=== PATIENT | male | born 1970 | race African-American/Black ===

== ENCOUNTER 2018-07-14 13:36 | Inpatient (IN) | payer MEDICAID ==
[~2018-07-14] VITALS: Ht 172.7 cm; Wt 63.0 kg
--- NOTE | 2018-07-14 20:20 | NUR ---
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 122/73,84,16,98.4, O2SAT 98%, RESPIRATORY THERAPIST CAME AND SET UP VENTILATOR, MADE PT COMFORTABLE AND REPOSITIONED.
--- NOTE | 2018-07-14 20:20 | NUR ---
PT PLACED ON HT-50 VENT WITH VENT SETTINGS OF A/C 16, VT 550, PEEP +5, FIOW 30%. ALARMS ADJUSTED ACCORDINGLY; ALARMS ARE ON AND FUNCTIONING PROPERLY. PT IS TRACHED WITH A SH. 8 DFEN TRACH. BACK UP TRACH AT AMBU BAG ARE AT BEDSIDE. NEW [place] AND HME SET UP. SUCTION SET UP. SUCTIONED MODERATE AMOUNT OF THICK, YELLOWISH SECRETIONS. NO S/S OF RESPIRATORY DISTRESS NOTED AT THIS TIME. WILL CONTINUE TO MONITOR.
[2018-07-14 22:00] VITALS: BP 122/73
[2018-07-14] MEDS: OSMOLITE 1.2 CAL 1,000 ML LIQUID GT PRN (23:00)
[2018-07-15] VITALS: BP 103/38
[2018-07-15 04:56] VITALS: BP 113/66
--- NOTE | 2018-07-15 05:00 | NUR ---
99.8,97,18,99%,113/66,suctioned moderate amount of pale yellow secretion, no respiratory distress noted,slept on and off,tylenol given for facial grimacing, repositioned and made comfortable.
[2018-07-15] MEDS: ACETAMINOPHEN 325 MG TABLET-SA PATIENTS-PAIN ONLY GT PRN ×2 (05:02→08:02)
--- NOTE | 2018-07-15 07:30 | NUR ---
PT RECEIVED IN BED AFEBRILE, NOT RESPONSIVE TO VERBAL STIMULI, ON VENT @ FIO2 30% , NO RESPIRATORY DISTRESS NOTED TRACH SHILEY 6 CUFFED SECURED/PATENT, GT SITE CLEAN/DRY/NO REDNESS/NO LEAK NOTED. COMA STATUS POST LEFT ANTERIOR CEREBRAL ARTERY INFARCT WITH MIDLINE SHEFT, S/P CRANIETOMY 2104. WILL CONTINUE TO MONITOR.
[2018-07-15 07:38] LABS: *BILIRUBIN,URIN NEGATIVE (NEGATIVE); *BLOOD, URINE 3+ (NEGATIVE); *CLARITY,URINE SLIGHTLY CLOUDY (CLEAR); *COLOR,URINE YELLOW (YELLOW); *KETONES,URINE NEGATIVE (NEGATIVE); LEUKOCYTE ESTERASE ,URINE TRACE (NEGATIVE); NITRITE, URINE NEGATIVE (NEGATIVE); PH,URINE 6.5 (5.0-8.0); UGLUCOSE NEGATIVE (NEGATIVE)
[2018-07-15] MEDS: METOCLOPRAMIDE HCL 5 MG TABLET GT SCH ×2 (07:56→11:47)
[2018-07-15 08:00] VITALS: BP 107/61
[2018-07-15] MEDS: COD LIVER OIL/ZINC OXIDE OINT 113 GM TUBE TOP SCH ×2 (08:01→20:47)
[2018-07-15] MEDS: VITAMINS A AND D OINT TP SCH ×4 (08:01→20:47)
--- NOTE | 2018-07-15 08:05 | NUR ---
TYLENOL 650MG/GT GIVEN D/T TEMP 102.7, COOLING MEASURES ALSO APPLIED, WILL CONT. TO MONITOR, CN AWARE.
[2018-07-15 08:09] LABS: BACTERIA,URINE FEW /HPF (NONE SEEN); RBC,URINE 20-50 /HPF (0-3); SQUAMOUS EPITHELIAL CELL,UR FEW /HPF (NONE SEEN)
--- NOTE | 2018-07-15 08:30 | NUR ---
SEEN AND EXAMINED BY DR LIU AWARE OF PT CONDITION WITH NO NEW ORDERS NOTED.
[2018-07-15] MEDS ORDERED: LISINOPRIL 20 MG TABLET GT SCH (09:00)
[2018-07-15] MEDS ORDERED: LEVETIRACETAM 500 MG/5 ML LIQUID UDC GT SCH (09:00)
[2018-07-15] MEDS ORDERED: ENOXAPARIN SODIUM 40 MG/0.4 ML DISP.SYRIN SQ SCH (09:00)
--- NOTE | 2018-07-15 09:25 | NUR ---
TEMP. 98.7, TYLENOL EFFECTIVE
[2018-07-15 12:30] VITALS: BP 98/59
[2018-07-15] MEDS ORDERED: ACETAMINOPHEN 650 MG/20 ML UDC- SA PATIENTS-PAIN ONLY GT PRN (12:45)
[2018-07-15] MEDS ORDERED: TUBERCULIN,PURIF.PROT.DERIV. 5 TU/0.1 ML TEST ID ONE (12:45)
[2018-07-15] MEDS: CARVEDILOL 6.25 MG TABLET GT SCH ×2 (13:00→17:22)
[2018-07-15] MEDS ORDERED: BISACODYL 10 MG SUPP.RECT RC PRN (13:00)
[2018-07-15] MEDS: METOCLOPRAMIDE HCL 10 MG/10 ML UDC GT SCH ×2 (13:19→17:22)
[2018-07-15] MEDS ORDERED: LORAZEPAM 0.5 MG TABLET PO PRN ×2 (13:30→15:30)
[2018-07-15] MEDS ORDERED: ONDANSETRON HCL 4 MG/5 ML UDC ORAL SOL GT PRN (13:30)
[2018-07-15] MEDS ORDERED: ONDANSETRON HCL 4 MG TABLET GT PRN (13:45)
--- NOTE | 2018-07-15 16:41 | NUR ---
SW tried calling patient's Lisa [phone] but there was no answer. Voicemail box was full, and SW was unable to leave a message. SW tried calling patient's daughter Eduin [phone] but there was no answer. SW left her a voicemail message asking her or patient's to call this SW back in order to schedule a time to meet to complete SW intake assessment and review/obtain signatures for admission paperwork.
--- NOTE | 2018-07-15 16:48 | NUR ---
LESIA received a call back from patient's daughter Eduin [phone] about 5 minutes after this SW left her a voicemail message (see previous SS note). LESIA explained to her that LESIA was trying to get a hold of the patient's Lisa in order to schedule a time to meet to complete the SW intake assessment and review the admission paperwork. Eduin stated that she would let Lisa know to call LESIA back as soon as possible. LESIA thanked Eduin for her assistance.
--- NOTE | 2018-07-15 17:03 | NUR ---
SW received a call back from patient's Lisa. SW explained the reason for her call and asked to schedule a time to meet with the patient's to complete the SW intake assessment and review the admission paperwork. Lisa stated that she does not drive and needs to see when her daughter can bring her to the hospital. Lisa stated that she would coordinate with her daughter and call this SW back. LESIA agreed and stated that this is time-sensitive and if she could come in either tomorrow or the next day, that it would be ideal. Lisa expressed understanding. LESIA thanked Lisa for her time. LESIA will follow up with Lisa if she does not hear back from her.
--- NOTE | 2018-07-15 17:05 | NUR ---
RECEIVED ON CURRENT VENTILATOR SETTINGS OF AC 16, VT 550, FIO2 30% AND PEEP 5. PT IS AWAKE, STABLE AND RESPONSIVE WITH SATURATION OF 98%. SUCTIONED FOR LARGE AMOUNT OF THICK WHITISH SECRETION. TRACH SHILEY NO. [address] AND SECURE WITH BALLOON INFLATED TO MINIMAL LEAK TECHNIQUE. VENT IS WORKING WELL WITH ALL ALARMS ACTIVE.
[2018-07-15 18:08] VITALS: BP 103/64
--- NOTE | 2018-07-15 18:48 | NUR ---
PT WITH NO RESPIRATORY DISTRESS NOTED,HAS TRACH IN PLACE AND PATENCY,VENTILATOR PRESCRIBED SETTING,SUCTIONED NEEDED,ENTERAL FEEDING TOLERATED WELL,NO NAUSEA OR VOMITING NOTED,HOB ELEVATED,TEMP RECHECK 98,NO DISTRESS NOTED.
--- NOTE | 2018-07-15 19:41 | NUR ---
Dr. Alvarez called and ordered CBC, CXR, sputum c&s , blood cultures X 2 15 minutes apart for elevated temperature, noted and carried out.
--- NOTE | 2018-07-15 20:10 | NUR ---
Pt received on HT-50 ventilator with the following settings of AC 16, VT 550, Peep +5, FiO2 30%, no changes to vent settings made at this time. Pt is trached with Shiley 8, trach is secured and is patent. Pt tolerating vent settings well, no signs and symptoms of respiratory distress noted. Suctioned pt with moderate amount of thick pale-yellowish secretions. Vent alarms functioning and audible. Ambu-bag and back-up trach at bedside. Vent plugged in red outlet. Will continue to monitor pt throughout shift.
[2018-07-15] MEDS: LEVETIRACETAM 500 MG/5 ML LIQUID UDC GT SCH (20:45)
[2018-07-15 20:49] VITALS: BP 92/48
[2018-07-15 21:41] LABS: BASOPHILS % (AUTO) 0.6 % (0.0-2.0); EOSINOPHILS # (AUTO) 0.1 K/uL (0.0-0.7); EOSINOPHILS % (AUTO) 2.7 % (0.0-7.0); HEMATOCRIT 28.7 % (36.7-47.1); HEMOGLOBIN 9.4 g/dL (12.5-16.3); LYMPHOCYTES # (AUTO) 2.1 K/uL (20.0-40.0); LYMPHOCYTES % (AUTO) 38.6 % (20.5-51.5); MEAN CORPUSCULAR HEMOGLOBIN 25.9 uug (23.8-33.4); MEAN CORPUSCULAR HGB CONC 33 g/dL (32.5-36.3); MEAN CORPUSCULAR VOLUME 79.2 fL (73.0-96.2); MONOCYTES # (AUTO) 0.4 K/uL (2.0-10.0); MONOCYTES % (AUTO) 7.9 % (0.0-11.0); NEUTROPHILS # (AUTO) 2.7 K/uL (1.8-8.9); NEUTROPHILS % (AUTO) 50.2 % (38.5-71.5); PLATELET COUNT (AUTO) 219 K/uL (152-348); RED BLOOD CELL COUNT(AUTO) 3.62 MIL/uL (4.06-5.63); WHITE BLOOD COUNT (AUTO) 5.3 K/uL (3.6-10.2)
--- NOTE | 2018-07-15 22:03 | NUR ---
Seen H& P notes from Dr. Peterson , no orders noted.
[2018-07-16] VITALS: BP 92/51
--- NOTE | 2018-07-16 03:30 | NUR ---
Treatment done to left side of head surgical incision and Left side of abdomen dry surgical incision.
[2018-07-16 04:00] VITALS: BP 108/78
--- NOTE | 2018-07-16 04:12 | NUR ---
Afebrile, no respiratory distress noted, left side of head surgical incision scab looks dry and left side of abdomen incision looks dry, steri-strips intact and no drainage from site noted, on seizure precaution, kept clean and comfortable.
[2018-07-16] MEDS: LANSOPRAZOLE 30 MG TAB.RAP.DR GT SCH (05:53)
--- NOTE | 2018-07-16 07:41 | NUR ---
PT RECEIVED ON CMV WITH TRACH PROPERLY SECURED AND INTACT. AIRWAY PATENT. PT TOLERATING CURRENT VENT SETTINGS FINE WITH NO EVIDENCE OF RESPIRATORY DISTRESS. BREATH SOUNDS RHONCHI. PRN SUCTIONING PERFORMED. PT HAD MODERATE AMOUNT OF OFF WHITE YELLOWISH SECRETIONS. HEAD OF THE BED ELEVATED. VENT ALARMS SET AND AUDIBLE. VENT PLUGGED IN RED OUTLET. PT COMFORTABLE.
[2018-07-16 08:00] VITALS: BP 100/53
[2018-07-16] MEDS: ENOXAPARIN SODIUM 40 MG/0.4 ML DISP.SYRIN SQ SCH (09:00)
[2018-07-16] MEDS: VITAMINS A AND D OINT TP SCH ×4 (09:00→20:19)
[2018-07-16] MEDS: LISINOPRIL 20 MG TABLET GT SCH (09:00)
[2018-07-16] MEDS: METOCLOPRAMIDE HCL 10 MG/10 ML UDC GT SCH ×3 (09:00→17:08)
[2018-07-16] MEDS: COD LIVER OIL/ZINC OXIDE OINT 113 GM TUBE TOP SCH ×2 (09:00→20:19)
[2018-07-16] MEDS: LEVETIRACETAM 500 MG/5 ML LIQUID UDC GT SCH ×2 (09:00→20:19)
[2018-07-16] MEDS: CARVEDILOL 6.25 MG TABLET GT SCH ×3 (09:00→17:08)
[2018-07-16 13:00] VITALS: BP 102/63
--- NOTE | 2018-07-16 15:15 | NUR ---
SW called patient's Lisa [phone] to follow-up on yesterday's phone conversation (see yesterday's SS note) and see if Lisa was able to coordinate a day/time with her daughter to come to the hospital to meet with this SW in order to review/sign the admission paperwork and complete the psychosocial assessment. Lisa stated that she and her daughter were planning on coming in tomorrow, Tuesday 07/17, but she was unsure of what time. LESIA asked Lisa if she could find out an approximate time of when she will be coming in, because of SW's work hours. SW stated to Lisa that if she and her daughter were planning on coming in the evening, that SW could complete the assessment over the phone with her and then coordinate another time to review the paperwork and obtain her signatures. Lisa stated that she would find out from her daughter and call this SW back. SW agreed.
--- NOTE | 2018-07-16 16:23 | NUR ---
LESIA received a call from a girl named Marci [phone] who identified herself as patient's daughter. Marci wanted to speak with this SW regarding her ability to get medical information about her father when she came to visit him, because she has an estranged relationship with the patient's Lisa and therefore would not be getting updates from her regarding the patient. LESIA explained to Marci that patient's Lisa is the primary contact at this time, and that LESIA has not yet met with her to discuss the family dynamics and any possible restrictions or preferences for who can or cannot obtain information on the patient. At this time, LESIA maintained confidentiality and explained to Marci that LESIA would need to speak with Lisa to discuss guidelines for disclosing information. LESIA also reminded Marci that medical information is not disclosed via telephone to unidentified individuals, regardless of what the caller states may be their relationship to the patient. Marci expressed understanding all that was stated by this LESIA, and thanked LESIA for her time.
[2018-07-16 17:00] VITALS: BP 115/60
--- NOTE | 2018-07-16 19:50 | NUR ---
Pt receive in semi fried position, on continuous mechanical ventilation via trach, and with limited response to verbal stimuli. Pt is of [place] HT-50 vent with ordered settings of A/C-16, VT-550, PEEP+5, FIO2-30%. Tolerating vent settings well. SpO2-99%. Shiley 8 DCT trach is patent and secure. Minimal leak technique used to assess cuff inflation. Sxn'd & lavaged as needed. Sxn'd small amts of white/yellow secretions. HME changed. No respiratory distress noted. Ventilator alarm parameters checked, on and audible. Head of bed elevated. Bag/valve/mask and back up trach at bedside. Vent plugged into red emergency outlet. PPE used. Will continue to monitor.
[2018-07-16 20:00] VITALS: BP 96/43
--- NOTE | 2018-07-16 22:33 | NUR ---
Afebrile, trach intact and patent, connected to vent, no respiratory distress noted, 02 sat @ 98%. gt feeding tolerating well, no residuals noted, treatment done to left side of head incision scab, handled very gently, area is dry. also, Left side of abdomen surgical incision is dry, steri-strips intact and no discharges or drainage noted, Kept clean and comfortable.
[2018-07-17] VITALS: BP 92/49
[2018-07-17] MEDS: OSMOLITE 1.2 CAL 1,000 ML LIQUID GT PRN ×2 (02:08→19:00)
[2018-07-17 04:00] VITALS: BP 117/49
[2018-07-17] MEDS: LANSOPRAZOLE 30 MG TAB.RAP.DR GT SCH (06:14)
--- NOTE | 2018-07-17 07:52 | NUR ---
Pt receive in semi fried position, unable to communicate, responds to physical stimuli.. Continuous mechanical ventilation with vent: HT-50 settings: A/C 16, Vt 550, PEEP +5, FIO2 30%, tolerating settings well, no changes made to settings at this time.. Pt trach: Khushboo 8 DCT, in place and secure with tie.. No respiratory distress noted at this time, will continue to monitor.. Vent alarms functioning normally at this time / on / audible.. BVM / back up trach at bedside, vent plugged in to red emergency outlet..
[2018-07-17 08:54] VITALS: BP 103/56
[2018-07-17] MEDS: CARVEDILOL 6.25 MG TABLET GT SCH ×3 (08:56→16:51)
[2018-07-17] MEDS: LEVETIRACETAM 500 MG/5 ML LIQUID UDC GT SCH ×2 (08:56→21:19)
[2018-07-17] MEDS: METOCLOPRAMIDE HCL 10 MG/10 ML UDC GT SCH ×3 (08:56→16:51)
[2018-07-17] MEDS: LISINOPRIL 20 MG TABLET GT SCH (08:57)
[2018-07-17] MEDS: COD LIVER OIL/ZINC OXIDE OINT 113 GM TUBE TOP SCH ×2 (08:57→21:19)
[2018-07-17] MEDS: VITAMINS A AND D OINT TP SCH ×4 (08:58→21:19)
[2018-07-17] MEDS: ENOXAPARIN SODIUM 40 MG/0.4 ML DISP.SYRIN SQ SCH (08:58)
--- NOTE | 2018-07-17 11:59 | NUR ---
10:30am: LESIA called patient's Lisa [phone] in response to the voicemail message that Lisa had left for this SW yesterday evening. Lisa stated that her daughter was not going to be able to bring Lisa in today to visit patient and meet with LESIA. LESIA then completed the psychosocial assessment with Lisa via telephone. LESIA reminded Lisa that the admission paperwork (Conditions of Admission, [facility] contract, Patient's Rights Acknowledgement, Preferred Intensity of Care, and the Voluntary Prior Express Consent Form) was still outstanding and needed to be signed by her. Lisa stated that she will try and see when the earliest was that she could come to the hospital and let SW know. At this time, Lisa stated that patient's healthcare wishes are to be a Full Code. Lisa stated that she and patient have 3 children together, but that patient also has 5 other children; Lisa expressed not having any visitation restrictions, but stated that she would prefer it if information on the details of the patient's medical condition were only discussed with her. LESIA expressed understanding and stated that as the , she would be the primary contact for the hospital. LESIA stated that she would let the nursing staff know of her request. LESIA informed Lisa about the dental, optometry, and podiatry services available to the subacute patients, and Lisa was in agreement for patient to have these services. LESIA scheduled patient's initial dental appointment/exam for Friday07/20/18 and informed Lisa of the date. LESIA also informed Lisa about the monthly IDT meetings, inviting her to the next IDT meeting [facility] is scheduled for 07/28/18. Lisa stated she will let LESIA know if she would be able to attend. No psychosocial problems identified at this time. However Lisa did become tearful over patient's condition during the phone interview. LESIA provided supportive counseling over the phone and informed Lisa that counseling services and monthly family support group is available for subacute families. Lisa expressed understanding and thanked LESIA for her time.
[2018-07-17 12:37] VITALS: BP 111/57
[2018-07-17 16:00] VITALS: BP 112/53
--- NOTE | 2018-07-17 20:28 | NUR ---
Received pt on HT-50 ventilator with the following settings of AC-16, Vt-550, PEEP+5, FIO2-30%, trached with Shiley#8 DFEN trach, which is in the place and secure properly. No s/s of respiratory distress noted. Airway care done, pt responded to physical stimuli. Resus. bag and back up trach at bedside. Vent and alarms checked and reset.
[2018-07-17 21:00] VITALS: BP 99/50
--- NOTE | 2018-07-18 02:25 | NUR ---
Afebrile, connected to vent , no respiratory distress noted. on seizure precaution, no seizure noted. kept clean and comfortable.
[2018-07-18] MEDS: LANSOPRAZOLE 30 MG TAB.RAP.DR GT SCH (06:04)
--- NOTE | 2018-07-18 07:10 | NUR ---
Trached patient endorsed on HT-50 ventilator with ordered settings of AC 16, VT 550, Peep +5, FiO2 30%. No signs or symptoms of respiratory distress noted at this time. He is trached with Shiley 8 DCT; trach is secured and is patent. Suctioned small to moderate amounts of thick pale-yellowish secretions. Vent circuit and HME changed without complications. Vent alarms functioning and audible. Ambu-bag and back-up trach at bedside. Will continue to monitor throughout shift.
[2018-07-18 08:09] VITALS: BP 93/47
[2018-07-18] MEDS: LISINOPRIL 20 MG TABLET GT SCH (09:00)
[2018-07-18] MEDS: CARVEDILOL 6.25 MG TABLET GT SCH ×2 (09:00→21:29)
[2018-07-18] MEDS: METOCLOPRAMIDE HCL 10 MG/10 ML UDC GT SCH ×3 (09:21→21:34)
[2018-07-18] MEDS: COD LIVER OIL/ZINC OXIDE OINT 113 GM TUBE TOP SCH ×2 (09:23→21:33)
[2018-07-18] MEDS: ENOXAPARIN SODIUM 40 MG/0.4 ML DISP.SYRIN SQ SCH (09:23)
[2018-07-18] MEDS: VITAMINS A AND D OINT TP SCH ×4 (09:23→21:34)
[2018-07-18] MEDS: LEVETIRACETAM 500 MG/5 ML LIQUID UDC GT SCH ×2 (09:24→21:33)
--- NOTE | 2018-07-18 11:44 | NUR ---
Seen and examined by Dr Martinez,aware pt has episodes of low hr and hypotension with new orders noted.
[2018-07-18] MEDS: OSMOLITE 1.2 CAL 1,000 ML LIQUID GT PRN (14:36)
[2018-07-18] MEDS ORDERED: LORAZEPAM 0.5 MG TABLET PO PRN ×2 (16:58→17:00)
[2018-07-18] MEDS ORDERED: CARVEDILOL 6.25 MG TABLET GT SCH (17:00)
[2018-07-18 22:07] VITALS: BP 111/42
[2018-07-19] MEDS: OSMOLITE 1.2 CAL 1,000 ML LIQUID GT PRN ×2 (03:00→18:26)
--- NOTE | 2018-07-19 03:27 | NUR ---
RECEIVED PT ON A MECHANICAL VENTILATOR WITH THE FOLLOWING SETTINGS THAT ARE CHARTED ON THE MECHANICAL VENT NOTES. SUCTIONED SMALL AMOUNTS OF THIN WHITE AND YELLOW SECRETIONS. TRACH IS PATENT AND PROPERLY SECURED WITH TRACH TIES. HME CHANGED. INLINE CATHETER CHANGED. NO COMPLICATIONS. BACK UP TRACH AND AMBU BAG IS BY BEDSIDE. VENTILATOR ALARMS ARE ON AND AUDIBLE. VENTILATOR IS PLUGGED IN THE RED OUTLET. PT IS TOLERATING CURRENT VENTILATOR SETTINGS WELL AT THIS TIME. NO SOB NOTED.
[2018-07-19] MEDS: METOCLOPRAMIDE HCL 10 MG/10 ML UDC GT SCH ×3 (05:02→22:53)
[2018-07-19] MEDS: LANSOPRAZOLE 30 MG TAB.RAP.DR GT SCH (05:02)
[2018-07-19 07:16] LABS: BASOPHILS % (AUTO) 0.3 % (0.0-2.0); EOSINOPHILS # (AUTO) 0.1 K/uL (0.0-0.7); EOSINOPHILS % (AUTO) 1.6 % (0.0-7.0); HEMOGLOBIN 8.7 g/dL (12.5-16.3); LYMPHOCYTES # (AUTO) 1.9 K/uL (20.0-40.0); LYMPHOCYTES % (AUTO) 28.7 % (20.5-51.5); MEAN CORPUSCULAR HEMOGLOBIN 25.5 uug (23.8-33.4); MEAN CORPUSCULAR HGB CONC 32 g/dL (32.5-36.3); MEAN CORPUSCULAR VOLUME 78.8 fL (73.0-96.2); MONOCYTES # (AUTO) 0.6 K/uL (2.0-10.0); MONOCYTES % (AUTO) 8.2 % (0.0-11.0); NEUTROPHILS # (AUTO) 4.1 K/uL (1.8-8.9); NEUTROPHILS % (AUTO) 61.2 % (38.5-71.5); PLATELET COUNT (AUTO) 239 K/uL (152-348); RED BLOOD CELL COUNT(AUTO) 3.43 MIL/uL (4.06-5.63); WHITE BLOOD COUNT (AUTO) 6.8 K/uL (3.6-10.2)
[2018-07-19 07:24] LABS: MAGNESIUM 2.2 mg/dL (1.8-2.4); PHOSPHOROUS 4.1 mg/dL (2.5-4.9)
[2018-07-19 08:07] VITALS: BP 126/61
[2018-07-19] MEDS: LEVETIRACETAM 500 MG/5 ML LIQUID UDC GT SCH ×2 (09:22→21:40)
[2018-07-19] MEDS: CARVEDILOL 6.25 MG TABLET GT SCH ×2 (09:22→21:00)
[2018-07-19] MEDS: VITAMINS A AND D OINT TP SCH ×4 (09:23→21:38)
[2018-07-19] MEDS: COD LIVER OIL/ZINC OXIDE OINT 113 GM TUBE TOP SCH ×2 (09:23→21:38)
[2018-07-19] MEDS: LISINOPRIL 20 MG TABLET GT SCH (09:23)
[2018-07-19] MEDS: ENOXAPARIN SODIUM 40 MG/0.4 ML DISP.SYRIN SQ SCH (09:23)
[2018-07-19 13:34] LABS: BILIRUBIN,TOTAL 0.3 mg/dL (0.2-1.0); POTASSIUM 4.9 mmol/L (3.5-5.1); TOTAL PROTEIN, SERUM 7.1 g/dL (6.4-8.2)
--- NOTE | 2018-07-19 18:05 | NUR ---
RECEIVED ON CURRENT VENTILATOR SETTINGS OF AC 16, VT 550, FIO2 30% AND PEEP 5. PT IS AWAKE, STABLE AND RESPONSIVE ALTHOUGH ASLEEP MOST OF THE DAY TODAY. SUCTIONED FOR MODERATE AMOUNT OF THICK WHITISH SECRETION. TRACH SHILEY NO. [address] AND SECURE. VENT IS WORKING WELL WITH ALL ALARMS ACTIVE.
--- NOTE | 2018-07-19 20:08 | NUR ---
Received pt on HT-50 ventilator with the following settings of AC-16, Vt-550, PEEP+5, FIO2-30%, trached with Shiley#8 DFEN trach, which is in the place and secure properly. No s/s of respiratory distress noted. Airway care done, pt responded to physical stimuli. HME changed. Resus. bag and back up trach at bedside. Vent and alarms checked and reset.
[2018-07-19 22:42] VITALS: BP 89/47
[2018-07-20] MEDS: METOCLOPRAMIDE HCL 10 MG/10 ML UDC GT SCH ×3 (06:23→22:02)
[2018-07-20] MEDS: LANSOPRAZOLE 30 MG TAB.RAP.DR GT SCH (06:30)
[2018-07-20 08:00] VITALS: BP 132/53
--- NOTE | 2018-07-20 08:05 | NUR ---
Pt receive in semi fried position, on continuous mechanical ventilation via trach, and with limited response to verbal stimuli. Pt is of [place] HT-50 vent with ordered settings of A/C-16, VT-550, PEEP+5, FIO2-30%. Tolerating vent settings well. SpO2-98%. C[place] 8 DFEN trach is patent and secure. Minimal leak technique used to assess cuff inflation. Sxn'd & lavaged as needed. Sxn'd small amts of white/yellow secretions. HME changed. No respiratory distress noted. Ventilator alarm parameters checked, on and audible. Head of bed elevated. Bag/valve/mask and back up trach at bedside. Vent plugged into red emergency outlet. PPE used. Will continue to monitor.
[2018-07-20] MEDS: CARVEDILOL 6.25 MG TABLET GT SCH ×2 (09:00→21:30)
[2018-07-20] MEDS: LISINOPRIL 20 MG TABLET GT SCH (09:00)
[2018-07-20] MEDS: LEVETIRACETAM 500 MG/5 ML LIQUID UDC GT SCH ×2 (09:55→21:30)
[2018-07-20] MEDS: VITAMINS A AND D OINT TP SCH ×4 (09:55→21:30)
[2018-07-20] MEDS: COD LIVER OIL/ZINC OXIDE OINT 113 GM TUBE TOP SCH ×2 (09:55→21:30)
[2018-07-20] MEDS: ENOXAPARIN SODIUM 40 MG/0.4 ML DISP.SYRIN SQ SCH (09:56)
--- NOTE | 2018-07-20 11:05 | NUR ---
Seen by Rosalina FIGUEROA with no new order.
--- NOTE | 2018-07-20 12:33 | NUR ---
Dr. Peterson with no new order.
[2018-07-20] MEDS: OSMOLITE 1.2 CAL 1,000 ML LIQUID GT PRN (15:30)
--- NOTE | 2018-07-20 16:57 | NUR ---
Patient seen by dentist Dr. Ybarra today. See Dental Notes for details.
[2018-07-20] MEDS: ACETAMINOPHEN 325 MG TABLET-SA PATIENTS-PAIN ONLY GT PRN (17:33)
--- NOTE | 2018-07-20 19:55 | NUR ---
Received pt on HT-50 vent with current settings of AC 16, VT 550, Peep +5, FiO2 30%, no changes to vent settings made at this time. Pt is trached with Khushboo 8 DFEN trach, which is secured and patent. Pt tolerating vent settings well, no signs and symptoms of respiratory distress noted. Suctioned pt with moderate amount of thick pale-yellowish secretions. Changed HME. Vent alarms functioning and audible. Ambu-bag and back-up trach at bedside. Vent plugged in red outlet. Will continue to monitor pt throughout shift.
[2018-07-20 20:39] VITALS: BP 99/42
[2018-07-21] MEDS: OSMOLITE 1.2 CAL 1,000 ML LIQUID GT PRN ×2 (03:42→20:53)
[2018-07-21] MEDS: METOCLOPRAMIDE HCL 10 MG/10 ML UDC GT SCH ×3 (05:50→21:02)
[2018-07-21] MEDS: LANSOPRAZOLE 30 MG TAB.RAP.DR GT SCH (05:50)
--- NOTE | 2018-07-21 08:41 | NUR ---
Seen by neurologist Dr Suero,no new orders noted.
[2018-07-21] MEDS: COD LIVER OIL/ZINC OXIDE OINT 113 GM TUBE TOP SCH ×2 (09:00→20:55)
[2018-07-21] MEDS: CARVEDILOL 6.25 MG TABLET GT SCH ×2 (09:00→20:55)
[2018-07-21] MEDS: VITAMINS A AND D OINT TP SCH ×4 (09:00→20:55)
[2018-07-21] MEDS: LISINOPRIL 20 MG TABLET GT SCH (09:00)
[2018-07-21] MEDS: ENOXAPARIN SODIUM 40 MG/0.4 ML DISP.SYRIN SQ SCH (09:00)
[2018-07-21] MEDS: LEVETIRACETAM 500 MG/5 ML LIQUID UDC GT SCH ×2 (09:00→20:55)
--- NOTE | 2018-07-21 10:30 | NUR ---
Seen and examined by Rosalina Prieto ,no new orders noted.
--- NOTE | 2018-07-21 14:05 | NUR ---
Pharmacy Review for Upcoming 07/28/18 IDT Meeting Patient admitted 07/14/18 from [place]. 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 Pt was found to be positive on urine tox for methamphetamines Temp 98.9 BP 117/58 HR 92 LABS: (from 07/19/18) Wbc 6.8H/H 8.7/27Plt 239 Na 137K 4.9Cl 104CO2 24BUN/Scr 18/1.0 BS 86Ca 8.6Phos 4.1Mg 2.2 MEDICATION USE REVIEWED: > Pt is not on any anti-psych medications > Pt is on Keppra 500mg q 12hr since admit 07/14/18, no seizures reported; CrCl 82.5 ml/min, dose appropriate per renal fxn > Pt on lovenox 40mg daily for DVT prophylaxis, no signs of bleeding, last plt 239 > Pt on coreg 6.25mg q12hr, lisinopril 20mg daily, hydralazine PRN SBP >160. Last BP 117/58 > Admitted on reglan 5mg q8hr for GI motility/gastroparesis PRN MED USAGE: (since admit 07/14) Tylenol for pain/temp used x 3 (pain) Bisacodyl supp used x0 Miralax PRN used x 0 Hydralazine PRN used x 0 Ativan PRN anxiety/agitation used x 0 NEW ORDERS NOTED: > Initial Rx review, please see above Rx reviewed current medication regimen, will recommend for d/c of reglan if gastroparesis has subsided. Pt now has PEG, tolerating tube feeds per RN. Recommended duration for gastroparesis generally up to 12 wks unless benefit outweigh risks, to ask MD. RNs have also reported pt may have had diarrhea which has now subsided. if were to continue, will rec d/c of laxatives. Noted MD mention of elevated LFTs, possible contributing meds could be reglan, prevacid, coreg, lisinopril which all may potentially elevate LFTs - all are renally and hepatically appropriately dosed at this time. Pt also noted to have possible drug abuse per urine tox screen, may also have been contributing factor. Will follow and recommend adjustments as needed.
--- NOTE | 2018-07-21 14:16 | NUR ---
RECEIVED ON CURRENT VENTILATOR SETTINGS OF AC 16, VT 550, FIO2 30% AND PEEP 5. PT IS AWAKE WITH NO DISTRESS, ALTHOUGH NOTED WITH CONGESTION. SUCTIONED FOR COPIOUS AMOUNT OF THICK PALE YELLOW SECRETION. ALSO DRAINED TUBING FOR EXCESS MUCOUS. TRACH SHILEY NO. [address] AND SECURE. VENT IS WORKING WELL WITH ALL ALARMS ACTIVE.
[2018-07-21 20:22] VITALS: BP 127/60
[2018-07-22] MEDS: METOCLOPRAMIDE HCL 10 MG/10 ML UDC GT SCH ×3 (05:51→22:25)
[2018-07-22] MEDS: LANSOPRAZOLE 30 MG TAB.RAP.DR GT SCH (05:51)
[2018-07-22 08:00] VITALS: BP 129/51
[2018-07-22] MEDS: LEVETIRACETAM 500 MG/5 ML LIQUID UDC GT SCH ×2 (09:10→20:51)
[2018-07-22] MEDS: LISINOPRIL 20 MG TABLET GT SCH (09:10)
[2018-07-22] MEDS: ENOXAPARIN SODIUM 40 MG/0.4 ML DISP.SYRIN SQ SCH (09:10)
[2018-07-22] MEDS: COD LIVER OIL/ZINC OXIDE OINT 113 GM TUBE TOP SCH ×2 (09:10→20:51)
[2018-07-22] MEDS: VITAMINS A AND D OINT TP SCH ×4 (09:10→20:51)
[2018-07-22] MEDS: CARVEDILOL 6.25 MG TABLET GT SCH ×2 (09:10→20:51)
--- NOTE | 2018-07-22 19:55 | NUR ---
PT RECEIVED ON CONTINUOUS VENT AC 16 VT 550 PEEP 5 FIO2 30%. SHILEY 8 TRACH IN PLACED AND SECURED WITH TRACH TIE. BACK UP TRACH AND AMBU BAG AT BEDSIDE. VENT CHECKED AND WORKING WELL. ALARMS WORKING WELL AND CONNECTED TO CALL LIGHT. SUCTION SMALL AMOUNT THICK PALE YELLOW SECRETIONS. NO DISTRESS NOTED AT THIS TIME. WILL CONTINUE TO MONITOR.
[2018-07-22 20:00] VITALS: BP 117/71
[2018-07-23] MEDS: OSMOLITE 1.2 CAL 1,000 ML LIQUID GT PRN ×2 (02:39→22:26)
[2018-07-23] MEDS: LANSOPRAZOLE 30 MG TAB.RAP.DR GT SCH (05:17)
[2018-07-23] MEDS: METOCLOPRAMIDE HCL 10 MG/10 ML UDC GT SCH ×3 (05:17→22:04)
--- NOTE | 2018-07-23 07:12 | NUR ---
PT RECEIVED TRACH TO VENT ON CMV, ON HT-50 VENT ON CURRENT ORDERED SETTINGS, AC 16, VT 550, PEEP +5 AND 30% FIO2. EITAN #8 TRACH IS PATENT AND SECURE. VENT PARAMETERS AND ALARMS CHECKED, ALARMS ARE AUDIBLE. PT IS TOLERATING VENT SETTINGS WELL, NO RESP. DISTRESS NOTED AT THIS TIME. HME CHANGED. AMBU-BAG AND BACK-UP TRACH AT BEDSIDE. VENT PLUGGED INTO RED OUTLET. SUCTION PRN. WILL CONTINUE TO MONITOR.
[2018-07-23 08:00] VITALS: BP 121/54
[2018-07-23] MEDS: CARVEDILOL 6.25 MG TABLET GT SCH ×2 (09:43→20:23)
[2018-07-23] MEDS: VITAMINS A AND D OINT TP SCH ×4 (09:43→20:23)
[2018-07-23] MEDS: LISINOPRIL 20 MG TABLET GT SCH (09:43)
[2018-07-23] MEDS: LEVETIRACETAM 500 MG/5 ML LIQUID UDC GT SCH ×2 (09:43→20:23)
[2018-07-23] MEDS: COD LIVER OIL/ZINC OXIDE OINT 113 GM TUBE TOP SCH ×2 (09:43→20:23)
[2018-07-23] MEDS: ENOXAPARIN SODIUM 40 MG/0.4 ML DISP.SYRIN SQ SCH (09:45)
--- NOTE | 2018-07-23 16:11 | NUR ---
4:05pm: LESIA called patient's Lisa [phone] to follow-up with her regarding the scheduling of a date/time when she would be coming into the hospital to meet with SW in order to review and sign the admission paperwork. LESIA had discussed the need for this on previous telephone conversations with Lisa (see SS notes dated 07/15, 07/16, 07/17). LESIA was unable to reach Lisa and therefore left her a voicemail message asking her to call this SW back in order to schedule a time to meet, and reminded her in the voicemail message that reviewing and signing the admission paperwork was important and time-sensitive. At this time, the admission paperwork, which includes the Conditions of Admission, the [facility] Agreement, the Patient's Rights Acknowledgment, the Voluntary Prior Express Consent form, and the Preferred Intensity of Care, remain unsigned by patient/patient's claims service representative.
--- NOTE | 2018-07-23 19:55 | NUR ---
PT RECEIVED ON CONTINUOUS VENT AC 16 VT 550 PEEP 5 FIO2 30%. TRACH IN PLACED AND SECURED WITH TRACH TIE. BACK UP TRACH AND AMBU BAG AT BEDSIDE. VENT CHECKED AND WORKING WELL. ALARMS WORKING WELL AND CONNECTED TO CALL LIGHT. SUCTION SMALL AMOUNT THICK PALE YELLOW SECRETIONS. NO DISTRESS NOTED AT THIS TIME. WILL CONTINUE TO MONITOR.
[2018-07-23 20:00] VITALS: BP 113/64
[2018-07-24] MEDS: METOCLOPRAMIDE HCL 10 MG/10 ML UDC GT SCH ×3 (05:32→22:02)
[2018-07-24] MEDS: LANSOPRAZOLE 30 MG TAB.RAP.DR GT SCH (05:32)
[2018-07-24 08:00] VITALS: BP 112/58
[2018-07-24] MEDS: CARVEDILOL 6.25 MG TABLET GT SCH ×2 (08:26→21:00)
[2018-07-24] MEDS: LEVETIRACETAM 500 MG/5 ML LIQUID UDC GT SCH ×2 (08:26→21:00)
[2018-07-24] MEDS: LISINOPRIL 20 MG TABLET GT SCH (08:26)
[2018-07-24] MEDS: ENOXAPARIN SODIUM 40 MG/0.4 ML DISP.SYRIN SQ SCH (08:27)
[2018-07-24] MEDS: COD LIVER OIL/ZINC OXIDE OINT 113 GM TUBE TOP SCH ×2 (08:27→21:00)
[2018-07-24] MEDS: VITAMINS A AND D OINT TP SCH ×4 (08:27→21:00)
--- NOTE | 2018-07-24 15:25 | NUR ---
MESSAGE LEFT TO PT'S RE:FLU VACCINE CONSENT.
--- NOTE | 2018-07-24 16:30 | NUR ---
3:35pm: SW has not received a call back from patient's since the message SW left her yesterday regarding the admission paperwork that still needs to be reviewed/signed. SW called patient's daughter Eduin [phone] and was able to speak with her. SW explained to the daughter that patient's admission paperwork still needs to be signed, which are expected to be signed within 48 hours of admission, and asked for her help with coordinating a day/time when she can bring patient's down to the hospital to meet with SW (patient's does not drive and lives in [place]). Patient's daughter expressed understanding and stated that her sister Alexander (patient's other daughter) is more available to assist with bringing patient's to the hospital, and stated that she would talk to her about coordinating a day/time and let SW know. LESIA thanked Hipolito for her time and cooperation. SW to follow-up with the family if SW does not hear back from them. Subacute Director Norman Aguila aware of above.
--- NOTE | 2018-07-24 16:34 | NUR ---
Patient's sister Michelle Alberto had left this SW a voicemail message yesterday wanting to know about patient's medical condition because patient's does not communicate with her, or other family members. This SW and Subacute Director Norman Aguila called Michelle back today at around 3:45pm at [phone] but were unable to connect with her. SW left Michelle a voicemail message asking her to call this SW and Subacute Director back at her earliest convenience.
--- NOTE | 2018-07-24 16:37 | NUR ---
4:10pm: SW and Subacute Director Norman Aguila called patient's daughter Marci back [phone] in response to a voicemail message that she had left this SW. Marci wanted to inquire about patient's medical condition and expressed not being able to obtain much information from the nurses. Both this SW and Subacute Director Norman explained to Marci that after speaking with the patient's , who is the primary contact and apparel trimmings sales representative for the patient, the expressed that it was her wish to limit the disclosure of detailed information about patient's medical condition to just herself. SW also explained that patient's stated that it was fine with her to let family members know such things as "patient is fine" or "there are no changes in patient's condition", however details should only be discussed with her. Marci expressed some frustration with LESIA's response. SW acknowledged and validated Marci's frustrations, however explained to her that at this time the primary contact center analyst was the patient's and that these were the instructions that the hospital staff were following. LESIA and Subacute Director then suggested that LESIA could talk to patient's about coordinating a family conference with the doctor, but that the patient's would need to agree and be present in order for the other family members to also participate. Marci expressed understanding and agreement. LESIA will follow-up with patient's Lisa to discuss the option of a family conference and will then follow-up with Marci with the outcome of this discussion.
--- NOTE | 2018-07-24 18:00 | NUR ---
PT'S CALLED BACK AND CONSENTED FLU VACCINE ADMINISTRATION.
--- NOTE | 2018-07-24 18:41 | NUR ---
PT. SEEN BY DR. LEVY AND WITH NEW ORDERS CARRIED OUT .LEFT SCALP SX SUTURES WERE REMOVED,PROCEDURE WELL TOLERATED. PICTURE WAS TAKEN.PT. NOTED WITH DANDRUFF PATCHES.
--- NOTE | 2018-07-24 19:50 | NUR ---
PT RECEIVED ON CONTINUOUS VENT AC 16 VT 550 PEEP 5 FIO2 30%. TRACH IN PLACED AND SECURED WITH TRACH TIE. BACK UP TRACH AND AMBU BAG AT BEDSIDE. TOLERATING CURRENT VENT SETTINGS AT THIS TIME. VENT CHECKED AND WORKING WELL. ALARMS WORKING WELL AND CONNECTED TO CALL LIGHT. SUCTION SMALL AMOUNT THICK PALE YELLOW SECRETIONS. NO DISTRESS NOTED AT THIS TIME. WILL CONTINUE TO MONITOR.
[2018-07-24 20:00] VITALS: BP 97/58
[2018-07-25] MEDS: LANSOPRAZOLE 30 MG TAB.RAP.DR GT SCH (06:07)
[2018-07-25] MEDS: METOCLOPRAMIDE HCL 10 MG/10 ML UDC GT SCH ×3 (06:07→21:31)
[2018-07-25 06:40] LABS: BASOPHILS % (AUTO) 0.3 % (0.0-2.0); EOSINOPHILS # (AUTO) 0.2 K/uL (0.0-0.7); EOSINOPHILS % (AUTO) 3.5 % (0.0-7.0); HEMATOCRIT 28.6 % (36.7-47.1); HEMOGLOBIN 9.4 g/dL (12.5-16.3); LYMPHOCYTES % (AUTO) 47.8 % (20.5-51.5); MEAN CORPUSCULAR HEMOGLOBIN 26.4 uug (23.8-33.4); MEAN CORPUSCULAR HGB CONC 33 g/dL (32.5-36.3); MONOCYTES # (AUTO) 0.7 K/uL (2.0-10.0); MONOCYTES % (AUTO) 11.5 % (0.0-11.0); NEUTROPHILS # (AUTO) 2.3 K/uL (1.8-8.9); NEUTROPHILS % (AUTO) 36.9 % (38.5-71.5); PLATELET COUNT (AUTO) 316 K/uL (152-348); RED BLOOD CELL COUNT(AUTO) 3.57 MIL/uL (4.06-5.63); WHITE BLOOD COUNT (AUTO) 6.3 K/uL (3.6-10.2)
[2018-07-25 06:55] LABS: BILIRUBIN,TOTAL 0.2 mg/dL (0.2-1.0); CREATININE 1.1 mg/dL (0.6-1.3); MAGNESIUM 2.1 mg/dL (1.8-2.4); PHOSPHOROUS 4.3 mg/dL (2.5-4.9); POTASSIUM 4.6 mmol/L (3.5-5.1); TOTAL PROTEIN, SERUM 7.5 g/dL (6.4-8.2)
--- NOTE | 2018-07-25 07:50 | NUR ---
PT REC'D ON HT-50 VENT, SETTINGS AC16 550VT 30%FIO2 PEEP+5. PT VENT'D VIA TRACHEOSTOMY TUBE, EITAN 8DCT, TRACH CUFF INFLATED, NO LEAK PRESENT, MINIMAL OCCLUDING VOLUME TECH USED, TRACH IS IN PLACE, PATENT AND SECURED WITH TRACH TIES. NO S/S OF SOB/DISTRESS NOTED AT THIS TIME. SXN'D SM/MOD THICK YELLOWISH SECRETIONS. BVM AND BACK UP TRACH AT BEDSIDE. ALARMS AUDIBLE, CHECKED AND RESET. PPE USED. WILL CONTINUE TO MONITOR AND REPORT ANY CHANGES.
[2018-07-25 08:23] VITALS: BP 134/60
[2018-07-25] MEDS: COD LIVER OIL/ZINC OXIDE OINT 113 GM TUBE TOP SCH ×2 (09:00→21:31)
[2018-07-25] MEDS: VITAMINS A AND D OINT TP SCH ×4 (09:00→21:31)
[2018-07-25] MEDS: LISINOPRIL 20 MG TABLET GT SCH (09:00)
[2018-07-25] MEDS: ENOXAPARIN SODIUM 40 MG/0.4 ML DISP.SYRIN SQ SCH (09:00)
[2018-07-25] MEDS: LEVETIRACETAM 500 MG/5 ML LIQUID UDC GT SCH ×2 (09:00→21:31)
[2018-07-25] MEDS: CARVEDILOL 6.25 MG TABLET GT SCH ×2 (09:00→21:31)
--- NOTE | 2018-07-25 18:36 | NUR ---
New orders from Dr. Alvarez were carried out,d/t lovenox not covered by insurance and was d/c and now on heparin 5000 units q 12 hrs for dvt prophylaxis and local tx started for redness on both groins(related to moisture and friction )pt tens to keep both legs very closed.Picture taken.
[2018-07-25 20:00] VITALS: BP 132/68
--- NOTE | 2018-07-25 20:00 | NUR ---
Pt received on HT-50 ventilator with the following settings of AC 16, VT 550, Peep +5, FiO2 30%, no changes to vent settings made at this time. Pt is trached with Shiley 8, trach is secured and is patent. Pt tolerating vent settings well, no signs and symptoms of respiratory distress noted. Suctioned pt with moderate amount of thick pale-yellowish secretions. Vent alarms functioning and audible. Changed HME and suction travis. Ambu-bag and back-up trach at bedside. Vent plugged in red outlet. Will continue to monitor pt throughout shift.
[2018-07-26] MEDS: COD LIVER OIL/ZINC OXIDE OINT 113 GM TUBE TOP SCH ×5 (03:30→21:25)
[2018-07-26] MEDS: METOCLOPRAMIDE HCL 10 MG/10 ML UDC GT SCH ×3 (06:02→21:25)
[2018-07-26] MEDS: LANSOPRAZOLE 30 MG TAB.RAP.DR GT SCH (06:02)
[2018-07-26] MEDS: OSMOLITE 1.2 CAL 1,000 ML LIQUID GT PRN ×2 (06:52→09:14)
[2018-07-26 08:00] VITALS: BP 155/81
[2018-07-26] MEDS ORDERED: HEPARIN SODIUM,PORCINE 5,000 UNITS/ML VIAL SQ SCH (09:00)
[2018-07-26] MEDS: VITAMINS A AND D OINT TP SCH ×4 (09:02→21:25)
[2018-07-26] MEDS: LEVETIRACETAM 500 MG/5 ML LIQUID UDC GT SCH ×2 (09:05→21:25)
[2018-07-26] MEDS: LISINOPRIL 20 MG TABLET GT SCH (09:07)
[2018-07-26] MEDS: CARVEDILOL 6.25 MG TABLET GT SCH ×2 (09:08→21:00)
--- NOTE | 2018-07-26 12:30 | NUR ---
NEW ORDER WAS CARRIED OUT TO PLACE CONDOM CATHETER ON PT. TO MANAGE MOISTURE THAT IS COMPROMISING GROINS SKIN,ALSO NEW ORDER WAS CARRIED OUT FOR NYSTATIN FOR BOTH GROINS REDNESS.
--- NOTE | 2018-07-26 12:30 | NUR ---
HEPARIN IS NOT COVERED AT ALL BY INSURANCE AND [facility] WILL KEEP PROVIDING IT.
--- NOTE | 2018-07-26 12:30 | NUR ---
NEW ORDER CARRIED OUT FROM DR. REED TO CONT.HEPARIN AND START LOVENOX WHEN PRIOR AUTHORIZATION IS AVAILABLE (SEE ORDER) AND INSURANCE COVERS IT.IM MAIN TIME [facility] WILL PROVIDE HEPARIN SUKHDEEP PHARMACIST ALLOWED IT ,[employer] ALSO AWARE AND O.K WITH IT.
[2018-07-26 20:38] VITALS: BP 98/44
[2018-07-26] MEDS: HEPARIN SODIUM,PORCINE 5,000 UNITS/ML VIAL SQ SCH (21:00)
[2018-07-26] MEDS: NYSTATIN CREAM 30 GM TUBE TP SCH (21:25)
[2018-07-27] MEDS: LANSOPRAZOLE 30 MG TAB.RAP.DR GT SCH (06:09)
[2018-07-27] MEDS: METOCLOPRAMIDE HCL 10 MG/10 ML UDC GT SCH ×3 (06:09→22:39)
[2018-07-27 07:35] LABS: BASOPHILS # (AUTO) 0.1 K/uL (0.0-8.0); EOSINOPHILS # (AUTO) 0.1 K/uL (0.0-0.7); NEUTROPHILS # (AUTO) 3.6 K/uL (1.8-8.9); RED BLOOD CELL COUNT(AUTO) 4.02 MIL/uL (4.06-5.63)
[2018-07-27 07:56] LABS: BASOPHILS % (AUTO) 1.2 % (0.0-2.0); EOSINOPHILS % (AUTO) 1.4 % (0.0-7.0); HEMOGLOBIN 10.6 g/dL (12.5-16.3); LYMPHOCYTES # (AUTO) 4.3 K/uL (20.0-40.0); LYMPHOCYTES % (AUTO) 48.6 % (20.5-51.5); MEAN CORPUSCULAR HEMOGLOBIN 26.3 uug (23.8-33.4); MEAN CORPUSCULAR HGB CONC 33 g/dL (32.5-36.3); MEAN CORPUSCULAR VOLUME 79.4 fL (73.0-96.2); MONOCYTES # (AUTO) 0.7 K/uL (2.0-10.0); MONOCYTES % (AUTO) 8.2 % (0.0-11.0); NEUTROPHILS % (AUTO) 40.6 % (38.5-71.5); WHITE BLOOD COUNT (AUTO) 8.9 K/uL (3.6-10.2)
[2018-07-27 07:57] LABS: HEMATOCRIT 31.9 % (36.7-47.1); PLATELET COUNT (AUTO) 407 K/uL (152-348)
[2018-07-27 08:00] VITALS: BP 133/93
[2018-07-27] MEDS: CARVEDILOL 6.25 MG TABLET GT SCH ×2 (08:51→21:20)
[2018-07-27] MEDS: LEVETIRACETAM 500 MG/5 ML LIQUID UDC GT SCH ×2 (08:52→21:20)
[2018-07-27] MEDS: LISINOPRIL 20 MG TABLET GT SCH (08:53)
[2018-07-27 08:55] LABS: CREATININE 1.2 mg/dL (0.6-1.3); POTASSIUM 4.6 mmol/L (3.5-5.1)
[2018-07-27] MEDS: COD LIVER OIL/ZINC OXIDE OINT 113 GM TUBE TOP SCH ×4 (08:56→21:20)
[2018-07-27] MEDS: VITAMINS A AND D OINT TP SCH ×4 (08:58→21:20)
[2018-07-27] MEDS: NYSTATIN CREAM 30 GM TUBE TP SCH ×2 (08:58→21:20)
[2018-07-27] MEDS: HEPARIN SODIUM,PORCINE 5,000 UNITS/ML VIAL SQ SCH ×2 (08:59→21:20)
--- NOTE | 2018-07-27 09:18 | NUR ---
RECEIVED STABLE ON CURRENT VENTILATOR SETTINGS OF AC 16, VT 550, FIO2 30% AND PEEP 5. STABLE WITH NO DISTRESS [id number]% THIS MORNING. SUCTIONED FOR MODERATE AMOUNT OF THICK WHITISH SECRETION. TRACH SHILEY NO. [address] AND SECURE. VENT IS WORKING WELL WITH ALL ALARMS ACTIVE. CHANGED HUMIDIFIER FILTER.
--- NOTE | 2018-07-27 14:00 | NUR ---
SEEN BY DR REED AND NEW ORDER CARRIED OUT.
--- NOTE | 2018-07-27 17:40 | NUR ---
SEEN BY DR. ACOSTA (NEUROLOGIST) AND WITH NNO.
[2018-07-27] MEDS: OSMOLITE 1.2 CAL 1,000 ML LIQUID GT PRN (18:53)
[2018-07-27 20:03] VITALS: BP 124/68
--- NOTE | 2018-07-27 20:48 | NUR ---
Received pt on HT-50 ventilator with the following settings of AC-16, Vt-550, PEEP+5, FIO2-30%, trached with Shiley#8 DFEN trach, which is in the place and secure properly. No respiratory distress noted. Airway care done, pt responded to physical stimuli. HME changed. Resus. bag and back up trach at bedside. Vent and alarms checked and reset.
[2018-07-28] MEDS: METOCLOPRAMIDE HCL 10 MG/10 ML UDC GT SCH ×3 (06:00→22:55)
[2018-07-28] MEDS: LANSOPRAZOLE 30 MG TAB.RAP.DR GT SCH (06:00)
[2018-07-28 08:00] VITALS: BP 104/61
[2018-07-28] MEDS: CARVEDILOL 6.25 MG TABLET GT SCH ×2 (09:25→20:29)
[2018-07-28] MEDS: LEVETIRACETAM 500 MG/5 ML LIQUID UDC GT SCH ×2 (09:25→20:29)
[2018-07-28] MEDS: BACLOFEN 10 MG TABLET PO SCH ×3 (09:26→17:24)
[2018-07-28] MEDS: LISINOPRIL 20 MG TABLET GT SCH (09:26)
[2018-07-28] MEDS: COD LIVER OIL/ZINC OXIDE OINT 113 GM TUBE TOP SCH ×4 (09:27→20:32)
[2018-07-28] MEDS: NYSTATIN CREAM 30 GM TUBE TP SCH ×2 (09:29→20:32)
[2018-07-28] MEDS: VITAMINS A AND D OINT TP SCH ×4 (09:29→20:32)
[2018-07-28] MEDS: HEPARIN SODIUM,PORCINE 5,000 UNITS/ML VIAL SQ SCH ×2 (09:58→20:31)
[2018-07-28] MEDS: OSMOLITE 1.2 CAL 1,000 ML LIQUID GT PRN (13:00)
--- NOTE | 2018-07-28 15:16 | NUR ---
INTERDISCIPLINARY PLAN OF CARE CONFERENCE was held today. Patient's family was invited to the meeting, but they were unable to attend. Dr. Muro and the Interdisciplinary Team reviewed the current plan of care in detail. RN reported on patient's current medical condition and medications. No major changes were reported since admission on 07/14/18. See RN IDT conference notes. SW reported on family dynamics, which SW will continue to monitor and provide interventions as needed. See also all other disciplines IDT notes and physician's progress notes for additional details.
--- NOTE | 2018-07-28 15:29 | NUR ---
Pharmacy Update from today's 07/28/18 IDT Meeting Patient admitted 07/14/18 from [place]. 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 Pt was found to be positive on urine tox for methamphetamines Temp 97.8 BP 104/61 HR 75 LABS: (from 07/27/18) Wbc 8.9H/H 10.6Plt 407 Na 133K 4.6Cl 99CO2 26BUN/Scr 23/1.2 BS 105Ca 9.7 MEDICATION USE REVIEWED: > Pt is not on any anti-psych medications > Pt is on Keppra 500mg q 12hr since admit 07/14/18, no seizures reported; CrCl 68 ml/min, dose appropriate per renal fxn > Pt was on lovenox 40mg daily, changed to heparin 5000units q12h per insurance. Last plt 407 > Pt on coreg 6.25mg q12hr, lisinopril 20mg daily, hydralazine PRN SBP >160. Last BP 104/61 > Admitted on reglan 5mg q8hr for GI motility/gastroparesis. Rx rec for d/c if resolved, however primary MD (JANY) refused, stating pt is to continue d/t continued need. MD aware of pt's LFTs as well, may ask for GI consult if does not resolve PRN MED USAGE: (since admit 07/14) Tylenol for pain/temp used x 3 (pain) Bisacodyl supp used x0 Miralax PRN used x 0 Hydralazine PRN used x 0 Ativan PRN anxiety/agitation used x 0 NEW ORDERS NOTED: > Rx rec for d/c of reglan scheduled for gastroparesis if pt was clinically ok per MD. MD (JANY) refused, stating pt continues to need it, and is aware of LFTs. May consider GI consult if does not resolve > Lovenox changed to heparin per insurance, pending PA for lovenox. Patient reviewed and discussed in detail at IDT, Rx reported rec for d/c of reglan and update from primary at this time not to d/c. Rx mentioned pt does have increase in SCr, LFTs, plt as well now, recommended that if it were not to resolve, that lansoprazole could be potential medication to hold. Others may include coreg or lisinopril, however primary MD has mentioned possibility for GI eval for this issue. Will continue to follow labs and pt condition at this time.
[2018-07-28 20:09] VITALS: BP 131/51
[2018-07-29] MEDS: OSMOLITE 1.2 CAL 1,000 ML LIQUID GT PRN ×2 (02:53→22:40)
--- NOTE | 2018-07-29 04:47 | NUR ---
patient received on a ht-50 ventilator with the following settings that are charted on the mechanical ventilator notes. hme changed. suctioned a small amount of thick yellow secretions. trach is patent and secured with trach ties. ventilator is plugged in the red emergency outlet. vent alarms checked and they are on and audible. back up trach and ambu bag is by bedside. patient is tolerating current ventilator setting well with no sob noted at this time.
[2018-07-29] MEDS: LANSOPRAZOLE 30 MG TAB.RAP.DR GT SCH (06:13)
[2018-07-29] MEDS: METOCLOPRAMIDE HCL 10 MG/10 ML UDC GT SCH ×3 (06:13→22:24)
[2018-07-29 08:00] VITALS: BP 120/54
[2018-07-29] MEDS: CARVEDILOL 6.25 MG TABLET GT SCH ×2 (08:34→21:00)
[2018-07-29] MEDS: LISINOPRIL 20 MG TABLET GT SCH (08:34)
[2018-07-29] MEDS: LEVETIRACETAM 500 MG/5 ML LIQUID UDC GT SCH ×2 (08:34→21:00)
[2018-07-29] MEDS: BACLOFEN 10 MG TABLET PO SCH ×3 (08:35→16:55)
[2018-07-29] MEDS: COD LIVER OIL/ZINC OXIDE OINT 113 GM TUBE TOP SCH ×2 (08:35→21:00)
[2018-07-29] MEDS: HEPARIN SODIUM,PORCINE 5,000 UNITS/ML VIAL SQ SCH ×2 (08:36→21:00)
[2018-07-29] MEDS: NYSTATIN CREAM 30 GM TUBE TP SCH ×2 (08:36→21:00)
--- NOTE | 2018-07-29 14:06 | NUR ---
2:05pm: LESIA tried calling patient's Lisa to follow-up on the voicemail message that SW had left her last week. LESIA called [phone], but was unable to connect with Lisa. Unable to leave message as voicemail box was full.
--- NOTE | 2018-07-29 14:15 | NUR ---
2:15pm: LESIA called patient's Lisa's alternate phone number [phone] and was also unable to connect with her. LESIA left Lisa a voicemail message (last message left last 07/23, with no call back from Lisa). LESIA stated in the voicemail that LESIA was following up with Lisa regarding scheduling a day/time to meet in order for Lisa to review and sign the admission paperwork. LESIA reminded Lisa in the voicemail message, as LESIA had done previously, that the admission paperwork needs to be signed within 48 hours of admission, and that it has still not been signed. At this time, the following forms for the patient remain unsigned: Conditions of Admission, CDPH Agreement, Patient's Rights Acknowledgement, Preferred Intensity of Care, and the Voluntary Prior Express Consent Form. LESIA also included in the voicemail the need to talk to Lisa about scheduling a family conference with the doctor. LESIA asked Lisa via voicemail message to call this SW back in order to schedule a day/time to meet for the paperwork and to discuss the possible scheduling of a family conference.
--- NOTE | 2018-07-29 18:30 | NUR ---
Seen and examined by Dr Muro,no new orders.
[2018-07-29 20:00] VITALS: BP 105/63
--- NOTE | 2018-07-29 20:05 | NUR ---
PT RECEIVED ON CONTINUOUS VENT AC 16 VT 550 PEEP 5 FIO2 30%. TRACH IN PLACED AND SECURED WITH TRACH TIE. BACK UP TRACH AND AMBU BAG AT BEDSIDE. SUCTION SMALL AMOUNT THICK PALE YELLOW SECRETIONS. VENT CHECKED, ALARMS WORKING WELL AND AUDIBLE. NO DISTRESS NOTED AT THIS TIME. WILL CONTINUE TO MONITOR.
[2018-07-30] MEDS: LANSOPRAZOLE 30 MG TAB.RAP.DR GT SCH (06:24)
[2018-07-30] MEDS: METOCLOPRAMIDE HCL 10 MG/10 ML UDC GT SCH ×3 (06:24→22:11)
[2018-07-30 08:00] VITALS: BP 127/63
[2018-07-30] MEDS: LEVETIRACETAM 500 MG/5 ML LIQUID UDC GT SCH ×2 (09:46→21:00)
[2018-07-30] MEDS: CARVEDILOL 6.25 MG TABLET GT SCH ×2 (09:46→21:00)
[2018-07-30] MEDS: LISINOPRIL 20 MG TABLET GT SCH (09:47)
[2018-07-30] MEDS: BACLOFEN 10 MG TABLET PO SCH ×3 (09:47→17:40)
[2018-07-30] MEDS: HEPARIN SODIUM,PORCINE 5,000 UNITS/ML VIAL SQ SCH ×2 (09:55→21:00)
[2018-07-30] MEDS: NYSTATIN CREAM 30 GM TUBE TP SCH ×2 (09:56→21:00)
[2018-07-30] MEDS: COD LIVER OIL/ZINC OXIDE OINT 113 GM TUBE TOP SCH ×2 (09:56→21:00)
[2018-07-30] MEDS: OSMOLITE 1.2 CAL 1,000 ML LIQUID GT PRN (14:43)
[2018-07-30] MEDS ORDERED: ACETAMINOPHEN 650 MG/20 ML UDC- SA PATIENTS-PAIN ONLY GT PRN (16:00)
[2018-07-30 18:23] VITALS: BP 115/74
--- NOTE | 2018-07-30 20:05 | NUR ---
Pt rec'd on HT-50 on settings of AC 16, VT 550, PEEP+5 and FIO2-30%. No resp. distress noted. Shiley 8 DCT is patent and secure; B/U Shiley 8 and BVM are at bedside. No resp. distress noted at this time. Pt to be monitored throughout the shift and PRN SX. HT-50 alarm parameters have been checked and remain audible.
[2018-07-30 20:29] VITALS: BP 131/65
[2018-07-31 04:16] VITALS: BP 106/64
[2018-07-31] MEDS: ACETAMINOPHEN 325 MG TABLET-SA PATIENTS-PAIN ONLY GT PRN (04:23)
[2018-07-31] MEDS: OSMOLITE 1.2 CAL 1,000 ML LIQUID GT PRN (06:00)
[2018-07-31] MEDS: METOCLOPRAMIDE HCL 10 MG/10 ML UDC GT SCH ×3 (06:11→22:17)
[2018-07-31] MEDS: LANSOPRAZOLE 30 MG TAB.RAP.DR GT SCH (06:11)
[2018-07-31 08:04] VITALS: BP 141/79
[2018-07-31] MEDS: LEVETIRACETAM 500 MG/5 ML LIQUID UDC GT SCH ×2 (08:34→20:43)
[2018-07-31] MEDS: CARVEDILOL 6.25 MG TABLET GT SCH ×2 (08:34→20:43)
[2018-07-31] MEDS: LISINOPRIL 20 MG TABLET GT SCH (08:34)
[2018-07-31] MEDS: BACLOFEN 10 MG TABLET PO SCH ×3 (08:34→17:27)
[2018-07-31] MEDS: NYSTATIN CREAM 30 GM TUBE TP SCH ×2 (08:35→20:43)
[2018-07-31] MEDS: HEPARIN SODIUM,PORCINE 5,000 UNITS/ML VIAL SQ SCH ×2 (08:35→21:00)
[2018-07-31] MEDS: COD LIVER OIL/ZINC OXIDE OINT 113 GM TUBE TOP SCH ×2 (08:35→20:43)
--- NOTE | 2018-07-31 09:08 | NUR ---
148/71 Addendum: 07/31/18 at 0908 by ROJELIO MCGEE LVN Amended: Links added.
[2018-07-31 13:00] VITALS: BP 138/68
[2018-07-31 17:26] VITALS: BP 127/62
[2018-07-31 20:11] VITALS: BP 124/67
--- NOTE | 2018-07-31 21:30 | NUR ---
RECEIVED PT ON CURRENT VENT SETTING. ALARM ON AND WORKING. BACK UP TRACH AND AMBU BAG AT PT BEDSIDE. HME CHANGED PRN AND TX NOT INDICATED AT THIS TIME. NO SOB NOTED. SX PRN. WILL CONT TO MONITOR.
[2018-08-01] MEDS: OSMOLITE 1.2 CAL 1,000 ML LIQUID GT PRN ×2 (00:47→14:15)
[2018-08-01] MEDS: METOCLOPRAMIDE HCL 10 MG/10 ML UDC GT SCH ×3 (06:23→21:41)
[2018-08-01] MEDS: LANSOPRAZOLE 30 MG TAB.RAP.DR GT SCH (06:23)
[2018-08-01 06:59] VITALS: BP 120/64
[2018-08-01 08:05] VITALS: BP 140/85
[2018-08-01] MEDS: LEVETIRACETAM 500 MG/5 ML LIQUID UDC GT SCH ×2 (08:33→21:41)
[2018-08-01] MEDS: CARVEDILOL 6.25 MG TABLET GT SCH ×2 (08:33→21:40)
[2018-08-01] MEDS: LISINOPRIL 20 MG TABLET GT SCH (08:34)
[2018-08-01] MEDS: BACLOFEN 10 MG TABLET PO SCH ×3 (08:34→17:27)
[2018-08-01] MEDS: NYSTATIN CREAM 30 GM TUBE TP SCH ×2 (08:35→21:41)
[2018-08-01] MEDS: COD LIVER OIL/ZINC OXIDE OINT 113 GM TUBE TOP SCH ×2 (08:35→21:41)
[2018-08-01] MEDS: HEPARIN SODIUM,PORCINE 5,000 UNITS/ML VIAL SQ SCH ×2 (08:38→21:00)
[2018-08-01 13:00] VITALS: BP 122/66
[2018-08-01 17:00] VITALS: BP 98/61
[2018-08-01 21:07] VITALS: BP 119/65
[2018-08-02 01:07] VITALS: BP 120/69
[2018-08-02 05:00] VITALS: BP 117/87
[2018-08-02] MEDS: OSMOLITE 1.2 CAL 1,000 ML LIQUID GT PRN ×3 (05:44→21:03)
[2018-08-02] MEDS: METOCLOPRAMIDE HCL 10 MG/10 ML UDC GT SCH ×3 (05:44→21:04)
[2018-08-02] MEDS: LANSOPRAZOLE 30 MG TAB.RAP.DR GT SCH (06:00)
--- NOTE | 2018-08-02 06:35 | NUR ---
PREVACID 30MG TABLET NOT AVAILABLE
[2018-08-02 08:05] VITALS: BP 115/54
[2018-08-02] MEDS: CARVEDILOL 6.25 MG TABLET GT SCH ×2 (08:34→21:00)
[2018-08-02] MEDS: LEVETIRACETAM 500 MG/5 ML LIQUID UDC GT SCH ×2 (08:34→21:03)
[2018-08-02] MEDS: LISINOPRIL 20 MG TABLET GT SCH (08:35)
[2018-08-02] MEDS: NYSTATIN CREAM 30 GM TUBE TP SCH ×2 (08:37→21:04)
[2018-08-02] MEDS: HEPARIN SODIUM,PORCINE 5,000 UNITS/ML VIAL SQ SCH ×2 (08:37→21:06)
[2018-08-02] MEDS: COD LIVER OIL/ZINC OXIDE OINT 113 GM TUBE TOP SCH ×2 (08:37→21:03)
[2018-08-02 13:00] VITALS: BP 131/72
[2018-08-02 17:00] VITALS: BP 127/74
[2018-08-02 23:00] VITALS: BP 102/61
[2018-08-03] MEDS: LANSOPRAZOLE 30 MG TAB.RAP.DR GT SCH ×2 (06:00→06:01)
[2018-08-03] MEDS: METOCLOPRAMIDE HCL 10 MG/10 ML UDC GT SCH ×3 (06:01→22:09)
[2018-08-03 08:00] VITALS: BP 122/73
[2018-08-03] MEDS: LISINOPRIL 20 MG TABLET GT SCH (09:11)
[2018-08-03] MEDS: LEVETIRACETAM 500 MG/5 ML LIQUID UDC GT SCH ×2 (09:11→20:35)
[2018-08-03] MEDS: CARVEDILOL 6.25 MG TABLET GT SCH ×2 (09:11→20:35)
[2018-08-03] MEDS: HEPARIN SODIUM,PORCINE 5,000 UNITS/ML VIAL SQ SCH ×2 (09:12→20:38)
[2018-08-03] MEDS: NYSTATIN CREAM 30 GM TUBE TP SCH ×2 (09:12→20:37)
[2018-08-03] MEDS: COD LIVER OIL/ZINC OXIDE OINT 113 GM TUBE TOP SCH ×2 (09:12→20:37)
--- NOTE | 2018-08-03 17:38 | NUR ---
CHANGED VENTILATOR CIRCUIT TODAY.REMAIN STABLE ON CURRENT VENTILATOR SETTINGS OF AC 16, VT 550, FIO2 30% AND PEEP 5. SUCTIONED FOR MODERATE AMOUNT OF THICK WHITISH SECRETION. TRACH SHILEY NO. [address] AND SECURE. VENT IS WORKING WELL WITH ALL ALARMS ACTIVE. CHANGED HUMIDIFIER FILTER.
--- NOTE | 2018-08-03 20:00 | NUR ---
Received pt on HT-50 vent with current settings of AC 16, VT 550, Peep +5, FiO2 30%, no changes to vent settings made at this time. Pt is trached with [place]ushboo 8 trach, which is secured and patent. Pt tolerating vent settings well, no signs and symptoms of respiratory distress noted. Suctioned pt with moderate amount of thick pale-yellowish secretions. Changed HME. Vent alarms functioning and audible. Ambu-bag and back-up trach at bedside. Vent plugged in red outlet. Will continue to monitor pt throughout shift.
[2018-08-03 20:16] VITALS: BP 126/76
--- NOTE | 2018-08-04 04:00 | NUR ---
Noted with dry scaly skin in between thighs. No redness noted or discomfort( not incontinence related). Treatment initiated with: cleanse with NS, pat to dry and applied A&D ointment in between thighs Q shift x 7days. Will monitor progress.
[2018-08-04] MEDS: METOCLOPRAMIDE HCL 10 MG/10 ML UDC GT SCH ×3 (05:19→21:44)
[2018-08-04] MEDS: LANSOPRAZOLE 30 MG TAB.RAP.DR GT SCH (05:19)
[2018-08-04 08:00] VITALS: BP 124/69
[2018-08-04] MEDS: LISINOPRIL 20 MG TABLET GT SCH (09:08)
[2018-08-04] MEDS: CARVEDILOL 6.25 MG TABLET GT SCH ×2 (09:08→21:00)
[2018-08-04] MEDS: LEVETIRACETAM 500 MG/5 ML LIQUID UDC GT SCH ×2 (09:08→21:43)
[2018-08-04] MEDS: HEPARIN SODIUM,PORCINE 5,000 UNITS/ML VIAL SQ SCH ×2 (09:09→21:49)
[2018-08-04] MEDS: NYSTATIN CREAM 30 GM TUBE TP SCH ×2 (09:09→21:44)
[2018-08-04] MEDS: VITAMINS A AND D OINT TP SCH ×2 (09:09→21:44)
[2018-08-04] MEDS: COD LIVER OIL/ZINC OXIDE OINT 113 GM TUBE TOP SCH ×2 (09:09→21:44)
--- NOTE | 2018-08-04 13:32 | NUR ---
LESIA received a voicemail message from patient's daughter Marci. LESIA called Marci back [phone]. Marci wanted to follow up with LESIA regarding the possibility of a family conference that was discussed previously with Marci when this SW and Subacute Director Norman Aguila had spoken with her. LESIA had explained during the previous conversation that SW would have to discuss the option of a family conference with the patient's , and then schedule it accordingly. LESIA informed Marci that SW has not received calls back from patient's after several attempts of trying to contact her, and voicemail messages that LESIA had left. Marci expressed understanding, and stated that she too hasn't been able to reach patient's . LESIA stated that she will reach out to the other family members once contact has been established with patient's . Marci expressed agreement and thanked LESIA for her time.
--- NOTE | 2018-08-04 17:14 | NUR ---
5:10pm: LESIA called patient's Lisa [phone] in response to a voicemail message that Lisa had left this SW earlier today. Lisa stated that she will be coming in tomorrow afternoon to visit the patient and meet with this SW in order to review/sign the admission paperwork. LESIA agreed with Lisa.
--- NOTE | 2018-08-04 17:41 | NUR ---
RECEIVED STABLE ON CURRENT VENTILATOR SETTINGS OF AC 16, VT 550, FIO2 30% AND PEEP 5. STABLE WITH NO DISTRESS SATURATING 98%. SUCTIONED FOR MODERATE AMOUNT OF THICK WHITISH SECRETION. TRACH SHILEY NO. [address] AND SECURE. VENT IS WORKING WELL WITH ALL ALARMS ACTIVE. CHANGED HUMIDIFIER FILTER.
--- NOTE | 2018-08-04 19:17 | NUR ---
Seen by Dr Estrada ,neurologist,with new orders noted,consent obtained from Lisa blue's .
[2018-08-04 20:00] VITALS: BP 99/62
--- NOTE | 2018-08-04 20:05 | NUR ---
Pt received on HT-50 ventilator with the following settings of AC 16, VT 550, Peep +5, FiO2 30%, no changes to vent settings made at this time. Pt is trached with Shiley 8, trach is secured and is patent. Pt tolerating vent settings well, no signs and symptoms of respiratory distress noted. Suctioned pt with moderate amount of thick pale-yellowish secretions. Vent alarms functioning and audible. Changed HME. Ambu-bag and back-up trach at bedside. Vent plugged in red outlet. Will continue to monitor pt throughout shift.
[2018-08-04] MEDS ORDERED: INFLUENZA VACCINE 2018-2019 0.5 ML DISP.SYRIN IM ONE (21:00)
--- NOTE | 2018-08-04 22:00 | NUR ---
Flu vaccine was given tonight, afebrile, no adverse reactions noted, will continue monitor.
[2018-08-05] MEDS: METOCLOPRAMIDE HCL 10 MG/10 ML UDC GT SCH ×3 (05:30→21:13)
[2018-08-05] MEDS: OMEPRAZOLE 20 MG CAPSULE.DR GT SCH (05:30)
[2018-08-05] MEDS: OSMOLITE 1.2 CAL 1,000 ML LIQUID GT PRN ×2 (06:46→21:13)
[2018-08-05 08:00] VITALS: BP 124/55
--- NOTE | 2018-08-05 09:00 | NUR ---
Seen and examined by Dr Peterson ,no new orders noted.
[2018-08-05] MEDS: HEPARIN SODIUM,PORCINE 5,000 UNITS/ML VIAL SQ SCH ×2 (09:05→20:43)
[2018-08-05] MEDS: CARVEDILOL 6.25 MG TABLET GT SCH ×2 (09:05→20:42)
[2018-08-05] MEDS: LEVETIRACETAM 500 MG/5 ML LIQUID UDC GT SCH ×2 (09:05→20:43)
[2018-08-05] MEDS: LISINOPRIL 20 MG TABLET GT SCH (09:05)
[2018-08-05] MEDS: COD LIVER OIL/ZINC OXIDE OINT 113 GM TUBE TOP SCH ×2 (09:05→20:43)
[2018-08-05] MEDS: VITAMINS A AND D OINT TP SCH ×2 (09:06→20:43)
[2018-08-05] MEDS: NYSTATIN CREAM 30 GM TUBE TP SCH (09:06)
--- NOTE | 2018-08-05 14:07 | NUR ---
1:30pm: LESIA met with patient's Lisa and daughter Alexander. The following paperwork were reviewed and signed by patient's : Conditions of Admission, Patient's Rights Acknowledgement, Documentation of Preferred Intensity of Care, CDPH Agreement, and Voluntary Prior Express Consent Form. LESIA provided Lisa with a copy of the patient's Bill of Rights. SW also provided Lisa with a copy of all the above mentioned forms. LESIA informed patient's and daughter that patient is scheduled for IDT meetings on 08/18 at 11am and 08/25 at 11am. Daughter stated that she would attend, and patient's requested to be on speaker phone. The option of having a family conference with the doctor where patient's and all family members, including patient's siblings and other children, can attend or be on speaker phone to hear about patient's condition/prognosis was discussed. Patient's stated that she would not like to have this meeting at this time because "there are too many opinions right now and I cannot hear all that". LESIA acknowledged patient's 's response. Patient's stated that she prefers for details of patient's condition updates to continue to be discussed only with her, and her 2 children Alexander and Eduin. SW acknowledged her wishes and stated that she would remind the nurses of her wishes.
--- NOTE | 2018-08-05 18:15 | NUR ---
pt is afebrile,no adverse reaction noted from flu vaccine,on close observation.
[2018-08-05 20:00] VITALS: BP 112/58
--- NOTE | 2018-08-05 23:57 | NUR ---
S/p Flu vaccine administration, afebrile, no adverse reactions noted, no signs of any distress.
--- NOTE | 2018-08-06 01:17 | NUR ---
Received 5 tablets RITALIN 5 mg from [facility], will start medication in am, added monitoring for adverse side effects and monitring for effectiveness of RITALIN.
[2018-08-06] MEDS: OMEPRAZOLE 20 MG CAPSULE.DR GT SCH (05:21)
[2018-08-06] MEDS: METOCLOPRAMIDE HCL 10 MG/10 ML UDC GT SCH ×3 (05:21→21:59)
[2018-08-06] MEDS: CARVEDILOL 6.25 MG TABLET GT SCH ×2 (08:14→20:26)
[2018-08-06] MEDS: LEVETIRACETAM 500 MG/5 ML LIQUID UDC GT SCH ×2 (08:14→20:27)
[2018-08-06] MEDS: LISINOPRIL 20 MG TABLET GT SCH (08:15)
[2018-08-06] MEDS: METHYLPHENIDATE HCL 5 MG TABLET GT SCH (08:15)
[2018-08-06] MEDS: HEPARIN SODIUM,PORCINE 5,000 UNITS/ML VIAL SQ SCH ×2 (08:18→21:09)
[2018-08-06] MEDS: COD LIVER OIL/ZINC OXIDE OINT 113 GM TUBE TOP SCH ×2 (08:18→20:29)
[2018-08-06] MEDS: VITAMINS A AND D OINT TP SCH ×2 (08:19→20:29)
[2018-08-06] MEDS ORDERED: LORAZEPAM 0.5 MG TABLET PO PRN (11:15)
[2018-08-06 11:52] VITALS: BP 124/62
[2018-08-06] MEDS: OSMOLITE 1.2 CAL 1,000 ML LIQUID GT PRN (12:43)
[2018-08-06 13:53] VITALS: BP 107/48
--- NOTE | 2018-08-06 16:54 | NUR ---
4:50pm: LESIA called patient's daughter Marci [phone] as a follow-up to a previous conversation LESIA and Subacute Director Norman Aguila had had with her regarding the possibility of scheduling a family conference with the doctor, if patient's Lisa was in agreement. LESIA informed Marci that after speaking with Lisa yesterday, Lisa had expressed not wanting to have a family conference at this time. Marci expressed understanding and thanked LESIA for time.
--- NOTE | 2018-08-06 17:34 | NUR ---
STATUS POST FLU VACCINATION, PATIENT IS AFEBRILE WITH NO ACUTE DISTRESS NOTED. WILL CONTINUE TO MONITOR.
[2018-08-06 17:43] VITALS: BP 104/51
[2018-08-06 20:00] VITALS: BP 117/62
--- NOTE | 2018-08-06 22:51 | NUR ---
S/p Flu vaccine administration, afebrile, no adverse reactions noted, no redness or swelling on injection site, no signs of any distress noted, will continue monitor.
[2018-08-07 01:42] VITALS: BP 118/60
[2018-08-07] MEDS: OSMOLITE 1.2 CAL 1,000 ML LIQUID GT PRN ×2 (02:31→20:40)
[2018-08-07] MEDS: OMEPRAZOLE 20 MG CAPSULE.DR GT SCH (05:23)
[2018-08-07] MEDS: METOCLOPRAMIDE HCL 10 MG/10 ML UDC GT SCH ×3 (05:23→21:16)
[2018-08-07] MEDS: CARVEDILOL 6.25 MG TABLET GT SCH ×2 (09:27→20:36)
[2018-08-07] MEDS: METHYLPHENIDATE HCL 5 MG TABLET GT SCH (09:27)
[2018-08-07] MEDS: LISINOPRIL 20 MG TABLET GT SCH (09:27)
[2018-08-07] MEDS: LEVETIRACETAM 500 MG/5 ML LIQUID UDC GT SCH ×2 (09:27→20:36)
[2018-08-07] MEDS: COD LIVER OIL/ZINC OXIDE OINT 113 GM TUBE TOP SCH ×2 (09:28→20:40)
[2018-08-07] MEDS: VITAMINS A AND D OINT TP SCH ×2 (09:28→20:40)
[2018-08-07] MEDS: HEPARIN SODIUM,PORCINE 5,000 UNITS/ML VIAL SQ SCH ×2 (09:28→21:16)
[2018-08-07 09:32] VITALS: BP 139/78
--- NOTE | 2018-08-07 11:39 | NUR ---
PT RECEIVED TRACH TO VENT ON CMV, ON HT-50 VENT ON CURRENT ORDERED SETTINGS, AC 16, VT 550, PEEP +5 AND 30% FIO2. EITAN #8 TRACH IS PATENT AND SECURE. VENT PARAMETERS AND ALARMS CHECKED, ALARMS ARE AUDIBLE. PT IS TOLERATING VENT SETTINGS WELL, NO RESP. DISTRESS NOTED AT THIS TIME. AMBU-BAG AND BACK-UP TRACH AT BEDSIDE. VENT PLUGGED INTO RED OUTLET. SUCTION PRN. WILL CONTINUE TO MONITOR.
--- NOTE | 2018-08-07 12:26 | NUR ---
Patient seen by Dr. Moran today for his initial eye exam. See optometry notes for details.
[2018-08-07 12:31] VITALS: BP 135/61
[2018-08-07 17:04] VITALS: BP 114/55
--- NOTE | 2018-08-07 19:06 | NUR ---
Received new order from Dr. Moran for Tobradox x 14 days for dx: blepharitis/conjunctivitis. Orders noted and carried out.
--- NOTE | 2018-08-07 19:35 | NUR ---
PT REMAIN ON CONTINUOUS VENT AC 16 VT 550 PEEP 5 FIO2 30%. TOLERATING CURRENT VENT SETTINGS AT THIS TIME. TRACH IN PLACED AND SECURED WITH TRACH TIE. BACK UP TRACH AND AMBU BAG AT BEDSIDE. SUCTION SMALL AMOUNT THICK PALE YELLOW SECRETIONS. VENT CHECKED, ALARMS WORKING WELL AND AUDIBLE. NO DISTRESS NOTED AT THIS TIME. WILL CONTINUE TO MONITOR.
[2018-08-07] MEDS ORDERED: TOBRAMYCIN/DEXAMETH OPHT OINT 3.5 GM TUBE OP SCH (21:00)
[2018-08-07 22:28] VITALS: BP 123/46
[2018-08-08] MEDS: METOCLOPRAMIDE HCL 10 MG/10 ML UDC GT SCH ×3 (05:15→21:31)
[2018-08-08] MEDS: OMEPRAZOLE 20 MG CAPSULE.DR GT SCH (05:15)
--- NOTE | 2018-08-08 07:40 | NUR ---
Pt receive in semi fried position, on continuous mechanical ventilation via trach, and with limited response to verbal stimuli. Pt is of [place] HT-50 vent with ordered settings of A/C-16, VT-550, PEEP+5, FIO2-30%. Tolerating vent settings well. SpO2-99%. Shiley 8 DFEN trach is patent and secure. Minimal leak technique used to assess cuff inflation. Sxn'd & lavaged as needed. Sxn'd small amts of white/yellow secretions. HME changed. No respiratory distress noted. Ventilator alarm parameters checked, on and audible. Bag/valve/mask and back up trach at bedside. Vent plugged into red emergency outlet. PPE used. Will continue to monitor.
[2018-08-08 08:00] VITALS: BP 121/65
[2018-08-08] MEDS: CARVEDILOL 6.25 MG TABLET GT SCH ×2 (09:41→20:33)
[2018-08-08] MEDS: LEVETIRACETAM 500 MG/5 ML LIQUID UDC GT SCH ×2 (09:41→20:33)
[2018-08-08] MEDS: LISINOPRIL 20 MG TABLET GT SCH (09:42)
[2018-08-08] MEDS: METHYLPHENIDATE HCL 5 MG TABLET GT SCH (09:42)
[2018-08-08] MEDS: HEPARIN SODIUM,PORCINE 5,000 UNITS/ML VIAL SQ SCH ×2 (09:43→21:31)
[2018-08-08] MEDS: COD LIVER OIL/ZINC OXIDE OINT 113 GM TUBE TOP SCH ×2 (09:43→20:33)
[2018-08-08] MEDS: VITAMINS A AND D OINT TP SCH ×2 (09:43→20:33)
[2018-08-08 13:00] VITALS: BP 107/53
[2018-08-08] MEDS: OSMOLITE 1.2 CAL 1,000 ML LIQUID GT PRN (13:36)
--- NOTE | 2018-08-08 16:25 | NUR ---
PER [facility], TOBRADEX OPHTHALMIC OINTMENT IS NOT COVERED BY PATIENTS INSURANCE. OUR PHARMACY COULD NOT PROVIDE. PAGED DR. RAMIREZ REGARDING THE SITUATION WITH NEW ORDERS NOTED AND CARRIED OUT.
[2018-08-08 17:06] VITALS: BP 104/52
--- NOTE | 2018-08-08 22:00 | NUR ---
Afebrile, on maxitrol eye ointment for both eyes conjunctivitis/ Blepharitis, no adverse reactions noted, eyes noted with redness,no discharges noted at this time, good eye care done, kept clean and comfortable.
[2018-08-08 23:09] VITALS: BP 118/50
[2018-08-09] MEDS: OSMOLITE 1.2 CAL 1,000 ML LIQUID GT PRN (05:33)
[2018-08-09] MEDS: OMEPRAZOLE 20 MG CAPSULE.DR GT SCH (05:33)
[2018-08-09] MEDS: METOCLOPRAMIDE HCL 10 MG/10 ML UDC GT SCH ×3 (05:33→21:54)
[2018-08-09 08:00] VITALS: BP 147/88
--- NOTE | 2018-08-09 08:00 | NUR ---
PT RECEIVED ON CONTINUOUS VENT AC 16 VT 550 PEEP 5 FIO2 30%. TRACH IN PLACED AND SECURED WITH TRACH TIE. BACK UP TRACH AND AMBU BAG AT BEDSIDE. PT TOLERATING CURRENT VENT SETTINGS AT THIS TIME. SUCTION PRN. VENT CHECK, ALARMS WORKING WELL AND AUDIBLE. NO DISTRESS NOTED AT THIS TIME. WILL CONTINUE TO MONITOR.
[2018-08-09 09:00] VITALS: BP 128/75
[2018-08-09] MEDS: NEO/POLYMYX B/DEXAME OPHT OINT 3.5 GM TUBE EACHEYE SCH ×2 (09:00→21:53)
[2018-08-09] MEDS: METHYLPHENIDATE HCL 5 MG TABLET GT SCH (09:14)
[2018-08-09] MEDS: LEVETIRACETAM 500 MG/5 ML LIQUID UDC GT SCH ×2 (09:14→21:54)
[2018-08-09] MEDS: LISINOPRIL 20 MG TABLET GT SCH (09:14)
[2018-08-09] MEDS: CARVEDILOL 6.25 MG TABLET GT SCH ×2 (09:14→21:53)
[2018-08-09] MEDS: HEPARIN SODIUM,PORCINE 5,000 UNITS/ML VIAL SQ SCH ×2 (09:16→21:00)
[2018-08-09] MEDS: COD LIVER OIL/ZINC OXIDE OINT 113 GM TUBE TOP SCH ×2 (09:19→21:54)
[2018-08-09] MEDS: VITAMINS A AND D OINT TP SCH ×2 (09:19→21:54)
[2018-08-09 13:07] VITALS: BP 129/80
[2018-08-09 17:56] VITALS: BP 130/71
[2018-08-09 20:49] VITALS: BP 104/60
--- NOTE | 2018-08-09 22:00 | NUR ---
Afebrile, remains on maxitrol eye ointment to both eyes for conjunctivitis/ blepharitis, no adverse reactions noted, eyes are red, good eye care done, kept clean and comfortable.
[2018-08-09 22:46] VITALS: BP 131/61
[2018-08-10] MEDS: OSMOLITE 1.2 CAL 1,000 ML LIQUID GT PRN ×2 (00:45→16:50)
[2018-08-10] MEDS: OMEPRAZOLE 20 MG CAPSULE.DR GT SCH (06:17)
[2018-08-10] MEDS: METOCLOPRAMIDE HCL 10 MG/10 ML UDC GT SCH ×3 (06:17→22:16)
--- NOTE | 2018-08-10 07:25 | NUR ---
Resident endorsed on HT-50 vent with settings of AC 16, VT 550, Peep +5, FiO2 30%. No S/S of respiratory distress noted at this time. He is trached with Shiley 8 DCT; trach is secured and is patent. Suctioned small to moderate amounts of thick pale-yellowish secretions.HME changed without complications. Vent alarms checked: on/audible. Ambu-bag and back-up trach at bedside. Will continue to monitor throughout shift.
[2018-08-10 07:34] LABS: BASOPHILS # (AUTO) 0.1 K/uL (0.0-8.0); BASOPHILS % (AUTO) 1.1 % (0.0-2.0); EOSINOPHILS # (AUTO) 0.2 K/uL (0.0-0.7); HEMATOCRIT 30.9 % (36.7-47.1); HEMOGLOBIN 10.2 g/dL (12.5-16.3); LYMPHOCYTES # (AUTO) 2.7 K/uL (20.0-40.0); LYMPHOCYTES % (AUTO) 42.2 % (20.5-51.5); MEAN CORPUSCULAR HEMOGLOBIN 26.9 uug (23.8-33.4); MEAN CORPUSCULAR HGB CONC 33 g/dL (32.5-36.3); MEAN CORPUSCULAR VOLUME 81.6 fL (73.0-96.2); MONOCYTES # (AUTO) 0.7 K/uL (2.0-10.0); MONOCYTES % (AUTO) 10.5 % (0.0-11.0); NEUTROPHILS # (AUTO) 2.8 K/uL (1.8-8.9); NEUTROPHILS % (AUTO) 43.2 % (38.5-71.5); PLATELET COUNT (AUTO) 265 K/uL (152-348); RED BLOOD CELL COUNT(AUTO) 3.79 MIL/uL (4.06-5.63); WHITE BLOOD COUNT (AUTO) 6.4 K/uL (3.6-10.2)
[2018-08-10 07:43] LABS: POTASSIUM 4.3 mmol/L (3.5-5.1)
[2018-08-10 07:44] LABS: CREATININE 0.9 mg/dL (0.6-1.3)
[2018-08-10 08:00] VITALS: BP 147/96
[2018-08-10] MEDS: COD LIVER OIL/ZINC OXIDE OINT 113 GM TUBE TOP SCH ×2 (08:07→21:00)
[2018-08-10] MEDS: HEPARIN SODIUM,PORCINE 5,000 UNITS/ML VIAL SQ SCH ×2 (08:07→21:00)
[2018-08-10] MEDS: METHYLPHENIDATE HCL 5 MG TABLET GT SCH (08:07)
[2018-08-10] MEDS: LISINOPRIL 20 MG TABLET GT SCH (08:07)
[2018-08-10] MEDS: CARVEDILOL 6.25 MG TABLET GT SCH ×2 (08:07→21:00)
[2018-08-10] MEDS: NEO/POLYMYX B/DEXAME OPHT OINT 3.5 GM TUBE EACHEYE SCH ×2 (08:07→21:00)
[2018-08-10] MEDS: LEVETIRACETAM 500 MG/5 ML LIQUID UDC GT SCH ×2 (08:07→21:00)
[2018-08-10] MEDS: VITAMINS A AND D OINT TP SCH ×2 (08:08→21:00)
[2018-08-10 09:00] VITALS: BP 142/88
[2018-08-10 13:00] VITALS: BP 138/78
--- NOTE | 2018-08-10 13:47 | NUR ---
Patient scheduled for his teeth cleaning appointment on 10/05/[address] Ybarra ([phone]).
[2018-08-10 17:17] VITALS: BP 142/71
[2018-08-10 22:00] VITALS: BP 129/63
[2018-08-11] MEDS: OMEPRAZOLE 20 MG CAPSULE.DR GT SCH (06:10)
[2018-08-11] MEDS: METOCLOPRAMIDE HCL 10 MG/10 ML UDC GT SCH ×3 (06:10→21:38)
[2018-08-11 08:00] VITALS: BP 147/96
[2018-08-11] MEDS: NEO/POLYMYX B/DEXAME OPHT OINT 3.5 GM TUBE EACHEYE SCH ×2 (08:57→20:11)
[2018-08-11] MEDS: LEVETIRACETAM 500 MG/5 ML LIQUID UDC GT SCH ×2 (08:58→20:12)
[2018-08-11] MEDS: CARVEDILOL 6.25 MG TABLET GT SCH ×2 (08:58→21:38)
[2018-08-11] MEDS: LISINOPRIL 20 MG TABLET GT SCH (08:58)
[2018-08-11] MEDS: COD LIVER OIL/ZINC OXIDE OINT 113 GM TUBE TOP SCH ×2 (08:59→20:12)
[2018-08-11] MEDS: HEPARIN SODIUM,PORCINE 5,000 UNITS/ML VIAL SQ SCH ×2 (09:00→21:00)
[2018-08-11] MEDS: OSMOLITE 1.2 CAL 1,000 ML LIQUID GT PRN (12:37)
[2018-08-11 13:00] VITALS: BP 121/63
[2018-08-11 17:00] VITALS: BP 115/49
[2018-08-11 22:47] VITALS: BP 109/59
[2018-08-12] MEDS: OSMOLITE 1.2 CAL 1,000 ML LIQUID GT PRN ×2 (05:19→17:20)
[2018-08-12] MEDS: METOCLOPRAMIDE HCL 10 MG/10 ML UDC GT SCH ×3 (05:19→21:31)
[2018-08-12] MEDS: OMEPRAZOLE 20 MG CAPSULE.DR GT SCH (05:19)
--- NOTE | 2018-08-12 07:38 | NUR ---
PT RECEIVED IN BED AFEBRILE, ON VENT @ FIO2 30% , NO RESPIRATORY DISTRESS NOTED TRACH SHILEY 6 CUFFED SECURED/PATENT, GT SITE CLEAN/DRY/NO REDNESS/NO LEAK NOTED. CALL LIGHT WITH IN REACH AT ALL TIMES, SR UP X4, WILL CONTINUE TO MONITOR.
[2018-08-12 08:00] VITALS: BP 119/70
[2018-08-12] MEDS: LISINOPRIL 20 MG TABLET GT SCH (09:00)
[2018-08-12] MEDS: NEO/POLYMYX B/DEXAME OPHT OINT 3.5 GM TUBE EACHEYE SCH ×2 (09:00→20:39)
[2018-08-12] MEDS: COD LIVER OIL/ZINC OXIDE OINT 113 GM TUBE TOP SCH ×2 (09:00→20:46)
[2018-08-12] MEDS: HEPARIN SODIUM,PORCINE 5,000 UNITS/ML VIAL SQ SCH ×2 (09:00→20:46)
[2018-08-12] MEDS: LEVETIRACETAM 500 MG/5 ML LIQUID UDC GT SCH ×2 (09:00→20:46)
[2018-08-12] MEDS: CARVEDILOL 6.25 MG TABLET GT SCH ×2 (09:00→20:45)
--- NOTE | 2018-08-12 09:30 | NUR ---
Seen and examined by Dr Muro,no new orders.
[2018-08-12 14:15] VITALS: BP 126/78
[2018-08-12 17:11] VITALS: BP 121/61
[2018-08-12 20:15] VITALS: BP_SYST 121; BP_SYST 89; BP_DIAS 49; BP_DIAS 67
--- NOTE | 2018-08-12 22:15 | NUR ---
Seen notes from Dr. Peterson with no new orders.
--- NOTE | 2018-08-12 23:30 | NUR ---
On maxitrol to both eyes for blepharitis/ conjunctivitis, no adverse reactions noted, good eye care done, eyes still red, no discharged / drainage noted. afebrile, no signs of any distress, connected to vent, no signs of any distress noted, kept clean and dry.
[2018-08-13] VITALS (7 sets, daily range): BP systolic 76–139; BP diastolic 73–96
[2018-08-13] MEDS: METOCLOPRAMIDE HCL 10 MG/10 ML UDC GT SCH ×3 (05:11→22:08)
[2018-08-13] MEDS: OMEPRAZOLE 20 MG CAPSULE.DR GT SCH (05:11)
[2018-08-13] MEDS: NEO/POLYMYX B/DEXAME OPHT OINT 3.5 GM TUBE EACHEYE SCH ×2 (08:50→20:40)
[2018-08-13] MEDS: CARVEDILOL 6.25 MG TABLET GT SCH ×2 (08:51→20:41)
[2018-08-13] MEDS: LEVETIRACETAM 500 MG/5 ML LIQUID UDC GT SCH ×2 (08:51→20:42)
[2018-08-13] MEDS: LISINOPRIL 20 MG TABLET GT SCH (08:51)
[2018-08-13] MEDS: COD LIVER OIL/ZINC OXIDE OINT 113 GM TUBE TOP SCH ×2 (08:52→20:42)
[2018-08-13] MEDS: HEPARIN SODIUM,PORCINE 5,000 UNITS/ML VIAL SQ SCH ×2 (08:53→21:39)
[2018-08-13] MEDS: OSMOLITE 1.2 CAL 1,000 ML LIQUID GT PRN (08:54)
--- NOTE | 2018-08-13 19:57 | NUR ---
Pt rec'd on HT-50 on settings of AC 16, VT 550, PEEP +5 and FIO2-30%. No resp. distress noted. Shiley 8 DCT is patent and secure; B/U Shiley 8 and BVM are at bedside. No resp. distress noted at this time. Pt to be monitored throughout the shift and PRN SX. HT-50 alarm parameters have been checked and remain audible.
--- NOTE | 2018-08-13 22:49 | NUR ---
Afebrile, on maxitrol eye ointment for both eye blepharitis/ conjunctivitis, no adverse reactions noted, good eye care done, no signs of pain or discomfort, kept clean and comfortable.
[2018-08-14] VITALS (7 sets, daily range): BP systolic 104–139; BP diastolic 58–77
[2018-08-14] MEDS: OSMOLITE 1.2 CAL 1,000 ML LIQUID GT PRN (02:00)
[2018-08-14] MEDS: OMEPRAZOLE 20 MG CAPSULE.DR GT SCH (05:04)
[2018-08-14] MEDS: METOCLOPRAMIDE HCL 10 MG/10 ML UDC GT SCH ×3 (05:04→22:55)
[2018-08-14] MEDS: LEVETIRACETAM 500 MG/5 ML LIQUID UDC GT SCH ×2 (09:01→20:42)
[2018-08-14] MEDS: NEO/POLYMYX B/DEXAME OPHT OINT 3.5 GM TUBE EACHEYE SCH ×2 (09:01→20:41)
[2018-08-14] MEDS: COD LIVER OIL/ZINC OXIDE OINT 113 GM TUBE TOP SCH ×2 (09:03→20:44)
[2018-08-14] MEDS: CARVEDILOL 6.25 MG TABLET GT SCH ×2 (09:03→21:00)
[2018-08-14] MEDS: LISINOPRIL 20 MG TABLET GT SCH (09:03)
[2018-08-14] MEDS: HEPARIN SODIUM,PORCINE 5,000 UNITS/ML VIAL SQ SCH ×2 (09:04→21:48)
--- NOTE | 2018-08-14 09:06 | NUR ---
RECEIVED ON CURRENT VENTILATOR SETTINGS OF AC 16, VT 550, FIO2 30% AND PEEP 5. STABLE WITH NO DISTRESS. SUCTIONED FOR MODERATE AMOUNT OF THICK WHITISH SECRETION. TRACH SHILEY NO. [address] AND SECURE. VENT IS WORKING WELL WITH ALL ALARMS ACTIVE. CHANGED HUMIDIFIER FILTER.
--- NOTE | 2018-08-14 15:57 | NUR ---
LESIA received a phone call from patient's Lisa, who wanted to let SW know that her phone numbers had changed. Lisa stated that the numbers she can be reached at are: [phone] or [phone]. LESIA updated patient's records.
--- NOTE | 2018-08-14 20:00 | NUR ---
Pt receive in semi fried position, on continuous mechanical ventilation via trach, and with limited response to verbal stimuli. Pt is of [place] HT-50 vent with ordered settings of A/C-16, VT-550, PEEP+5, FIO2-30%. Tolerating vent settings well. SpO2-99%. [place] 8 DFEN trach is patent and secure. Minimal occluding volume technique used to assess cuff inflation. Sxn'd & lavaged as needed. Sxn'd small amts of white/yellow secretions. HME changed. No respiratory distress noted. Ventilator alarm parameters checked, on and audible. Bag/valve/mask and back up trach at bedside. Vent plugged into red emergency outlet. PPE used. Will continue to monitor.
--- NOTE | 2018-08-14 22:00 | NUR ---
found larissa at activity room with blanket on shoulder and watching t.v., told the nurse, nurse said we need to tell her, she can't stay overnight, went to room 424, introduce myself and told her our visiting hours is till 9:00pm and you can stay over little bit but not overnight, it's hospital policy, larissa stated, i talked 2 staff about staying overnight and they said okay, one of them is social services aide, 2214- notified hand silvering supervisor about want to stay overnight, 2219-called north, unit reactor operator, explained situation, north stated, zeke and i told her, no. larissa called her daughter and left unit @11;00pm.
[2018-08-15] VITALS: BP 110/62
[2018-08-15] MEDS: OSMOLITE 1.2 CAL 1,000 ML LIQUID GT PRN (01:24)
[2018-08-15 05:13] VITALS: BP 125/68
[2018-08-15] MEDS: METOCLOPRAMIDE HCL 10 MG/10 ML UDC GT SCH ×3 (05:46→22:11)
[2018-08-15] MEDS: OMEPRAZOLE 20 MG CAPSULE.DR GT SCH (05:46)
[2018-08-15 08:30] VITALS: BP 108/58
[2018-08-15] MEDS: LEVETIRACETAM 500 MG/5 ML LIQUID UDC GT SCH ×2 (09:46→20:36)
[2018-08-15] MEDS: LISINOPRIL 20 MG TABLET GT SCH (09:46)
[2018-08-15] MEDS: CARVEDILOL 6.25 MG TABLET GT SCH ×2 (09:46→20:34)
[2018-08-15] MEDS: COD LIVER OIL/ZINC OXIDE OINT 113 GM TUBE TOP SCH (09:47)
[2018-08-15] MEDS: HEPARIN SODIUM,PORCINE 5,000 UNITS/ML VIAL SQ SCH ×2 (09:50→21:00)
[2018-08-15] MEDS: NEO/POLYMYX B/DEXAME OPHT OINT 3.5 GM TUBE EACHEYE SCH ×2 (09:51→20:33)
--- NOTE | 2018-08-15 12:30 | NUR ---
Seen and examined by Dr Suero no new orders.
[2018-08-15 15:40] VITALS: BP 118/73
[2018-08-15 17:26] VITALS: BP 100/49
--- NOTE | 2018-08-15 19:09 | NUR ---
Handoff to night nurse, Lani Son RN
--- NOTE | 2018-08-15 19:52 | NUR ---
Received pt on HT-50 ventilator with the following settings of AC-16, Vt-550, PEEP+5, FIO2-30%, trached with Shiley#8 DFEN trach, which is in the place and secure properly. No s/s of respiratory distress noted. Airway care done, pt responded to physical stimuli. HME and Sx Jimenez changed. Resus. bag and back up trach at bedside. Vent and alarms checked and reset.
[2018-08-15 22:25] VITALS: BP 124/74
[2018-08-16 01:35] VITALS: BP 112/69
[2018-08-16] MEDS: METOCLOPRAMIDE HCL 10 MG/10 ML UDC GT SCH ×3 (05:07→21:26)
[2018-08-16] MEDS: OMEPRAZOLE 20 MG CAPSULE.DR GT SCH (05:07)
[2018-08-16 05:11] VITALS: BP 134/73
[2018-08-16] MEDS: NEO/POLYMYX B/DEXAME OPHT OINT 3.5 GM TUBE EACHEYE SCH ×2 (08:23→21:25)
[2018-08-16] MEDS: CARVEDILOL 6.25 MG TABLET GT SCH ×2 (08:23→21:26)
[2018-08-16] MEDS: LISINOPRIL 20 MG TABLET GT SCH (08:24)
[2018-08-16] MEDS: HEPARIN SODIUM,PORCINE 5,000 UNITS/ML VIAL SQ SCH ×2 (08:24→21:00)
[2018-08-16] MEDS: LEVETIRACETAM 500 MG/5 ML LIQUID UDC GT SCH ×2 (08:24→21:26)
--- NOTE | 2018-08-16 17:22 | NUR ---
PT ON HT-5O VENT, SETTINGS ARE AC 16, Vt 550, +5, 30% FIO2. TOLERATING VENT SETTINGS FAIRLY WELL. NO SOB NOTED. SHILEY 8 TRACH IS PATENT AND SECURED WITH TIES. SUCTIONED MODERATE AMOUNTS OF YELLOW THICK SECRETIONS. HME CHANGED. ALARMS ARE ON AND AUDIBLE, BVM AND BACK UP TRACH AT BEDSIDE. WILL CONITUE TO MONITOR.
--- NOTE | 2018-08-16 23:01 | NUR ---
Still on maxitrol to both eyes for blepharitis/conjunctivitis, no adverse reactions noted, good eye care done , no discharges noted from eyes, kept clean and comfortable.
[2018-08-16 23:33] VITALS: BP 114/54
[2018-08-17] MEDS: OSMOLITE 1.2 CAL 1,000 ML LIQUID GT PRN ×2 (04:35→23:18)
[2018-08-17] MEDS: OMEPRAZOLE 20 MG CAPSULE.DR GT SCH (05:34)
[2018-08-17] MEDS: METOCLOPRAMIDE HCL 10 MG/10 ML UDC GT SCH ×3 (05:34→21:41)
[2018-08-17 06:00] VITALS: BP 128/60
--- NOTE | 2018-08-17 07:55 | NUR ---
Pt receive in semi fried position, on continuous mechanical ventilation via trach, and with limited response to verbal stimuli. Pt is of [place] HT-50 vent with ordered settings of A/C-16, VT-550, PEEP+5, FIO2-30%. Tolerating vent settings well. SpO2-100%. Carlyley 8 DFEN trach is patent and secure. Minimal occluding volume technique used to assess cuff inflation. Sxn'd & lavaged as needed. Sxn'd small amts of white/yellow secretions. HME changed. No respiratory distress noted. Ventilator alarm parameters checked, on and audible. Bag/valve/mask and back up trach at bedside. Vent plugged into red emergency outlet. PPE used. Will continue to monitor.
[2018-08-17 08:00] VITALS: BP 161/92
[2018-08-17] MEDS: CARVEDILOL 6.25 MG TABLET GT SCH ×2 (08:26→21:41)
[2018-08-17] MEDS: LISINOPRIL 20 MG TABLET GT SCH (08:26)
[2018-08-17] MEDS: LEVETIRACETAM 500 MG/5 ML LIQUID UDC GT SCH ×2 (08:26→21:41)
[2018-08-17] MEDS: NEO/POLYMYX B/DEXAME OPHT OINT 3.5 GM TUBE EACHEYE SCH ×2 (08:26→21:41)
[2018-08-17] MEDS: HEPARIN SODIUM,PORCINE 5,000 UNITS/ML VIAL SQ SCH ×2 (08:27→21:45)
--- NOTE | 2018-08-17 12:32 | NUR ---
Prior authorization form signed by Dr. Johnston, faxed to [facility], [facility] ([facility]) notified. Seen by Rosalina FIGUEROA with no new order.
[2018-08-17 22:00] VITALS: BP 116/73
[2018-08-18 02:29] VITALS: BP 136/70
[2018-08-18] MEDS: METOCLOPRAMIDE HCL 10 MG/10 ML UDC GT SCH ×3 (05:49→21:34)
[2018-08-18] MEDS: OMEPRAZOLE 20 MG CAPSULE.DR GT SCH (05:49)
[2018-08-18 07:05] VITALS: BP 126/65
[2018-08-18 08:00] VITALS: BP 152/85
[2018-08-18] MEDS: NEO/POLYMYX B/DEXAME OPHT OINT 3.5 GM TUBE EACHEYE SCH ×2 (08:50→21:28)
[2018-08-18] MEDS: LEVETIRACETAM 500 MG/5 ML LIQUID UDC GT SCH ×2 (08:50→21:30)
[2018-08-18] MEDS: CARVEDILOL 6.25 MG TABLET GT SCH ×2 (08:50→21:30)
[2018-08-18] MEDS: LISINOPRIL 20 MG TABLET GT SCH (08:50)
[2018-08-18] MEDS: HEPARIN SODIUM,PORCINE 5,000 UNITS/ML VIAL SQ SCH ×2 (08:51→21:34)
--- NOTE | 2018-08-18 15:25 | NUR ---
INTERDISCIPLINARY PLAN OF CARE CONFERENCE was held today. Patient's family was in attendance: Lisa was on speaker phone, daughter Eduin was on speaker phone, daughter Alexander was present, sister Michelle was present. Dr. Muro and the Interdisciplinary Team reviewed the current plan of care in detail. RN reported on patient's medical condition. See RN IDT conference notes. No major changes in condition were reported. Updates/changes in medications were discussed by the pharmacist. PT discussed plan of care for splints. See all other disciplines IDT notes and physician's progress notes for additional details. The family's questions were addressed by Dr. Muro and the IDT team, and the family expressed being content with the current plan of care.
--- NOTE | 2018-08-18 15:28 | NUR ---
Pharmacy Update from today's 08/18/18 IDT Meeting Patient admitted 07/14/18 from [place]. 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 Pt was found to be positive on urine tox for methamphetamines Temp 97.4 BP 116/73 HR 101 LABS: (from 08/10/18) Wbc 6.4H/H 10.2Plt 265 Na 133K 4.3Cl 98CO2 20BUN/Scr 22/0.9 BS 108Ca 9.6 MEDICATION USE REVIEWED: > Pt is not on any anti-psych medications > Pt is on Keppra 500mg q 12hr since admit 07/14/18, no seizures reported; CrCl 90.3 ml/min, dose appropriate per renal fxn > Pt was on lovenox 40mg daily, changed to heparin 5000units q12h per insurance. Last plt 265 > Pt on coreg 6.25mg q12hr, lisinopril 20mg daily, hydralazine PRN SBP >160. Last BP 116/73 > Admitted on reglan 5mg q8hr for GI motility/gastroparesis. Rx rec for d/c if resolved, however primary MD (JANY) refused, stating pt is to continue d/t continued need. MD aware of pt's LFTs as well, may ask for GI consult if does not resolve PRN MED USAGE: (Sept) Tylenol for pain/temp used x 4 (pain) Bisacodyl supp used x0 Miralax PRN used x 0 Hydralazine PRN used x 0 Ativan PRN anxiety/agitation used x 0 NEW ORDERS NOTED: > Flu shot received 08/04 > Lansoprazole changed to omeprazole per pt insurance > Baclofen 10mg TID d/c 08/02 > Trial of methylphenidate per neuro 08/06-08/10. No significant changes noted per monitoring, remained about baseline of 0-2 wake hours in day, not responsive to verbal cues or commands. Neurologist f/u with family > Lorazepam PRN anxiety d/c'd per RX rec d/t lack of indication, possible crossover from transfer Patient reviewed and discussed in detail at IDT, with family in attendance, medications reported with no concerns at [facility] time and updates per rx rec noted. No issues noted per family at this time regarding medications. Questioned prognosis and responsiveness of patient, discussed with MD and IDT staff. Will continue to follow
--- NOTE | 2018-08-18 19:55 | NUR ---
Pt receive in semi fried position, on continuous mechanical ventilation via trach, and with limited response to verbal stimuli. Pt is on [place] HT-50 vent with ordered settings of A/C-16, VT-550, PEEP+5, FIO2-30%. Tolerating vent settings well. SpO2-99%. Shiley 8 DFEN trach is patent and secure. Minimal occluding volume technique used to assess cuff inflation. Sxn'd & lavaged as needed. Sxn'd small amts of white/yellow secretions. HME changed. No signs or symptoms of respiratory distress noted. Ventilator alarm parameters checked, on and audible. Bag/valve/mask and back up trach at bedside. Vent plugged into red emergency outlet. PPE used. Will continue to monitor.
[2018-08-18 20:36] VITALS: BP 102/80
[2018-08-19] VITALS: BP 100/62
[2018-08-19] MEDS: METOCLOPRAMIDE HCL 10 MG/10 ML UDC GT SCH ×3 (05:12→22:33)
[2018-08-19] MEDS: OMEPRAZOLE 20 MG CAPSULE.DR GT SCH (05:12)
[2018-08-19 05:13] VITALS: BP 90/56
[2018-08-19 08:00] VITALS: BP 121/76
[2018-08-19] MEDS: HEPARIN SODIUM,PORCINE 5,000 UNITS/ML VIAL SQ SCH ×2 (08:48→20:36)
[2018-08-19] MEDS: NEO/POLYMYX B/DEXAME OPHT OINT 3.5 GM TUBE EACHEYE SCH ×2 (08:48→20:32)
[2018-08-19] MEDS: LEVETIRACETAM 500 MG/5 ML LIQUID UDC GT SCH ×2 (08:48→20:35)
[2018-08-19] MEDS: LISINOPRIL 20 MG TABLET GT SCH (08:48)
[2018-08-19] MEDS: CARVEDILOL 6.25 MG TABLET GT SCH ×2 (08:48→20:34)
--- NOTE | 2018-08-19 09:00 | NUR ---
Seen and examined by Dr Muro,no new orders.
--- NOTE | 2018-08-19 15:01 | NUR ---
evaluated by OT for splint management with new orders noted.
[2018-08-19 20:06] VITALS: BP 120/47
[2018-08-20] VITALS: BP 109/58
[2018-08-20] MEDS: MIRALAX 17 GM POWD.PACK GT PRN
--- NOTE | 2018-08-20 03:22 | NUR ---
RECEIVED PT ON A MECHANICAL VENTILATOR WITH THE FOLLOWING SETTINGS THAT ARE CHARTED ON THE MECHANICAL VENT NOTES. SUCTIONED A MODERATE AMOUNT OF THICK WHITE AND YELLOW SECRETIONS. TRACH IS PATENT AND PROPERLY SECURED WITH TRACH TIES. HME CHANGED. BACK UP TRACH AND AMBU BAG IS BY BEDSIDE. VENTILATOR ALARMS ARE ON AND AUDIBLE. VENTILATOR IS PLUGGED IN THE RED OUTLET. PT IS TOLERATING CURRENT VENTILATOR SETTINGS WELL AT THIS TIME. NO SOB NOTED.
[2018-08-20 04:10] VITALS: BP 121/70
[2018-08-20] MEDS: METOCLOPRAMIDE HCL 10 MG/10 ML UDC GT SCH ×3 (06:13→22:00)
[2018-08-20] MEDS: OMEPRAZOLE 20 MG CAPSULE.DR GT SCH (06:13)
[2018-08-20] MEDS: OSMOLITE 1.2 CAL 1,000 ML LIQUID GT PRN ×2 (06:13→22:00)
[2018-08-20 07:30] VITALS: BP 153/80
[2018-08-20] MEDS: NEO/POLYMYX B/DEXAME OPHT OINT 3.5 GM TUBE EACHEYE SCH ×2 (08:11→20:35)
[2018-08-20] MEDS: LEVETIRACETAM 500 MG/5 ML LIQUID UDC GT SCH ×2 (08:11→20:35)
[2018-08-20] MEDS: CARVEDILOL 6.25 MG TABLET GT SCH ×2 (08:11→20:35)
[2018-08-20] MEDS: LISINOPRIL 20 MG TABLET GT SCH (08:12)
[2018-08-20] MEDS: HEPARIN SODIUM,PORCINE 5,000 UNITS/ML VIAL SQ SCH ×2 (08:13→20:37)
--- NOTE | 2018-08-20 09:40 | NUR ---
NEW ORDER WAS CARRIED OUT FROM DR. GRULLON . FOR RNA ORDERS.
[2018-08-20 19:56] VITALS: BP 117/52
[2018-08-21] VITALS: BP 115/56
[2018-08-21 04:59] VITALS: BP 111/57
[2018-08-21] MEDS: METOCLOPRAMIDE HCL 10 MG/10 ML UDC GT SCH ×3 (06:15→21:13)
[2018-08-21] MEDS: OMEPRAZOLE 20 MG CAPSULE.DR GT SCH (06:15)
[2018-08-21 08:00] VITALS: BP 103/58
[2018-08-21] MEDS: CARVEDILOL 6.25 MG TABLET GT SCH ×2 (09:00→20:54)
[2018-08-21] MEDS: LISINOPRIL 20 MG TABLET GT SCH (09:00)
[2018-08-21] MEDS: NEO/POLYMYX B/DEXAME OPHT OINT 3.5 GM TUBE EACHEYE SCH ×2 (09:56→20:54)
[2018-08-21] MEDS: LEVETIRACETAM 500 MG/5 ML LIQUID UDC GT SCH ×2 (09:57→20:54)
[2018-08-21] MEDS: HEPARIN SODIUM,PORCINE 5,000 UNITS/ML VIAL SQ SCH ×2 (09:58→20:54)
--- NOTE | 2018-08-21 16:55 | NUR ---
NEW ORDER WAS CARRIED OUT FROM DR. GRULLON FOR RNA RECOMMENDED BY O.T.
[2018-08-21 20:04] VITALS: BP 139/78
--- NOTE | 2018-08-21 23:00 | NUR ---
S/p maxitrol eye ointment for both eye conjunctivitis/ Blepharitis, no adverse reactions noted, no eye redness noted, good eye care done, kept clean and comfortable.
[2018-08-22 03:26] VITALS: BP 129/82
[2018-08-22] MEDS: OMEPRAZOLE 20 MG CAPSULE.DR GT SCH (05:08)
[2018-08-22] MEDS: OSMOLITE 1.2 CAL 1,000 ML LIQUID GT PRN (05:08)
[2018-08-22] MEDS: METOCLOPRAMIDE HCL 10 MG/10 ML UDC GT SCH ×3 (05:08→22:02)
[2018-08-22 05:14] VITALS: BP 132/86
[2018-08-22] MEDS: CARVEDILOL 6.25 MG TABLET GT SCH ×2 (09:19→21:00)
[2018-08-22] MEDS: LEVETIRACETAM 500 MG/5 ML LIQUID UDC GT SCH ×2 (09:19→21:00)
[2018-08-22] MEDS: LISINOPRIL 20 MG TABLET GT SCH (09:20)
[2018-08-22] MEDS: HEPARIN SODIUM,PORCINE 5,000 UNITS/ML VIAL SQ SCH ×2 (09:21→21:00)
[2018-08-22] MEDS: NEO/POLYMYX B/DEXAME OPHT OINT 3.5 GM TUBE EACHEYE SCH ×2 (09:23→21:00)
[2018-08-22 12:18] VITALS: BP 118/76
--- NOTE | 2018-08-22 20:10 | NUR ---
Received pt on HT-50 vent with current settings of AC 16, VT 550, Peep +5, FiO2 30%, no changes to vent settings made at this time. Pt is trached with Carlyley 8 trach, which is secured and patent. Pt tolerating vent settings well, no signs and symptoms of respiratory distress noted. Suctioned pt with moderate amount of thick pale-yellowish secretions. Changed HME and suction travis. Vent alarms functioning and audible. Ambu-bag and back-up trach at bedside. Vent plugged in red outlet. Will continue to monitor pt throughout shift.
[2018-08-22 20:54] VITALS: BP 113/56
[2018-08-23] MEDS: METOCLOPRAMIDE HCL 10 MG/10 ML UDC GT SCH ×3 (05:28→22:13)
[2018-08-23] MEDS: OMEPRAZOLE 20 MG CAPSULE.DR GT SCH (05:28)
[2018-08-23] MEDS: OSMOLITE 1.2 CAL 1,000 ML LIQUID GT PRN ×2 (05:29→17:13)
[2018-08-23 08:00] VITALS: BP 169/92
[2018-08-23] MEDS: CARVEDILOL 6.25 MG TABLET GT SCH ×2 (09:04→20:44)
[2018-08-23] MEDS: LEVETIRACETAM 500 MG/5 ML LIQUID UDC GT SCH ×2 (09:05→20:44)
[2018-08-23] MEDS: LISINOPRIL 20 MG TABLET GT SCH (09:05)
[2018-08-23] MEDS: HEPARIN SODIUM,PORCINE 5,000 UNITS/ML VIAL SQ SCH ×2 (09:06→21:00)
[2018-08-23 09:14] VITALS: BP 158/72
[2018-08-23 13:00] VITALS: BP 128/61
[2018-08-23 17:17] VITALS: BP 142/61
[2018-08-23 20:00] VITALS: BP 110/50
[2018-08-24] MEDS: OMEPRAZOLE 20 MG CAPSULE.DR GT SCH (05:51)
[2018-08-24] MEDS: METOCLOPRAMIDE HCL 10 MG/10 ML UDC GT SCH ×3 (05:51→22:02)
[2018-08-24 07:02] VITALS: BP 134/69
[2018-08-24 08:00] VITALS: BP 105/69
[2018-08-24] MEDS: CARVEDILOL 6.25 MG TABLET GT SCH ×2 (09:24→20:56)
[2018-08-24] MEDS: LEVETIRACETAM 500 MG/5 ML LIQUID UDC GT SCH ×2 (09:24→20:56)
[2018-08-24] MEDS: LISINOPRIL 20 MG TABLET GT SCH (09:25)
[2018-08-24] MEDS: HEPARIN SODIUM,PORCINE 5,000 UNITS/ML VIAL SQ SCH ×2 (09:27→21:00)
[2018-08-24 09:29] VITALS: BP 105/67
[2018-08-24 13:00] VITALS: BP 125/70
--- NOTE | 2018-08-24 15:14 | NUR ---
SEEN BY ELÍAS Ivan AND DR. DEREK PITTMAN.
[2018-08-24] MEDS: OSMOLITE 1.2 CAL 1,000 ML LIQUID GT PRN (16:41)
[2018-08-24 20:12] VITALS: BP 120/71
[2018-08-25] MEDS: OMEPRAZOLE 20 MG CAPSULE.DR GT SCH (05:45)
[2018-08-25] MEDS: METOCLOPRAMIDE HCL 10 MG/10 ML UDC GT SCH ×3 (05:45→21:00)
[2018-08-25 07:07] VITALS: BP 104/51
[2018-08-25] MEDS: OSMOLITE 1.2 CAL 1,000 ML LIQUID GT PRN ×2 (07:12→20:00)
[2018-08-25 08:00] VITALS: BP 133/81
[2018-08-25] MEDS: LEVETIRACETAM 500 MG/5 ML LIQUID UDC GT SCH ×2 (09:00→20:50)
[2018-08-25] MEDS: LISINOPRIL 20 MG TABLET GT SCH (09:00)
[2018-08-25] MEDS: HEPARIN SODIUM,PORCINE 5,000 UNITS/ML VIAL SQ SCH ×2 (09:00→20:54)
[2018-08-25] MEDS: CARVEDILOL 6.25 MG TABLET GT SCH ×2 (09:00→20:50)
--- NOTE | 2018-08-25 15:08 | NUR ---
Pharmacy Update from today's 08/25/18 IDT Meeting Patient admitted 07/14/18 from [place]. 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 Pt was found to be positive on urine tox for methamphetamines Temp 98.5 BP 133/81 HR 88 LABS: (from 08/10/18) Wbc 6.4H/H 10.2Plt 265 Na 133K 4.3Cl 98CO2 20BUN/Scr 22/0.9 BS 108Ca 9.6 MEDICATION USE REVIEWED: > Pt is not on any anti-psych medications > Pt is on Keppra 500mg q 12hr since admit 07/14/18, no seizures reported; CrCl 90.3 ml/min, dose appropriate per renal fxn > Pt was on lovenox 40mg daily, changed to heparin 5000units q12h per insurance. Last plt 265 > Pt on coreg 6.25mg q12hr, lisinopril 20mg daily, hydralazine PRN SBP >160. Last BP 133/81 > Admitted on reglan 5mg q8hr for GI motility/gastroparesis. Per MD (DF), not to d/c as for gastroparesis/was required before transfer. PRN MED USAGE: (Sept) Tylenol for pain/temp used x 4 (pain) Bisacodyl supp used x0 Miralax PRN used x 0 Hydralazine PRN used x 0 Ativan PRN anxiety/agitation used x 0 NEW ORDERS NOTED: > NA Patient reviewed and discussed in detail at IDT, no medication changes, issues, or concerns noted per team at this time. Will continue monitoring
--- NOTE | 2018-08-25 15:43 | NUR ---
INTERDISCIPLINARY PLAN OF CARE CONFERENCE was held today. Patient's family was invited to the meeting, but they were unable to attend. Dr. Muro and the Interdisciplinary Team reviewed the current plan of care in detail. RN reported on patient's medical condition. See RN IDT conference notes. No major changes in condition were reported. See also all other disciplines IDT notes and physician's progress notes for additional details.
[2018-08-25 20:17] VITALS: BP 105/54
[2018-08-26] VITALS: BP 120/58
[2018-08-26] MEDS: OMEPRAZOLE 20 MG CAPSULE.DR GT SCH (05:46)
[2018-08-26] MEDS: METOCLOPRAMIDE HCL 10 MG/10 ML UDC GT SCH ×3 (05:46→21:47)
[2018-08-26 08:00] VITALS: BP 150/86
[2018-08-26] MEDS: LISINOPRIL 20 MG TABLET GT SCH (09:29)
[2018-08-26] MEDS: LEVETIRACETAM 500 MG/5 ML LIQUID UDC GT SCH ×2 (09:29→20:15)
[2018-08-26] MEDS: CARVEDILOL 6.25 MG TABLET GT SCH ×2 (09:29→20:15)
[2018-08-26] MEDS: ENOXAPARIN SODIUM 40 MG/0.4 ML DISP.SYRIN SQ SCH (09:31)
[2018-08-26] MEDS ORDERED: ACETAMINOPHEN 650 MG/20 ML UDC- SA PATIENTS-FEVER ONLY GT PRN (14:30)
--- NOTE | 2018-08-26 15:42 | NUR ---
PT RECEIVED ON VENT WITH TRACH PROPERLY SECURED AND INTACT. AIRWAY PATENT. PT TOLERATING CURRENT VENT SETTINGS FINE WITH NO EVIDENCE OF RESPIRATORY DISTRESS. BREATH SOUNDS RHONCHI. PRN SUCTIONING PERFORMED. PT HAD MODERATE AMOUNT OF OFF WHITE YELLOWISH SECRETIONS. HEAD OF THE BED ELEVATED. VENT ALARMS SET AND AUDIBLE. VENT PLUGGED IN RED OUTLET. PT COMFORTABLE.
--- NOTE | 2018-08-26 19:03 | NUR ---
SEEN BY DR. MILDRED PITTMAN.
[2018-08-26 20:00] VITALS: BP 92/51
[2018-08-27] VITALS: BP 110/57
[2018-08-27] MEDS: OSMOLITE 1.2 CAL 1,000 ML LIQUID GT PRN ×2 (03:04→22:18)
[2018-08-27 04:00] VITALS: BP 119/55
[2018-08-27] MEDS: OMEPRAZOLE 20 MG CAPSULE.DR GT SCH (05:48)
[2018-08-27] MEDS: METOCLOPRAMIDE HCL 10 MG/10 ML UDC GT SCH ×3 (05:48→21:58)
[2018-08-27 08:06] VITALS: BP 126/59
[2018-08-27] MEDS: LEVETIRACETAM 500 MG/5 ML LIQUID UDC GT SCH ×2 (08:18→21:58)
[2018-08-27] MEDS: CARVEDILOL 6.25 MG TABLET GT SCH ×2 (08:18→21:58)
[2018-08-27] MEDS: LISINOPRIL 20 MG TABLET GT SCH (08:19)
[2018-08-27] MEDS: ENOXAPARIN SODIUM 40 MG/0.4 ML DISP.SYRIN SQ SCH (08:21)
[2018-08-27 12:34] VITALS: BP 139/71
[2018-08-27 17:00] VITALS: BP 116/58
[2018-08-27 20:24] VITALS: BP 148/85
[2018-08-28] VITALS: BP 135/69
[2018-08-28] MEDS: OMEPRAZOLE 20 MG CAPSULE.DR GT SCH (05:59)
[2018-08-28] MEDS: METOCLOPRAMIDE HCL 10 MG/10 ML UDC GT SCH ×3 (05:59→21:32)
[2018-08-28 06:12] VITALS: BP 144/78
--- NOTE | 2018-08-28 08:00 | NUR ---
PT REC'D ON HT-50 VENT, SETTINGS AC16 550VT 30%FIO2 PEEP+5. PT VENT'D VIA TRACHEOSTOMY TUBE, SHILEY 8, TRACH CUFF INFLATED, NO LEAK PRESENT, MINIMAL OCCLUDING VOLUME TECH USED, TRACH IS IN PLACE, PATENT AND SECURED WITH TRACH TIES. NO S/S OF SOB/DISTRESS NOTED AT THIS TIME. SXN'D SM/MOD THICK YELLOWISH SECRETIONS. BVM AND BACK UP TRACH AT BEDSIDE. ALARMS AUDIBLE, CHECKED AND RESET. PPE USED. WILL CONTINUE TO MONITOR AND REPORT ANY CHANGES.
[2018-08-28] MEDS: ENOXAPARIN SODIUM 40 MG/0.4 ML DISP.SYRIN SQ SCH (08:08)
[2018-08-28] MEDS: LEVETIRACETAM 500 MG/5 ML LIQUID UDC GT SCH ×2 (08:08→21:31)
[2018-08-28] MEDS: CARVEDILOL 6.25 MG TABLET GT SCH ×2 (08:08→21:31)
[2018-08-28] MEDS: LISINOPRIL 20 MG TABLET GT SCH (08:08)
--- NOTE | 2018-08-28 14:00 | NUR ---
DR LEVY MADE AWARE RE MAINTENANCE ORDER FOR Z GUARD FOR PT BUTTOCKS, SACRAL, PERINEAL AREA. WITH NEW ORDER NOTED AND CARRIED OUT.
[2018-08-28] MEDS ORDERED: Z GUARD REMEDY PASTE 57 GM TUBE TOP PRN (17:15)
[2018-08-28] MEDS: Z GUARD REMEDY PASTE 57 GM TUBE TOP SCH ×2 (17:46→21:31)
--- NOTE | 2018-08-28 20:05 | NUR ---
PT RECEIVED ON CONTINUOUS VENT AC 16 VT 550 PEEP 5 FIO2 30%. TOLERATING CURRENT VENT SETTINGS AT THIS TIME. TRACH IN PLACED AND SECURED WITH TRACH TIE. BACK UP TRACH AND AMBU BAG AT BEDSIDE. SUCTION PRN. VENT CHECK, ALARMS WORKING WELL AND AUDIBLE. NO DISTRESS NOTED AT THIS TIME. WILL CONTINUE TO MONITOR.
[2018-08-28 20:51] VITALS: BP 125/64
[2018-08-29 01:00] VITALS: BP 143/77
[2018-08-29] MEDS: METOCLOPRAMIDE HCL 10 MG/10 ML UDC GT SCH ×3 (05:38→21:48)
[2018-08-29] MEDS: OMEPRAZOLE 20 MG CAPSULE.DR GT SCH (05:38)
[2018-08-29] MEDS: hydrALAZINE HCL 10 MG TABLET GT PRN (05:39)
[2018-08-29 05:58] VITALS: BP 177/105
--- NOTE | 2018-08-29 08:10 | NUR ---
Pt receive in semi fried position, on continuous mechanical ventilation via trach, and with limited response to verbal stimuli. Pt is on [place] HT-50 vent with ordered settings of A/C-16, VT-550, PEEP+5, FIO2-30%. Tolerating vent settings well. SpO2-99%. Shiley 8 DFEN trach is patent and secure. Minimal occluding volume technique used to assess cuff inflation. Sxn'd & lavaged as needed. Sxn'd small amts of yellow secretions. HME changed. No signs or symptoms of respiratory distress noted. Ventilator alarm parameters checked, on and audible. Bag/valve/mask and back up trach at bedside. Vent plugged into red emergency outlet. PPE used. Will continue to monitor.
[2018-08-29] MEDS: ENOXAPARIN SODIUM 40 MG/0.4 ML DISP.SYRIN SQ SCH (08:32)
[2018-08-29] MEDS: LISINOPRIL 20 MG TABLET GT SCH (08:35)
[2018-08-29] MEDS: Z GUARD REMEDY PASTE 57 GM TUBE TOP SCH ×2 (08:35→21:48)
[2018-08-29] MEDS: LEVETIRACETAM 500 MG/5 ML LIQUID UDC GT SCH ×2 (08:35→21:48)
[2018-08-29] MEDS: CARVEDILOL 6.25 MG TABLET GT SCH ×2 (08:36→21:00)
[2018-08-29 11:17] VITALS: BP 136/79
[2018-08-29 20:40] VITALS: BP 94/59
[2018-08-30] MEDS: METOCLOPRAMIDE HCL 10 MG/10 ML UDC GT SCH ×3 (06:02→22:00)
[2018-08-30] MEDS: OMEPRAZOLE 20 MG CAPSULE.DR GT SCH (06:02)
[2018-08-30 08:05] VITALS: BP 127/85
[2018-08-30] MEDS: LEVETIRACETAM 500 MG/5 ML LIQUID UDC GT SCH ×2 (09:01→21:00)
[2018-08-30] MEDS: CARVEDILOL 6.25 MG TABLET GT SCH ×2 (09:01→21:00)
[2018-08-30] MEDS: LISINOPRIL 20 MG TABLET GT SCH (09:05)
[2018-08-30] MEDS: Z GUARD REMEDY PASTE 57 GM TUBE TOP SCH ×2 (09:06→21:00)
[2018-08-30] MEDS: ENOXAPARIN SODIUM 40 MG/0.4 ML DISP.SYRIN SQ SCH (09:06)
[2018-08-30 13:38] VITALS: BP 125/70
[2018-08-30 20:12] VITALS: BP 99/54
[2018-08-31] MEDS: METOCLOPRAMIDE HCL 10 MG/10 ML UDC GT SCH ×3 (05:55→21:54)
[2018-08-31] MEDS: OMEPRAZOLE 20 MG CAPSULE.DR GT SCH (05:55)
[2018-08-31 08:00] VITALS: BP 121/82
[2018-08-31] MEDS: LEVETIRACETAM 500 MG/5 ML LIQUID UDC GT SCH ×2 (09:52→21:54)
[2018-08-31] MEDS: CARVEDILOL 6.25 MG TABLET GT SCH ×2 (09:52→21:54)
[2018-08-31] MEDS: LISINOPRIL 20 MG TABLET GT SCH (09:53)
[2018-08-31] MEDS: ENOXAPARIN SODIUM 40 MG/0.4 ML DISP.SYRIN SQ SCH (09:54)
[2018-08-31] MEDS: Z GUARD REMEDY PASTE 57 GM TUBE TOP SCH ×2 (09:54→21:54)
[2018-08-31] MEDS: OSMOLITE 1.2 CAL 1,000 ML LIQUID GT PRN (14:14)
[2018-08-31 20:36] VITALS: BP 111/75
--- NOTE | 2018-08-31 23:27 | NUR ---
PATIENT RECEIVED ON A HT-50 VENTILATOR WITH THE FOLLOWING SETTINGS THAT ARE CHARTED ON THE MECHANICAL VENTILATOR NOTES. HME CHANGED. SUCTIONED A SMALL AMOUNT OF THICK YELLOW SECRETIONS. TRACH IS PATENT AND SECURED WITH TRACH TIES. VENTILATOR IS PLUGGED IN THE RED EMERGENCY OUTLET. VENTILATOR ALARMS CHECKED AND THEY ARE ON AND AUDIBLE. BACK UP TRACH AND AMBU BAG IS BY BEDSIDE. PATIENT IS TOLERATING CURRENT VENTILATOR SETTINGS WELL WITH NO SOB NOTED AT THIS TIME. WILL CONTINUE TO MONITOR PATIENT.
[2018-09-01] MEDS: METOCLOPRAMIDE HCL 10 MG/10 ML UDC GT SCH ×3 (06:42→21:42)
[2018-09-01] MEDS: OMEPRAZOLE 20 MG CAPSULE.DR GT SCH (06:42)
[2018-09-01 07:15] LABS: BASOPHILS # (AUTO) 0.1 K/uL (0.0-8.0); BASOPHILS % (AUTO) 1.2 % (0.0-2.0); EOSINOPHILS # (AUTO) 0.1 K/uL (0.0-0.7); EOSINOPHILS % (AUTO) 1.3 % (0.0-7.0); HEMATOCRIT 29.9 % (36.7-47.1); HEMOGLOBIN 10.1 g/dL (12.5-16.3); LYMPHOCYTES # (AUTO) 2.6 K/uL (20.0-40.0); LYMPHOCYTES % (AUTO) 40.6 % (20.5-51.5); MEAN CORPUSCULAR HEMOGLOBIN 27.8 uug (23.8-33.4); MEAN CORPUSCULAR HGB CONC 34 g/dL (32.5-36.3); MEAN CORPUSCULAR VOLUME 82.5 fL (73.0-96.2); MONOCYTES # (AUTO) 0.6 K/uL (2.0-10.0); NEUTROPHILS # (AUTO) 3.1 K/uL (1.8-8.9); NEUTROPHILS % (AUTO) 47.9 % (38.5-71.5); PLATELET COUNT (AUTO) 232 K/uL (152-348); RED BLOOD CELL COUNT(AUTO) 3.62 MIL/uL (4.06-5.63); WHITE BLOOD COUNT (AUTO) 6.4 K/uL (3.6-10.2)
[2018-09-01 07:38] LABS: BILIRUBIN,TOTAL 0.3 mg/dL (0.2-1.0); CREATININE 0.9 mg/dL (0.6-1.3); PHOSPHOROUS 4.2 mg/dL (2.5-4.9); POTASSIUM 4.6 mmol/L (3.5-5.1); TOTAL PROTEIN, SERUM 7.4 g/dL (6.4-8.2)
[2018-09-01 08:00] VITALS: BP 101/52
[2018-09-01] MEDS: CARVEDILOL 6.25 MG TABLET GT SCH ×2 (09:26→21:41)
[2018-09-01] MEDS: LISINOPRIL 20 MG TABLET GT SCH (09:27)
[2018-09-01] MEDS: Z GUARD REMEDY PASTE 57 GM TUBE TOP SCH ×2 (09:28→21:42)
[2018-09-01] MEDS: ENOXAPARIN SODIUM 40 MG/0.4 ML DISP.SYRIN SQ SCH (09:28)
[2018-09-01] MEDS: LEVETIRACETAM 500 MG/5 ML LIQUID UDC GT SCH ×2 (09:29→21:42)
[2018-09-01] MEDS: OSMOLITE 1.2 CAL 1,000 ML LIQUID GT PRN (13:48)
[2018-09-01 20:05] VITALS: BP 138/64
[2018-09-02] VITALS: BP 126/62
[2018-09-02 04:00] VITALS: BP 144/67
[2018-09-02] MEDS: OMEPRAZOLE 20 MG CAPSULE.DR GT SCH (05:02)
[2018-09-02] MEDS: METOCLOPRAMIDE HCL 10 MG/10 ML UDC GT SCH ×3 (05:02→22:27)
[2018-09-02] MEDS: OSMOLITE 1.2 CAL 1,000 ML LIQUID GT PRN ×2 (05:28→20:46)
[2018-09-02] MEDS: LEVETIRACETAM 500 MG/5 ML LIQUID UDC GT SCH ×2 (08:29→20:50)
[2018-09-02] MEDS: CARVEDILOL 6.25 MG TABLET GT SCH ×2 (08:29→20:50)
[2018-09-02] MEDS: LISINOPRIL 20 MG TABLET GT SCH (08:30)
[2018-09-02] MEDS: Z GUARD REMEDY PASTE 57 GM TUBE TOP SCH ×2 (08:31→20:51)
[2018-09-02] MEDS: ENOXAPARIN SODIUM 40 MG/0.4 ML DISP.SYRIN SQ SCH (08:32)
--- NOTE | 2018-09-02 10:54 | NUR ---
LESIA called patient's Lisa [phone] but was unable to connect with her. LESIA left Lisa a voicemail message informing her that the next IDT meeting for the patient is scheduled for Friday09/08/18 at 11am, and asking her to call this LESIA back to let her know if she or her daughter (s) would be able to attend the meeting.
[2018-09-02 11:03] VITALS: BP 134/62
--- NOTE | 2018-09-02 11:13 | NUR ---
LESIA met with patient's daughter Alexander, and informed her that the next IDT meeting for the patient will be on Friday09/08/18 at 11am. Alexander stated that she will be attending the meeting.
--- NOTE | 2018-09-02 19:40 | NUR ---
PT RECEIVED ON CONTINUOUS VENT AC 16 VT 550 PEEP 5 FIO2 30%. TOLERATING CURRENT VENT SETTINGS AT THIS TIME. TRACH IN PLACED AND SECURED WITH TRACH TIE. BACK UP TRACH AND AMBU BAG AT BEDSIDE. SUCTION PRN. VENT CHECKED, ALARMS WORKING WELL AND AUDIBLE. NO DISTRESS NOTED AT THIS TIME. WILL CONTINUE TO MONITOR.
[2018-09-02 20:22] VITALS: BP 94/48
[2018-09-03] VITALS: BP 110/62
[2018-09-03 04:58] VITALS: BP 118/63
[2018-09-03] MEDS: OMEPRAZOLE 20 MG CAPSULE.DR GT SCH (06:11)
[2018-09-03] MEDS: METOCLOPRAMIDE HCL 10 MG/10 ML UDC GT SCH ×3 (06:11→22:33)
[2018-09-03] MEDS: LISINOPRIL 20 MG TABLET GT SCH (09:16)
[2018-09-03] MEDS: CARVEDILOL 6.25 MG TABLET GT SCH ×2 (09:16→20:47)
[2018-09-03] MEDS: LEVETIRACETAM 500 MG/5 ML LIQUID UDC GT SCH ×2 (09:16→20:48)
[2018-09-03] MEDS: Z GUARD REMEDY PASTE 57 GM TUBE TOP SCH ×2 (09:17→20:48)
[2018-09-03] MEDS: ENOXAPARIN SODIUM 40 MG/0.4 ML DISP.SYRIN SQ SCH (09:21)
[2018-09-03 12:05] VITALS: BP 161/84
--- NOTE | 2018-09-03 13:49 | NUR ---
SEEN BY ELÍAS PITTMAN.
--- NOTE | 2018-09-03 19:50 | NUR ---
PT RECEIVED ON CONTINUOUS VENT AC 16 VT 550 PEEP 5 FIO2 30%. TRACH IN PLACED AND SECURED WITH TRACH TIE. BACK UP TRACH AND AMBU BAG AT BEDSIDE. SUCTION SMALL AMOUNT THICK WHITE YELLOW SECRETIONS WITH TRACE AMOUNT OF BLOOD TINGED. VENT CHECK, ALARMS WORKING WELL AND AUDIBLE. NO DISTRESS NOTED AT THIS TIME. WILL CONTINUE TO MONITOR.
[2018-09-03 20:57] VITALS: BP 106/67
[2018-09-04] VITALS: BP 128/65
[2018-09-04 04:15] VITALS: BP 136/67
[2018-09-04] MEDS: OSMOLITE 1.2 CAL 1,000 ML LIQUID GT PRN ×2 (06:00→23:22)
[2018-09-04] MEDS: METOCLOPRAMIDE HCL 10 MG/10 ML UDC GT SCH ×3 (06:22→22:30)
[2018-09-04] MEDS: OMEPRAZOLE 20 MG CAPSULE.DR GT SCH (06:22)
--- NOTE | 2018-09-04 08:05 | NUR ---
Pt receive in semi fried position, on continuous mechanical ventilation via trach, and with limited response to verbal stimuli. Pt is on [place] HT-50 vent with ordered settings of A/C-16, VT-550, PEEP+5, FIO2-30%. Tolerating vent settings well. SpO2-100%. Carlyley 8 DFEN trach is patent and secure. Minimal occluding volume technique used to assess cuff inflation. Sxn'd & lavaged as needed. Sxn'd small amts of yellow secretions. HME changed. No signs or symptoms of respiratory distress noted. Ventilator alarm parameters checked, on and audible. Bag/valve/mask and back up trach at bedside. Vent plugged into red emergency outlet. PPE used. Will continue to monitor.
--- NOTE | 2018-09-04 08:20 | NUR ---
SEEN BY EÍLAS PITTMAN.
[2018-09-04] MEDS: LEVETIRACETAM 500 MG/5 ML LIQUID UDC GT SCH ×2 (08:29→20:34)
[2018-09-04] MEDS: CARVEDILOL 6.25 MG TABLET GT SCH ×2 (08:29→20:33)
[2018-09-04] MEDS: Z GUARD REMEDY PASTE 57 GM TUBE TOP SCH ×2 (08:30→20:34)
[2018-09-04] MEDS: LISINOPRIL 20 MG TABLET GT SCH (08:30)
[2018-09-04] MEDS: ENOXAPARIN SODIUM 40 MG/0.4 ML DISP.SYRIN SQ SCH (08:31)
[2018-09-04 11:12] VITALS: BP 147/79
[2018-09-04 12:57] VITALS: BP 134/64
[2018-09-04 16:52] VITALS: BP 122/62
[2018-09-04 22:00] VITALS: BP 116/45
[2018-09-05] VITALS (7 sets, daily range): BP systolic 112–151; BP diastolic 53–96
[2018-09-05] MEDS: OMEPRAZOLE 20 MG CAPSULE.DR GT SCH (05:06)
[2018-09-05] MEDS: METOCLOPRAMIDE HCL 10 MG/10 ML UDC GT SCH ×3 (05:06→21:39)
--- NOTE | 2018-09-05 07:35 | NUR ---
PT RECEIVED IN BED AFEBRILE, ON VENT @ FIO2 30% , NO RESPIRATORY DISTRESS NOTED TRACH SHILEY 6 CUFFED SECURED/PATENT @ MIDLINE, GT SITE CLEAN/DRY/NO REDNESS/NO LEAK NOTED. CALL LIGHT WITH IN REACH AT ALL TIMES, SR UP X4, WILL CONTINUE TO MONITOR.
--- NOTE | 2018-09-05 08:00 | NUR ---
Pt receive in semi fried position, on continuous mechanical ventilation via trach, and with limited response to verbal stimuli. Pt is on [place] HT-50 vent with ordered settings of A/C-16, VT-550, PEEP+5, FIO2-30%. Tolerating vent settings well.. Shiley 8 DFEN trach is patent and secure. Minimal occluding volume technique used to assess cuff inflation. Sxn'd & lavaged as needed. Sxn'd small amts of yellow secretions. HME changed. No signs or symptoms of respiratory distress noted. Ventilator alarm parameters checked, on and audible. Bag/valve/mask and back up trach at bedside. Vent plugged into red emergency outlet. PPE used. Will continue to monitor.
[2018-09-05] MEDS: LEVETIRACETAM 500 MG/5 ML LIQUID UDC GT SCH ×2 (09:04→21:39)
[2018-09-05] MEDS: ENOXAPARIN SODIUM 40 MG/0.4 ML DISP.SYRIN SQ SCH (09:05)
[2018-09-05] MEDS: LISINOPRIL 20 MG TABLET GT SCH (09:05)
[2018-09-05] MEDS: CARVEDILOL 6.25 MG TABLET GT SCH ×2 (09:05→21:39)
[2018-09-05] MEDS: Z GUARD REMEDY PASTE 57 GM TUBE TOP SCH ×2 (09:05→21:39)
[2018-09-06] MEDS: OMEPRAZOLE 20 MG CAPSULE.DR GT SCH (05:39)
[2018-09-06] MEDS: METOCLOPRAMIDE HCL 10 MG/10 ML UDC GT SCH ×3 (05:39→21:06)
[2018-09-06 08:00] VITALS: BP 113/57
[2018-09-06] MEDS: LISINOPRIL 20 MG TABLET GT SCH (08:56)
[2018-09-06] MEDS: LEVETIRACETAM 500 MG/5 ML LIQUID UDC GT SCH ×2 (08:56→20:51)
[2018-09-06] MEDS: CARVEDILOL 6.25 MG TABLET GT SCH ×2 (08:56→20:51)
[2018-09-06] MEDS: ENOXAPARIN SODIUM 40 MG/0.4 ML DISP.SYRIN SQ SCH (08:57)
[2018-09-06] MEDS: Z GUARD REMEDY PASTE 57 GM TUBE TOP SCH ×2 (08:57→20:51)
[2018-09-06 22:00] VITALS: BP 105/50
[2018-09-07] MEDS: OSMOLITE 1.2 CAL 1,000 ML LIQUID GT PRN ×2 (00:32→16:54)
[2018-09-07] MEDS: METOCLOPRAMIDE HCL 10 MG/10 ML UDC GT SCH ×3 (05:12→21:18)
[2018-09-07] MEDS: OMEPRAZOLE 20 MG CAPSULE.DR GT SCH (05:12)
[2018-09-07] MEDS: CARVEDILOL 6.25 MG TABLET GT SCH ×2 (09:47→21:18)
[2018-09-07] MEDS: LISINOPRIL 20 MG TABLET GT SCH (09:47)
[2018-09-07] MEDS: LEVETIRACETAM 500 MG/5 ML LIQUID UDC GT SCH ×2 (09:48→21:18)
[2018-09-07] MEDS: Z GUARD REMEDY PASTE 57 GM TUBE TOP SCH ×2 (09:48→21:18)
[2018-09-07] MEDS: ENOXAPARIN SODIUM 40 MG/0.4 ML DISP.SYRIN SQ SCH (10:00)
--- NOTE | 2018-09-07 11:20 | NUR ---
SEEN BY DR. REED [facility].
[2018-09-07 11:39] VITALS: BP 120/55
[2018-09-07 13:00] VITALS: BP 132/59
--- NOTE | 2018-09-07 13:37 | NUR ---
REMAIN STABLE ON CURRENT VENTILATOR SETTINGS OF AC 16, VT 550, FIO2 30% AND PEEP 5. SUCTIONED FOR MODERATE AMOUNT OF THICK WHITISH SECRETION. TRACH SHILEY NO. [address] AND SECURE. VENT IS WORKING WELL WITH ALL ALARMS ACTIVE. CHANGED HUMIDIFIER FILTER.
--- NOTE | 2018-09-07 15:28 | NUR ---
JUSTIN BY ELÍAS PITTMAN.
[2018-09-07 17:14] VITALS: BP 119/65
[2018-09-07 20:34] VITALS: BP 109/58
[2018-09-08] MEDS: METOCLOPRAMIDE HCL 10 MG/10 ML UDC GT SCH ×3 (06:25→21:07)
[2018-09-08] MEDS: OMEPRAZOLE 20 MG CAPSULE.DR GT SCH (06:25)
[2018-09-08 07:52] LABS: BASOPHILS % (AUTO) 0.7 % (0.0-2.0); EOSINOPHILS # (AUTO) 0.1 K/uL (0.0-0.7); EOSINOPHILS % (AUTO) 2.2 % (0.0-7.0); HEMATOCRIT 31.1 % (36.7-47.1); HEMOGLOBIN 10.3 g/dL (12.5-16.3); LYMPHOCYTES # (AUTO) 2.6 K/uL (20.0-40.0); MEAN CORPUSCULAR HEMOGLOBIN 27.7 uug (23.8-33.4); MEAN CORPUSCULAR HGB CONC 33 g/dL (32.5-36.3); MEAN CORPUSCULAR VOLUME 83.6 fL (73.0-96.2); MONOCYTES # (AUTO) 0.6 K/uL (2.0-10.0); MONOCYTES % (AUTO) 9.6 % (0.0-11.0); NEUTROPHILS # (AUTO) 2.7 K/uL (1.8-8.9); NEUTROPHILS % (AUTO) 44.5 % (38.5-71.5); PLATELET COUNT (AUTO) 253 K/uL (152-348); RED BLOOD CELL COUNT(AUTO) 3.73 MIL/uL (4.06-5.63)
[2018-09-08 07:59] LABS: BILIRUBIN,TOTAL 0.3 mg/dL (0.2-1.0); CREATININE 0.9 mg/dL (0.6-1.3); PHOSPHOROUS 4.6 mg/dL (2.5-4.9); POTASSIUM 4.7 mmol/L (3.5-5.1); TOTAL PROTEIN, SERUM 7.5 g/dL (6.4-8.2)
[2018-09-08 08:00] VITALS: BP 102/33
[2018-09-08 09:00] VITALS: BP 127/43
[2018-09-08] MEDS: CARVEDILOL 6.25 MG TABLET GT SCH ×2 (09:28→21:07)
[2018-09-08] MEDS: LISINOPRIL 20 MG TABLET GT SCH (09:29)
[2018-09-08] MEDS: LEVETIRACETAM 500 MG/5 ML LIQUID UDC GT SCH ×2 (09:29→21:07)
[2018-09-08] MEDS: ENOXAPARIN SODIUM 40 MG/0.4 ML DISP.SYRIN SQ SCH (09:30)
[2018-09-08] MEDS: Z GUARD REMEDY PASTE 57 GM TUBE TOP SCH ×2 (09:34→21:07)
[2018-09-08 13:00] VITALS: BP 120/52
--- NOTE | 2018-09-08 15:16 | NUR ---
Pharmacy Update from today's 09/07/18 IDT Meeting Patient admitted 07/14/18 from [facility]. 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 Pt was found to be positive on urine tox for methamphetamines Temp 97.3 BP 109/58 HR 93 LABS: (from 09/08/18) Wbc 6.0H/H 10.3/31.1Plt 253 Na 136K 4.7Cl 101CO2 26BUN/Scr 20/0.9 BS 85Ca 9.7 MEDICATION USE REVIEWED: > Pt is not on any anti-psych medications > Pt is on Keppra 500mg q 12hr since admit 07/14/18, no seizures reported; CrCl 90.3 ml/min, dose appropriate per renal fxn > Pt is on lovenox 40mg daily as of 08/26/18. Last plt 253 > Pt on coreg 6.25mg q12hr, lisinopril 20mg daily, hydralazine PRN SBP >160. Last BP 109/58 > Admitted on reglan 5mg q8hr for GI motility/gastroparesis. Per MD (DF), not to d/c as for gastroparesis maintenance treatment PRN MED USAGE: (Oct) Tylenol for pain/temp used x 0 (pain) Bisacodyl supp used x0 Miralax PRN used x 1 Hydralazine PRN used x 1 Ativan PRN anxiety/agitation used x 0 NEW ORDERS NOTED: > Heparin changed to lovenox 40mg daily 08/26/18 per insurance Patient reviewed and discussed in detail at IDT, no medication changes, issues, or concerns noted per team at this time. Family in attendance, had questioned another trial of stimulants. Pt had been on week of methylphenidate with no significant change however family now states pt is more responsive. Informed family for consult with neurologist for appropriateness at this time to encourage less sedation. Staff and family in agreement. No other concerns at this time, will follow
--- NOTE | 2018-09-08 15:18 | NUR ---
INTERDISCIPLINARY PLAN OF CARE CONFERENCE was held today. Patient's Lisa and daughter Randall were on speaker phone, while patient's other daughter Alexander was present at the meeting. Dr. Muro and the Interdisciplinary Team reviewed the current plan of care in detail. RN provided updates on patient's medical condition. See RN IDT conference notes. No major changes in condition were reported. See also all other disciplines IDT notes and physician's progress notes for additional details. Family's questions were addressed by Dr. Muro and the IDT team; family is requesting to speak with neurologists and nursing to coordinate contact.
[2018-09-08] MEDS: OSMOLITE 1.2 CAL 1,000 ML LIQUID GT PRN (15:47)
[2018-09-08 18:14] VITALS: BP 118/50
[2018-09-08 20:03] VITALS: BP 118/65
[2018-09-09 01:00] VITALS: BP 115/58
[2018-09-09 05:04] VITALS: BP 141/81
[2018-09-09] MEDS: OMEPRAZOLE 20 MG CAPSULE.DR GT SCH (06:01)
[2018-09-09] MEDS: METOCLOPRAMIDE HCL 10 MG/10 ML UDC GT SCH ×3 (06:01→22:09)
[2018-09-09] MEDS: LISINOPRIL 20 MG TABLET GT SCH (10:10)
[2018-09-09] MEDS: CARVEDILOL 6.25 MG TABLET GT SCH ×2 (10:10→20:45)
[2018-09-09] MEDS: Z GUARD REMEDY PASTE 57 GM TUBE TOP SCH ×2 (10:11→20:45)
[2018-09-09] MEDS: LEVETIRACETAM 500 MG/5 ML LIQUID UDC GT SCH ×2 (10:11→20:45)
[2018-09-09] MEDS: ENOXAPARIN SODIUM 40 MG/0.4 ML DISP.SYRIN SQ SCH (10:12)
[2018-09-09] MEDS: OSMOLITE 1.2 CAL 1,000 ML LIQUID GT PRN (10:13)
[2018-09-09 12:13] VITALS: BP 130/48
--- NOTE | 2018-09-09 15:35 | NUR ---
PT. SEEN BY JULEE COX (Katty)AND WITH NNO(AWARE OF RESULTS OF ABD. ULTRASOUND AND WITH NEW ORDERS FOR LABS TODAY ,LAB AWARE TO F/U.
[2018-09-09 16:16] LABS: IRON, SERUM 53 ug/dL (50-175)
[2018-09-09 16:59] LABS: AMYLASE 59 U/L (25-115); BILIRUBIN,DIRECT < 0.1 mg/dL (0.0-0.2); BILIRUBIN,TOTAL 0.2 mg/dL (0.2-1.0); FERRITIN 219 ng/mL (26-388)
[2018-09-09 17:01] LABS: LIPASE 60 U/L (73-393)
--- NOTE | 2018-09-09 18:00 | NUR ---
PT. WAS SEEN BY DR. REED AND DR. LEVY BANNER.
[2018-09-09 20:26] VITALS: BP 137/68
[2018-09-10] MEDS: OSMOLITE 1.2 CAL 1,000 ML LIQUID GT PRN (00:41)
[2018-09-10 01:00] VITALS: BP 132/66
[2018-09-10 05:12] VITALS: BP 128/62
[2018-09-10] MEDS: METOCLOPRAMIDE HCL 10 MG/10 ML UDC GT SCH ×3 (05:42→21:52)
[2018-09-10] MEDS: OMEPRAZOLE 20 MG CAPSULE.DR GT SCH (05:42)
[2018-09-10 08:00] VITALS: BP 122/54
--- NOTE | 2018-09-10 08:12 | NUR ---
PT ON HT-5O VENT, SETTINGS ARE AC 16, Vt 550, +5, 30% FIO2. TOLERATING VENT SETTINGS WELL. NO SOB NOTED. SHILEY 8 TRACH IS PATENT AND SECURED WITH TIES. SUCTIONED MODERATE AMOUNTS OF YELLOW THICK SECRETIONS. HME CHANGED. ALARMS ARE ON AND AUDIBLE, BVM AND BACK UP TRACH AT BEDSIDE. WILL CONITUE TO MONITOR.
[2018-09-10] MEDS: CARVEDILOL 6.25 MG TABLET GT SCH ×2 (08:57→20:28)
[2018-09-10] MEDS: LEVETIRACETAM 500 MG/5 ML LIQUID UDC GT SCH ×2 (08:58→20:28)
[2018-09-10] MEDS: LISINOPRIL 20 MG TABLET GT SCH (08:59)
[2018-09-10] MEDS: ENOXAPARIN SODIUM 40 MG/0.4 ML DISP.SYRIN SQ SCH (09:00)
[2018-09-10] MEDS: Z GUARD REMEDY PASTE 57 GM TUBE TOP SCH ×2 (09:03→20:28)
[2018-09-10 13:43] VITALS: BP 118/60
[2018-09-10 17:13] VITALS: BP 127/70
--- NOTE | 2018-09-10 19:41 | NUR ---
Patient received on HT-50 on settings of A/C 16, VT 550, PEEP +5 and FIO2-30%. No resp. distress noted. Shiley 8 DCT is patent and secure; Backup Shiley 8 and BVM are at bedside. No resp. distress noted at this time. Pt to be monitored throughout the shift and PRN SX. HT-50 alarm parameters have been checked and remain audible.
[2018-09-10 20:00] VITALS: BP 135/54
[2018-09-11] VITALS: BP 96/44
[2018-09-11 04:40] VITALS: BP 137/74
[2018-09-11] MEDS: METOCLOPRAMIDE HCL 10 MG/10 ML UDC GT SCH ×3 (05:44→22:13)
[2018-09-11] MEDS: OMEPRAZOLE 20 MG CAPSULE.DR GT SCH (05:44)
[2018-09-11 08:00] VITALS: BP 122/74
--- NOTE | 2018-09-11 08:05 | NUR ---
PT RECEIVED ON CONTINUOUS VENT AC 16 VT 550 PEEP 5 FIO2 30%. TRACH IN PLACED AND SECURED WITH TRACH TIE. BACK UP TRACH AND AMBU BAG AT BEDSIDE. SUCTION SMALL AMOUNT THICK WHITE YELLOW SECRETIONS. VENT CHECK, ALARMS WORKING WELL AND AUDIBLE. NO DISTRESS NOTED AT THIS TIME. WILL CONTINUE TO MONITOR.
[2018-09-11] MEDS: CARVEDILOL 6.25 MG TABLET GT SCH ×2 (08:35→20:43)
[2018-09-11] MEDS: LEVETIRACETAM 500 MG/5 ML LIQUID UDC GT SCH ×2 (08:36→20:43)
[2018-09-11] MEDS: LISINOPRIL 20 MG TABLET GT SCH (08:37)
[2018-09-11] MEDS: Z GUARD REMEDY PASTE 57 GM TUBE TOP SCH ×2 (08:38→20:44)
[2018-09-11] MEDS: ENOXAPARIN SODIUM 40 MG/0.4 ML DISP.SYRIN SQ SCH (08:39)
[2018-09-11] MEDS: OSMOLITE 1.2 CAL 1,000 ML LIQUID GT PRN (10:36)
[2018-09-11 13:29] VITALS: BP 134/59
[2018-09-11 19:54] VITALS: BP 112/59
--- NOTE | 2018-09-12 01:34 | NUR ---
Pt received on HT-50 vent with settings of AC 16, VT 550, Peep +5, FiO2 30%. No S/S of respiratory distress noted at this time. He is trached with Shiley 8 DCT; trach is secured/patent. Suctioned small to moderate amounts of thick pale-yellowish secretions. HME changed without complications. Vent alarms checked: on/audible. Ambu-bag and back-up trach at bedside. Will continue to monitor throughout shift.
[2018-09-12] MEDS: OSMOLITE 1.2 CAL 1,000 ML LIQUID GT PRN (03:27)
[2018-09-12] MEDS: METOCLOPRAMIDE HCL 10 MG/10 ML UDC GT SCH ×3 (06:22→22:21)
[2018-09-12] MEDS: OMEPRAZOLE 20 MG CAPSULE.DR GT SCH (06:22)
[2018-09-12 07:11] VITALS: BP 121/61
[2018-09-12] MEDS: CARVEDILOL 6.25 MG TABLET GT SCH ×2 (08:07→21:00)
[2018-09-12] MEDS: LEVETIRACETAM 500 MG/5 ML LIQUID UDC GT SCH ×2 (08:08→21:00)
[2018-09-12] MEDS: LISINOPRIL 20 MG TABLET GT SCH (08:09)
[2018-09-12] MEDS: ENOXAPARIN SODIUM 40 MG/0.4 ML DISP.SYRIN SQ SCH (08:09)
[2018-09-12] MEDS: Z GUARD REMEDY PASTE 57 GM TUBE TOP SCH ×2 (08:10→21:00)
[2018-09-12 12:01] VITALS: BP 129/65
[2018-09-12 13:48] VITALS: BP 102/50
[2018-09-12 17:09] VITALS: BP 128/53
[2018-09-12 20:00] VITALS: BP 120/56
--- NOTE | 2018-09-12 20:05 | NUR ---
Pt receive in semi fried position, on continuous mechanical ventilation via trach, and with limited response to verbal stimuli. Pt is on [place] HT-50 vent with ordered settings of A/C-16, VT-550, PEEP+5, FIO2-30%. Tolerating vent settings well. SpO2-98%. Shiley 8 DFEN trach is patent and secure. Minimal occluding volume technique used to assess cuff inflation. Sxn'd & lavaged as needed. Sxn'd small amts of yellow secretions. HME changed. No signs or symptoms of respiratory distress noted. Ventilator alarm parameters checked, on and audible. Bag/valve/mask and back up trach at bedside. Vent plugged into red emergency outlet. PPE used. Will continue to monitor.
[2018-09-13 01:05] VITALS: BP 118/67
[2018-09-13] MEDS: OMEPRAZOLE 20 MG CAPSULE.DR GT SCH (05:27)
[2018-09-13] MEDS: METOCLOPRAMIDE HCL 10 MG/10 ML UDC GT SCH ×3 (05:28→22:54)
[2018-09-13] MEDS: LEVETIRACETAM 500 MG/5 ML LIQUID UDC GT SCH ×2 (08:25→20:20)
[2018-09-13] MEDS: CARVEDILOL 6.25 MG TABLET GT SCH ×2 (08:25→20:20)
[2018-09-13] MEDS: LISINOPRIL 20 MG TABLET GT SCH (08:25)
[2018-09-13] MEDS: ENOXAPARIN SODIUM 40 MG/0.4 ML DISP.SYRIN SQ SCH (08:27)
[2018-09-13] MEDS: Z GUARD REMEDY PASTE 57 GM TUBE TOP SCH ×2 (08:27→20:20)
[2018-09-13 09:16] VITALS: BP 131/64
--- NOTE | 2018-09-13 11:56 | NUR ---
Seen and examined by Rosalina FIGUEROA with new orders noted.
[2018-09-13 14:57] VITALS: BP 115/82
[2018-09-13 18:18] VITALS: BP 132/85
--- NOTE | 2018-09-13 20:08 | NUR ---
RECEIVED PATIENT ON A MECHANICAL VENT. PATIENT IS ON THE FOLLOWING SETTINGS THAT ARE CHARTED ON THE MECHANICAL VENT NOTES. SPARE TRACH AND BMV IS BY BEDSIDE. VENT ALARMS ARE ON AND LOUD. VENT IS PLUGGED IN THE RED OUTLET. SUCTIONED SMALL AMOUNTS OF THICK YELLOW SECRETIONS. HME CHANGED. AIR WAY IS PATENT AND TRACH IS SECURED WITH TRACH TIES. PATIENT IS TOLERATING CURRENT VENT SETTINGS WELL AT THIS TIME. NO SIGNS OR SYMPTOMS OF RESPIRATORY DISTRESS NOTED. WILL CONTINUE TO MONITOR PATIENT.
[2018-09-13 20:26] VITALS: BP 127/83
[2018-09-14 01:00] VITALS: BP 101/55
[2018-09-14] MEDS: METOCLOPRAMIDE HCL 10 MG/10 ML UDC GT SCH ×3 (05:57→21:11)
[2018-09-14] MEDS: OMEPRAZOLE 20 MG CAPSULE.DR GT SCH (05:57)
[2018-09-14 06:48] LABS: BASOPHILS % (AUTO) 0.4 % (0.0-2.0); EOSINOPHILS # (AUTO) 0.1 K/uL (0.0-0.7); EOSINOPHILS % (AUTO) 2.2 % (0.0-7.0); HEMOGLOBIN 9.9 g/dL (12.5-16.3); LYMPHOCYTES # (AUTO) 2.5 K/uL (20.0-40.0); LYMPHOCYTES % (AUTO) 50.3 % (20.5-51.5); MEAN CORPUSCULAR HEMOGLOBIN 27.9 uug (23.8-33.4); MEAN CORPUSCULAR HGB CONC 33 g/dL (32.5-36.3); MEAN CORPUSCULAR VOLUME 84.6 fL (73.0-96.2); MONOCYTES # (AUTO) 0.5 K/uL (2.0-10.0); MONOCYTES % (AUTO) 10.8 % (0.0-11.0); NEUTROPHILS # (AUTO) 1.8 K/uL (1.8-8.9); NEUTROPHILS % (AUTO) 36.3 % (38.5-71.5); PLATELET COUNT (AUTO) 250 K/uL (152-348); RED BLOOD CELL COUNT(AUTO) 3.55 MIL/uL (4.06-5.63); WHITE BLOOD COUNT (AUTO) 4.9 K/uL (3.6-10.2)
[2018-09-14 06:50] LABS: CREATININE 0.8 mg/dL (0.6-1.3); POTASSIUM 4.2 mmol/L (3.5-5.1)
[2018-09-14 06:59] VITALS: BP 110/75
--- NOTE | 2018-09-14 07:45 | NUR ---
Pt endorsed on HT-50 vent with settings of AC 16, VT 550, Peep +5, FiO2 30%. No respiratory distress noted at this time. He is trached with Shiley 8 DCT; trach is secured/patent. Suctioned small to moderate amounts of thick pale-yellowish secretions. HME changed without complications. Vent alarms checked and are on/audible. Ambu-bag and back-up trach at bedside. Will continue to monitor.
[2018-09-14 08:00] VITALS: BP 103/65
[2018-09-14] MEDS: CARVEDILOL 6.25 MG TABLET GT SCH ×2 (09:00→21:11)
[2018-09-14] MEDS: LEVETIRACETAM 500 MG/5 ML LIQUID UDC GT SCH ×2 (09:00→21:11)
[2018-09-14] MEDS: ENOXAPARIN SODIUM 40 MG/0.4 ML DISP.SYRIN SQ SCH (09:00)
[2018-09-14] MEDS: Z GUARD REMEDY PASTE 57 GM TUBE TOP SCH ×2 (09:00→21:11)
[2018-09-14] MEDS: LISINOPRIL 20 MG TABLET GT SCH (09:00)
[2018-09-14] MEDS: OSMOLITE 1.2 CAL 1,000 ML LIQUID GT PRN (12:15)
[2018-09-14 13:06] LABS: HEPATITIS A AB, IgM Negative (Negative); HEPATITIS A AB, TOTAL Negative (Negative); HEPATITIS B SURFACE AB Non Reactive (.); HEPATITIS B SURFACE AG Negative (Negative)
[2018-09-14 15:07] VITALS: BP 105/83
[2018-09-14 15:57] LABS: BILIRUBIN,DIRECT 0.1 mg/dL (0.0-0.2); BILIRUBIN,TOTAL 0.2 mg/dL (0.2-1.0); TOTAL PROTEIN, SERUM 7.2 g/dL (6.4-8.2)
[2018-09-14 20:35] VITALS: BP 125/58
[2018-09-15 04:10] LABS: AFP, TUMOR MARKER 2.4 ng/mL (0.0-8.3)
[2018-09-15] MEDS: OMEPRAZOLE 20 MG CAPSULE.DR GT SCH (05:19)
[2018-09-15] MEDS: METOCLOPRAMIDE HCL 10 MG/10 ML UDC GT SCH ×3 (05:19→21:01)
[2018-09-15] MEDS: OSMOLITE 1.2 CAL 1,000 ML LIQUID GT PRN ×2 (06:26→21:01)
[2018-09-15 06:27] VITALS: BP 122/60
[2018-09-15 06:53] VITALS: BP 100/52
[2018-09-15 08:00] VITALS: BP 125/63
--- NOTE | 2018-09-15 09:28 | NUR ---
VENT DEPENDENT RESIDENT WHO REMAIN ON CURRENT VENTILATOR SETTINGS OF AC 16, VT 550, FIO2 30% AND PEEP 5. STABLE WITH NO DISTRESS. SUCTIONED FOR MODERATE AMOUNT OF THICK WHITISH SECRETION. VENT IS WORKING WELL WITH ALL ALARMS ACTIVE. CHANGED HUMIDIFIER FILTER.
[2018-09-15] MEDS: LISINOPRIL 20 MG TABLET GT SCH (09:33)
[2018-09-15] MEDS: LEVETIRACETAM 500 MG/5 ML LIQUID UDC GT SCH ×2 (09:34→20:56)
[2018-09-15] MEDS: CARVEDILOL 6.25 MG TABLET GT SCH ×2 (09:34→20:55)
[2018-09-15] MEDS: Z GUARD REMEDY PASTE 57 GM TUBE TOP SCH ×2 (09:35→20:56)
[2018-09-15] MEDS: ENOXAPARIN SODIUM 40 MG/0.4 ML DISP.SYRIN SQ SCH (09:38)
[2018-09-15 13:00] VITALS: BP 117/87
[2018-09-15 17:15] VITALS: BP 110/59
[2018-09-15 19:56] VITALS: BP 125/65
[2018-09-16 00:42] VITALS: BP 106/62
[2018-09-16 04:00] VITALS: BP 92/54
[2018-09-16 05:06] LABS: HEPATITIS Be ANTIGEN Negative (Negative)
[2018-09-16] MEDS: METOCLOPRAMIDE HCL 10 MG/10 ML UDC GT SCH ×3 (06:17→22:30)
[2018-09-16] MEDS: OMEPRAZOLE 20 MG CAPSULE.DR GT SCH (06:17)
[2018-09-16 09:00] VITALS: BP 114/79
[2018-09-16] MEDS: ENOXAPARIN SODIUM 40 MG/0.4 ML DISP.SYRIN SQ SCH (09:00)
[2018-09-16] MEDS: LEVETIRACETAM 500 MG/5 ML LIQUID UDC GT SCH ×2 (09:00→20:37)
[2018-09-16] MEDS: LISINOPRIL 20 MG TABLET GT SCH (09:00)
[2018-09-16] MEDS: CARVEDILOL 6.25 MG TABLET GT SCH ×2 (09:00→20:37)
[2018-09-16] MEDS: Z GUARD REMEDY PASTE 57 GM TUBE TOP SCH ×2 (09:00→20:37)
[2018-09-16 20:00] VITALS: BP 121/51
[2018-09-17] VITALS (8 sets, daily range): BP systolic 105–145; BP diastolic 46–67
[2018-09-17] MEDS: METOCLOPRAMIDE HCL 10 MG/10 ML UDC GT SCH ×3 (05:35→22:25)
[2018-09-17] MEDS: OMEPRAZOLE 20 MG CAPSULE.DR GT SCH (05:35)
[2018-09-17] MEDS: LEVETIRACETAM 500 MG/5 ML LIQUID UDC GT SCH ×2 (08:09→20:35)
[2018-09-17] MEDS: CARVEDILOL 6.25 MG TABLET GT SCH ×2 (08:09→20:35)
[2018-09-17] MEDS: LISINOPRIL 20 MG TABLET GT SCH (08:10)
[2018-09-17] MEDS: Z GUARD REMEDY PASTE 57 GM TUBE TOP SCH ×2 (08:11→20:36)
[2018-09-17] MEDS: ENOXAPARIN SODIUM 40 MG/0.4 ML DISP.SYRIN SQ SCH (08:12)
[2018-09-17] MEDS: OSMOLITE 1.2 CAL 1,000 ML LIQUID GT PRN (08:23)
--- NOTE | 2018-09-17 09:58 | NUR ---
SEEN BY DR. MARCELINO PITTMAN.
[2018-09-18] VITALS: BP 119/60
[2018-09-18] MEDS: OSMOLITE 1.2 CAL 1,000 ML LIQUID GT PRN (00:45)
[2018-09-18 04:59] VITALS: BP 125/56
[2018-09-18] MEDS: OMEPRAZOLE 20 MG CAPSULE.DR GT SCH (05:18)
[2018-09-18] MEDS: METOCLOPRAMIDE HCL 10 MG/10 ML UDC GT SCH ×3 (05:18→22:22)
--- NOTE | 2018-09-18 08:00 | NUR ---
Pt received on continuous mechanical ventilation via trach, and with limited response to verbal stimuli. Pt is on [place] HT-50 vent with ordered settings of A/C-16, VT-550, PEEP+5, FIO2-30%. Tolerating vent settings well. SpO2-97%. Shiley 8 DFEN trach is patent and secure. Minimal occluding volume technique used to assess cuff inflation. Sxn'd & lavaged as needed. Sxn'd small amts of yellow/white secretions. HME changed. No signs or symptoms of respiratory distress noted. Ventilator alarm parameters checked, on and audible. Bag/valve/mask and back up trach at bedside. Vent plugged into red emergency outlet. PPE used. Will continue to monitor.
[2018-09-18] MEDS: CARVEDILOL 6.25 MG TABLET GT SCH ×2 (08:45→20:41)
[2018-09-18] MEDS: Z GUARD REMEDY PASTE 57 GM TUBE TOP SCH ×2 (08:45→20:41)
[2018-09-18] MEDS: LISINOPRIL 20 MG TABLET GT SCH (08:45)
[2018-09-18] MEDS: LEVETIRACETAM 500 MG/5 ML LIQUID UDC GT SCH ×2 (08:45→20:41)
[2018-09-18] MEDS: ENOXAPARIN SODIUM 40 MG/0.4 ML DISP.SYRIN SQ SCH (08:47)
[2018-09-18 11:52] VITALS: BP 142/81
--- NOTE | 2018-09-18 19:57 | NUR ---
Patient received on HT-50 on settings of AC 16, VT 550, PEEP +5 and FIO2-30%. No resp. distress noted. Shiley 8 DCT is patent and secure; Backup Shiley 8 and BVM are at bedside. No resp. distress noted at this time. Pt to be monitored throughout the shift and PRN SX. HT-50 alarm parameters have been checked and remain audible.
[2018-09-18 20:21] VITALS: BP 126/60
[2018-09-19] MEDS: OMEPRAZOLE 20 MG CAPSULE.DR GT SCH (05:32)
[2018-09-19] MEDS: METOCLOPRAMIDE HCL 10 MG/10 ML UDC GT SCH ×3 (05:32→21:03)
[2018-09-19 06:47] VITALS: BP 112/62
[2018-09-19 06:48] VITALS: BP 107/49
[2018-09-19] MEDS: ENOXAPARIN SODIUM 40 MG/0.4 ML DISP.SYRIN SQ SCH (09:32)
[2018-09-19] MEDS: LEVETIRACETAM 500 MG/5 ML LIQUID UDC GT SCH ×2 (09:32→20:55)
[2018-09-19] MEDS: LISINOPRIL 20 MG TABLET GT SCH (09:32)
[2018-09-19] MEDS: Z GUARD REMEDY PASTE 57 GM TUBE TOP SCH ×2 (09:32→20:55)
[2018-09-19] MEDS: CARVEDILOL 6.25 MG TABLET GT SCH ×2 (09:32→20:54)
[2018-09-19 11:55] VITALS: BP 135/69
--- NOTE | 2018-09-19 14:22 | NUR ---
PT. NOTED WITH A SACRAL DIMPLE SURROUNDING SKIN EXCORIATION AND LOCAL TX STARTED,PICTURE WAS TAKEN.SACRAL DIMPLE DEPTH IS 0.3CM AND CLEANSED GENTLY WITH A Q TIP.
[2018-09-19] MEDS: COD LIVER OIL/ZINC OXIDE OINT 113 GM TUBE TP SCH ×2 (16:48→20:55)
[2018-09-19 20:10] VITALS: BP 120/63
[2018-09-20 05:00] VITALS: BP 122/59
[2018-09-20] MEDS: OMEPRAZOLE 20 MG CAPSULE.DR GT SCH (05:45)
[2018-09-20] MEDS: METOCLOPRAMIDE HCL 10 MG/10 ML UDC GT SCH ×3 (05:45→21:48)
[2018-09-20] MEDS: LEVETIRACETAM 500 MG/5 ML LIQUID UDC GT SCH ×2 (09:16→21:48)
[2018-09-20] MEDS: CARVEDILOL 6.25 MG TABLET GT SCH ×2 (09:16→21:48)
[2018-09-20] MEDS: LISINOPRIL 20 MG TABLET GT SCH (09:17)
[2018-09-20] MEDS: COD LIVER OIL/ZINC OXIDE OINT 113 GM TUBE TP SCH ×2 (09:18→21:48)
[2018-09-20] MEDS: ENOXAPARIN SODIUM 40 MG/0.4 ML DISP.SYRIN SQ SCH (09:18)
[2018-09-20] MEDS: Z GUARD REMEDY PASTE 57 GM TUBE TOP SCH ×2 (09:18→21:48)
[2018-09-20 09:21] VITALS: BP 145/85
[2018-09-20 11:47] VITALS: BP 145/85
--- NOTE | 2018-09-20 11:49 | NUR ---
SEEN BY ELÍAS Ivan AND WITH NEW ORDERS CARRIED OUT.
[2018-09-20 13:11] VITALS: BP 135/64
[2018-09-20] MEDS: OSMOLITE 1.2 CAL 1,000 ML LIQUID GT PRN (17:16)
[2018-09-20 20:19] VITALS: BP 108/68
[2018-09-21] VITALS (7 sets, daily range): BP systolic 106–136; BP diastolic 58–72
[2018-09-21] MEDS: OMEPRAZOLE 20 MG CAPSULE.DR GT SCH (05:59)
[2018-09-21] MEDS: METOCLOPRAMIDE HCL 10 MG/10 ML UDC GT SCH ×3 (05:59→22:47)
[2018-09-21] MEDS: NYSTATIN POWDER 15 GM BOTTLE TP SCH ×2 (09:00→21:00)
[2018-09-21] MEDS: CARVEDILOL 6.25 MG TABLET GT SCH ×2 (09:11→21:00)
[2018-09-21] MEDS: Z GUARD REMEDY PASTE 57 GM TUBE TOP SCH ×2 (09:12→21:00)
[2018-09-21] MEDS: LISINOPRIL 20 MG TABLET GT SCH (09:12)
[2018-09-21] MEDS: ENOXAPARIN SODIUM 40 MG/0.4 ML DISP.SYRIN SQ SCH (09:12)
[2018-09-21] MEDS: LEVETIRACETAM 500 MG/5 ML LIQUID UDC GT SCH ×2 (09:13→21:00)
[2018-09-21] MEDS: COD LIVER OIL/ZINC OXIDE OINT 113 GM TUBE TP SCH ×2 (09:13→21:00)
--- NOTE | 2018-09-21 11:27 | NUR ---
SEEN BY ELÍAS PITTMAN.
[2018-09-22 01:00] VITALS: BP 105/59
[2018-09-22 05:00] VITALS: BP 110/58
[2018-09-22] MEDS: METOCLOPRAMIDE HCL 10 MG/10 ML UDC GT SCH ×3 (06:34→21:36)
[2018-09-22] MEDS: OMEPRAZOLE 20 MG CAPSULE.DR GT SCH (06:34)
[2018-09-22] MEDS: CARVEDILOL 6.25 MG TABLET GT SCH ×2 (08:45→21:34)
[2018-09-22] MEDS: LISINOPRIL 20 MG TABLET GT SCH (08:45)
[2018-09-22] MEDS: NYSTATIN POWDER 15 GM BOTTLE TP SCH ×2 (08:46→21:35)
[2018-09-22] MEDS: Z GUARD REMEDY PASTE 57 GM TUBE TOP SCH ×3 (08:46→21:35)
[2018-09-22] MEDS: COD LIVER OIL/ZINC OXIDE OINT 113 GM TUBE TP SCH ×2 (08:46→21:35)
[2018-09-22] MEDS: LEVETIRACETAM 500 MG/5 ML LIQUID UDC GT SCH ×2 (08:47→21:33)
[2018-09-22] MEDS: ENOXAPARIN SODIUM 40 MG/0.4 ML DISP.SYRIN SQ SCH (08:49)
[2018-09-22 10:49] VITALS: BP 130/43
--- NOTE | 2018-09-22 13:05 | NUR ---
WOUND CARE CONSULT: PT PRESENTS WITH SACRAL DIMPLE AND SURROUNDING INCONTINENCE ASSOCIATED SKIN DAMAGE. RECOMMENDATIONS MADE FOR SKIN PROTECTION AND CARE WHICH INCLUDE Z GUARD AND COVER WITH MEPILEX. RECOMMEND LOW AIRLOSS MATTRESS. DISCUSSED WITH NURSING STAFF. WILL SEE PRN. KAUR IN AGREEMENT WITH PLAN OF CARE.
[2018-09-22 14:00] VITALS: BP 125/53
--- NOTE | 2018-09-22 14:19 | NUR ---
INTERDISCIPLINARY PLAN OF CARE CONFERENCE was held this morning. Patient's family was unable to attend the meeting. Dr. Muro and the Interdisciplinary Team reviewed the current plan of care in detail. RN provided updates on patient's medical condition and skin treatment, and reported that wound care consultation is still pending. See RN IDT conference notes. No major changes were reported. See also all other disciplines IDT notes and physician's progress notes for additional details.
[2018-09-22 17:08] VITALS: BP 131/52
--- NOTE | 2018-09-22 17:24 | NUR ---
Pharmacy Update from today's 09/22/18 IDT Meeting Patient admitted 07/14/18 from [facility]. 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 Pt was found to be positive on urine tox for methamphetamines Temp 98.6 BP 112/60 HR 85 LABS: (from 09/14/18) Wbc 4.9H/H 9.9/30Plt 250 Na 138K 4.2Cl 102CO2 29BUN/Scr 23/0.8 BS 83Ca 9.3 MEDICATION USE REVIEWED: > Pt is not on any anti-psych medications > Pt is on Keppra 500mg q 12hr since admit 07/14/18, no seizures reported; CrCl 100 ml/min, dose appropriate per renal fxn > Pt is on lovenox 40mg daily as of 08/26/18. Last plt 250 > Pt on coreg 6.25mg q12hr, lisinopril 20mg daily, hydralazine PRN SBP >160. Last BP 112/60 > Admitted on reglan 5mg q8hr for GI motility/gastroparesis. Per MD (DF), not to d/c as for gastroparesis maintenance treatment PRN MED USAGE: (Oct) Tylenol for pain/temp used x 0 (pain) Bisacodyl supp used x0 Miralax PRN used x 1 Hydralazine PRN used x 1 Ativan PRN anxiety/agitation used x 0 NEW ORDERS NOTED: > Nystatin for rash in armpits x 14days 09/21 Patient reviewed and discussed in detail at IDT, no medication changes, issues, or concerns noted per team at this time. No further recs at this time per pharmacy, remains stable on current medications. Will follow
--- NOTE | 2018-09-22 18:26 | NUR ---
RECEIVED ON CURRENT VENTILATOR SETTINGS OF AC 16, VT 550, FIO2 30% AND PEEP 5. PT IS AWAKE WITH NO DISTRESS. SUCTIONED FOR MODERATE AMOUNT OF THICK PALE YELLOW SECRETION. TRACH SHILEY NO. [address] AND SECURE. VENT IS WORKING WELL WITH ALL ALARMS ACTIVE. CHANGED HME FILTER.
--- NOTE | 2018-09-22 19:45 | NUR ---
PT RECEIVED ON CONTINUOUS VENT AC 16 VT 550 PEEP 5 FIO2 30%. TRACH IN PLACED AND SECURED WITH TRACH TIE. BACK UP TRACH AND AMBU BAG AT BEDSIDE. SUCTION SMALL AMOUNT THICK YELLOW SECRETIONS. VENT CHECKED, ALARMS WORKING WELL AND AUDIBLE. NO DISTRESS NOTED AT THIS TIME. WILL CONTINUE TO MONITOR.
[2018-09-22 21:18] VITALS: BP 130/75
[2018-09-23 05:00] VITALS: BP 113/58
[2018-09-23] MEDS: METOCLOPRAMIDE HCL 10 MG/10 ML UDC GT SCH ×3 (06:56→22:04)
[2018-09-23] MEDS: OMEPRAZOLE 20 MG CAPSULE.DR GT SCH (06:56)
[2018-09-23 08:00] VITALS: BP 134/86
--- NOTE | 2018-09-23 08:00 | NUR ---
PT RECEIVED IN BED AFEBRILE, ON HT50 @ FIO2 30% , NO RESPIRATORY DISTRESS NOTED TRACH SHILEY 6 CUFFED SECURED/PATENT @ MIDLINE, GT SITE CLEAN/DRY/NO REDNESS/NO LEAK NOTED. CALL LIGHT WITH IN REACH AT ALL TIMES, SR UP X4 ORDERED, WILL CONTINUE TO MONITOR.
[2018-09-23] MEDS: CARVEDILOL 6.25 MG TABLET GT SCH ×2 (09:04→20:32)
[2018-09-23] MEDS: LEVETIRACETAM 500 MG/5 ML LIQUID UDC GT SCH ×2 (09:04→20:29)
[2018-09-23] MEDS: LISINOPRIL 20 MG TABLET GT SCH (09:04)
[2018-09-23] MEDS: Z GUARD REMEDY PASTE 57 GM TUBE TOP SCH ×4 (09:05→20:29)
[2018-09-23] MEDS: COD LIVER OIL/ZINC OXIDE OINT 113 GM TUBE TP SCH ×2 (09:05→20:29)
[2018-09-23] MEDS: NYSTATIN POWDER 15 GM BOTTLE TP SCH ×2 (09:06→20:29)
[2018-09-23] MEDS: ENOXAPARIN SODIUM 40 MG/0.4 ML DISP.SYRIN SQ SCH (09:09)
[2018-09-23 13:00] VITALS: BP 129/81
[2018-09-23 17:29] VITALS: BP 133/78
[2018-09-23 20:20] VITALS: BP 157/80
[2018-09-24 01:00] VITALS: BP 113/54
[2018-09-24 05:00] VITALS: BP 140/71
[2018-09-24] MEDS: METOCLOPRAMIDE HCL 10 MG/10 ML UDC GT SCH ×3 (05:41→22:26)
[2018-09-24] MEDS: OMEPRAZOLE 20 MG CAPSULE.DR GT SCH (05:41)
[2018-09-24 09:12] VITALS: BP 124/78
[2018-09-24] MEDS: CARVEDILOL 6.25 MG TABLET GT SCH ×2 (09:15→20:16)
[2018-09-24] MEDS: Z GUARD REMEDY PASTE 57 GM TUBE TOP SCH ×4 (09:17→20:18)
[2018-09-24] MEDS: LEVETIRACETAM 500 MG/5 ML LIQUID UDC GT SCH ×2 (09:17→20:17)
[2018-09-24] MEDS: LISINOPRIL 20 MG TABLET GT SCH (09:17)
[2018-09-24] MEDS: ENOXAPARIN SODIUM 40 MG/0.4 ML DISP.SYRIN SQ SCH (09:18)
[2018-09-24] MEDS: NYSTATIN POWDER 15 GM BOTTLE TP SCH ×2 (09:18→20:19)
[2018-09-24] MEDS: COD LIVER OIL/ZINC OXIDE OINT 113 GM TUBE TP SCH ×2 (09:18→20:18)
--- NOTE | 2018-09-24 10:50 | NUR ---
PT. WAS SEEN NAD EXAMINED BY DR. LEVY AND NNO.
[2018-09-24 13:00] VITALS: BP 133/82
[2018-09-24 16:56] VITALS: BP 122/79
[2018-09-24 20:31] VITALS: BP 108/60
[2018-09-25] MEDS: OSMOLITE 1.2 CAL 1,000 ML LIQUID GT PRN (00:05)
[2018-09-25] MEDS: METOCLOPRAMIDE HCL 10 MG/10 ML UDC GT SCH ×3 (05:11→22:00)
[2018-09-25] MEDS: OMEPRAZOLE 20 MG CAPSULE.DR GT SCH (05:11)
[2018-09-25] MEDS: LEVETIRACETAM 500 MG/5 ML LIQUID UDC GT SCH ×2 (08:38→21:00)
[2018-09-25] MEDS: LISINOPRIL 20 MG TABLET GT SCH (08:39)
[2018-09-25] MEDS: ENOXAPARIN SODIUM 40 MG/0.4 ML DISP.SYRIN SQ SCH (08:39)
[2018-09-25] MEDS: CARVEDILOL 6.25 MG TABLET GT SCH ×2 (08:39→21:00)
[2018-09-25] MEDS: COD LIVER OIL/ZINC OXIDE OINT 113 GM TUBE TP SCH ×2 (08:40→21:00)
[2018-09-25] MEDS: NYSTATIN POWDER 15 GM BOTTLE TP SCH ×2 (08:40→21:00)
[2018-09-25] MEDS: Z GUARD REMEDY PASTE 57 GM TUBE TOP SCH ×4 (08:40→21:00)
[2018-09-25 09:00] VITALS: BP 124/71
[2018-09-25 13:00] VITALS: BP 119/81
[2018-09-25 17:13] VITALS: BP 126/76
--- NOTE | 2018-09-25 19:20 | NUR ---
Hand-off report received via bedside rounds from off-going RN. Pt awake in bed. HT50 @ FI02 30%. No resp. distress noted. Shiley patent and secure @ midline. Peg tube patent without leaks and infusing Osmolyte via pump. Skin warm and dry. HOB up 30 degrees. Does not appear in discomfort. Continue to monitor and assist as needed.
[2018-09-25 20:38] VITALS: BP 142/86
[2018-09-26 01:00] VITALS: BP 104/56
[2018-09-26] MEDS: OMEPRAZOLE 20 MG CAPSULE.DR GT SCH (06:00)
[2018-09-26] MEDS: METOCLOPRAMIDE HCL 10 MG/10 ML UDC GT SCH ×3 (06:00→22:47)
--- NOTE | 2018-09-26 06:00 | NUR ---
VS this shift: 1999 97.7-89-16-142/86-100% 0000 98.0-96-16-104/56-96% 0 0500 98.2-88-16-114/62-98%
--- NOTE | 2018-09-26 07:27 | NUR ---
Hand-off report given to on-coming nurse via bedside rounds. Pt status remains unchanged. Slept well thru night. Relinquishing care of pt at this time.
--- NOTE | 2018-09-26 08:05 | NUR ---
Pt received on continuous mechanical ventilation via trach, and with limited response to verbal stimuli. Pt is on [place] HT-50 vent with ordered settings of A/C-16, VT-550, PEEP+5, FIO2-30%. Tolerating vent settings well. SpO2-98%. Shiley 8 DFEN trach is patent and secure. Minimal occluding volume technique used to assess cuff inflation. Sxn'd & lavaged as needed. Sxn'd small amts of yellow secretions. HME changed. No signs or symptoms of respiratory distress noted. Ventilator alarm parameters checked, on and audible. Bag/valve/mask and back up trach at bedside. Vent plugged into red emergency outlet. PPE used. Will continue to monitor.
[2018-09-26] MEDS: CARVEDILOL 6.25 MG TABLET GT SCH ×2 (08:55→21:00)
[2018-09-26] MEDS: LEVETIRACETAM 500 MG/5 ML LIQUID UDC GT SCH ×2 (08:55→21:00)
[2018-09-26] MEDS: LISINOPRIL 20 MG TABLET GT SCH (08:56)
[2018-09-26] MEDS: ENOXAPARIN SODIUM 40 MG/0.4 ML DISP.SYRIN SQ SCH (08:57)
[2018-09-26] MEDS: Z GUARD REMEDY PASTE 57 GM TUBE TOP SCH ×4 (08:58→21:00)
[2018-09-26] MEDS: COD LIVER OIL/ZINC OXIDE OINT 113 GM TUBE TP SCH ×2 (08:58→21:00)
[2018-09-26] MEDS: NYSTATIN POWDER 15 GM BOTTLE TP SCH ×2 (08:58→21:00)
[2018-09-26 09:22] VITALS: BP 147/65
[2018-09-26] MEDS: OSMOLITE 1.2 CAL 1,000 ML LIQUID GT PRN (12:49)
[2018-09-26 13:00] VITALS: BP 133/68
[2018-09-26 18:02] VITALS: BP 147/65
[2018-09-26 18:41] VITALS: BP 121/59
--- NOTE | 2018-09-26 19:20 | NUR ---
Hand-off report received from off-going RN. Pt received awake, tracking purposeful. Continuous Mechanical vent, with Shiley 8 secured at midline and patent. Osmolyte infusing via pump thru G tube @ 70 ml per hr. Pt jose. well. No s/s of resp distress. Skin color appropriate for race, warm and dry. Continue to monitor and assist as needed. Call light w/in reach.
--- NOTE | 2018-09-26 20:04 | NUR ---
Pt received on HT-50 ventilator with the following settings of AC-16, Vt-550, PEEP+5, FIO2-30%, trached with Shiley#8 DFEN trach, which is in the place and secure properly. No respiratory distress noted. Airway care done, pt responded to physical stimuli. HME and Sx Jimenez changed. Resus. bag and back up trach at bedside. Vent and alarms checked and reset.
[2018-09-26 20:37] VITALS: BP 131/83
--- NOTE | 2018-09-27 06:00 | NUR ---
B/P 131/83 HR 90 and 145/85 HR 103. No prn hydralazine given per protocols ordered for this shift.
[2018-09-27] MEDS: METOCLOPRAMIDE HCL 10 MG/10 ML UDC GT SCH ×3 (06:34→22:00)
[2018-09-27] MEDS: OMEPRAZOLE 20 MG CAPSULE.DR GT SCH (06:34)
--- NOTE | 2018-09-27 07:30 | NUR ---
Verbal report given to Palmira RN at bedside. No change in pt status. Pt awake in bed. Appears in no distress. Reliquished care of pt at this time.
[2018-09-27] MEDS: LEVETIRACETAM 500 MG/5 ML LIQUID UDC GT SCH ×2 (09:05→21:00)
[2018-09-27] MEDS: CARVEDILOL 6.25 MG TABLET GT SCH ×2 (09:05→21:00)
[2018-09-27] MEDS: Z GUARD REMEDY PASTE 57 GM TUBE TOP SCH ×4 (09:05→21:00)
[2018-09-27] MEDS: LISINOPRIL 20 MG TABLET GT SCH (09:05)
[2018-09-27] MEDS: NYSTATIN POWDER 15 GM BOTTLE TP SCH ×2 (09:06→21:00)
[2018-09-27] MEDS: COD LIVER OIL/ZINC OXIDE OINT 113 GM TUBE TP SCH ×2 (09:06→21:00)
[2018-09-27] MEDS: ENOXAPARIN SODIUM 40 MG/0.4 ML DISP.SYRIN SQ SCH (09:42)
[2018-09-27 14:50] VITALS: BP 119/72
[2018-09-27 15:15] VITALS: BP 159/92
[2018-09-27 17:57] VITALS: BP 107/47
[2018-09-27] MEDS: OSMOLITE 1.2 CAL 1,000 ML LIQUID GT PRN (18:01)
--- NOTE | 2018-09-27 19:10 | NUR ---
Verbal report received from Palmira RN. Pt in bed, eyes open no occasional tracking. Continuous mechanical vent via trach. [place]o #8 patent/secured @ midline. No resp distress. Enteral feeding continues. Pt jose well. Cont. to monitor.
[2018-09-27 20:43] VITALS: BP 140/65
[2018-09-28] MEDS: OMEPRAZOLE 20 MG CAPSULE.DR GT SCH (06:13)
[2018-09-28] MEDS: METOCLOPRAMIDE HCL 10 MG/10 ML UDC GT SCH ×3 (06:14→21:56)
--- NOTE | 2018-09-28 07:15 | NUR ---
Hand-off report given to Palmira ABERNATHY. Status cont. unchanged. Noted non-smelling scant amt. yellow drainage at trach site. Cont. with frequent site care.
[2018-09-28 08:00] VITALS: BP 159/91
[2018-09-28] MEDS: CARVEDILOL 6.25 MG TABLET GT SCH ×2 (09:02→20:48)
[2018-09-28] MEDS: LEVETIRACETAM 500 MG/5 ML LIQUID UDC GT SCH ×2 (09:03→20:48)
[2018-09-28] MEDS: LISINOPRIL 20 MG TABLET GT SCH (09:03)
[2018-09-28] MEDS: COD LIVER OIL/ZINC OXIDE OINT 113 GM TUBE TP SCH ×2 (09:03→20:49)
[2018-09-28] MEDS: Z GUARD REMEDY PASTE 57 GM TUBE TOP SCH ×4 (09:03→20:49)
[2018-09-28] MEDS: NYSTATIN POWDER 15 GM BOTTLE TP SCH ×2 (09:04→20:49)
[2018-09-28] MEDS: ENOXAPARIN SODIUM 40 MG/0.4 ML DISP.SYRIN SQ SCH (09:05)
[2018-09-28 15:00] VITALS: BP 109/67
[2018-09-28] MEDS: OSMOLITE 1.2 CAL 1,000 ML LIQUID GT PRN (15:02)
[2018-09-28 18:10] VITALS: BP 104/49
[2018-09-28 20:17] VITALS: BP 140/63
[2018-09-29] MEDS: OMEPRAZOLE 20 MG CAPSULE.DR GT SCH (05:40)
[2018-09-29] MEDS: METOCLOPRAMIDE HCL 10 MG/10 ML UDC GT SCH ×3 (05:40→22:12)
[2018-09-29 07:36] LABS: BASOPHILS % (AUTO) 0.5 % (0.0-2.0); EOSINOPHILS # (AUTO) 0.1 K/uL (0.0-0.7); EOSINOPHILS % (AUTO) 1.9 % (0.0-7.0); HEMATOCRIT 29.3 % (36.7-47.1); HEMOGLOBIN 9.8 g/dL (12.5-16.3); LYMPHOCYTES # (AUTO) 2.4 K/uL (20.0-40.0); LYMPHOCYTES % (AUTO) 45.9 % (20.5-51.5); MEAN CORPUSCULAR HEMOGLOBIN 28.4 uug (23.8-33.4); MEAN CORPUSCULAR HGB CONC 34 g/dL (32.5-36.3); MONOCYTES # (AUTO) 0.6 K/uL (2.0-10.0); MONOCYTES % (AUTO) 10.5 % (0.0-11.0); NEUTROPHILS # (AUTO) 2.2 K/uL (1.8-8.9); NEUTROPHILS % (AUTO) 41.2 % (38.5-71.5); PLATELET COUNT (AUTO) 229 K/uL (152-348); RED BLOOD CELL COUNT(AUTO) 3.44 MIL/uL (4.06-5.63); WHITE BLOOD COUNT (AUTO) 5.3 K/uL (3.6-10.2)
[2018-09-29 07:51] LABS: ALANINE AMINOTRANSFERASE 265 U/L (16-63); ALKALINE PHOSPHATASE 134 U/L (50-136); ASPARTATE AMINOTRANSFERASE 107 U/L (15-37); BILIRUBIN,TOTAL 0.2 mg/dL (0.2-1.0); CARBON DIOXIDE 28 mmol/L (21-32); CHLORIDE 101 mmol/L (98-107); CREATININE 0.7 mg/dL (0.6-1.3); GLUCOSE 86 mg/dL (74-106); POTASSIUM 4.1 mmol/L (3.5-5.1); TOTAL PROTEIN, SERUM 7.3 g/dL (6.4-8.2); UREA NITROGEN, BLOOD 19 mg/dL (7-18)
[2018-09-29 08:00] VITALS: BP 134/77
[2018-09-29] MEDS: LISINOPRIL 20 MG TABLET GT SCH (09:00)
[2018-09-29] MEDS: CARVEDILOL 6.25 MG TABLET GT SCH ×2 (09:00→20:47)
[2018-09-29] MEDS: ENOXAPARIN SODIUM 40 MG/0.4 ML DISP.SYRIN SQ SCH (09:42)
[2018-09-29] MEDS: Z GUARD REMEDY PASTE 57 GM TUBE TOP SCH ×4 (09:48→20:48)
[2018-09-29] MEDS: COD LIVER OIL/ZINC OXIDE OINT 113 GM TUBE TP SCH ×2 (09:49→20:48)
[2018-09-29] MEDS: NYSTATIN POWDER 15 GM BOTTLE TP SCH ×2 (09:49→20:48)
[2018-09-29] MEDS: LEVETIRACETAM 500 MG/5 ML LIQUID UDC GT SCH ×2 (09:49→20:48)
[2018-09-29 13:00] VITALS: BP 151/89
[2018-09-29 17:12] VITALS: BP 125/57
--- NOTE | 2018-09-29 19:05 | NUR ---
Trached patient was endorsed on HT-50 vent with settings of AC 16, VT 550, Peep +5, FiO2 30%. No respiratory distress noted at this time. He is trached with Shiley 8 DCT; trach is secured/patent at midline. Suctioned moderate amounts of thick pale-yellowish secretions. HME changed without complications. Vent alarms checked and are on/audible. Ambu-bag and back-up trach at bedside. Will continue to monitor through out shift.
--- NOTE | 2018-09-29 19:31 | NUR ---
Seen and examined by Dr Muro with no new orders noted.
[2018-09-29 21:05] VITALS: BP 142/56
[2018-09-30] VITALS: BP 129/72
[2018-09-30] MEDS: OSMOLITE 1.2 CAL 1,000 ML LIQUID GT PRN ×2 (02:15→20:21)
[2018-09-30] MEDS: OMEPRAZOLE 20 MG CAPSULE.DR GT SCH (05:43)
[2018-09-30] MEDS: METOCLOPRAMIDE HCL 10 MG/10 ML UDC GT SCH ×3 (05:43→21:53)
[2018-09-30 06:23] VITALS: BP 135/58
[2018-09-30 08:00] VITALS: BP 128/72
[2018-09-30] MEDS: CARVEDILOL 6.25 MG TABLET GT SCH ×2 (09:16→20:18)
[2018-09-30] MEDS: LISINOPRIL 20 MG TABLET GT SCH (09:17)
[2018-09-30] MEDS: LEVETIRACETAM 500 MG/5 ML LIQUID UDC GT SCH ×2 (09:18→20:18)
[2018-09-30] MEDS: COD LIVER OIL/ZINC OXIDE OINT 113 GM TUBE TP SCH ×2 (09:19→20:19)
[2018-09-30] MEDS: NYSTATIN POWDER 15 GM BOTTLE TP SCH ×2 (09:19→20:19)
[2018-09-30] MEDS: Z GUARD REMEDY PASTE 57 GM TUBE TOP SCH ×4 (09:19→20:19)
[2018-09-30] MEDS: ENOXAPARIN SODIUM 40 MG/0.4 ML DISP.SYRIN SQ SCH (09:20)
--- NOTE | 2018-09-30 14:38 | NUR ---
LESIA called patient's Lisa [phone], unable to connect with her. LESIA left Lisa a voicemail messaging stating that the next IDT meeting is scheduled for 10/06/18 at 11am, and asking Lisa to call this LESIA back to let her know if either her or her daughter would be attending the meeting.
--- NOTE | 2018-09-30 15:30 | NUR ---
PT ON HT-5O VENT, SETTINGS ARE AC 16, Vt 550, +5, 30% FIO2. TOLERATING VENT SETTINGS FAIRLY WELL. NO S/S OF RESPIRATORY DISTRESS NOTED. SHILEY 8 TRACH IS PATENT AND SECURED WITH TIES. SUCTIONED MODERATE AMOUNTS OF YELLOW THICK SECRETIONS. HME CHANGED. ALARMS ARE ON AND AUDIBLE, BVM AND BACK UP TRACH AT BEDSIDE. WILL CONITUE TO MONITOR.
[2018-09-30 20:23] VITALS: BP 133/75
[2018-10-01] MEDS: METOCLOPRAMIDE HCL 10 MG/10 ML UDC GT SCH ×3 (05:48→21:40)
[2018-10-01] MEDS: OMEPRAZOLE 20 MG CAPSULE.DR GT SCH (05:48)
[2018-10-01 08:00] VITALS: BP 101/58
[2018-10-01] MEDS: LEVETIRACETAM 500 MG/5 ML LIQUID UDC GT SCH ×2 (08:32→20:36)
[2018-10-01] MEDS: CARVEDILOL 6.25 MG TABLET GT SCH ×2 (08:32→20:36)
[2018-10-01] MEDS: LISINOPRIL 20 MG TABLET GT SCH (08:33)
[2018-10-01] MEDS: ENOXAPARIN SODIUM 40 MG/0.4 ML DISP.SYRIN SQ SCH (08:34)
[2018-10-01] MEDS: COD LIVER OIL/ZINC OXIDE OINT 113 GM TUBE TP SCH ×2 (08:39→20:37)
[2018-10-01] MEDS: NYSTATIN POWDER 15 GM BOTTLE TP SCH ×2 (08:39→21:39)
[2018-10-01] MEDS: Z GUARD REMEDY PASTE 57 GM TUBE TOP SCH ×4 (08:39→20:36)
[2018-10-01 14:02] VITALS: BP 135/67
[2018-10-01] MEDS: OSMOLITE 1.2 CAL 1,000 ML LIQUID GT PRN (14:03)
--- NOTE | 2018-10-01 14:30 | NUR ---
SEEN BY ELÍAS PITTMAN.
[2018-10-01 17:08] VITALS: BP 131/64
--- NOTE | 2018-10-01 18:39 | NUR ---
SEEN AND EXAMINED BY DR. ACOSTA 9NEUROLOGIST) AND WITH NNO.
[2018-10-01 20:08] VITALS: BP 111/51
--- NOTE | 2018-10-01 21:15 | NUR ---
RECEIVED PATIENT ON A MECHANICAL VENTILATOR. PATIENT IS ON THE FOLLOWING SETTINGS THAT ARE CHARTED ON THE MECHANICAL VENT NOTES. HME CHANGED. VENTILATOR ALARMS CHECKED AND THEY ARE ON AND AUDIBLE. VENTILATOR IS PLUGGED IN THE RED EMERGENCY OUTLET. SUCTIONED SMALL AMOUNTS OF THICK YELLOW SECRETIONS. SUCTIONED ORALLY WELL. TRACH IS PATENT AND SECURED WITH TRACH TIES. PATIENT IS TOLERATING CURRENT VENTILATOR SETTINGS WELL. NO SOB NOTED AT THIS TIME. WILL CONTINUE TO MONITOR.
[2018-10-02 01:15] VITALS: BP 114/62
[2018-10-02] MEDS: OMEPRAZOLE 20 MG CAPSULE.DR GT SCH (05:38)
[2018-10-02] MEDS: METOCLOPRAMIDE HCL 10 MG/10 ML UDC GT SCH ×3 (05:38→21:18)
[2018-10-02 08:04] VITALS: BP 142/79
[2018-10-02] MEDS: LEVETIRACETAM 500 MG/5 ML LIQUID UDC GT SCH ×2 (08:26→21:17)
[2018-10-02] MEDS: CARVEDILOL 6.25 MG TABLET GT SCH ×2 (08:26→21:17)
[2018-10-02] MEDS: LISINOPRIL 20 MG TABLET GT SCH (08:26)
[2018-10-02] MEDS: COD LIVER OIL/ZINC OXIDE OINT 113 GM TUBE TP SCH ×2 (08:27→21:18)
[2018-10-02] MEDS: ENOXAPARIN SODIUM 40 MG/0.4 ML DISP.SYRIN SQ SCH (08:27)
[2018-10-02] MEDS: NYSTATIN POWDER 15 GM BOTTLE TP SCH ×2 (08:27→21:18)
[2018-10-02] MEDS: Z GUARD REMEDY PASTE 57 GM TUBE TOP SCH ×4 (08:27→21:17)
[2018-10-02] MEDS: OSMOLITE 1.2 CAL 1,000 ML LIQUID GT PRN (12:13)
[2018-10-02 13:00] VITALS: BP 154/79
[2018-10-02 17:01] VITALS: BP 111/57
[2018-10-02 19:00] VITALS: BP 124/65
--- NOTE | 2018-10-02 19:50 | NUR ---
PT RECEIVED ON CONTINUOUS VENT AC 16 VT 550 PEEP 5 FIO2 30%. TRACH IN PLACED AND SECURED WITH TRACH TIE. BACK UP TRACH AND AMBU BAG AT BEDSIDE. SUCTION SMALL AMOUNT THICK YELLOW SECRETIONS. VENT CHECKED, ALARMS WORKING WELL CONNECTED TO CALL LIGHT. NO DISTRESS NOTED AT THIS TIME. WILL CONTINUE TO MONITOR.
[2018-10-03] VITALS: BP 114/54
[2018-10-03] MEDS: OSMOLITE 1.2 CAL 1,000 ML LIQUID GT PRN ×2 (04:58→20:45)
[2018-10-03] MEDS: METOCLOPRAMIDE HCL 10 MG/10 ML UDC GT SCH ×3 (05:08→22:05)
[2018-10-03] MEDS: OMEPRAZOLE 20 MG CAPSULE.DR GT SCH (05:08)
[2018-10-03 05:10] VITALS: BP 122/62
[2018-10-03 07:33] VITALS: BP 102/84
[2018-10-03] MEDS: ENOXAPARIN SODIUM 40 MG/0.4 ML DISP.SYRIN SQ SCH (08:54)
[2018-10-03] MEDS: CARVEDILOL 6.25 MG TABLET GT SCH ×2 (08:54→20:42)
[2018-10-03] MEDS: LISINOPRIL 20 MG TABLET GT SCH (09:01)
[2018-10-03] MEDS: Z GUARD REMEDY PASTE 57 GM TUBE TOP SCH ×4 (09:02→20:43)
[2018-10-03] MEDS: LEVETIRACETAM 500 MG/5 ML LIQUID UDC GT SCH ×2 (09:02→20:43)
[2018-10-03] MEDS: NYSTATIN POWDER 15 GM BOTTLE TP SCH ×2 (09:02→20:43)
[2018-10-03 13:05] VITALS: BP 130/49
--- NOTE | 2018-10-03 14:47 | NUR ---
RESIDENT REMAIN ON CURRENT VENTILATOR SETTINGS OF AC 16, VT 550, FIO2 30% AND PEEP 5. STABLE WITH NO DISTRESS. SUCTIONED FOR MODERATE AMOUNT OF THICK WHITISH SECRETION. VENT IS WORKING WELL WITH ALL ALARMS ACTIVE. CHANGED VENTILATOR CIRCUIT AND HUMIDIFIER FILTER.
[2018-10-03 17:14] VITALS: BP 120/52
[2018-10-03 20:37] VITALS: BP 147/65
[2018-10-04 01:39] VITALS: BP 152/77
[2018-10-04 05:17] VITALS: BP 144/79
[2018-10-04] MEDS: OMEPRAZOLE 20 MG CAPSULE.DR GT SCH (05:20)
[2018-10-04] MEDS: METOCLOPRAMIDE HCL 10 MG/10 ML UDC GT SCH ×3 (05:20→21:29)
[2018-10-04 07:25] VITALS: BP 138/79
[2018-10-04] MEDS: LEVETIRACETAM 500 MG/5 ML LIQUID UDC GT SCH ×2 (09:08→21:28)
[2018-10-04] MEDS: CARVEDILOL 6.25 MG TABLET GT SCH ×2 (09:08→21:28)
[2018-10-04] MEDS: ENOXAPARIN SODIUM 40 MG/0.4 ML DISP.SYRIN SQ SCH (09:09)
[2018-10-04] MEDS: Z GUARD REMEDY PASTE 57 GM TUBE TOP SCH ×4 (09:09→21:29)
[2018-10-04] MEDS: LISINOPRIL 20 MG TABLET GT SCH (09:09)
[2018-10-04] MEDS: NYSTATIN POWDER 15 GM BOTTLE TP SCH ×2 (09:09→21:29)
[2018-10-04] MEDS: OSMOLITE 1.2 CAL 1,000 ML LIQUID GT PRN (17:41)
[2018-10-04 20:25] VITALS: BP 137/62
[2018-10-05 01:20] VITALS: BP 125/60
[2018-10-05] MEDS: METOCLOPRAMIDE HCL 10 MG/10 ML UDC GT SCH ×3 (05:08→22:21)
[2018-10-05] MEDS: OMEPRAZOLE 20 MG CAPSULE.DR GT SCH (05:08)
[2018-10-05 05:24] VITALS: BP 115/58
[2018-10-05] MEDS: LEVETIRACETAM 500 MG/5 ML LIQUID UDC GT SCH ×2 (08:52→21:16)
[2018-10-05] MEDS: CARVEDILOL 6.25 MG TABLET GT SCH ×2 (08:52→21:16)
[2018-10-05] MEDS: LISINOPRIL 20 MG TABLET GT SCH (08:52)
[2018-10-05] MEDS: Z GUARD REMEDY PASTE 57 GM TUBE TOP SCH ×4 (08:53→21:16)
[2018-10-05] MEDS: ENOXAPARIN SODIUM 40 MG/0.4 ML DISP.SYRIN SQ SCH (08:53)
[2018-10-05 09:08] VITALS: BP 158/68
--- NOTE | 2018-10-05 12:00 | NUR ---
SEEN BY ELÍAS PITTMAN.
[2018-10-05 13:00] VITALS: BP 148/71
[2018-10-05] MEDS: OSMOLITE 1.2 CAL 1,000 ML LIQUID GT PRN (13:13)
--- NOTE | 2018-10-05 14:00 | NUR ---
Patient seen today by Dr. Ybarra for teeth cleaning. See dental notes for details.
--- NOTE | 2018-10-05 16:04 | NUR ---
RECEIVED ON CURRENT VENTILATOR SETTINGS OF AC 16, VT 550, FIO2 30% AND PEEP 5 AND SEEMED TO BE TOLERATING THE SETTINGS WELL. SUCTIONED FOR MODERATE AMOUNT OF THICK WHITISH SECRETION. TRACH SHILEY NO. [address] AND SECURE. VENT IS WORKING WELL WITH ALL ALARMS ACTIVE. CHANGED HUMIDIFIER FILTER.
[2018-10-05 17:34] VITALS: BP 132/61
--- NOTE | 2018-10-05 20:12 | NUR ---
Received pt on HT-50 ventilator with the following settings of AC-16, Vt-550, PEEP+5, FIO2-30%, trached with Shiley#8 DFEN trach, which is in the place and secure properly. No SOB noted. Airway care done, pt responded to physical stimuli. HME changed. Resus. bag and back up trach at bedside. Vent and alarms checked and reset.
[2018-10-05 20:33] VITALS: BP 127/42
[2018-10-06] VITALS (7 sets, daily range): BP systolic 106–146; BP diastolic 50–70
[2018-10-06] MEDS: OSMOLITE 1.2 CAL 1,000 ML LIQUID GT PRN ×2 (03:04→20:46)
[2018-10-06] MEDS: METOCLOPRAMIDE HCL 10 MG/10 ML UDC GT SCH ×3 (05:28→22:04)
[2018-10-06] MEDS: OMEPRAZOLE 20 MG CAPSULE.DR GT SCH (05:28)
[2018-10-06] MEDS: CARVEDILOL 6.25 MG TABLET GT SCH ×2 (08:36→20:43)
[2018-10-06] MEDS: LEVETIRACETAM 500 MG/5 ML LIQUID UDC GT SCH ×2 (08:36→20:44)
[2018-10-06] MEDS: LISINOPRIL 20 MG TABLET GT SCH (08:37)
[2018-10-06] MEDS: Z GUARD REMEDY PASTE 57 GM TUBE TOP SCH ×3 (08:39→20:44)
[2018-10-06] MEDS: ENOXAPARIN SODIUM 40 MG/0.4 ML DISP.SYRIN SQ SCH (08:39)
--- NOTE | 2018-10-06 15:01 | NUR ---
INTERDISCIPLINARY PLAN OF CARE CONFERENCE was held today. Patient's daughter Alexander was present at the meeting. Dr. Muro and the Interdisciplinary Team reviewed the current plan of care in detail. RN reported on patient's medical condition. No major changes were reported; see RN IDT conference notes. History Faculty Member discussed patient's slight weight loss and that it will be monitored by dieticians. See all disciplines IDT notes and physician's progress notes for additional details. Alexander stated not having any questions/concerns at this time, and being content with the current plan of care.
--- NOTE | 2018-10-06 16:13 | NUR ---
harmacy Update from today's 10/06/18 IDT Meeting Patient admitted 07/14/18 from [facility]. 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 Pt was found to be positive on urine tox for methamphetamines Temp 97.4 BP 138/75 HR 83 LABS: (from 09/29/18) Wbc 5.3H/H 9.8/29.3Plt 229 Na 136K 4.1Cl 101CO2 28BUN/Scr 19/0.7 BS 86Ca 9.7 MEDICATION USE REVIEWED: > Pt is not on any anti-psych medications > Pt is on Keppra 500mg q 12hr since admit 07/14/18, no seizures reported; CrCl 100 ml/min, dose appropriate per renal fxn > Pt is on lovenox 40mg daily as of 08/26/18. Last plt 229 > Pt on coreg 6.25mg q12hr, lisinopril 20mg daily, hydralazine PRN SBP >160. Last BP 138/75 > Admitted on reglan 5mg q8hr for GI motility/gastroparesis. Per MD (DF), not to d/c as for gastroparesis maintenance treatment PRN MED USAGE: (Nov) Tylenol for pain/temp used x 0 (pain) Bisacodyl supp used x0 Miralax PRN used x 0 Hydralazine PRN used x 0 Ativan PRN anxiety/agitation used x 0 NEW ORDERS NOTED: > NA Patient reviewed and discussed in detail at IDT, no medication changes, issues, or concerns noted per team at this time. Family in attendance with no further questions or concerns as well. No further recs at this time, will continue to follow
--- NOTE | 2018-10-06 19:50 | NUR ---
PT RECEIVED ON CONTINUOUS VENT AC 16 VT 550 PEEP 5 FIO2 30%. TRACH IN PLACED AND SECURED WITH TRACH TIE. BACK UP TRACH AND AMBU BAG AT BEDSIDE. SUCTION SMALL AMOUNT THICK YELLOW SECRETIONS. VENT CHECKED, ALARMS WORKING WELL AND CONNECTED TO CALL LIGHT. NO DISTRESS NOTED AT THIS TIME. WILL CONTINUE TO MONITOR.
[2018-10-07 01:00] VITALS: BP 135/69
[2018-10-07 05:55] VITALS: BP 146/74
[2018-10-07] MEDS: METOCLOPRAMIDE HCL 10 MG/10 ML UDC GT SCH ×3 (05:58→21:52)
[2018-10-07] MEDS: OMEPRAZOLE 20 MG CAPSULE.DR GT SCH (05:58)
[2018-10-07] MEDS: LEVETIRACETAM 500 MG/5 ML LIQUID UDC GT SCH ×2 (08:32→20:23)
[2018-10-07] MEDS: LISINOPRIL 20 MG TABLET GT SCH (08:32)
[2018-10-07] MEDS: Z GUARD REMEDY PASTE 57 GM TUBE TOP SCH ×2 (08:32→20:23)
[2018-10-07] MEDS: CARVEDILOL 6.25 MG TABLET GT SCH ×2 (08:32→20:23)
[2018-10-07] MEDS: ENOXAPARIN SODIUM 40 MG/0.4 ML DISP.SYRIN SQ SCH (08:33)
--- NOTE | 2018-10-07 11:35 | NUR ---
Discussed in subacute IDT meeting on 10/06. 3 lb weight loss over the past ~1 month (non-significant change). Weight noted to be trending down since admission, 10 lb weight loss over the ~90 day period (6.7% change). % weight change is < significant 7.5%, but still notable. Family is aware. Recommend to increase TF duration from 20 hrs to 22 hrs. Recommend: Osmolite 1.2 @ 70 ml/hr x 22 hrs Provides: 1540 ml volume, 1848 kcal, 85 gm protein, 1263 ml water daily Meets: 98% of high end of est. kcal needs and 112% of high end of est. protein needs. Addendum: 10/07/18 at [address] Amended: Links added.
[2018-10-07 11:55] VITALS: BP 118/68
[2018-10-07 20:00] VITALS: BP 137/83
[2018-10-08 01:37] VITALS: BP 140/77
[2018-10-08 05:00] VITALS: BP 137/81
[2018-10-08] MEDS: OMEPRAZOLE 20 MG CAPSULE.DR GT SCH (05:52)
[2018-10-08] MEDS: METOCLOPRAMIDE HCL 10 MG/10 ML UDC GT SCH ×3 (05:52→21:34)
[2018-10-08 08:00] VITALS: BP 127/64
[2018-10-08] MEDS: LEVETIRACETAM 500 MG/5 ML LIQUID UDC GT SCH ×2 (08:27→21:34)
[2018-10-08] MEDS: CARVEDILOL 6.25 MG TABLET GT SCH ×2 (08:27→21:34)
[2018-10-08] MEDS: Z GUARD REMEDY PASTE 57 GM TUBE TOP SCH ×2 (08:28→21:34)
[2018-10-08] MEDS: LISINOPRIL 20 MG TABLET GT SCH (08:28)
[2018-10-08] MEDS: ENOXAPARIN SODIUM 40 MG/0.4 ML DISP.SYRIN SQ SCH (08:30)
[2018-10-08] MEDS: OSMOLITE 1.2 CAL 1,000 ML LIQUID GT PRN (12:19)
[2018-10-08 13:00] VITALS: BP 121/60
--- NOTE | 2018-10-08 13:46 | NUR ---
Per dietary recommendation, gtube feeding Osmolite time increased to 22hrs/day to provide 1540ml/1848kcal.
[2018-10-08 17:06] VITALS: BP 125/61
[2018-10-08 20:00] VITALS: BP 128/52
[2018-10-09] VITALS: BP 102/60
[2018-10-09] MEDS: OSMOLITE 1.2 CAL 1,000 ML LIQUID GT PRN ×2 (04:56→22:34)
[2018-10-09] MEDS: OMEPRAZOLE 20 MG CAPSULE.DR GT SCH (05:47)
[2018-10-09] MEDS: METOCLOPRAMIDE HCL 10 MG/10 ML UDC GT SCH ×3 (05:47→22:34)
[2018-10-09 08:00] VITALS: BP 121/48
[2018-10-09] MEDS: LISINOPRIL 20 MG TABLET GT SCH (08:38)
[2018-10-09] MEDS: CARVEDILOL 6.25 MG TABLET GT SCH ×2 (08:38→20:27)
[2018-10-09] MEDS: ENOXAPARIN SODIUM 40 MG/0.4 ML DISP.SYRIN SQ SCH (08:39)
[2018-10-09] MEDS: Z GUARD REMEDY PASTE 57 GM TUBE TOP SCH ×2 (08:39→20:27)
[2018-10-09 09:00] VITALS: BP 131/64
[2018-10-09] MEDS: LEVETIRACETAM 500 MG/5 ML LIQUID UDC GT SCH ×2 (09:05→20:27)
[2018-10-09] MEDS ORDERED: HYDROGEN PEROXIDE 3% 118 ML BOTTLE TP PRN (12:00)
[2018-10-09] MEDS: HYDROGEN PEROXIDE 3% 118 ML BOTTLE TP SCH ×2 (12:01→20:27)
[2018-10-09 13:00] VITALS: BP 137/58
--- NOTE | 2018-10-09 14:31 | NUR ---
RESIDENT REMAIN ON CURRENT VENTILATOR SETTINGS OF AC 16, VT 550, FIO2 30% AND PEEP 5. STABLE WITH NO DISTRESS. SUCTIONED FOR MODERATE AMOUNT OF THICK WHITISH SECRETION. VENT IS WORKING WELL WITH ALL ALARMS ACTIVE. CHANGED HUMIDIFIER FILTER.
[2018-10-09 17:42] VITALS: BP 131/62
--- NOTE | 2018-10-09 19:50 | NUR ---
PT RECEIVED ON CONTINUOUS VENT AC 16 VT 550 PEEP 5 FIO2 30%. PT AWAKE, TOLERATING CURRENT VENT SETTINGS AT THIS TIME. TRACH IN PLACED AND SECURED WITH TRACH TIE. BACK UP TRACH AND AMBU BAG AT BEDSIDE. SUCTION SMALL AMOUNT THICK YELLOW SECRETIONS. VENT CHECKED, ALARMS WORKING WELL AND CONNECTED TO CALL LIGHT. NO DISTRESS NOTED AT THIS TIME. WILL CONTINUE TO MONITOR.
[2018-10-09 22:56] VITALS: BP 146/78
[2018-10-10] MEDS: OMEPRAZOLE 20 MG CAPSULE.DR GT SCH (05:13)
[2018-10-10] MEDS: METOCLOPRAMIDE HCL 10 MG/10 ML UDC GT SCH ×3 (05:13→22:09)
[2018-10-10 08:05] VITALS: BP 127/50
[2018-10-10] MEDS: CARVEDILOL 6.25 MG TABLET GT SCH ×2 (08:31→20:05)
[2018-10-10] MEDS: LISINOPRIL 20 MG TABLET GT SCH (08:32)
[2018-10-10] MEDS: LEVETIRACETAM 500 MG/5 ML LIQUID UDC GT SCH ×2 (08:34→20:06)
[2018-10-10] MEDS: ENOXAPARIN SODIUM 40 MG/0.4 ML DISP.SYRIN SQ SCH (08:36)
[2018-10-10] MEDS: Z GUARD REMEDY PASTE 57 GM TUBE TOP SCH ×2 (09:57→20:06)
[2018-10-10] MEDS: HYDROGEN PEROXIDE 3% 118 ML BOTTLE TP SCH ×2 (09:57→20:07)
[2018-10-10] MEDS: OSMOLITE 1.2 CAL 1,000 ML LIQUID GT PRN (15:43)
[2018-10-10 20:25] VITALS: BP 168/86
[2018-10-10 21:40] VITALS: BP 151/83
[2018-10-10 22:38] VITALS: BP 151/83
[2018-10-11 00:36] VITALS: BP 161/77
[2018-10-11] MEDS: hydrALAZINE HCL 10 MG TABLET GT PRN (00:36)
[2018-10-11] MEDS: ACETAMINOPHEN 325 MG TABLET-SA PATIENTS-PAIN ONLY GT PRN (01:59)
[2018-10-11 04:14] VITALS: BP 148/78
[2018-10-11] MEDS: METOCLOPRAMIDE HCL 10 MG/10 ML UDC GT SCH ×3 (06:00→21:13)
[2018-10-11] MEDS: OMEPRAZOLE 20 MG CAPSULE.DR GT SCH (06:00)
[2018-10-11] MEDS: OSMOLITE 1.2 CAL 1,000 ML LIQUID GT PRN (06:04)
[2018-10-11] MEDS: LEVETIRACETAM 500 MG/5 ML LIQUID UDC GT SCH ×2 (09:07→21:13)
[2018-10-11] MEDS: HYDROGEN PEROXIDE 3% 118 ML BOTTLE TP SCH ×2 (09:09→21:13)
[2018-10-11] MEDS: LISINOPRIL 20 MG TABLET GT SCH (09:09)
[2018-10-11] MEDS: CARVEDILOL 6.25 MG TABLET GT SCH ×2 (09:09→21:13)
[2018-10-11] MEDS: Z GUARD REMEDY PASTE 57 GM TUBE TOP SCH ×2 (09:09→21:13)
[2018-10-11] MEDS: ENOXAPARIN SODIUM 40 MG/0.4 ML DISP.SYRIN SQ SCH (09:10)
[2018-10-11 11:32] VITALS: BP 142/65
[2018-10-11 15:39] VITALS: BP 102/49
[2018-10-11 18:57] VITALS: BP 120/68
[2018-10-11 20:43] VITALS: BP 143/74
--- NOTE | 2018-10-11 22:38 | NUR ---
Seen and examined by HENRY Beach with no new order.
--- NOTE | 2018-10-12 | NUR ---
RECEIVED PATIENT ON A HT-50 VENTILATOR WITH THE FOLLOWING SETTINGS THAT ARE CHARTED ON THE MECHANICAL VENTILATOR NOTES. HME CHANGED. SUCTIONED A SMALL AMOUNT OF THICK YELLOW SECRETIONS. TRACH IS PATENT AND SECURED WITH TRACH TIES. VENTILATOR IS PLUGGED IN THE RED EMERGENCY OUTLET. VENT ALARMS CHECKED AND THEY ARE ON AND AUDIBLE. BACK UP TRACH AND AMBU BAG IS BY BEDSIDE. PATIENT IS TOLERATING CURRENT VENTILATOR SETTINGS WELL WITH NO SOB NOTED AT THIS TIME. WILL CONTINUE TO MONITOR.
[2018-10-12 01:00] VITALS: BP 108/53
[2018-10-12] MEDS: OSMOLITE 1.2 CAL 1,000 ML LIQUID GT PRN ×2 (02:39→19:11)
[2018-10-12] MEDS: OMEPRAZOLE 20 MG CAPSULE.DR GT SCH (05:47)
[2018-10-12] MEDS: METOCLOPRAMIDE HCL 10 MG/10 ML UDC GT SCH ×3 (05:47→22:07)
[2018-10-12 06:00] VITALS: BP 102/45
[2018-10-12 08:00] VITALS: BP 130/73
[2018-10-12] MEDS: LEVETIRACETAM 500 MG/5 ML LIQUID UDC GT SCH ×2 (09:07→20:54)
[2018-10-12] MEDS: LISINOPRIL 20 MG TABLET GT SCH (09:07)
[2018-10-12] MEDS: CARVEDILOL 6.25 MG TABLET GT SCH ×2 (09:07→20:54)
[2018-10-12] MEDS: HYDROGEN PEROXIDE 3% 118 ML BOTTLE TP SCH ×2 (09:08→20:54)
[2018-10-12] MEDS: Z GUARD REMEDY PASTE 57 GM TUBE TOP SCH ×2 (09:08→20:54)
[2018-10-12] MEDS: ENOXAPARIN SODIUM 40 MG/0.4 ML DISP.SYRIN SQ SCH (09:08)
[2018-10-12 17:34] VITALS: BP 96/50
[2018-10-12 21:04] VITALS: BP 100/59
[2018-10-13 01:00] VITALS: BP 99/44
[2018-10-13] MEDS: MIRALAX 17 GM POWD.PACK GT PRN (02:42)
[2018-10-13] MEDS: OMEPRAZOLE 20 MG CAPSULE.DR GT SCH (05:54)
[2018-10-13] MEDS: METOCLOPRAMIDE HCL 10 MG/10 ML UDC GT SCH ×3 (05:54→22:13)
[2018-10-13 07:27] VITALS: BP 101/48
[2018-10-13] MEDS: ENOXAPARIN SODIUM 40 MG/0.4 ML DISP.SYRIN SQ SCH (08:28)
[2018-10-13] MEDS: LEVETIRACETAM 500 MG/5 ML LIQUID UDC GT SCH ×2 (08:51→20:43)
[2018-10-13] MEDS: CARVEDILOL 6.25 MG TABLET GT SCH ×2 (08:51→20:43)
[2018-10-13] MEDS: HYDROGEN PEROXIDE 3% 118 ML BOTTLE TP SCH ×2 (08:52→20:43)
[2018-10-13] MEDS: Z GUARD REMEDY PASTE 57 GM TUBE TOP SCH ×2 (08:52→20:43)
[2018-10-13] MEDS: LISINOPRIL 20 MG TABLET GT SCH (08:52)
[2018-10-13 09:20] VITALS: BP 152/71
[2018-10-13 14:37] VITALS: BP 100/39
[2018-10-13] MEDS: OSMOLITE 1.2 CAL 1,000 ML LIQUID GT PRN (14:53)
[2018-10-13 17:29] VITALS: BP 117/55
--- NOTE | 2018-10-13 19:15 | NUR ---
Patient was received on a [place] HT-50 vent with settings of AC 16, VT 550, Peep +5, FiO2 30%. No respiratory distress noted at this time. He is trached with Shiley 8 DCT; trach is secured/patent at midline. Suctioned moderate amounts of thick pale-yellowish secretions. HME changed without complications. Vent alarms checked and are on/audible. Ambu-bag and back-up trach at bedside. Will continue to monitor.
[2018-10-13 20:36] VITALS: BP 118/59
[2018-10-14 01:33] VITALS: BP 106/52
[2018-10-14] MEDS: OSMOLITE 1.2 CAL 1,000 ML LIQUID GT PRN ×2 (02:00→16:45)
[2018-10-14 04:00] VITALS: BP 127/51
[2018-10-14] MEDS: OMEPRAZOLE 20 MG CAPSULE.DR GT SCH (05:40)
[2018-10-14] MEDS: METOCLOPRAMIDE HCL 10 MG/10 ML UDC GT SCH ×3 (05:40→22:37)
[2018-10-14 08:00] VITALS: BP 130/69
[2018-10-14] MEDS: CARVEDILOL 6.25 MG TABLET GT SCH ×2 (08:21→20:43)
[2018-10-14] MEDS: ENOXAPARIN SODIUM 40 MG/0.4 ML DISP.SYRIN SQ SCH (08:22)
[2018-10-14] MEDS: LISINOPRIL 20 MG TABLET GT SCH (08:24)
[2018-10-14] MEDS: LEVETIRACETAM 500 MG/5 ML LIQUID UDC GT SCH ×2 (08:24→20:44)
[2018-10-14] MEDS: HYDROGEN PEROXIDE 3% 118 ML BOTTLE TP SCH ×2 (08:24→20:45)
[2018-10-14] MEDS: Z GUARD REMEDY PASTE 57 GM TUBE TOP SCH ×2 (08:24→20:45)
[2018-10-14 13:00] VITALS: BP 118/64
[2018-10-14 17:00] VITALS: BP 126/66
--- NOTE | 2018-10-14 19:00 | NUR ---
Seen and examined by Dr Muro,with new orders
[2018-10-14 20:09] VITALS: BP 116/63
[2018-10-15] MEDS: METOCLOPRAMIDE HCL 10 MG/10 ML UDC GT SCH ×3 (06:08→22:30)
[2018-10-15] MEDS: OMEPRAZOLE 20 MG CAPSULE.DR GT SCH (06:08)
[2018-10-15 08:15] VITALS: BP 122/62
[2018-10-15] MEDS: LEVETIRACETAM 500 MG/5 ML LIQUID UDC GT SCH ×2 (08:21→21:00)
[2018-10-15] MEDS: CARVEDILOL 6.25 MG TABLET GT SCH ×2 (08:22→21:00)
[2018-10-15] MEDS: LISINOPRIL 20 MG TABLET GT SCH (08:22)
[2018-10-15] MEDS: HYDROGEN PEROXIDE 3% 118 ML BOTTLE TP SCH ×2 (08:23→21:00)
[2018-10-15] MEDS: Z GUARD REMEDY PASTE 57 GM TUBE TOP SCH ×2 (08:23→21:00)
[2018-10-15] MEDS: ENOXAPARIN SODIUM 40 MG/0.4 ML DISP.SYRIN SQ SCH (08:23)
--- NOTE | 2018-10-15 10:42 | NUR ---
SEEN BY DR. MILDRED PITTMAN.
[2018-10-15] MEDS: OSMOLITE 1.2 CAL 1,000 ML LIQUID GT PRN (11:23)
[2018-10-15 11:38] VITALS: BP 124/68
[2018-10-15 13:28] VITALS: BP 114/54
[2018-10-15 17:06] VITALS: BP 115/55
[2018-10-15 21:47] VITALS: BP 132/58
[2018-10-16] MEDS: OSMOLITE 1.2 CAL 1,000 ML LIQUID GT PRN (06:19)
[2018-10-16] MEDS: METOCLOPRAMIDE HCL 10 MG/10 ML UDC GT SCH ×3 (06:19→21:16)
[2018-10-16] MEDS: OMEPRAZOLE 20 MG CAPSULE.DR GT SCH (06:19)
[2018-10-16] MEDS: HYDROGEN PEROXIDE 3% 118 ML BOTTLE TP SCH ×2 (08:29→21:16)
[2018-10-16] MEDS: Z GUARD REMEDY PASTE 57 GM TUBE TOP SCH ×2 (08:29→21:16)
[2018-10-16] MEDS: ENOXAPARIN SODIUM 40 MG/0.4 ML DISP.SYRIN SQ SCH (08:29)
[2018-10-16] MEDS: LEVETIRACETAM 500 MG/5 ML LIQUID UDC GT SCH ×2 (08:29→21:16)
[2018-10-16] MEDS: LISINOPRIL 20 MG TABLET GT SCH (08:29)
[2018-10-16] MEDS: CARVEDILOL 6.25 MG TABLET GT SCH ×2 (08:29→21:15)
[2018-10-16 08:59] VITALS: BP 123/60
[2018-10-16 13:00] VITALS: BP 119/48
[2018-10-16 17:11] VITALS: BP 116/46
--- NOTE | 2018-10-16 19:40 | NUR ---
PT REMAIN ON CONTINUOUS VENT AC 16 VT 550 PEEP 5 FIO2 30%. TOLERATING CURRENT VENT SETTINGS AT THIS TIME. TRACH IN PLACED AND SECURED WITH TRACH TIE. BACK UP TRACH AND AMBU BAG AT BEDSIDE. SUCTION SMALL AMOUNT THICK YELLOW SECRETIONS. SUCTION ORALLY SMALL AMOUNT THIN WHITE SECRETIONS . NEW HME IN PLACE. VENT CHECKED, ALARMS WORKING WELL AND CONNECTED TO CALL LIGHT. NO DISTRESS NOTED AT THIS TIME. WILL CONTINUE TO MONITOR.
[2018-10-16 20:30] VITALS: BP 129/64
[2018-10-17] MEDS: OSMOLITE 1.2 CAL 1,000 ML LIQUID GT PRN (00:45)
[2018-10-17] MEDS: OMEPRAZOLE 20 MG CAPSULE.DR GT SCH (05:34)
[2018-10-17] MEDS: METOCLOPRAMIDE HCL 10 MG/10 ML UDC GT SCH ×3 (05:34→21:59)
[2018-10-17 08:00] VITALS: BP 138/91
[2018-10-17] MEDS: LEVETIRACETAM 500 MG/5 ML LIQUID UDC GT SCH ×2 (08:14→20:16)
[2018-10-17] MEDS: CARVEDILOL 6.25 MG TABLET GT SCH ×2 (08:14→20:16)
[2018-10-17] MEDS: LISINOPRIL 20 MG TABLET GT SCH (08:15)
[2018-10-17] MEDS: HYDROGEN PEROXIDE 3% 118 ML BOTTLE TP SCH ×2 (08:16→20:16)
[2018-10-17] MEDS: Z GUARD REMEDY PASTE 57 GM TUBE TOP SCH ×2 (08:16→20:16)
[2018-10-17] MEDS: ENOXAPARIN SODIUM 40 MG/0.4 ML DISP.SYRIN SQ SCH (08:16)
[2018-10-17 12:43] VITALS: BP 94/56
[2018-10-17 16:49] VITALS: BP 127/59
[2018-10-17 20:27] VITALS: BP 106/58
[2018-10-18] MEDS: METOCLOPRAMIDE HCL 10 MG/10 ML UDC GT SCH ×3 (06:22→21:46)
[2018-10-18] MEDS: OMEPRAZOLE 20 MG CAPSULE.DR GT SCH (06:22)
[2018-10-18 08:00] VITALS: BP 137/71
[2018-10-18] MEDS: CARVEDILOL 6.25 MG TABLET GT SCH ×2 (08:53→21:46)
[2018-10-18] MEDS: LISINOPRIL 20 MG TABLET GT SCH (08:54)
[2018-10-18] MEDS: LEVETIRACETAM 500 MG/5 ML LIQUID UDC GT SCH ×2 (08:54→21:46)
[2018-10-18] MEDS: ENOXAPARIN SODIUM 40 MG/0.4 ML DISP.SYRIN SQ SCH (08:55)
[2018-10-18] MEDS: Z GUARD REMEDY PASTE 57 GM TUBE TOP SCH ×2 (08:55→21:46)
[2018-10-18] MEDS: HYDROGEN PEROXIDE 3% 118 ML BOTTLE TP SCH ×2 (08:55→21:46)
[2018-10-18 13:00] VITALS: BP 128/70
[2018-10-18] MEDS: OSMOLITE 1.2 CAL 1,000 ML LIQUID GT PRN (17:08)
[2018-10-18 17:09] VITALS: BP 134/65
[2018-10-18 21:27] VITALS: BP 110/68
[2018-10-19] VITALS (7 sets, daily range): BP systolic 126–142; BP diastolic 56–81
[2018-10-19] MEDS: METOCLOPRAMIDE HCL 10 MG/10 ML UDC GT SCH ×3 (06:26→22:26)
[2018-10-19] MEDS: OMEPRAZOLE 20 MG CAPSULE.DR GT SCH (06:26)
[2018-10-19 07:09] LABS: BASOPHILS % (AUTO) 0.3 % (0.0-2.0); EOSINOPHILS # (AUTO) 0.1 K/uL (0.0-0.7); EOSINOPHILS % (AUTO) 1.7 % (0.0-7.0); HEMATOCRIT 26.5 % (36.7-47.1); LYMPHOCYTES # (AUTO) 2.1 K/uL (20.0-40.0); LYMPHOCYTES % (AUTO) 39.5 % (20.5-51.5); MEAN CORPUSCULAR HEMOGLOBIN 29.4 uug (23.8-33.4); MEAN CORPUSCULAR HGB CONC 34 g/dL (32.5-36.3); MEAN CORPUSCULAR VOLUME 86.5 fL (73.0-96.2); MONOCYTES # (AUTO) 0.6 K/uL (2.0-10.0); MONOCYTES % (AUTO) 10.7 % (0.0-11.0); NEUTROPHILS # (AUTO) 2.5 K/uL (1.8-8.9); NEUTROPHILS % (AUTO) 47.8 % (38.5-71.5); PLATELET COUNT (AUTO) 249 K/uL (152-348); RED BLOOD CELL COUNT(AUTO) 3.07 MIL/uL (4.06-5.63); WHITE BLOOD COUNT (AUTO) 5.3 K/uL (3.6-10.2)
[2018-10-19 07:23] LABS: BILIRUBIN,TOTAL 0.2 mg/dL (0.2-1.0); CREATININE 0.8 mg/dL (0.6-1.3); POTASSIUM 4.2 mmol/L (3.5-5.1); TOTAL PROTEIN, SERUM 7.3 g/dL (6.4-8.2)
[2018-10-19] MEDS: CARVEDILOL 6.25 MG TABLET GT SCH ×2 (08:27→20:46)
[2018-10-19] MEDS: LISINOPRIL 20 MG TABLET GT SCH (08:28)
[2018-10-19] MEDS: LEVETIRACETAM 500 MG/5 ML LIQUID UDC GT SCH ×2 (08:28→20:46)
[2018-10-19] MEDS: Z GUARD REMEDY PASTE 57 GM TUBE TOP SCH ×2 (08:29→20:46)
[2018-10-19] MEDS: ENOXAPARIN SODIUM 40 MG/0.4 ML DISP.SYRIN SQ SCH (08:29)
[2018-10-19] MEDS: HYDROGEN PEROXIDE 3% 118 ML BOTTLE TP SCH ×2 (08:29→20:46)
[2018-10-19] MEDS: OSMOLITE 1.2 CAL 1,000 ML LIQUID GT PRN (12:19)
--- NOTE | 2018-10-19 12:30 | NUR ---
SEEN BY DR. REED AND ELÍAS Ivan AND WITH NNO.
--- NOTE | 2018-10-19 14:49 | NUR ---
JULEE COX N.P (G.I) WAS NOTIFIED RE:PEG LOOKS VERY OLD ,STILL WORKING BUT LOOKS DETERIORTAED AND ALSO RE: LAB RESULTS TODAY AND NNO AT THIS TIME SHE STATED THAT SHE WILL SEE PT, TODAY.
--- NOTE | 2018-10-19 18:28 | NUR ---
PT. SEEN BY JULEE COX AND NNO,NO PLAN TO CHANGE PEG .
[2018-10-20] MEDS: OMEPRAZOLE 20 MG CAPSULE.DR GT SCH (01:48)
[2018-10-20] MEDS: METOCLOPRAMIDE HCL 10 MG/10 ML UDC GT SCH ×3 (01:51→21:40)
[2018-10-20 06:55] VITALS: BP 129/54
[2018-10-20] MEDS: OSMOLITE 1.2 CAL 1,000 ML LIQUID GT PRN ×2 (06:55→19:26)
--- NOTE | 2018-10-20 07:50 | NUR ---
PT REMAIN ON CONTINUOUS VENT AC 16 VT 550 PEEP 5 FIO2 30%. TRACH IN PLACED AND SECURED WITH TRACH TIE. BACK UP TRACH AND AMBU BAG AT BEDSIDE. SUCTION SMALL AMOUNT THICK YELLOW SECRETIONS. SUCTION ORALLY SMALL AMOUNT THIN WHITE SECRETIONS . HME CHANGED. VENT CHECKED, ALARMS WORKING WELL AND CONNECTED TO CALL LIGHT. NO DISTRESS NOTED AT THIS TIME. WILL CONTINUE TO MONITOR.
[2018-10-20 08:00] VITALS: BP 139/80
[2018-10-20] MEDS: ENOXAPARIN SODIUM 40 MG/0.4 ML DISP.SYRIN SQ SCH (08:19)
[2018-10-20] MEDS: CARVEDILOL 6.25 MG TABLET GT SCH ×2 (08:24→21:38)
[2018-10-20] MEDS: LISINOPRIL 20 MG TABLET GT SCH (08:24)
[2018-10-20] MEDS: LEVETIRACETAM 500 MG/5 ML LIQUID UDC GT SCH ×2 (08:24→21:39)
[2018-10-20] MEDS: HYDROGEN PEROXIDE 3% 118 ML BOTTLE TP SCH ×2 (08:25→21:39)
[2018-10-20] MEDS: Z GUARD REMEDY PASTE 57 GM TUBE TOP SCH ×2 (08:25→21:39)
[2018-10-20 08:29] VITALS: BP 124/59
[2018-10-20 13:00] VITALS: BP 110/52
--- NOTE | 2018-10-20 14:31 | NUR ---
INTERDISCIPLINARY PLAN OF CARE CONFERENCE was held today Patient's family was unable to attend the meeting. Dr. Muro and the Interdisciplinary Team reviewed the current plan of care in detail. RN reported on patient's medical condition. No major changes in condition were reported. See RN IDT conference notes. See also all other disciplines IDT notes and physician's progress notes for additional details.
--- NOTE | 2018-10-20 15:03 | NUR ---
Pharmacy Update from today's 10/20/18 IDT Meeting Patient admitted 07/14/18 from [facility]. 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 Pt was found to be positive on urine tox for methamphetamines Temp 97.4 BP 129/54 HR 78 LABS: (from 10/19/18) Wbc 5.3H/H 26.5Plt 249 Na 134K 4.2Cl 99CO2 25BUN/Scr 21/0.8 BS 104Ca 9.7 MEDICATION USE REVIEWED: > Pt is not on any anti-psych medications > Pt is on Keppra 500mg q 12hr since admit 07/14/18, no seizures reported; CrCl 98.5 ml/min, dose appropriate per renal fxn > Pt is on lovenox 40mg daily as of 08/26/18. Last plt 249 > Pt on coreg 6.25mg q12hr, lisinopril 20mg daily, hydralazine PRN SBP >160. Last BP 129/54 > Admitted on reglan 5mg q8hr for GI motility/gastroparesis. Per MD (DF), not to d/c as for gastroparesis maintenance treatment PRN MED USAGE: (Nov) Tylenol for pain/temp used x 0 (pain) Bisacodyl supp used x0 Miralax PRN used x 0 Hydralazine PRN used x 0 NEW ORDERS NOTED: > NA Patient reviewed and discussed in detail at IDT, no medication changes, issues, or concerns noted per team at this time. Dietary reportedly increased tube feed rate to 22hrs/day 10/08. Pt remains stable on current medications, no rx recs at this time, will continue to follow
[2018-10-20 17:22] VITALS: BP 125/59
[2018-10-20 20:29] VITALS: BP 122/67
[2018-10-20 21:06] LABS: *ANTI-SCLERODERMA-70 AB <0.2 AI (0.0-0.9); *SJOGREN'S ANTI-SS-A <0.2 AI (0.0-0.9); *SJOGREN'S ANTI-SS-B <0.2 AI (0.0-0.9); *SMITH ANTIBODIES <0.2 AI (0.0-0.9); ANTI-DNA(DS) AB, QN <1 IU/mL (0-9)
[2018-10-21] MEDS: OMEPRAZOLE 20 MG CAPSULE.DR GT SCH (06:46)
[2018-10-21] MEDS: METOCLOPRAMIDE HCL 10 MG/10 ML UDC GT SCH ×3 (06:46→22:01)
[2018-10-21 08:07] VITALS: BP 123/73
[2018-10-21] MEDS: LEVETIRACETAM 500 MG/5 ML LIQUID UDC GT SCH ×2 (08:37→20:41)
[2018-10-21] MEDS: CARVEDILOL 6.25 MG TABLET GT SCH ×2 (08:37→20:38)
[2018-10-21] MEDS: LISINOPRIL 20 MG TABLET GT SCH (08:38)
[2018-10-21] MEDS: ENOXAPARIN SODIUM 40 MG/0.4 ML DISP.SYRIN SQ SCH (08:40)
[2018-10-21] MEDS: Z GUARD REMEDY PASTE 57 GM TUBE TOP SCH ×2 (08:40→20:41)
[2018-10-21] MEDS: HYDROGEN PEROXIDE 3% 118 ML BOTTLE TP SCH ×2 (08:40→20:41)
--- NOTE | 2018-10-21 11:00 | NUR ---
SEEN BY DR. MILDRED PITTMAN.
[2018-10-21] MEDS: OSMOLITE 1.2 CAL 1,000 ML LIQUID GT PRN (12:41)
[2018-10-21 13:00] VITALS: BP 107/45
--- NOTE | 2018-10-21 16:00 | NUR ---
ORDER CARRIED OUT FROM ELÍAS Ivan FOR PT SARAN GIORDANO.
[2018-10-21 17:50] VITALS: BP 107/45
[2018-10-21 20:49] VITALS: BP 113/71
[2018-10-22 00:19] VITALS: BP 121/56
[2018-10-22 03:08] LABS: *IGG SUBCLASS 1 574 mg/dL (248-810); *IGG SUBCLASS 2 359 mg/dL (130-555); *IGG SUBCLASS 3 56 mg/dL (15-102); *IGG SUBCLASS 4 47 mg/dL (2-96); *IMMUNOGLOBULIN G, SERUM 1076 mg/dL (700-1600)
[2018-10-22 04:43] VITALS: BP 123/51
[2018-10-22] MEDS: METOCLOPRAMIDE HCL 10 MG/10 ML UDC GT SCH ×3 (05:57→22:11)
[2018-10-22] MEDS: OMEPRAZOLE 20 MG CAPSULE.DR GT SCH (05:57)
[2018-10-22] MEDS: LISINOPRIL 20 MG TABLET GT SCH (09:04)
[2018-10-22] MEDS: HYDROGEN PEROXIDE 3% 118 ML BOTTLE TP SCH ×2 (09:04→20:31)
[2018-10-22] MEDS: ENOXAPARIN SODIUM 40 MG/0.4 ML DISP.SYRIN SQ SCH (09:04)
[2018-10-22] MEDS: LEVETIRACETAM 500 MG/5 ML LIQUID UDC GT SCH ×2 (09:04→20:31)
[2018-10-22] MEDS: Z GUARD REMEDY PASTE 57 GM TUBE TOP SCH ×2 (09:04→20:31)
[2018-10-22] MEDS: CARVEDILOL 6.25 MG TABLET GT SCH ×2 (09:04→20:31)
[2018-10-22 12:45] VITALS: BP 121/80
[2018-10-22 20:14] VITALS: BP 135/80
[2018-10-23 01:00] VITALS: BP 129/73
[2018-10-23] MEDS: OSMOLITE 1.2 CAL 1,000 ML LIQUID GT PRN (01:20)
[2018-10-23 04:39] VITALS: BP 139/64
[2018-10-23] MEDS: OMEPRAZOLE 20 MG CAPSULE.DR GT SCH (05:45)
[2018-10-23] MEDS: METOCLOPRAMIDE HCL 10 MG/10 ML UDC GT SCH ×3 (05:45→21:44)
[2018-10-23] MEDS: CARVEDILOL 6.25 MG TABLET GT SCH ×2 (09:00→21:00)
[2018-10-23] MEDS: LISINOPRIL 20 MG TABLET GT SCH (09:00)
[2018-10-23] MEDS: HYDROGEN PEROXIDE 3% 118 ML BOTTLE TP SCH ×2 (09:00→21:44)
[2018-10-23] MEDS: ENOXAPARIN SODIUM 40 MG/0.4 ML DISP.SYRIN SQ SCH (09:00)
[2018-10-23] MEDS: Z GUARD REMEDY PASTE 57 GM TUBE TOP SCH ×2 (09:00→21:44)
[2018-10-23] MEDS: LEVETIRACETAM 500 MG/5 ML LIQUID UDC GT SCH ×2 (09:00→21:44)
[2018-10-23 20:30] VITALS: BP 110/51
--- NOTE | 2018-10-23 21:42 | NUR ---
nsg: held correg, HR 64, below parameter.
[2018-10-24] MEDS: OMEPRAZOLE 20 MG CAPSULE.DR GT SCH (05:21)
[2018-10-24] MEDS: METOCLOPRAMIDE HCL 10 MG/10 ML UDC GT SCH ×3 (05:21→21:12)
[2018-10-24] MEDS: LEVETIRACETAM 500 MG/5 ML LIQUID UDC GT SCH ×2 (09:01→21:12)
[2018-10-24] MEDS: CARVEDILOL 6.25 MG TABLET GT SCH ×2 (09:01→21:12)
[2018-10-24] MEDS: LISINOPRIL 20 MG TABLET GT SCH (09:02)
[2018-10-24] MEDS: ENOXAPARIN SODIUM 40 MG/0.4 ML DISP.SYRIN SQ SCH (09:03)
[2018-10-24] MEDS: Z GUARD REMEDY PASTE 57 GM TUBE TOP SCH ×2 (09:03→21:12)
[2018-10-24] MEDS: HYDROGEN PEROXIDE 3% 118 ML BOTTLE TP SCH ×2 (09:03→21:12)
[2018-10-24] MEDS: OSMOLITE 1.2 CAL 1,000 ML LIQUID GT PRN (10:45)
[2018-10-24 12:05] VITALS: BP 157/93
[2018-10-24 13:00] VITALS: BP 95/54
[2018-10-24 17:00] VITALS: BP 116/71
--- NOTE | 2018-10-24 17:02 | NUR ---
PT ON HT-5O VENT, SETTINGS ARE AC 16, Vt 550, +5, 30% FIO2. TOLERATING VENT SETTINGS FAIRLY WELL. NO S/S OF RESPIRATORY DISTRESS NOTED. SHILEY 8 TRACH IS PATENT AND SECURED WITH TIES. SUCTIONED MODERATE AMOUNTS OF YELLOW THICK SECRETIONS. HME CHANGED. ALARMS ARE ON AND AUDIBLE, BVM AND BACK UP TRACH AT BEDSIDE. WILL CONTINUE TO MONITOR.
[2018-10-24 20:00] VITALS: BP 109/73
[2018-10-25 01:24] VITALS: BP 110/82
[2018-10-25 05:00] VITALS: BP 118/85
[2018-10-25] MEDS: OMEPRAZOLE 20 MG CAPSULE.DR GT SCH (05:24)
[2018-10-25] MEDS: METOCLOPRAMIDE HCL 10 MG/10 ML UDC GT SCH ×3 (05:24→22:10)
[2018-10-25 08:00] VITALS: BP 120/49
--- NOTE | 2018-10-25 08:05 | NUR ---
PT REMAIN ON CONTINUOUS VENT AC 16 VT 550 PEEP 5 FIO2 30%. AWAKE AND ALERT. TRACH IN PLACED AND SECURED WITH TRACH TIE. BACK UP TRACH AND AMBU BAG AT BEDSIDE. SUCTION SMALL AMOUNT THICK YELLOW SECRETIONS. SUCTION ORALLY SMALL AMOUNT THIN WHITE SECRETIONS . VENT CHECKED, ALARMS WORKING WELL AND CONNECTED TO CALL LIGHT. NO DISTRESS NOTED AT THIS TIME. WILL CONTINUE TO MONITOR.
[2018-10-25] MEDS: CARVEDILOL 6.25 MG TABLET GT SCH ×2 (08:32→21:00)
[2018-10-25] MEDS: LEVETIRACETAM 500 MG/5 ML LIQUID UDC GT SCH ×2 (08:32→21:00)
[2018-10-25] MEDS: LISINOPRIL 20 MG TABLET GT SCH (08:34)
[2018-10-25] MEDS: ENOXAPARIN SODIUM 40 MG/0.4 ML DISP.SYRIN SQ SCH (08:35)
[2018-10-25] MEDS: HYDROGEN PEROXIDE 3% 118 ML BOTTLE TP SCH ×2 (08:36→21:00)
[2018-10-25] MEDS: Z GUARD REMEDY PASTE 57 GM TUBE TOP SCH ×2 (08:36→21:00)
[2018-10-25 17:00] VITALS: BP 110/74
--- NOTE | 2018-10-25 20:04 | NUR ---
Pt awake, received on HT-50 ventilator with the following settings of AC-16, Vt-550, PEEP+5, FIO2-30%, trached with Shiley#8 DFEN trach, which is in the place and secure properly. No s/s of respiratory distress noted. Airway care done, pt responded to physical stimuli. Resus. bag and back up trach at bedside. Vent and alarms checked and reset.
[2018-10-25 21:04] VITALS: BP 124/52
[2018-10-26] MEDS: OSMOLITE 1.2 CAL 1,000 ML LIQUID GT PRN ×2 (01:07→15:14)
[2018-10-26] MEDS: OMEPRAZOLE 20 MG CAPSULE.DR GT SCH (05:29)
[2018-10-26] MEDS: METOCLOPRAMIDE HCL 10 MG/10 ML UDC GT SCH ×3 (05:29→22:29)
--- NOTE | 2018-10-26 07:35 | NUR ---
Pt received on continuous mechanical ventilation via trach, and with limited response to verbal stimuli. Pt is on Vu HT-50 vent with ordered settings of A/C-16, VT-550, PEEP+5, FIO2-30%. Tolerating vent settings well. SpO2-98%. Trach changed without complications. [place] 8 DFEN trach is patent and secure. Minimal occluding volume technique used to assess cuff inflation. Sxn'd & lavaged as needed. Sxn'd small amts of yellow/white secretions. HME changed. No signs or symptoms of respiratory distress noted. Ventilator alarm parameters checked, on and audible. Bag/valve/mask and back up trach at bedside. Vent plugged into red emergency outlet. PPE used. Will continue to monitor.
[2018-10-26 08:00] VITALS: BP 129/69
[2018-10-26] MEDS: LISINOPRIL 20 MG TABLET GT SCH (09:19)
[2018-10-26] MEDS: LEVETIRACETAM 500 MG/5 ML LIQUID UDC GT SCH ×2 (09:19→20:41)
[2018-10-26] MEDS: CARVEDILOL 6.25 MG TABLET GT SCH ×2 (09:19→20:40)
[2018-10-26] MEDS: ENOXAPARIN SODIUM 40 MG/0.4 ML DISP.SYRIN SQ SCH (09:20)
[2018-10-26] MEDS: Z GUARD REMEDY PASTE 57 GM TUBE TOP SCH ×2 (09:20→20:41)
[2018-10-26] MEDS: HYDROGEN PEROXIDE 3% 118 ML BOTTLE TP SCH ×2 (09:20→20:41)
[2018-10-26 09:30] VITALS: BP 129/81
[2018-10-26 13:00] VITALS: BP 131/70
[2018-10-26 17:09] VITALS: BP 140/61
[2018-10-26 20:32] VITALS: BP 128/62
--- NOTE | 2018-10-26 21:38 | NUR ---
RECEIVED PATIENT ON A MECHANICAL VENTILATOR. PATIENT IS ON THE FOLLOWING SETTINGS THAT ARE CHARTED ON THE MECHANICAL VENT NOTES. HME CHANGED. VENTILATOR ALARMS CHECKED AND THEY ARE ON AND AUDIBLE. VENTILATOR IS PLUGGED IN THE RED EMERGENCY OUTLET. SUCTIONED A MODERATE AMOUNT OF THICK WHITE AND YELLOW SECRETIONS. SUCTIONED ORALLY WELL. NO COMPLICATIONS DURING AND AFTER SUCTIONING. TRACH IS PATENT AND SECURED. PATIENT IS TOLERATING CURRENT VENTILATOR SETTINGS WELL. NO SIGNS OR SYMPTOMS OF RESPIRATORY DISTRESS NOTED AT THIS TIME. WILL CONTINUE TO MONITOR PATIENT.
[2018-10-27] VITALS: BP 126/61
[2018-10-27 04:51] VITALS: BP 136/59
[2018-10-27] MEDS: OSMOLITE 1.2 CAL 1,000 ML LIQUID GT PRN ×2 (06:30→22:07)
[2018-10-27] MEDS: METOCLOPRAMIDE HCL 10 MG/10 ML UDC GT SCH ×3 (06:41→21:40)
[2018-10-27] MEDS: OMEPRAZOLE 20 MG CAPSULE.DR GT SCH (06:41)
[2018-10-27 08:00] VITALS: BP 133/68
[2018-10-27] MEDS: CARVEDILOL 6.25 MG TABLET GT SCH ×2 (08:56→21:39)
[2018-10-27] MEDS: LEVETIRACETAM 500 MG/5 ML LIQUID UDC GT SCH ×2 (08:56→21:40)
[2018-10-27] MEDS: LISINOPRIL 20 MG TABLET GT SCH (08:57)
[2018-10-27] MEDS: ENOXAPARIN SODIUM 40 MG/0.4 ML DISP.SYRIN SQ SCH (08:58)
[2018-10-27] MEDS: Z GUARD REMEDY PASTE 57 GM TUBE TOP SCH ×2 (08:59→21:40)
[2018-10-27] MEDS: HYDROGEN PEROXIDE 3% 118 ML BOTTLE TP SCH ×2 (08:59→21:40)
[2018-10-27 13:00] VITALS: BP 118/52
[2018-10-27 17:03] VITALS: BP 108/55
--- NOTE | 2018-10-27 20:20 | NUR ---
Received pt on HT-50 ventilator with the following settings of AC-16, Vt-550, PEEP+5, FIO2-30%, trached with Shiley#8 DFEN trach, which is in the place and secure properly. No s/s of respiratory distress noted. Airway care done, pt responded to physical stimuli. Family were at bedside. Resus. bag and back up trach at bedside. Vent and alarms checked and reset.
[2018-10-27 20:32] VITALS: BP 107/47
[2018-10-28 01:00] VITALS: BP 111/50
[2018-10-28] MEDS: OMEPRAZOLE 20 MG CAPSULE.DR GT SCH (05:39)
[2018-10-28] MEDS: METOCLOPRAMIDE HCL 10 MG/10 ML UDC GT SCH ×3 (05:39→22:20)
[2018-10-28 08:00] VITALS: BP 114/75
[2018-10-28] MEDS: CARVEDILOL 6.25 MG TABLET GT SCH ×2 (09:13→20:25)
[2018-10-28] MEDS: LEVETIRACETAM 500 MG/5 ML LIQUID UDC GT SCH ×2 (09:14→20:26)
[2018-10-28] MEDS: LISINOPRIL 20 MG TABLET GT SCH (09:15)
[2018-10-28] MEDS: HYDROGEN PEROXIDE 3% 118 ML BOTTLE TP SCH ×2 (09:15→20:26)
[2018-10-28] MEDS: ENOXAPARIN SODIUM 40 MG/0.4 ML DISP.SYRIN SQ SCH (09:15)
[2018-10-28] MEDS: Z GUARD REMEDY PASTE 57 GM TUBE TOP SCH ×2 (09:15→20:26)
[2018-10-28 13:02] VITALS: BP 123/81
[2018-10-28 17:03] VITALS: BP 119/77
[2018-10-28] MEDS: OSMOLITE 1.2 CAL 1,000 ML LIQUID GT PRN (17:25)
[2018-10-28 20:23] VITALS: BP 96/47
[2018-10-29 01:00] VITALS: BP 102/54
[2018-10-29] MEDS: OMEPRAZOLE 20 MG CAPSULE.DR GT SCH (06:07)
[2018-10-29] MEDS: METOCLOPRAMIDE HCL 10 MG/10 ML UDC GT SCH ×3 (06:07→22:07)
[2018-10-29 06:08] VITALS: BP 123/68
[2018-10-29] MEDS: CARVEDILOL 6.25 MG TABLET GT SCH ×2 (08:33→20:41)
[2018-10-29] MEDS: LEVETIRACETAM 500 MG/5 ML LIQUID UDC GT SCH ×2 (08:33→20:41)
[2018-10-29] MEDS: LISINOPRIL 20 MG TABLET GT SCH (08:34)
[2018-10-29] MEDS: Z GUARD REMEDY PASTE 57 GM TUBE TOP SCH ×2 (08:35→20:41)
[2018-10-29] MEDS: HYDROGEN PEROXIDE 3% 118 ML BOTTLE TP SCH ×2 (08:35→20:41)
[2018-10-29] MEDS: ENOXAPARIN SODIUM 40 MG/0.4 ML DISP.SYRIN SQ SCH (08:37)
[2018-10-29 11:13] VITALS: BP 118/50
--- NOTE | 2018-10-29 14:00 | NUR ---
SEEN BY DR. ASYA PITTMAN.
--- NOTE | 2018-10-29 14:39 | NUR ---
SEEN BY ELÍAS PITTMAN.
[2018-10-29 20:56] VITALS: BP 122/65
[2018-10-30 01:00] VITALS: BP 129/66
[2018-10-30] MEDS: OSMOLITE 1.2 CAL 1,000 ML LIQUID GT PRN ×2 (04:21→20:46)
[2018-10-30 05:39] VITALS: BP 134/70
[2018-10-30] MEDS: OMEPRAZOLE 20 MG CAPSULE.DR GT SCH (05:47)
[2018-10-30] MEDS: METOCLOPRAMIDE HCL 10 MG/10 ML UDC GT SCH ×3 (05:47→22:07)
[2018-10-30] MEDS: ENOXAPARIN SODIUM 40 MG/0.4 ML DISP.SYRIN SQ SCH (08:41)
[2018-10-30] MEDS: CARVEDILOL 6.25 MG TABLET GT SCH ×2 (08:41→20:39)
[2018-10-30] MEDS: HYDROGEN PEROXIDE 3% 118 ML BOTTLE TP SCH ×2 (08:42→20:39)
[2018-10-30] MEDS: LEVETIRACETAM 500 MG/5 ML LIQUID UDC GT SCH ×2 (08:42→20:39)
[2018-10-30] MEDS: LISINOPRIL 20 MG TABLET GT SCH (08:42)
[2018-10-30] MEDS: Z GUARD REMEDY PASTE 57 GM TUBE TOP SCH ×2 (08:42→20:39)
[2018-10-30 11:11] VITALS: BP 141/64
[2018-10-30 14:47] VITALS: BP 92/56
[2018-10-30 18:32] VITALS: BP 94/54
--- NOTE | 2018-10-30 19:50 | NUR ---
PT ON CONTINUOUS VENT AC 16 VT 550 PEEP 5 FIO2 30%. TRACH IN PLACED AND SECURED WITH TRACH TIE. BACK UP TRACH AND AMBU BAG AT BEDSIDE. TOLERATING CURRENT VENT SETTINGS AT THIS TIME. SUCTION SMALL AMOUNT THICK YELLOW SECRETIONS. HME CHANGED. VENT CHECKED, ALARMS WORKING WELL AND CONNECTED TO CALL LIGHT. NO RESPIRATORY DISTRESS NOTED AT THIS TIME. WILL CONTINUE TO MONITOR.
[2018-10-30 20:14] VITALS: BP 140/75
[2018-10-31 01:05] VITALS: BP 101/66
[2018-10-31] MEDS: OMEPRAZOLE 20 MG CAPSULE.DR GT SCH (05:17)
[2018-10-31] MEDS: METOCLOPRAMIDE HCL 10 MG/10 ML UDC GT SCH ×3 (05:17→21:05)
[2018-10-31 05:32] VITALS: BP 106/61
[2018-10-31] MEDS: LEVETIRACETAM 500 MG/5 ML LIQUID UDC GT SCH ×2 (08:49→20:27)
[2018-10-31] MEDS: HYDROGEN PEROXIDE 3% 118 ML BOTTLE TP SCH ×2 (08:49→20:27)
[2018-10-31] MEDS: Z GUARD REMEDY PASTE 57 GM TUBE TOP SCH ×2 (08:49→20:27)
[2018-10-31] MEDS: CARVEDILOL 6.25 MG TABLET GT SCH ×2 (08:49→20:27)
[2018-10-31] MEDS: ENOXAPARIN SODIUM 40 MG/0.4 ML DISP.SYRIN SQ SCH (08:49)
[2018-10-31] MEDS: LISINOPRIL 20 MG TABLET GT SCH (08:49)
[2018-10-31 11:45] VITALS: BP 137/74
--- NOTE | 2018-10-31 20:00 | NUR ---
Pt received on continuous mechanical ventilation via trach, and with limited response to verbal stimuli. Pt is on [place] HT-50 vent with ordered settings of A/C-16, VT-550, PEEP+5, FIO2-30%. Tolerating vent settings well. SpO2-100%. Shiley 8 DFEN trach is patent and secure. Minimal occluding volume technique used to assess cuff inflation. Sxn'd & lavaged as needed. Sxn'd small amts of pale yellowish secretions. HME & in-line suction catheter changed. No signs or symptoms of respiratory distress noted. Ventilator alarm parameters checked, on and audible. Bag/valve/mask and back up trach at bedside. Vent plugged into red emergency outlet. PPE used. Will continue to monitor.
[2018-10-31 20:44] VITALS: BP 128/75
[2018-11-01 01:05] VITALS: BP 117/66
[2018-11-01 05:08] VITALS: BP 112/75
[2018-11-01] MEDS: OMEPRAZOLE 20 MG CAPSULE.DR GT SCH (05:10)
[2018-11-01] MEDS: METOCLOPRAMIDE HCL 10 MG/10 ML UDC GT SCH ×3 (05:10→22:00)
[2018-11-01 08:00] VITALS: BP 134/85
[2018-11-01] MEDS: Z GUARD REMEDY PASTE 57 GM TUBE TOP SCH ×2 (08:37→20:40)
[2018-11-01] MEDS: LISINOPRIL 20 MG TABLET GT SCH (08:37)
[2018-11-01] MEDS: CARVEDILOL 6.25 MG TABLET GT SCH ×2 (08:37→20:40)
[2018-11-01] MEDS: ENOXAPARIN SODIUM 40 MG/0.4 ML DISP.SYRIN SQ SCH (08:37)
[2018-11-01] MEDS: LEVETIRACETAM 500 MG/5 ML LIQUID UDC GT SCH ×2 (08:37→20:40)
[2018-11-01] MEDS: HYDROGEN PEROXIDE 3% 118 ML BOTTLE TP SCH ×2 (08:37→20:40)
[2018-11-01 20:04] VITALS: BP 116/71
--- NOTE | 2018-11-01 20:06 | NUR ---
PT ON CONTINUOUS VENT AC 16 VT 550 PEEP 5 FIO2 30%. TRACH IN PLACED AND SECURED WITH TRACH TIE. BACK UP TRACH AND AMBU BAG AT BEDSIDE. SUCTION SMALL AMOUNT THICK YELLOW SECRETIONS. SUCTION ORALLY SMALL AMOUNT THIN WHITE SECRETIONS . VENT CHECKED, ALARMS WORKING WELL AND CONNECTED TO CALL LIGHT. NO DISTRESS NOTED AT THIS TIME. WILL CONTINUE TO MONITOR.
[2018-11-02] MEDS: OSMOLITE 1.2 CAL 1,000 ML LIQUID GT PRN (04:30)
[2018-11-02] MEDS: OMEPRAZOLE 20 MG CAPSULE.DR GT SCH (05:16)
[2018-11-02] MEDS: METOCLOPRAMIDE HCL 10 MG/10 ML UDC GT SCH ×3 (05:17→21:16)
[2018-11-02 06:57] LABS: BASOPHILS % (AUTO) 0.6 % (0.0-2.0); EOSINOPHILS % (AUTO) 0.6 % (0.0-7.0); HEMATOCRIT 29.6 % (36.7-47.1); HEMOGLOBIN 9.9 g/dL (12.5-16.3); LYMPHOCYTES % (AUTO) 46.7 % (20.5-51.5); MEAN CORPUSCULAR HEMOGLOBIN 29.2 uug (23.8-33.4); MEAN CORPUSCULAR HGB CONC 34 g/dL (32.5-36.3); MONOCYTES % (AUTO) 9.9 % (0.0-11.0); NEUTROPHILS # (AUTO) 2.2 K/uL (1.8-8.9); NEUTROPHILS % (AUTO) 42.2 % (38.5-71.5); PLATELET COUNT (AUTO) 238 K/uL (152-348); RED BLOOD CELL COUNT(AUTO) 3.41 MIL/uL (4.06-5.63); WHITE BLOOD COUNT (AUTO) 5.1 K/uL (3.6-10.2)
[2018-11-02 06:58] LABS: LYMPHOCYTES # (AUTO) 2.4 K/uL (20.0-40.0); MONOCYTES # (AUTO) 0.5 K/uL (2.0-10.0)
[2018-11-02 06:59] LABS: ALANINE AMINOTRANSFERASE 313 U/L (16-63); ALKALINE PHOSPHATASE 170 U/L (50-136); ASPARTATE AMINOTRANSFERASE 80 U/L (15-37); BILIRUBIN,TOTAL 0.1 mg/dL (0.2-1.0); CARBON DIOXIDE 24 mmol/L (21-32); CHLORIDE 103 mmol/L (98-107); CREATININE 0.7 mg/dL (0.6-1.3); GLUCOSE 99 mg/dL (74-106); POTASSIUM 4.4 mmol/L (3.5-5.1); TOTAL PROTEIN, SERUM 7.5 g/dL (6.4-8.2); UREA NITROGEN, BLOOD 22 mg/dL (7-18)
[2018-11-02 08:00] VITALS: BP 111/65
[2018-11-02] MEDS: ENOXAPARIN SODIUM 40 MG/0.4 ML DISP.SYRIN SQ SCH (09:07)
[2018-11-02] MEDS: LISINOPRIL 20 MG TABLET GT SCH (09:07)
[2018-11-02] MEDS: HYDROGEN PEROXIDE 3% 118 ML BOTTLE TP SCH ×2 (09:07→20:47)
[2018-11-02] MEDS: Z GUARD REMEDY PASTE 57 GM TUBE TOP SCH ×2 (09:07→20:47)
[2018-11-02] MEDS: CARVEDILOL 6.25 MG TABLET GT SCH ×2 (09:07→20:46)
[2018-11-02] MEDS: LEVETIRACETAM 500 MG/5 ML LIQUID UDC GT SCH ×2 (09:07→20:47)
--- NOTE | 2018-11-02 16:11 | NUR ---
SEEN BY ELÍAS PITTMAN.
--- NOTE | 2018-11-02 18:07 | NUR ---
RECEIVED ON CURRENT VENTILATOR SETTINGS OF AC 16, VT 550, FIO2 30% AND PEEP 5. STABLE WITH NO DISTRESS. SUCTIONED FOR MODERATE AMOUNT OF THICK WHITISH SECRETION. VENT IS WORKING WELL WITH ALL ALARMS ACTIVE. CHANGED HUMIDIFIER FILTER.
[2018-11-02 20:18] VITALS: BP 120/81
[2018-11-03 01:00] VITALS: BP 105/59
[2018-11-03 05:48] VITALS: BP 96/54
[2018-11-03] MEDS: METOCLOPRAMIDE HCL 10 MG/10 ML UDC GT SCH ×3 (05:48→22:59)
[2018-11-03] MEDS: OMEPRAZOLE 20 MG CAPSULE.DR GT SCH (05:48)
[2018-11-03 08:52] VITALS: BP 116/49
[2018-11-03] MEDS: Z GUARD REMEDY PASTE 57 GM TUBE TOP SCH ×2 (09:03→20:16)
[2018-11-03] MEDS: CARVEDILOL 6.25 MG TABLET GT SCH ×2 (09:03→20:16)
[2018-11-03] MEDS: LISINOPRIL 20 MG TABLET GT SCH (09:03)
[2018-11-03] MEDS: LEVETIRACETAM 500 MG/5 ML LIQUID UDC GT SCH ×2 (09:03→20:16)
[2018-11-03] MEDS: HYDROGEN PEROXIDE 3% 118 ML BOTTLE TP SCH ×2 (09:03→20:16)
[2018-11-03] MEDS: ENOXAPARIN SODIUM 40 MG/0.4 ML DISP.SYRIN SQ SCH (09:12)
[2018-11-03] MEDS: OSMOLITE 1.2 CAL 1,000 ML LIQUID GT PRN (16:59)
--- NOTE | 2018-11-03 18:45 | NUR ---
SEEN BY DR. MILDRED PITTMAN.
[2018-11-03 20:00] VITALS: BP 130/63
[2018-11-04] MEDS: OMEPRAZOLE 20 MG CAPSULE.DR GT SCH (05:16)
[2018-11-04] MEDS: METOCLOPRAMIDE HCL 10 MG/10 ML UDC GT SCH (05:16)
[2018-11-04] MEDS: OSMOLITE 1.2 CAL 1,000 ML LIQUID GT PRN (05:16)
[2018-11-04 09:00] VITALS: BP 92/53
[2018-11-04] MEDS: LEVETIRACETAM 500 MG/5 ML LIQUID UDC GT SCH (09:00)
[2018-11-04] MEDS: HYDROGEN PEROXIDE 3% 118 ML BOTTLE TP SCH (09:00)
[2018-11-04] MEDS: ENOXAPARIN SODIUM 40 MG/0.4 ML DISP.SYRIN SQ SCH (09:00)
[2018-11-04] MEDS: LISINOPRIL 20 MG TABLET GT SCH (09:00)
[2018-11-04] MEDS: CARVEDILOL 6.25 MG TABLET GT SCH (09:00)
[2018-11-04] MEDS: Z GUARD REMEDY PASTE 57 GM TUBE TOP SCH (09:00)
== END 2018-11-02 11:59 | disposition other institution (70) | DRG 130 ==
LOC: SA 21:23
PROVIDERS: ADMIT Internal Medicine Nephrology; ATTEND Internal Medicine Nephrology
PROC: 5A1955Z Respiratory Ventilation, Greater than 96 Consecutive Hours (ICD-10-PCS; principal; 2018-07-14)
DX: J96.21 Acute and chronic respiratory failure with hypoxia (principal); G93.41 Metabolic encephalopathy; G93.49 Other encephalopathy; E44.0 Moderate protein-calorie malnutrition; R13.10 Dysphagia, unspecified; I69.359 Hemiplegia and hemiparesis following cerebral infarction affecting unspecified side; E87.1 Hypo-osmolality and hyponatremia; E78.5 Hyperlipidemia, unspecified; J96.22 Acute and chronic respiratory failure with hypercapnia; I10 Essential (primary) hypertension; D64.9 Anemia, unspecified; H10.9 Unspecified conjunctivitis; Q82.6 Congenital sacral dimple; R56.9 Unspecified convulsions; R62.7 Adult failure to thrive; S02.5XXA Fracture of tooth (traumatic), initial encounter for closed fracture; X58.XXXA Exposure to other specified factors, initial encounter; Y93.9 Activity, unspecified; Y92.9 Unspecified place or not applicable; Z93.0 Tracheostomy status; Z99.11 Dependence on respirator [ventilator] status; R74.8 Abnormal levels of other serum enzymes; M62.838 Other muscle spasm
CPT/HCPCS: 36415; 71045; 76700; 82105; 83550; 83690; 83735; 84100; 85025; 86038; 86235; 86580; 86704; 86705; 86706; 86708; 86709; 86803; 87040; 87070; 87086; 87340; 87350; 90686; 94002; 94003; 97110; 97165; 97760; C1758; J1644; J1650; J8597; Q0162

== ENCOUNTER 2018-11-03 | Inpatient (IN) | payer MEDICAID ==
[~2018-11-03] VITALS: Ht 172.7 cm; Wt 66.2 kg
[2018-11-04 08:00] VITALS: BP 111/50
[2018-11-04] MEDS ORDERED: ACETAMINOPHEN 650 MG/20 ML UDC- SA PATIENTS-FEVER ONLY GT PRN (11:45)
[2018-11-04] MEDS ORDERED: HYDROGEN PEROXIDE 3% 118 ML BOTTLE TP PRN (11:45)
[2018-11-04] MEDS ORDERED: MIRALAX 17 GM POWD.PACK GT PRN (11:45)
[2018-11-04] MEDS ORDERED: Z GUARD REMEDY PASTE 57 GM TUBE TOP PRN (11:45)
[2018-11-04] MEDS ORDERED: ONDANSETRON HCL 4 MG TABLET GT PRN (11:45)
[2018-11-04] MEDS ORDERED: hydrALAZINE HCL 10 MG TABLET GT PRN (11:45)
[2018-11-04] MEDS ORDERED: BISACODYL 10 MG SUPP.RECT RC PRN (11:45)
[2018-11-04] MEDS ORDERED: ACETAMINOPHEN 325 MG TABLET-SA PATIENTS-PAIN ONLY GT PRN (11:45)
[2018-11-04] MEDS: METOCLOPRAMIDE HCL 10 MG/10 ML UDC GT SCH ×2 (13:56→22:00)
--- NOTE | 2018-11-04 17:13 | NUR ---
LESIA met with patient's daughter Alexander and asked her to assist with coordinating a time for her mother Lisa (patient's ) to come in to meet with this SW in order for Lisa to sign the annual admission paperwork. Gilbertarjunrufina stated she will talk to her mother and coordinate a date for her to come in. LESIA also informed Alexander that the next IDT meeting for the patient has been scheduled for 11/10/18 at 11am.
[2018-11-04 20:00] VITALS: BP 112/64
--- NOTE | 2018-11-04 20:10 | NUR ---
PT RECEIVED ON HT-50 VENT WITH VENT SETTINGS OF AC 16, VT 550, PEEP +5, FIO2 30%. VENT ALARMS CHECKED, ARE ON AND AUDIBLE. PT APPEARS TO BE TOLERATING VENT SETTINGS AT THIS TIME. SHILEY 8 DCT TRACH IS PATENT AND SECURED. HME CHANGED. SUCTIONED MODERATE AMOUNT OF THICK, YELLOWISH SECRETIONS. AMBU BAG AND BACK UP TRACH ARE AT BEDSIDE. VENT IS PLUGGED INTO RED EMERGENCY OUTLET. PT SHOWING NO S/S OF RESPIRATORY DISTRESS AT THIS TIME. WILL CONTINUE TO MONITOR.
[2018-11-04] MEDS: CARVEDILOL 6.25 MG TABLET GT SCH (20:40)
[2018-11-04] MEDS: LEVETIRACETAM 500 MG/5 ML LIQUID UDC GT SCH (20:41)
[2018-11-04] MEDS: Z GUARD REMEDY PASTE 57 GM TUBE TOP SCH (20:45)
[2018-11-04] MEDS: HYDROGEN PEROXIDE 3% 118 ML BOTTLE TP SCH (20:45)
[2018-11-05] MEDS: METOCLOPRAMIDE HCL 10 MG/10 ML UDC GT SCH ×3 (05:15→22:43)
[2018-11-05] MEDS ORDERED: OMEPRAZOLE 20 MG CAPSULE.DR GT SCH (06:00)
[2018-11-05 08:00] VITALS: BP 141/63
[2018-11-05] MEDS: CARVEDILOL 6.25 MG TABLET GT SCH ×2 (08:31→20:53)
[2018-11-05] MEDS: LEVETIRACETAM 500 MG/5 ML LIQUID UDC GT SCH ×2 (08:33→20:54)
[2018-11-05] MEDS: LISINOPRIL 20 MG TABLET GT SCH (08:33)
[2018-11-05] MEDS: Z GUARD REMEDY PASTE 57 GM TUBE TOP SCH ×2 (08:35→20:55)
[2018-11-05] MEDS: ENOXAPARIN SODIUM 40 MG/0.4 ML DISP.SYRIN SQ SCH (08:35)
[2018-11-05] MEDS: HYDROGEN PEROXIDE 3% 118 ML BOTTLE TP SCH ×2 (08:35→20:55)
[2018-11-05] MEDS: OSMOLITE 1.2 CAL 1,000 ML LIQUID GT PRN (17:15)
--- NOTE | 2018-11-05 19:45 | NUR ---
PT RECEIVED TRACH TO VENT ON HT-50 VENT ON CURRENT ORDERED SETTINGS OF A/C 16, VT 550, PEEP +5, AND 30% FIO2. EITAN # 8 TRACH IS PATENT AND SECURE. VENT PARAMETERS AND ALARMS CHECKED, ALARMS ARE AUDIBLE. PT IS TOLERATING VENT SETTINGS WELL, NO RESP. DISTRESS NOTED AT THIS TIME. AMBU-BAG AND BACK-UP TRACH AT BEDSIDE. VENT PLUGGED INTO RED OUTLET. SUCTION PRN. WILL CONTINUE TO MONITOR.
[2018-11-05 20:00] VITALS: BP 128/56
[2018-11-06] MEDS: OMEPRAZOLE 20 MG CAPSULE.DR GT SCH (05:11)
[2018-11-06] MEDS: METOCLOPRAMIDE HCL 10 MG/10 ML UDC GT SCH ×3 (05:12→21:08)
--- NOTE | 2018-11-06 07:55 | NUR ---
Pt received on continuous mechanical ventilation via trach, in semi fried's, obtunded, unable to communicate and withdraws to stimuli. Pt is on [place] HT-50 vent with ordered settings of A/C-16, VT-550, PEEP+5, FIO2-30%. Tolerating vent settings well. SpO2-99%. Sxn'd & lavaged as needed. Suctioned small amts of white/pale yellowish secretions. Khushboo 8 DFEN trach is patent and secured. Minimal occluding volume technique used to assess cuff inflation. HME changed. PPE used. No signs or symptoms of respiratory distress noted. Ventilator alarm parameters checked, on and audible. Bag/valve/mask and back up trach at bedside. Vent plugged into red emergency outlet. Will continue to monitor.
[2018-11-06 08:00] VITALS: BP 104/59
[2018-11-06] MEDS: CARVEDILOL 6.25 MG TABLET GT SCH ×2 (08:33→21:08)
[2018-11-06] MEDS: LISINOPRIL 20 MG TABLET GT SCH (08:33)
[2018-11-06] MEDS: LEVETIRACETAM 500 MG/5 ML LIQUID UDC GT SCH ×2 (08:33→21:08)
[2018-11-06] MEDS: Z GUARD REMEDY PASTE 57 GM TUBE TOP SCH ×2 (08:35→21:08)
[2018-11-06] MEDS: ENOXAPARIN SODIUM 40 MG/0.4 ML DISP.SYRIN SQ SCH (08:35)
[2018-11-06] MEDS: HYDROGEN PEROXIDE 3% 118 ML BOTTLE TP SCH ×2 (08:35→21:08)
[2018-11-06] MEDS: OSMOLITE 1.2 CAL 1,000 ML LIQUID GT PRN (11:07)
--- NOTE | 2018-11-06 19:08 | NUR ---
RECEIVED PATIENT ON THE HT-50 VENTILATOR WITH THE FOLLOWING SETTINGS: AC 16, VT 550, PEEP +5, FiO2 30%. TRACH TUBE IS PATENT AND SECURED WITH TRACH TIES. HME CHANGED. SUCTIONED SMALL AMOUNTS OF THIN WHITE/YELLOW SECRETIONS. VENTILATOR ALARMS CHECKED AND THEY ARE ON AND AUDIBLE. VENTILATOR IS PLUGGED IN THE RED EMERGENCY OUTLET. BACK UP TRACH AND AMBU BAG IS BY BEDSIDE. PATIENT IS TOLERATING CURRENT VENTILATOR SETTINGS WELL AT THIS TIME WITH NO SIGNS OR SYMPTOMS OF RESPIRATORY DISTRESS NOTED. WILL CONTINUE TO MONITOR PATIENT.
[2018-11-06 20:00] VITALS: BP 117/57
[2018-11-07 01:00] VITALS: BP 128/56
[2018-11-07] MEDS: OSMOLITE 1.2 CAL 1,000 ML LIQUID GT PRN ×2 (04:55→17:41)
[2018-11-07] MEDS: METOCLOPRAMIDE HCL 10 MG/10 ML UDC GT SCH ×3 (05:38→22:09)
[2018-11-07] MEDS: OMEPRAZOLE 20 MG CAPSULE.DR GT SCH (05:38)
[2018-11-07 06:54] VITALS: BP 99/52
[2018-11-07] MEDS: CARVEDILOL 6.25 MG TABLET GT SCH ×2 (08:55→20:18)
[2018-11-07] MEDS: LISINOPRIL 20 MG TABLET GT SCH (08:56)
[2018-11-07] MEDS: LEVETIRACETAM 500 MG/5 ML LIQUID UDC GT SCH ×2 (08:56→20:19)
[2018-11-07] MEDS: Z GUARD REMEDY PASTE 57 GM TUBE TOP SCH ×2 (08:58→20:19)
[2018-11-07] MEDS: HYDROGEN PEROXIDE 3% 118 ML BOTTLE TP SCH ×2 (08:58→20:19)
[2018-11-07] MEDS: ENOXAPARIN SODIUM 40 MG/0.4 ML DISP.SYRIN SQ SCH (08:58)
[2018-11-07 11:56] VITALS: BP 107/59
--- NOTE | 2018-11-07 19:55 | NUR ---
RECEIVED PT ON HT-50 VENT. CURRENT VENT SETTINGS ARE AC 16, VT 550, PEEP +5, FIO2 30% PER MD ORDER. VENT ALARMS CHECKED, ARE ON AND FUNCTIONING PROPERLY. PT APPEARS TO BE TOLERATING VENT SETTINGS AT THIS TIME. NO S/S OF RESPIRATORY DISTRESS NOTED AT THIS TIME. EITAN 8 DCT TRACH IS PATENT AND SECURED WITH FOAM TRACH TIES. HME AND MONTANO CHANGED. SUCTIONED MODERATE AMOUNT OF THICK, YELLOWISH SECRETIONS. AMBU BAG AND BACK UP TRACH ARE AT BEDSIDE. VENT IS PLUGGED INTO RED EMERGENCY OUTLET. WILL CONTINUE TO MONITOR.
[2018-11-07 20:29] VITALS: BP 121/76
[2018-11-08] MEDS: METOCLOPRAMIDE HCL 10 MG/10 ML UDC GT SCH ×3 (05:31→21:45)
[2018-11-08] MEDS: OMEPRAZOLE 20 MG CAPSULE.DR GT SCH (05:31)
--- NOTE | 2018-11-08 07:41 | NUR ---
PT RECEIVED TRACH TO VENT ON HT-50 VENT ON CURRENT ORDERED SETTINGS OF A/C 16, VT 550, PEEP +5, AND 30% FIO2. EITAN # 8 TRACH IS PATENT AND SECURE. VENT PARAMETERS AND ALARMS CHECKED, ALARMS ARE AUDIBLE. PT IS TOLERATING VENT SETTINGS WELL, NO RESP. DISTRESS NOTED AT THIS TIME. HME CHANGED. AMBU-BAG AND BACK-UP TRACH AT BEDSIDE. VENT PLUGGED INTO RED OUTLET. SUCTION PRN. WILL CONTINUE TO MONITOR.
[2018-11-08 08:07] VITALS: BP 168/84
[2018-11-08] MEDS: LEVETIRACETAM 500 MG/5 ML LIQUID UDC GT SCH ×2 (09:02→21:45)
[2018-11-08] MEDS: CARVEDILOL 6.25 MG TABLET GT SCH ×2 (09:02→21:44)
[2018-11-08] MEDS: LISINOPRIL 20 MG TABLET GT SCH (09:03)
[2018-11-08] MEDS: HYDROGEN PEROXIDE 3% 118 ML BOTTLE TP SCH ×2 (09:07→21:45)
[2018-11-08] MEDS: Z GUARD REMEDY PASTE 57 GM TUBE TOP SCH ×2 (09:07→21:45)
[2018-11-08] MEDS: ENOXAPARIN SODIUM 40 MG/0.4 ML DISP.SYRIN SQ SCH (09:07)
[2018-11-08] MEDS: OSMOLITE 1.2 CAL 1,000 ML LIQUID GT PRN (16:37)
--- NOTE | 2018-11-08 20:00 | NUR ---
PT REMAIN ON CONTINUOUS VENT AC 16 VT 550 PEEP 5 FIO2 30%. TRACH IN PLACED AND SECURED WITH TRACH TIE. BACK UP TRACH AND AMBU BAG AT BEDSIDE. SUCTION PRN. VENT CHECKED, ALARMS WORKING WELL AND AUDIBLE. NO SIGNS OF RESPIRATORY DISTRESS NOTED AT THIS TIME. WILL CONTINUE TO MONITOR.
[2018-11-08 20:55] VITALS: BP 132/80
[2018-11-09] MEDS: OSMOLITE 1.2 CAL 1,000 ML LIQUID GT PRN ×2 (03:17→18:12)
[2018-11-09] MEDS: METOCLOPRAMIDE HCL 10 MG/10 ML UDC GT SCH ×3 (05:10→22:00)
[2018-11-09] MEDS: OMEPRAZOLE 20 MG CAPSULE.DR GT SCH (05:10)
[2018-11-09 08:07] VITALS: BP 157/94
[2018-11-09] MEDS: CARVEDILOL 6.25 MG TABLET GT SCH ×2 (09:00→20:42)
[2018-11-09] MEDS: LEVETIRACETAM 500 MG/5 ML LIQUID UDC GT SCH ×2 (09:12→20:42)
[2018-11-09] MEDS: HYDROGEN PEROXIDE 3% 118 ML BOTTLE TP SCH ×2 (09:14→20:44)
[2018-11-09] MEDS: Z GUARD REMEDY PASTE 57 GM TUBE TOP SCH ×2 (09:14→20:44)
[2018-11-09] MEDS: LISINOPRIL 20 MG TABLET GT SCH (09:15)
[2018-11-09] MEDS: ENOXAPARIN SODIUM 40 MG/0.4 ML DISP.SYRIN SQ SCH (09:24)
[2018-11-09 14:51] VITALS: BP 117/72
[2018-11-09 18:13] VITALS: BP 119/71
--- NOTE | 2018-11-09 20:05 | NUR ---
Received pt on HT-50 vent with current settings of AC 16, VT 550, Peep +5, FiO2 30%, no changes to vent settings made at this time. Pt's trach is secured and patent. Pt tolerating vent settings well, no signs and symptoms of respiratory distress noted. Suctioned pt with moderate amount of thick pale-yellowish secretions. Changed HME. Vent alarms functioning and audible. Ambu-bag and back-up trach at bedside. Vent plugged in red outlet. Will continue to monitor pt throughout shift.
[2018-11-09 20:26] VITALS: BP 129/61
[2018-11-10] MEDS: METOCLOPRAMIDE HCL 10 MG/10 ML UDC GT SCH ×3 (05:07→22:17)
[2018-11-10] MEDS: OMEPRAZOLE 20 MG CAPSULE.DR GT SCH (05:07)
[2018-11-10 08:07] VITALS: BP 133/60
[2018-11-10] MEDS: ENOXAPARIN SODIUM 40 MG/0.4 ML DISP.SYRIN SQ SCH (08:22)
[2018-11-10] MEDS: LISINOPRIL 20 MG TABLET GT SCH (08:38)
[2018-11-10] MEDS: CARVEDILOL 6.25 MG TABLET GT SCH (08:38)
[2018-11-10] MEDS: HYDROGEN PEROXIDE 3% 118 ML BOTTLE TP SCH ×2 (08:38→20:33)
[2018-11-10] MEDS: LEVETIRACETAM 500 MG/5 ML LIQUID UDC GT SCH ×2 (08:38→20:33)
[2018-11-10] MEDS: Z GUARD REMEDY PASTE 57 GM TUBE TOP SCH ×2 (08:38→20:33)
[2018-11-10] MEDS: OSMOLITE 1.2 CAL 1,000 ML LIQUID GT PRN (11:30)
--- NOTE | 2018-11-10 12:58 | NUR ---
IDT MEETING: called Dr. Hughes human performance consultant for left eye redness, left message to staff. will ff up on nexr IDT meeting.
[2018-11-10 14:30] VITALS: BP 122/63
--- NOTE | 2018-11-10 15:01 | NUR ---
INTERDISCIPLINARY PLAN OF CARE CONFERENCE was held today. Patient's daughter Alexander and Alexander's grandfather were present at the meeting, and patient's other daughter Gordy was on speaker phone. Dr. Muro and the Interdisciplinary Team reviewed the current plan of care in detail. RN reported on patient's medical condition. See RN IDT conference notes. No major changes were reported. See also all other disciplines IDT notes and physician's progress notes for additional details. Family's questions were addressed by Dr. Muro and the IDT team, and an ophthalmology consultation was ordered by Dr. Muro in response to family's concern about patient's eye redness. Nursing to follow-up on scheduling ophthalmology consultation.
--- NOTE | 2018-11-10 16:26 | NUR ---
Pharmacy Update from today's 11/10/18 IDT Meeting Patient admitted 07/14/18 from [facility]. 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 Pt was found to be positive on urine tox for methamphetamines Temp 97.4 BP 133/60 HR 87 LABS: (from 11/02/18) Wbc 5.1 H/H 9.9/29.6 Plt 238 Na 137 K 4.4 Cl 103 CO2 24 BUN/Scr 22/0.7 BS 99 Ca 10.1 MEDICATION USE REVIEWED: > Pt is not on any anti-psych medications > Pt is on Keppra 500mg q 12hr since admit 07/14/18, no seizures reported; CrCl >100 ml/min, dose appropriate per renal fxn > Pt is on lovenox 40mg daily as of 08/26/18. Last plt 238 > Pt on coreg 6.25mg q12hr, lisinopril 20mg daily, hydralazine PRN SBP >160. Last BP 133/60 > Admitted on reglan 5mg q8hr for GI motility/gastroparesis. Per (DF), not to d/c as for gastroparesis maintenance treatment PRN MED USAGE: (Dec) Tylenol for pain/temp used x 1 (pain), x 1 temp Bisacodyl supp used x1 Miralax PRN used x 1 Hydralazine PRN used x 1 NEW ORDERS NOTED: > NA Patient reviewed and discussed in detail at IDT, no medication changes, issues, or concerns noted per team at this time. Rx f/u for pt coverage on omeprazole, per [employer], insurance covers nexium only. Rx rec for change to 20mg nexium daily for coverage, agreed and order change. No other recs at this time, will continue to monitor
[2018-11-10 17:54] VITALS: BP 108/59
[2018-11-10 20:14] VITALS: BP 128/58
[2018-11-11] MEDS: OSMOLITE 1.2 CAL 1,000 ML LIQUID GT PRN (02:20)
--- NOTE | 2018-11-11 03:54 | NUR ---
Pt remains on HT-50 ventilator with current settings of AC 16, VT 550, Peep +5, FiO2 30%, no changes to vent settings made at this time. Pt's trach is secured and patent. Pt tolerated vent settings well throughout shift, no signs and symptoms of respiratory distress noted. Suctioned pt with moderate amount of thick pale-yellowish secretions. Changed HME. Vent alarms functioning and audible. Ambu-bag and back-up trach at bedside. Vent plugged in red outlet. Will continue to monitor pt throughout shift.
[2018-11-11] MEDS: OMEPRAZOLE 20 MG CAPSULE.DR GT SCH (05:01)
[2018-11-11] MEDS: METOCLOPRAMIDE HCL 10 MG/10 ML UDC GT SCH ×3 (05:01→21:08)
[2018-11-11 08:07] VITALS: BP 125/69
[2018-11-11] MEDS: Z GUARD REMEDY PASTE 57 GM TUBE TOP SCH ×2 (09:48→20:49)
[2018-11-11] MEDS: LEVETIRACETAM 500 MG/5 ML LIQUID UDC GT SCH ×2 (09:48→20:49)
[2018-11-11] MEDS: HYDROGEN PEROXIDE 3% 118 ML BOTTLE TP SCH ×2 (09:49→20:49)
[2018-11-11] MEDS: LISINOPRIL 20 MG TABLET GT SCH (09:49)
[2018-11-11] MEDS: ENOXAPARIN SODIUM 40 MG/0.4 ML DISP.SYRIN SQ SCH (09:49)
--- NOTE | 2018-11-11 19:50 | NUR ---
PT RECEIVED ON HT-50 VENTILATOR WITH VENT SETTINGS OF AC 16, VT 550, PEEP +5, FIO2 30%. VENT ALARMS CHECKED, ARE ON AND AUDIBLE. PT APPEARS TO BE TOLERATING VENT SETTINGS AT THIS TIME. SHILEY 8 DCT TRACH IS PATENT AND SECURED. HME CHANGED. SUCTIONED MODERATE AMOUNT OF THICK, YELLOWISH SECRETIONS. AMBU BAG AND BACK UP TRACH ARE AT BEDSIDE. VENT IS PLUGGED INTO RED EMERGENCY OUTLET. PT SHOWING NO S/S OF RESPIRATORY DISTRESS AT THIS TIME. WILL CONTINUE TO MONITOR.
[2018-11-11 20:05] VITALS: BP 119/57
[2018-11-12] MEDS: METOCLOPRAMIDE HCL 10 MG/10 ML UDC GT SCH ×3 (06:03→21:05)
[2018-11-12] MEDS: OMEPRAZOLE 20 MG CAPSULE.DR GT SCH (06:03)
[2018-11-12] MEDS: ESOMEPRAZOLE MAGNESIUM 20 MG GT SCH (07:15)
[2018-11-12 08:06] VITALS: BP 130/72
[2018-11-12] MEDS: OSMOLITE 1.2 CAL 1,000 ML LIQUID GT PRN (08:09)
[2018-11-12] MEDS: LISINOPRIL 20 MG TABLET GT SCH (09:00)
[2018-11-12] MEDS: LEVETIRACETAM 500 MG/5 ML LIQUID UDC GT SCH ×2 (09:00→21:05)
[2018-11-12] MEDS: ENOXAPARIN SODIUM 40 MG/0.4 ML DISP.SYRIN SQ SCH (09:00)
[2018-11-12] MEDS: ATENOLOL 25 MG TABLET GT SCH (09:00)
[2018-11-12] MEDS: Z GUARD REMEDY PASTE 57 GM TUBE TOP SCH ×2 (09:00→21:05)
[2018-11-12] MEDS: HYDROGEN PEROXIDE 3% 118 ML BOTTLE TP SCH ×2 (09:00→21:05)
--- NOTE | 2018-11-12 12:35 | NUR ---
SEEN BY ELÍAS PITTMAN.
--- NOTE | 2018-11-12 12:39 | NUR ---
DR. SIMS WAS NOTIFIED RECONSULTEATION. AND HE STATED WILL SEE PT. .
--- NOTE | 2018-11-12 14:05 | NUR ---
LESIA called patient's Lisa [phone] to follow-up on scheduling a time to meet in order for Lisa to sign patient's annual admission paperwork. Phone went directly to voicemail, and LESIA left Lisa a voicemail message asking her to call to LESIA back to schedule a time to meet. SW to follow up, as needed.
--- NOTE | 2018-11-12 15:25 | NUR ---
3:00pm: Patient's Lisa arrived at the hospital, stating that she received LESIA's voicemail while driving to the hospital. LESIA met with patient's Lisa and obtained signatures on all annual admission paperwork for patient's new chart. The paperwork included: Condition of Admission, Patient Rights Acknowledgement, Documentation of Preferred Intensity of Care, Voluntary Prior Express Consent Form, and the [facility] Agreement. LESIA offered Lisa copies of the signed forms, but Lisa declined stating that she has copies from previous time. For all assessment/quarterly information, see patient's previous chart #[id number].
[2018-11-12 22:00] VITALS: BP 124/74
[2018-11-13] MEDS: OSMOLITE 1.2 CAL 1,000 ML LIQUID GT PRN ×2 (02:35→22:37)
[2018-11-13] MEDS: METOCLOPRAMIDE HCL 10 MG/10 ML UDC GT SCH ×3 (05:24→21:05)
[2018-11-13] MEDS: ESOMEPRAZOLE MAGNESIUM 20 MG GT SCH (05:24)
[2018-11-13 08:08] VITALS: BP 144/60
[2018-11-13] MEDS: LISINOPRIL 20 MG TABLET GT SCH (08:44)
[2018-11-13] MEDS: LEVETIRACETAM 500 MG/5 ML LIQUID UDC GT SCH ×2 (08:44→20:59)
[2018-11-13] MEDS: Z GUARD REMEDY PASTE 57 GM TUBE TOP SCH ×2 (08:45→20:59)
[2018-11-13] MEDS: ATENOLOL 25 MG TABLET GT SCH (08:45)
[2018-11-13] MEDS: HYDROGEN PEROXIDE 3% 118 ML BOTTLE TP SCH ×2 (08:48→20:59)
[2018-11-13] MEDS: ENOXAPARIN SODIUM 40 MG/0.4 ML DISP.SYRIN SQ SCH (08:48)
--- NOTE | 2018-11-13 16:37 | NUR ---
RESIDENT REMAIN STABLE WITH SATURATION OF 100% ON SETTINGS OF AC 16 VT 550 FIO2 30% AND PEEP 5. VENTILATOR IS WORKING WELL WITH ALL ALARMS ACTIVE. SUCTIONED FOR SMALL AMOUNT OF THICK PALE YELLOW SECRETIONS. CHANGED HUMIDIFIER FILTER.
--- NOTE | 2018-11-13 20:00 | NUR ---
RECEIVED PT ON CONTINUOUS VENT AC 16 VT 550 PEEP 5 FIO2 30%. TRACH IN PLACED AND SECURED WITH TRACH TIE. BACK UP TRACH AND AMBU BAG AT BEDSIDE. SUCTION PRN. VENT CHECKED, ALARMS WORKING WELL AND AUDIBLE. NO SIGNS OF RESPIRATORY DISTRESS NOTED AT THIS TIME. WILL CONTINUE TO MONITOR.
[2018-11-13 22:41] VITALS: BP 112/61
[2018-11-14] MEDS: METOCLOPRAMIDE HCL 10 MG/10 ML UDC GT SCH ×3 (05:57→22:00)
[2018-11-14] MEDS: ESOMEPRAZOLE MAGNESIUM 20 MG GT SCH (05:57)
[2018-11-14 08:00] VITALS: BP 140/61
[2018-11-14] MEDS: LEVETIRACETAM 500 MG/5 ML LIQUID UDC GT SCH ×2 (09:20→20:43)
[2018-11-14] MEDS: LISINOPRIL 20 MG TABLET GT SCH (09:20)
[2018-11-14] MEDS: ATENOLOL 25 MG TABLET GT SCH (09:21)
[2018-11-14] MEDS: ENOXAPARIN SODIUM 40 MG/0.4 ML DISP.SYRIN SQ SCH (09:21)
[2018-11-14] MEDS: Z GUARD REMEDY PASTE 57 GM TUBE TOP SCH ×2 (09:22→20:43)
[2018-11-14] MEDS: HYDROGEN PEROXIDE 3% 118 ML BOTTLE TP SCH ×2 (09:22→20:43)
[2018-11-14] MEDS: OSMOLITE 1.2 CAL 1,000 ML LIQUID GT PRN (14:16)
--- NOTE | 2018-11-14 19:10 | NUR ---
PT RECEIVED ON HT-50 VENT WITH CURRENT SETTINGS OF AC 16, VT 550, PEEP +5, FIO2 30%. NO CHANGES MADE AT THIS TIME. PT APPEARS TO BE TOLERATING VENT SETTINGS WELL. VENT ALARMS CHECKED, ARE ON AND AUDIBLE. SHILEY 8 DCT TRACH IS PATENT AND SECURED WITH FOAM TRACH TIES. HME AND MONTANO CHANGED. SUCTIONED MODERATE AMOUNT OF THICK, YELLOWISH SECRETIONS. AMBU BAG AND BACK UP TRACH ARE AT BEDSIDE. VENT IS PLUGGED INTO RED EMERGENCY OUTLET. NO S/S OF RESPIRATORY DISTRESS NOTED AT THIS TIME. WILL CONTINUE TO MONITOR THROUGHOUT SHIFT.
[2018-11-14 20:22] VITALS: BP 128/65
[2018-11-15] MEDS: METOCLOPRAMIDE HCL 10 MG/10 ML UDC GT SCH ×3 (05:18→21:39)
[2018-11-15] MEDS: ESOMEPRAZOLE MAGNESIUM 20 MG GT SCH (05:18)
[2018-11-15 08:00] VITALS: BP 132/74
[2018-11-15] MEDS: ATENOLOL 25 MG TABLET GT SCH (08:04)
[2018-11-15] MEDS: LISINOPRIL 20 MG TABLET GT SCH (08:04)
[2018-11-15] MEDS: LEVETIRACETAM 500 MG/5 ML LIQUID UDC GT SCH ×3 (08:04→21:38)
[2018-11-15] MEDS: HYDROGEN PEROXIDE 3% 118 ML BOTTLE TP SCH ×2 (08:05→21:39)
[2018-11-15] MEDS: ENOXAPARIN SODIUM 40 MG/0.4 ML DISP.SYRIN SQ SCH (08:05)
[2018-11-15] MEDS: Z GUARD REMEDY PASTE 57 GM TUBE TOP SCH ×2 (08:05→21:38)
--- NOTE | 2018-11-15 08:25 | NUR ---
PT. WAS SEEN AND EXAMINED BY DR. ACOSTA (NEUROLOGIST) AND WITH NEW ORDERS CARRIED OUT D/T PT. HAD RHYTHMICAL EYE MOVEMENTS CONTINUOUSLY AND DR. ACOSTA ASSESSED IT AND STATED THAT ITS SEIZURE ACTIVITY.MESSAGE WAS LEFT FOR PT'S .
[2018-11-15] MEDS ORDERED: LORAZEPAM 1 MG TABLET PO ONE (08:45)
[2018-11-15 12:13] LABS: BASOPHILS % (AUTO) 0.2 % (0.0-2.0); EOSINOPHILS # (AUTO) 0.1 K/uL (0.0-0.7); EOSINOPHILS % (AUTO) 1.9 % (0.0-7.0); HEMATOCRIT 28.8 % (36.7-47.1); HEMOGLOBIN 9.8 g/dL (12.5-16.3); LYMPHOCYTES # (AUTO) 2.1 K/uL (20.0-40.0); LYMPHOCYTES % (AUTO) 49.4 % (20.5-51.5); MEAN CORPUSCULAR HEMOGLOBIN 29.6 uug (23.8-33.4); MEAN CORPUSCULAR HGB CONC 34 g/dL (32.5-36.3); MEAN CORPUSCULAR VOLUME 87.1 fL (73.0-96.2); MONOCYTES # (AUTO) 0.6 K/uL (2.0-10.0); MONOCYTES % (AUTO) 13.2 % (0.0-11.0); NEUTROPHILS # (AUTO) 1.5 K/uL (1.8-8.9); NEUTROPHILS % (AUTO) 35.3 % (38.5-71.5); PLATELET COUNT (AUTO) 204 K/uL (152-348); RED BLOOD CELL COUNT(AUTO) 3.31 MIL/uL (4.06-5.63); WHITE BLOOD COUNT (AUTO) 4.2 K/uL (3.6-10.2)
[2018-11-15 12:28] LABS: MAGNESIUM 2.1 mg/dL (1.8-2.4); PHOSPHOROUS 4.2 mg/dL (2.5-4.9); POTASSIUM 3.8 mmol/L (3.5-5.1)
--- NOTE | 2018-11-15 18:46 | NUR ---
PT REMAINS SLEEPING AT THIS TIME WITH NO DISTRESS AND NO SEIZUREACTIVITY.
--- NOTE | 2018-11-15 19:35 | NUR ---
Pt received on continuous mechanical ventilation via trach, in semi fried's, obtunded, and unable to communicate. Pt is on [place] HT-50 vent with ordered settings of A/C-16, VT-550, PEEP+5, FIO2-30%. Tolerating vent settings well. SpO2-99%. Sxn'd & lavaged as needed. Suctioned small amts of white/pale yellowish secretions. Khushboo 8 DFEN trach is patent and secured. Minimal occluding volume technique used to assess cuff inflation. HME changed. PPE used. No signs or symptoms of respiratory distress noted. Ventilator alarm parameters checked, on and audible. Bag/valve/mask and back up trach at bedside. Vent plugged into red emergency outlet. Will continue to monitor.
[2018-11-15 22:00] VITALS: BP 127/52
[2018-11-16] MEDS: OSMOLITE 1.2 CAL 1,000 ML LIQUID GT PRN (01:19)
--- NOTE | 2018-11-16 02:50 | NUR ---
Patient is sleeping comfortably, no signs of seizure activity noted, afebrile, no respiratory distress noted, on aspiration precaution. Kept clean and comfortable.
[2018-11-16 05:11] LABS: *BILIRUBIN,URIN NEGATIVE (NEGATIVE); *BLOOD, URINE NEGATIVE (NEGATIVE); *COLOR,URINE YELLOW (YELLOW); *KETONES,URINE NEGATIVE (NEGATIVE); *UROBILINOGEN,URINE 0.2 E.U./dl (NORMAL); LEUKOCYTE ESTERASE ,URINE 1+ (NEGATIVE); NITRITE, URINE NEGATIVE (NEGATIVE); UGLUCOSE NEGATIVE (NEGATIVE)
[2018-11-16 05:17] LABS: *CLARITY,URINE HAZY (CLEAR)
[2018-11-16 05:25] LABS: BACTERIA,URINE NONE SEEN /HPF (NONE SEEN); RBC,URINE 0-3 /HPF (0-3)
[2018-11-16 05:26] LABS: SQUAMOUS EPITHELIAL CELL,UR FEW /HPF (NONE SEEN); TRANSITIONAL EPI CELLS,URINE FEW /LPF (NONE SEEN)
[2018-11-16] MEDS: ESOMEPRAZOLE MAGNESIUM 20 MG GT SCH (05:30)
[2018-11-16] MEDS: METOCLOPRAMIDE HCL 10 MG/10 ML UDC GT SCH ×3 (05:30→21:40)
[2018-11-16 08:00] VITALS: BP 127/75
[2018-11-16] MEDS: LISINOPRIL 20 MG TABLET GT SCH (08:51)
[2018-11-16] MEDS: LEVETIRACETAM 500 MG/5 ML LIQUID UDC GT SCH ×2 (08:51→21:40)
[2018-11-16] MEDS: ATENOLOL 25 MG TABLET GT SCH (08:51)
[2018-11-16] MEDS: HYDROGEN PEROXIDE 3% 118 ML BOTTLE TP SCH ×2 (08:52→21:40)
[2018-11-16] MEDS: ENOXAPARIN SODIUM 40 MG/0.4 ML DISP.SYRIN SQ SCH (08:52)
[2018-11-16] MEDS: Z GUARD REMEDY PASTE 57 GM TUBE TOP SCH ×2 (08:52→21:41)
--- NOTE | 2018-11-16 13:03 | NUR ---
SEEN BY ELÍAS Ivan AND WITH NNO.
[2018-11-16 15:30] VITALS: BP 120/60
--- NOTE | 2018-11-16 15:50 | NUR ---
ELÍAS MAIER WAS CALLED AND AWARE OF PT'S TEMP 91 F AND WITH HR 60X',B/P 120/60 RR 16X' EVEN AND UNELABORATED AND O2 SAT 100% AND WITH NEW ORDERS CARRIED OUT.
--- NOTE | 2018-11-16 16:22 | NUR ---
DR REED WAS ALSO CALLED AND AWARE OF PT'D TEMP 91F AND WITH NEW ORDERS (ENTERED BY HIMSELF IN COMPUTER AND CARRIED OUT.
[2018-11-16 16:44] LABS: BASOPHILS % (AUTO) 0.6 % (0.0-2.0); EOSINOPHILS % (AUTO) 1.5 % (0.0-7.0); HEMATOCRIT 29.2 % (36.7-47.1); HEMOGLOBIN 9.9 g/dL (12.5-16.3); LYMPHOCYTES # (AUTO) 1.1 K/uL (20.0-40.0); LYMPHOCYTES % (AUTO) 40.1 % (20.5-51.5); MEAN CORPUSCULAR HEMOGLOBIN 29.4 uug (23.8-33.4); MEAN CORPUSCULAR HGB CONC 34 g/dL (32.5-36.3); MEAN CORPUSCULAR VOLUME 86.9 fL (73.0-96.2); MONOCYTES # (AUTO) 0.2 K/uL (2.0-10.0); NEUTROPHILS # (AUTO) 1.4 K/uL (1.8-8.9); NEUTROPHILS % (AUTO) 50.8 % (38.5-71.5); PLATELET COUNT (AUTO) 201 K/uL (152-348); RED BLOOD CELL COUNT(AUTO) 3.36 MIL/uL (4.06-5.63); WHITE BLOOD COUNT (AUTO) 2.7 K/uL (3.6-10.2)
[2018-11-16 16:53] LABS: CARBON DIOXIDE 23 mmol/L (21-32); CHLORIDE 106 mmol/L (98-107); CREATININE 0.6 mg/dL (0.6-1.3); GLUCOSE 106 mg/dL (74-106); POTASSIUM 3.8 mmol/L (3.5-5.1); UREA NITROGEN, BLOOD 24 mg/dL (7-18)
[2018-11-16 17:16] LABS: *BILIRUBIN,URIN NEGATIVE (NEGATIVE); *BLOOD, URINE NEGATIVE (NEGATIVE); *CLARITY,URINE CLEAR (CLEAR); *COLOR,URINE YELLOW (YELLOW); *KETONES,URINE NEGATIVE (NEGATIVE); *UROBILINOGEN,URINE 0.2 E.U./dl (NORMAL); LEUKOCYTE ESTERASE ,URINE NEGATIVE (NEGATIVE); NITRITE, URINE NEGATIVE (NEGATIVE); UGLUCOSE NEGATIVE (NEGATIVE)
[2018-11-16 18:35] VITALS: BP 120/60
--- NOTE | 2018-11-17 00:20 | NUR ---
VENT CIRCUIT CHANGED WITHOUT COMPLICATIONS NOTED.
[2018-11-17] MEDS: ESOMEPRAZOLE MAGNESIUM 20 MG GT SCH (05:55)
[2018-11-17] MEDS: METOCLOPRAMIDE HCL 10 MG/10 ML UDC GT SCH ×3 (05:56→22:16)
[2018-11-17] MEDS: OSMOLITE 1.2 CAL 1,000 ML LIQUID GT PRN (07:16)
[2018-11-17 08:00] VITALS: BP 109/63
[2018-11-17] MEDS: LEVETIRACETAM 500 MG/5 ML LIQUID UDC GT SCH ×2 (08:33→20:16)
[2018-11-17] MEDS: ATENOLOL 25 MG TABLET GT SCH (08:34)
[2018-11-17] MEDS: LISINOPRIL 20 MG TABLET GT SCH (08:34)
[2018-11-17] MEDS: Z GUARD REMEDY PASTE 57 GM TUBE TOP SCH ×2 (08:35→20:16)
[2018-11-17] MEDS: HYDROGEN PEROXIDE 3% 118 ML BOTTLE TP SCH ×2 (08:35→20:16)
[2018-11-17] MEDS: ENOXAPARIN SODIUM 40 MG/0.4 ML DISP.SYRIN SQ SCH (08:37)
--- NOTE | 2018-11-17 12:10 | NUR ---
Message was left to dr. Hughes re consultation for left eye redness.
--- NOTE | 2018-11-17 18:01 | NUR ---
RECEIVED STABLE WITH SATURATION OF 100% ON SETTINGS OF AC 16 VT 550 FIO2 30% AND PEEP 5. VENTILATOR IS WORKING WELL WITH ALL ALARMS ACTIVE. SUCTIONED FOR SMALL AMOUNT OF THICK PALE YELLOW SECRETIONS. CHANGED HUMIDIFIER FILTER.
--- NOTE | 2018-11-17 19:45 | NUR ---
Pt received on HT-50 ventilator with the following settings of AC 16, VT 550, Peep +5, FiO2 30%, no changes to vent settings made at this time. Pt's trach is secured and patent. Pt tolerating vent settings well, no signs and symptoms of respiratory distress noted. Suctioned pt with moderate amount of thick pale-yellowish secretions. Changed HME. Vent alarms functioning and audible. Ambu-bag and back-up trach at bedside. Vent plugged in red outlet. Will continue to monitor pt throughout shift.
[2018-11-17 20:37] VITALS: BP 120/51
[2018-11-18] MEDS: OSMOLITE 1.2 CAL 1,000 ML LIQUID GT PRN ×2 (00:30→15:15)
[2018-11-18] MEDS: METOCLOPRAMIDE HCL 10 MG/10 ML UDC GT SCH ×3 (06:18→22:35)
[2018-11-18] MEDS: ESOMEPRAZOLE MAGNESIUM 20 MG GT SCH (06:18)
[2018-11-18] MEDS: LEVETIRACETAM 500 MG/5 ML LIQUID UDC GT SCH ×2 (09:38→20:40)
[2018-11-18] MEDS: LISINOPRIL 20 MG TABLET GT SCH (09:39)
[2018-11-18] MEDS: Z GUARD REMEDY PASTE 57 GM TUBE TOP SCH ×2 (09:40→20:42)
[2018-11-18] MEDS: HYDROGEN PEROXIDE 3% 118 ML BOTTLE TP SCH ×2 (09:40→20:42)
[2018-11-18] MEDS: ATENOLOL 25 MG TABLET GT SCH (09:40)
[2018-11-18] MEDS: ENOXAPARIN SODIUM 40 MG/0.4 ML DISP.SYRIN SQ SCH (09:46)
[2018-11-18 10:55] VITALS: BP 120/58
--- NOTE | 2018-11-18 19:58 | NUR ---
PT RECEIVED ON THE HT-50 VENT WITH THE FOLLOWING SETTINGS: AC 16, VT 550, PEEP +5, FiO2 30%. TRACH TUBE IS PATENT AND SECURED WITH TRACH TIES. HME CHANGED. SUCTIONED SMALL AMOUNTS OF THIN WHITE/YELLOW SECRETIONS. VENT ALARMS ARE ON AND AUDIBLE. VENT IS PLUGGED IN THE RED OUTLET. BACK UP TRACH AND AMBU BAG IS BY BEDSIDE. PT IS TOLERATING CURRENT VENT SETTINGS WELL AT THIS TIME WITH NO SOB NOTED. WILL CONTINUE TO MONITOR.
[2018-11-18 20:52] VITALS: BP 107/53
[2018-11-19] MEDS: METOCLOPRAMIDE HCL 10 MG/10 ML UDC GT SCH ×3 (05:52→22:42)
[2018-11-19] MEDS: ESOMEPRAZOLE MAGNESIUM 20 MG GT SCH (05:52)
[2018-11-19] MEDS: LEVETIRACETAM 500 MG/5 ML LIQUID UDC GT SCH ×2 (08:16→20:41)
[2018-11-19] MEDS: Z GUARD REMEDY PASTE 57 GM TUBE TOP SCH ×2 (08:17→20:42)
[2018-11-19] MEDS: ATENOLOL 25 MG TABLET GT SCH (08:17)
[2018-11-19] MEDS: LISINOPRIL 20 MG TABLET GT SCH (08:17)
[2018-11-19] MEDS: HYDROGEN PEROXIDE 3% 118 ML BOTTLE TP SCH ×2 (08:17→20:42)
[2018-11-19] MEDS: ENOXAPARIN SODIUM 40 MG/0.4 ML DISP.SYRIN SQ SCH (08:21)
--- NOTE | 2018-11-19 09:20 | NUR ---
PT ON HT-50 VENT, SETTINGS AC 16, Vt 550, +5, 28% FIO2. SHILEY 8 TRACH IS PATENT AND SECURED WITH TIES. NO SOB NOTED. SUCTIONED MODERATE AMOUNT OF YELLOW THICK SECRETIONS. VENT ALARMS ARE ON AND AUDIBLE, BVM AND BACK UP TRACH AT BEDSIDE. WILL CONTINUE TO MONITOR.
[2018-11-19 11:05] VITALS: BP 115/70
[2018-11-19 20:25] VITALS: BP 96/42
--- NOTE | 2018-11-20 01:35 | NUR ---
Pt moved to room 426 with rn charge, RT and pt's nurse at bedside. No distress noted. Vent and alarms checked and reset.
[2018-11-20] MEDS: OSMOLITE 1.2 CAL 1,000 ML LIQUID GT PRN (02:40)
[2018-11-20] MEDS: ESOMEPRAZOLE MAGNESIUM 20 MG GT SCH (05:16)
[2018-11-20] MEDS: METOCLOPRAMIDE HCL 10 MG/10 ML UDC GT SCH ×3 (05:16→21:38)
[2018-11-20 08:05] VITALS: BP 105/66
--- NOTE | 2018-11-20 08:07 | NUR ---
Pt receive in semi fried position, unable to communicate, responds to physical stimuli.. Continuous mechanical ventilation with vent: HT-50 settings: A/C 16, Vt 550, PEEP +5, FIO2 30%, tolerating settings well, no changes made to settings at this time.. Pt trach: Khushboo 8 DCT, in place and secure with tie.. No respiratory distress noted at this time, will continue to monitor.. Vent alarms functioning normally at this time / on / audible.. BVM / back up trach at bedside, vent plugged in to red emergency outlet.. Addendum: 11/20/18 at 1216 by ASIM MIRANDA RT Changed to 2 Lpm O2 bleed in without incident.
[2018-11-20] MEDS: LEVETIRACETAM 500 MG/5 ML LIQUID UDC GT SCH ×2 (08:38→21:38)
[2018-11-20] MEDS: ATENOLOL 25 MG TABLET GT SCH (08:39)
[2018-11-20] MEDS: LISINOPRIL 20 MG TABLET GT SCH (08:39)
[2018-11-20] MEDS: HYDROGEN PEROXIDE 3% 118 ML BOTTLE TP SCH ×2 (08:40→21:38)
[2018-11-20] MEDS: Z GUARD REMEDY PASTE 57 GM TUBE TOP SCH ×2 (08:40→21:38)
[2018-11-20] MEDS: ENOXAPARIN SODIUM 40 MG/0.4 ML DISP.SYRIN SQ SCH (08:40)
--- NOTE | 2018-11-20 17:13 | NUR ---
Seen by Dr. Hughes for left eye redness, new orders carried out to start ciloxan 1 drop to left eye q6 hrs x14 days (conjunctivitis), artificial tears 2 drops to both eyes q12 hrs (dry eyes). at bedside and aware of new orders.
--- NOTE | 2018-11-20 20:02 | NUR ---
Received pt on HT-50 ventilator with the following settings of AC-16, Vt-550, PEEP+5, FIO2-30%, trached with Shiley#8 DFEN trach, which is in the place and secure properly. No respiratory distress noted. Airway care done, pt responded to physical stimuli. Resus. bag and back up trach at bedside. Vent and alarms checked and reset.
[2018-11-20 20:18] VITALS: BP 141/70
[2018-11-20] MEDS: POLYVINYL ALCOHOL OPHT DROPS 15 ML BOTTLE EACHEYE SCH (21:37)
[2018-11-21] MEDS: OSMOLITE 1.2 CAL 1,000 ML LIQUID GT PRN ×2 (05:00→21:53)
[2018-11-21] MEDS: METOCLOPRAMIDE HCL 10 MG/10 ML UDC GT SCH ×3 (06:34→22:01)
[2018-11-21] MEDS: ESOMEPRAZOLE MAGNESIUM 20 MG GT SCH (06:34)
--- NOTE | 2018-11-21 07:10 | NUR ---
Patient's left eye is still red, no discharges noted, good eye care done, artificial tears applied as ordered for dry eyes, afebrile, no signs of pain or discomfort noted, awaiting for Ciloxan eye drops at this time.
[2018-11-21 08:05] VITALS: BP 121/65
[2018-11-21] MEDS: ENOXAPARIN SODIUM 40 MG/0.4 ML DISP.SYRIN SQ SCH (08:42)
[2018-11-21] MEDS: ATENOLOL 25 MG TABLET GT SCH (09:00)
[2018-11-21] MEDS: POLYVINYL ALCOHOL OPHT DROPS 15 ML BOTTLE EACHEYE SCH ×2 (09:32→21:00)
[2018-11-21] MEDS: LEVETIRACETAM 500 MG/5 ML LIQUID UDC GT SCH ×2 (09:33→21:00)
[2018-11-21] MEDS: LISINOPRIL 20 MG TABLET GT SCH (09:33)
[2018-11-21] MEDS: HYDROGEN PEROXIDE 3% 118 ML BOTTLE TP SCH ×2 (09:34→21:00)
[2018-11-21] MEDS: Z GUARD REMEDY PASTE 57 GM TUBE TOP SCH ×2 (09:34→21:00)
--- NOTE | 2018-11-21 17:02 | NUR ---
PT ON HT-50 VENT, SETTINGS AC 16, Vt 550, +5, 28% FIO2. SHILEY 8 TRACH IS PATENT AND SECURED WITH TIES. NO S/S OF RESPIRATORY DISTRESS, TOLERATING VENT SETTINGS WELL. SUCTIONED MODERATE AMOUNT OF YELLOW THICK SECRETIONS. VENT ALARMS ARE ON AND AUDIBLE, BVM AND BACK UP TRACH AT BEDSIDE. WILL CONTINUE TO MONITOR.
[2018-11-21] MEDS: CIPROFLOXACIN 0.3% OPHT DROP 2.5 ML BOTTLE LEFTEYE SCH (17:24)
--- NOTE | 2018-11-21 19:55 | NUR ---
Pt received on continuous mechanical ventilation via trach, in semi fried's, obtunded, and unable to communicate. Pt is on [place] HT-50 vent with ordered settings of A/C-16, VT-550, PEEP+5, FIO2-28%. 2LPM Bleed-in oxygen. Tolerating vent settings well. SpO2-100%. Sxn'd & lavaged as needed. Suctioned small amts of thick pale yellowish secretions. Khushboo 8 DFEN trach is patent and secured. Minimal occluding volume technique used to assess cuff inflation. HME and in-line suction catheter changed. PPE used. No signs or symptoms of respiratory distress noted. Ventilator alarm parameters checked, on and audible. Bag/valve/mask and back up trach at bedside. Vent plugged into red emergency outlet. Will continue to monitor.
[2018-11-21 20:23] VITALS: BP 133/68
[2018-11-22] MEDS: CIPROFLOXACIN 0.3% OPHT DROP 2.5 ML BOTTLE LEFTEYE SCH ×4 (00:07→17:06)
--- NOTE | 2018-11-22 02:09 | NUR ---
Patient is on ciloxan eye drops for left eye conjunctivitis, no adverse reactions noted, still with redness on left eye, good eye care done to both eyes, on artificial tears for garcia eyes applied as ordered, kept clean and comfortable.
[2018-11-22] MEDS: METOCLOPRAMIDE HCL 10 MG/10 ML UDC GT SCH ×3 (05:17→22:00)
[2018-11-22] MEDS: ESOMEPRAZOLE MAGNESIUM 20 MG GT SCH (05:17)
--- NOTE | 2018-11-22 07:12 | NUR ---
PT ON HT-50 VENT, SETTINGS AC 16, Vt 550, +5, 28%, 2 LPM O2 BLEED IN. SHILEY 8 TRACH IS PATENT AND SECURED WITH TIES. NO S/S OF RESPIRATORY DISTRESS, TOLERATING VENT SETTINGS WELL. SUCTIONED MODERATE AMOUNT OF YELLOW THICK SECRETIONS. VENT ALARMS ARE ON AND AUDIBLE, BVM AND BACK UP TRACH AT BEDSIDE. WILL CONTINUE TO MONITOR.
[2018-11-22 08:05] VITALS: BP 129/62
[2018-11-22] MEDS: LEVETIRACETAM 500 MG/5 ML LIQUID UDC GT SCH ×2 (08:10→20:33)
[2018-11-22] MEDS: POLYVINYL ALCOHOL OPHT DROPS 15 ML BOTTLE EACHEYE SCH ×2 (08:10→20:33)
[2018-11-22] MEDS: LISINOPRIL 20 MG TABLET GT SCH (08:10)
[2018-11-22] MEDS: ATENOLOL 25 MG TABLET GT SCH (08:12)
[2018-11-22] MEDS: HYDROGEN PEROXIDE 3% 118 ML BOTTLE TP SCH ×2 (08:13→20:34)
[2018-11-22] MEDS: Z GUARD REMEDY PASTE 57 GM TUBE TOP SCH ×2 (08:13→20:34)
[2018-11-22] MEDS: ENOXAPARIN SODIUM 40 MG/0.4 ML DISP.SYRIN SQ SCH (08:14)
--- NOTE | 2018-11-22 13:36 | NUR ---
Seen by Lilibeth Crenshaw LACQUER SIZER with new orders noted.
[2018-11-22 14:56] VITALS: BP 125/78
[2018-11-22] MEDS: OSMOLITE 1.2 CAL 1,000 ML LIQUID GT PRN (17:27)
[2018-11-22 17:29] VITALS: BP 109/61
[2018-11-22 20:12] VITALS: BP 120/58
[2018-11-23] MEDS: CIPROFLOXACIN 0.3% OPHT DROP 2.5 ML BOTTLE LEFTEYE SCH ×4 (00:46→17:33)
[2018-11-23] MEDS: METOCLOPRAMIDE HCL 10 MG/10 ML UDC GT SCH ×3 (06:18→21:49)
[2018-11-23] MEDS: ESOMEPRAZOLE MAGNESIUM 20 MG GT SCH (06:18)
[2018-11-23 08:00] VITALS: BP 150/76
[2018-11-23] MEDS: LEVETIRACETAM 500 MG/5 ML LIQUID UDC GT SCH ×2 (08:24→21:48)
[2018-11-23] MEDS: POLYVINYL ALCOHOL OPHT DROPS 15 ML BOTTLE EACHEYE SCH ×2 (08:24→21:47)
[2018-11-23] MEDS: LISINOPRIL 20 MG TABLET GT SCH (08:24)
[2018-11-23] MEDS: ATENOLOL 25 MG TABLET GT SCH (08:25)
[2018-11-23] MEDS: Z GUARD REMEDY PASTE 57 GM TUBE TOP SCH ×2 (08:26→21:48)
[2018-11-23] MEDS: HYDROGEN PEROXIDE 3% 118 ML BOTTLE TP SCH ×2 (08:26→21:48)
[2018-11-23] MEDS: ENOXAPARIN SODIUM 40 MG/0.4 ML DISP.SYRIN SQ SCH (08:27)
[2018-11-23 08:30] LABS: BILIRUBIN,TOTAL 0.1 mg/dL (0.2-1.0); CREATININE 0.8 mg/dL (0.6-1.3); POTASSIUM 4.2 mmol/L (3.5-5.1); TOTAL PROTEIN, SERUM 7.4 g/dL (6.4-8.2)
[2018-11-23 09:08] LABS: BASOPHILS % (AUTO) 0.3 % (0.0-2.0); EOSINOPHILS # (AUTO) 0.1 K/uL (0.0-0.7); EOSINOPHILS % (AUTO) 1.3 % (0.0-7.0); HEMATOCRIT 27.2 % (36.7-47.1); HEMOGLOBIN 9.3 g/dL (12.5-16.3); LYMPHOCYTES % (AUTO) 39.3 % (20.5-51.5); MEAN CORPUSCULAR HEMOGLOBIN 29.6 uug (23.8-33.4); MEAN CORPUSCULAR HGB CONC 34 g/dL (32.5-36.3); MEAN CORPUSCULAR VOLUME 86.4 fL (73.0-96.2); MONOCYTES # (AUTO) 0.5 K/uL (2.0-10.0); MONOCYTES % (AUTO) 10.5 % (0.0-11.0); NEUTROPHILS # (AUTO) 2.4 K/uL (1.8-8.9); NEUTROPHILS % (AUTO) 48.6 % (38.5-71.5); PLATELET COUNT (AUTO) 221 K/uL (152-348); RED BLOOD CELL COUNT(AUTO) 3.14 MIL/uL (4.06-5.63)
[2018-11-23] MEDS: OSMOLITE 1.2 CAL 1,000 ML LIQUID GT PRN ×2 (13:57→23:32)
--- NOTE | 2018-11-23 14:07 | NUR ---
Seen by Den Mcelroy ACNP, with no new orders.
[2018-11-23 17:48] VITALS: BP 122/66
--- NOTE | 2018-11-23 20:00 | NUR ---
Received pt on HT-50 ventilator with current settings of AC 16, VT 550, Peep +5, FiO2 30%, no changes to vent settings made at this time. Pt's trach is secured and patent. Pt tolerating vent settings well, no signs and symptoms of respiratory distress noted. Suctioned pt with moderate amount of thick pale-yellowish secretions. Changed HME. Vent alarms functioning and audible. Ambu-bag and back-up trach at bedside. Vent plugged in red outlet. Will continue to monitor pt throughout shift.
[2018-11-23 20:20] VITALS: BP 122/60
[2018-11-24] MEDS: ESOMEPRAZOLE MAGNESIUM 20 MG GT SCH (05:24)
[2018-11-24] MEDS: CIPROFLOXACIN 0.3% OPHT DROP 2.5 ML BOTTLE LEFTEYE SCH ×4 (05:24→17:05)
[2018-11-24] MEDS: METOCLOPRAMIDE HCL 10 MG/10 ML UDC GT SCH ×3 (05:24→21:41)
[2018-11-24 08:00] VITALS: BP 131/70
[2018-11-24] MEDS: ENOXAPARIN SODIUM 40 MG/0.4 ML DISP.SYRIN SQ SCH (09:17)
[2018-11-24] MEDS: LISINOPRIL 20 MG TABLET GT SCH (09:18)
[2018-11-24] MEDS: LEVETIRACETAM 500 MG/5 ML LIQUID UDC GT SCH ×2 (09:18→21:40)
[2018-11-24] MEDS: Z GUARD REMEDY PASTE 57 GM TUBE TOP SCH ×2 (09:18→21:41)
[2018-11-24] MEDS: ATENOLOL 25 MG TABLET GT SCH (09:18)
[2018-11-24] MEDS: POLYVINYL ALCOHOL OPHT DROPS 15 ML BOTTLE EACHEYE SCH ×2 (09:18→21:40)
[2018-11-24] MEDS: HYDROGEN PEROXIDE 3% 118 ML BOTTLE TP SCH ×2 (09:19→21:41)
[2018-11-24] MEDS: OSMOLITE 1.2 CAL 1,000 ML LIQUID GT PRN (12:26)
[2018-11-24 18:29] VITALS: BP 121/63
--- NOTE | 2018-11-24 20:11 | NUR ---
Received pt on HT-50 ventilator with the following settings of AC-16, Vt-550, PEEP+5, FIO2-30%, trached with Shiley#8 DFEN trach, which is in the place and secure properly. No distress noted. Airway care done, pt responded to physical stimuli. Resus. bag and back up trach at bedside. Vent and alarms checked and reset.
[2018-11-24 20:48] VITALS: BP 125/78
--- NOTE | 2018-11-24 22:30 | NUR ---
Still on Ciloxan eye drop to left eye, no adverse reactions noted, still with redness, no discharges noted, good eye care done, kept clean and comfortable.
[2018-11-25] MEDS: ESOMEPRAZOLE MAGNESIUM 20 MG GT SCH (05:43)
[2018-11-25] MEDS: METOCLOPRAMIDE HCL 10 MG/10 ML UDC GT SCH ×3 (05:43→22:27)
[2018-11-25] MEDS: CIPROFLOXACIN 0.3% OPHT DROP 2.5 ML BOTTLE LEFTEYE SCH ×4 (05:44→17:52)
[2018-11-25] MEDS: OSMOLITE 1.2 CAL 1,000 ML LIQUID GT PRN ×2 (06:52→22:39)
--- NOTE | 2018-11-25 07:50 | NUR ---
PT REMAIN ON CONTINUOUS VENT AC 16 VT 550 PEEP 5 FIO2 2LPM BLEED IN. TRACH IN PLACED AND SECURED WITH TRACH TIE. BACK UP TRACH AND AMBU BAG AT BEDSIDE. SUCTION PRN. VENT CHECKED, ALARMS WORKING WELL AND AUDIBLE. NO SIGNS OF RESPIRATORY DISTRESS NOTED AT THIS TIME. WILL CONTINUE TO MONITOR.
[2018-11-25 08:00] VITALS: BP 133/77
[2018-11-25] MEDS: LEVETIRACETAM 500 MG/5 ML LIQUID UDC GT SCH ×2 (09:21→20:46)
[2018-11-25] MEDS: POLYVINYL ALCOHOL OPHT DROPS 15 ML BOTTLE EACHEYE SCH ×2 (09:21→20:45)
[2018-11-25] MEDS: LISINOPRIL 20 MG TABLET GT SCH (09:22)
[2018-11-25] MEDS: ATENOLOL 25 MG TABLET GT SCH (09:22)
[2018-11-25] MEDS: HYDROGEN PEROXIDE 3% 118 ML BOTTLE TP SCH ×2 (09:23→20:46)
[2018-11-25] MEDS: Z GUARD REMEDY PASTE 57 GM TUBE TOP SCH ×2 (09:23→20:46)
[2018-11-25] MEDS: ENOXAPARIN SODIUM 40 MG/0.4 ML DISP.SYRIN SQ SCH (09:52)
--- NOTE | 2018-11-25 12:30 | NUR ---
Seen and examined by Dr Muro,no new orders noted.
[2018-11-25 20:17] VITALS: BP 128/66
[2018-11-26] MEDS: CIPROFLOXACIN 0.3% OPHT DROP 2.5 ML BOTTLE LEFTEYE SCH ×4 (00:02→17:06)
--- NOTE | 2018-11-26 02:49 | NUR ---
Still on ciloxon eye drops to left eye, no adverse reactions noted. still with redness, no discharges, good eye care done, kept clean and comfortable.
[2018-11-26] MEDS: METOCLOPRAMIDE HCL 10 MG/10 ML UDC GT SCH ×3 (05:53→22:19)
[2018-11-26] MEDS: ESOMEPRAZOLE MAGNESIUM 20 MG GT SCH (05:53)
[2018-11-26 08:00] VITALS: BP 135/64
--- NOTE | 2018-11-26 08:12 | NUR ---
Pt receive in semi fried position, unable to communicate, responds to physical stimuli.. Continuous mechanical ventilation with vent: HT-50 settings: A/C 16, Vt 550, PEEP +5, FIO2 28% with 2 Lpm bleed in, tolerating settings well, no changes made to settings at this time.. Pt trach: Khushboo 8 DCT, in place and secure with tie.. No respiratory distress noted at this time, will continue to monitor.. Vent alarms functioning normally at this time / on / audible.. BVM / back up trach at bedside, vent plugged in to red emergency outlet..
[2018-11-26] MEDS: LISINOPRIL 20 MG TABLET GT SCH (08:28)
[2018-11-26] MEDS: POLYVINYL ALCOHOL OPHT DROPS 15 ML BOTTLE EACHEYE SCH ×2 (08:28→20:55)
[2018-11-26] MEDS: LEVETIRACETAM 500 MG/5 ML LIQUID UDC GT SCH ×2 (08:28→20:57)
[2018-11-26] MEDS: Z GUARD REMEDY PASTE 57 GM TUBE TOP SCH ×2 (08:29→20:57)
[2018-11-26] MEDS: ENOXAPARIN SODIUM 40 MG/0.4 ML DISP.SYRIN SQ SCH (08:29)
[2018-11-26] MEDS: HYDROGEN PEROXIDE 3% 118 ML BOTTLE TP SCH ×2 (08:29→20:57)
[2018-11-26] MEDS: ATENOLOL 25 MG TABLET GT SCH (08:29)
--- NOTE | 2018-11-26 13:45 | NUR ---
SEEN AND EXAMINED BY ELÍAS PITTMAN.
[2018-11-26] MEDS: OSMOLITE 1.2 CAL 1,000 ML LIQUID GT PRN (16:39)
--- NOTE | 2018-11-26 19:10 | NUR ---
PT RECEIVED ON HT-50 VENT WITH VENT SETTINGS OF AC 16, VT 550, PEEP +5, FIO2 30%. VENT ALARMS CHECKED, ARE ON AND AUDIBLE. PT APPEARS TO BE TOLERATING VENT SETTINGS AT THIS TIME. MARYLEY 8 DCT TRACH IS PATENT AND SECURED. HME CHANGED. SUCTIONED SMALL AMOUNT OF THICK, BLOOD-TINGED SECRETIONS DUE TO TRACH CHANGE DONE TODAY. AMBU BAG AND BACK UP TRACH ARE AT BEDSIDE. VENT IS PLUGGED INTO RED EMERGENCY OUTLET. PT SHOWING NO S/S OF RESPIRATORY DISTRESS AT THIS TIME. WILL CONTINUE TO MONITOR. Addendum: 11/27/18 at 0343 by JOSE PUGH RT O2 BLEED IN AT 2LPM
[2018-11-26 19:59] VITALS: BP 123/57
--- NOTE | 2018-11-26 23:14 | NUR ---
Remains on Ciloxan eye drops to left eye for conjunctivitis, no adverse reactions noted. left eye still with redness, no discharges noted, good eye care done, kept clean and comfortable.
[2018-11-27] MEDS: CIPROFLOXACIN 0.3% OPHT DROP 2.5 ML BOTTLE LEFTEYE SCH ×4 (00:42→17:04)
[2018-11-27] MEDS: OSMOLITE 1.2 CAL 1,000 ML LIQUID GT PRN ×2 (04:14→17:04)
[2018-11-27] MEDS: ESOMEPRAZOLE MAGNESIUM 20 MG GT SCH (05:49)
[2018-11-27] MEDS: METOCLOPRAMIDE HCL 10 MG/10 ML UDC GT SCH ×3 (05:49→21:46)
--- NOTE | 2018-11-27 07:53 | NUR ---
PT REC'D ON HT-50 VENT, SETTINGS AC16 550VT 2L O2 BLEED-IN PEEP+5. PT VENT'D VIA TRACHEOSTOMY TUBE, SHILEY 8, TRACH CUFF INFLATED, NO LEAK PRESENT, MINIMAL OCCLUDING VOLUME TECH USED, TRACH IS IN PLACE, PATENT AND SECURED WITH TRACH TIES. NO S/S OF SOB/DISTRESS NOTED AT THIS TIME. SXN'D SM/MOD THICK YELLOWISH SECRETIONS. BVM AND BACK UP TRACH AT BEDSIDE. ALARMS AUDIBLE, CHECKED AND RESET. PPE USED. WILL CONTINUE TO MONITOR AND REPORT ANY CHANGES.
[2018-11-27] MEDS: POLYVINYL ALCOHOL OPHT DROPS 15 ML BOTTLE EACHEYE SCH ×2 (08:01→20:38)
[2018-11-27] MEDS: ATENOLOL 25 MG TABLET GT SCH (08:01)
[2018-11-27] MEDS: ENOXAPARIN SODIUM 40 MG/0.4 ML DISP.SYRIN SQ SCH (08:01)
[2018-11-27] MEDS: LISINOPRIL 20 MG TABLET GT SCH (08:01)
[2018-11-27] MEDS: LEVETIRACETAM 500 MG/5 ML LIQUID UDC GT SCH ×2 (08:01→20:38)
[2018-11-27] MEDS: HYDROGEN PEROXIDE 3% 118 ML BOTTLE TP SCH ×2 (08:02→20:38)
[2018-11-27] MEDS: Z GUARD REMEDY PASTE 57 GM TUBE TOP SCH ×2 (08:02→20:38)
[2018-11-27 12:23] VITALS: BP 132/74
--- NOTE | 2018-11-27 19:03 | NUR ---
RECEIVED PT ON CONTINUOUS MECHANICAL VENTILATION. CURRENT SETTINGS ARE AC 16, VT 550, PEEP +5, O2 2LPM BLEED IN. PT APPEARS TO BE TOLERATING VENT SETTINGS AT THIS TIME. TRACH IS PATENT AND SECURED WITH FOAM TRACH TIES. HME CHANGED. SUCTIONED MODERATE AMOUNT OF THICK, YELLOWISH. BVM AND BACK UP TRACH ARE AT BEDSIDE. VENT ALARMS CHECKED, ARE ON AND FUNCTIONING PROPERLY. VENT IS PLUGGED INTO RED EMERGENCY OUTLET. PT SHOWING NO S/S OF RESPIRATORY DISTRESS AT THIS TIME. WILL CONTINUE TO MONITOR PATIENT THROUGHOUT SHIFT.
[2018-11-27 20:33] VITALS: BP 118/64
--- NOTE | 2018-11-27 22:34 | NUR ---
Still with redness on left eye, remains on Ciloxan eye drops for conjunctivitis, no adverse reactions noted. No discharges noted from left eye,good eye care done, afebrile, kept clean and comfortable.
[2018-11-28] MEDS: CIPROFLOXACIN 0.3% OPHT DROP 2.5 ML BOTTLE LEFTEYE SCH ×4 (00:22→17:00)
[2018-11-28] MEDS: METOCLOPRAMIDE HCL 10 MG/10 ML UDC GT SCH ×3 (05:18→21:53)
[2018-11-28] MEDS: ESOMEPRAZOLE MAGNESIUM 20 MG GT SCH (05:18)
[2018-11-28] MEDS: OSMOLITE 1.2 CAL 1,000 ML LIQUID GT PRN ×2 (06:00→22:46)
[2018-11-28] MEDS: POLYVINYL ALCOHOL OPHT DROPS 15 ML BOTTLE EACHEYE SCH ×2 (08:14→20:42)
[2018-11-28] MEDS: LEVETIRACETAM 500 MG/5 ML LIQUID UDC GT SCH ×2 (08:15→20:42)
[2018-11-28] MEDS: LISINOPRIL 20 MG TABLET GT SCH (08:15)
[2018-11-28] MEDS: ATENOLOL 25 MG TABLET GT SCH (08:15)
[2018-11-28] MEDS: HYDROGEN PEROXIDE 3% 118 ML BOTTLE TP SCH ×2 (08:17→20:43)
[2018-11-28] MEDS: Z GUARD REMEDY PASTE 57 GM TUBE TOP SCH ×2 (08:17→20:43)
[2018-11-28] MEDS: ENOXAPARIN SODIUM 40 MG/0.4 ML DISP.SYRIN SQ SCH (08:17)
--- NOTE | 2018-11-28 10:44 | NUR ---
SEEN BY DR. ACOSTA (NEUROLOGIST)AND WITH NEW ORDERS CARRIED OUT.
--- NOTE | 2018-11-28 11:25 | NUR ---
Pt received on continuous mechanical ventilation via trach, in semi fried's, obtunded, and unable to communicate. Pt is on [place] HT-50 vent with ordered settings of A/C-16, VT-550, PEEP+5, 2LPM Bleed-in oxygen. Tolerating vent settings well. SpO2-99%. Sxn'd & lavaged as needed. Suctioned small amts of thick pale yellowish secretions. Khushboo 8 DFEN trach is patent and secured. Minimal occluding volume technique used to assess cuff inflation. HME changed. PPE used. No signs or symptoms of respiratory distress noted. Ventilator alarm parameters checked, on and audible. Bag/valve/mask and back up trach at bedside. Vent plugged into red emergency outlet. Will continue to monitor.
[2018-11-28 11:37] VITALS: BP 100/45
[2018-11-28] MEDS: LORAZEPAM 2 MG PO PRN (11:49)
[2018-11-28] MEDS ORDERED: LORAZEPAM 1 MG TABLET GT ONE (12:24)
--- NOTE | 2018-11-28 20:02 | NUR ---
Received pt on HT-50 ventilator with the following settings of AC-16, Vt-550, PEEP+5, FIO2-30%, trached with Shiley#8 DFEN trach, which is in the place and secure properly. No respiratory distress noted. Airway care done, pt responded to physical stimuli. Resus. bag and back up trach at bedside. Vent and alarms checked and reset. Addendum: 12/01/18 at 0527 by COLTON LIZAMA RT FIO2 2LPM bleed-in.
[2018-11-28 20:29] VITALS: BP 123/65
[2018-11-29] MEDS: CIPROFLOXACIN 0.3% OPHT DROP 2.5 ML BOTTLE LEFTEYE SCH ×4 (00:54→17:01)
[2018-11-29] MEDS: ESOMEPRAZOLE MAGNESIUM 20 MG GT SCH (05:45)
[2018-11-29] MEDS: METOCLOPRAMIDE HCL 10 MG/10 ML UDC GT SCH ×3 (05:45→22:36)
--- NOTE | 2018-11-29 07:50 | NUR ---
PT RECEIVED ON HT-50 VENTILATOR TOLERATING CURRENT VENT SETTINGS FINE SHOWING NO SIGNS OF RESPIRATORY DISTRESS. TRACH IS PROPERLY SECURED AND INTACT. AIRWAY IS PATENT. BREATH SOUNDS RHONCHI. PRN SUCTIONING PERFORMED NEEDED. PT HAD MODERATE AMOUNT OF OFF WHITE YELLOWISH SECRETIONS. HEAD OF THE BED ELEVATED GREATER THAN 30 DEGREE ANGLE. VENT ALARM SET AND AUDIBLE. VENT PLUGGED IN RED OUTLET. PT COMFORTABLE
[2018-11-29 08:00] VITALS: BP 118/67
[2018-11-29] MEDS: ATENOLOL 25 MG TABLET GT SCH (09:00)
[2018-11-29] MEDS: POLYVINYL ALCOHOL OPHT DROPS 15 ML BOTTLE EACHEYE SCH ×2 (09:04→20:22)
[2018-11-29] MEDS: LEVETIRACETAM 500 MG/5 ML LIQUID UDC GT SCH ×2 (09:04→20:22)
[2018-11-29] MEDS: LISINOPRIL 20 MG TABLET GT SCH (09:05)
[2018-11-29] MEDS: HYDROGEN PEROXIDE 3% 118 ML BOTTLE TP SCH ×2 (09:06→20:23)
[2018-11-29] MEDS: ENOXAPARIN SODIUM 40 MG/0.4 ML DISP.SYRIN SQ SCH (09:06)
[2018-11-29] MEDS: Z GUARD REMEDY PASTE 57 GM TUBE TOP SCH ×2 (09:06→20:23)
[2018-11-29] MEDS: OSMOLITE 1.2 CAL 1,000 ML LIQUID GT PRN (14:15)
--- NOTE | 2018-11-29 20:00 | NUR ---
Pt received on HT-50 ventilator with the following settings of AC 16, VT 550, Peep +5, FiO2 2LPM O2 Bleed-in, no changes to vent settings made at this time. Pt's trach is secured and patent. Pt tolerating vent settings well, no signs and symptoms of respiratory distress noted. Suctioned pt with moderate amount of thick pale-yellowish secretions. Changed HME. Vent alarms functioning and audible. Ambu-bag and back-up trach at bedside. Vent plugged in red outlet. Will continue to monitor pt throughout shift.
[2018-11-29 20:14] VITALS: BP 117/57
[2018-11-30] MEDS: METOCLOPRAMIDE HCL 10 MG/10 ML UDC GT SCH ×3 (06:27→21:52)
[2018-11-30] MEDS: ESOMEPRAZOLE MAGNESIUM 20 MG GT SCH (06:27)
[2018-11-30] MEDS: CIPROFLOXACIN 0.3% OPHT DROP 2.5 ML BOTTLE LEFTEYE SCH ×4 (06:27→17:35)
[2018-11-30 08:00] VITALS: BP 125/66
[2018-11-30] MEDS: LEVETIRACETAM 500 MG/5 ML LIQUID UDC GT SCH ×2 (08:33→20:58)
[2018-11-30] MEDS: LISINOPRIL 20 MG TABLET GT SCH (08:33)
[2018-11-30] MEDS: ATENOLOL 25 MG TABLET GT SCH (08:33)
[2018-11-30] MEDS: POLYVINYL ALCOHOL OPHT DROPS 15 ML BOTTLE EACHEYE SCH ×2 (08:33→20:58)
[2018-11-30] MEDS: HYDROGEN PEROXIDE 3% 118 ML BOTTLE TP SCH ×2 (08:34→20:58)
[2018-11-30] MEDS: Z GUARD REMEDY PASTE 57 GM TUBE TOP SCH ×2 (08:34→20:58)
[2018-11-30] MEDS: ENOXAPARIN SODIUM 40 MG/0.4 ML DISP.SYRIN SQ SCH (08:34)
[2018-11-30] MEDS: OSMOLITE 1.2 CAL 1,000 ML LIQUID GT PRN ×2 (08:36→23:12)
--- NOTE | 2018-11-30 16:16 | NUR ---
SEEN BY ELÍAS PITTMAN.
--- NOTE | 2018-11-30 18:05 | NUR ---
STABLE WITH NO DISTRESS OBSERVED ALL DAY. NO NEW ORDER RECEIVED. SUCTIONED PRN FOR SMALL AMOUNT OF THICK PALE YELLOW SECRETIONS. CHANGED HUMIDIFIER FILTER.
[2018-11-30 20:00] VITALS: BP 134/58
--- NOTE | 2018-11-30 20:02 | NUR ---
Received pt on HT-50 ventilator with the following settings of AC-16, Vt-550, PEEP+5, FIO2-30%, trached with Shiley#8 DFEN trach, which is in the place and secure properly. No distress noted. Airway care done, pt responded to physical stimuli. HME changed. Resus. bag and back up trach at bedside. Vent and alarms checked and reset. Addendum: 12/01/18 at 0526 by COLTON LIZAMA RT FIO2 2LPM bleed-in.
[2018-12-01] MEDS: CIPROFLOXACIN 0.3% OPHT DROP 2.5 ML BOTTLE LEFTEYE SCH ×4 (00:47→17:57)
[2018-12-01] MEDS: METOCLOPRAMIDE HCL 10 MG/10 ML UDC GT SCH ×3 (05:50→22:07)
[2018-12-01] MEDS: ESOMEPRAZOLE MAGNESIUM 20 MG GT SCH (05:50)
[2018-12-01 08:00] VITALS: BP 157/93
--- NOTE | 2018-12-01 08:00 | NUR ---
PT ON HT-50 VENT SETTINGS ARE AC 16, Vt 550, +5, FIO2-30%, TOLERATING WELL ON CURRENT VENT SETTINGS, NO SOB. SHILEY 8 TRACH IS INTACT AND SECURED WITH TIES. PT CUFF CHECKED WITH CONDENSER TUBE TENDER.PT WAS SUCTIONED SMALL AMOUNT OF THICK SECRETION OBTAIN. HME CHANGED.PT VENT ALARMS ARE ON AND AUDIBLE. BVM AND BACK UP TRACH AT BEDSIDE. WILL CONTINUE TO MONITOR.
[2018-12-01] MEDS: ENOXAPARIN SODIUM 40 MG/0.4 ML DISP.SYRIN SQ SCH (08:35)
[2018-12-01] MEDS: POLYVINYL ALCOHOL OPHT DROPS 15 ML BOTTLE EACHEYE SCH ×2 (08:50→20:49)
[2018-12-01] MEDS: LEVETIRACETAM 500 MG/5 ML LIQUID UDC GT SCH ×2 (08:50→20:49)
[2018-12-01] MEDS: LISINOPRIL 20 MG TABLET GT SCH (08:52)
[2018-12-01] MEDS: Z GUARD REMEDY PASTE 57 GM TUBE TOP SCH ×2 (08:53→20:50)
[2018-12-01] MEDS: HYDROGEN PEROXIDE 3% 118 ML BOTTLE TP SCH ×2 (08:53→20:50)
[2018-12-01] MEDS: ATENOLOL 25 MG TABLET GT SCH (08:53)
[2018-12-01] MEDS: OSMOLITE 1.2 CAL 1,000 ML LIQUID GT PRN (17:55)
--- NOTE | 2018-12-01 20:00 | NUR ---
Received pt on HT-50 ventilator with current settings of AC 16, VT 550, Peep +5, FiO2 2LPM O2 Bleed-in, no changes to vent settings made at this time. Pt's trach is secured and patent. Pt tolerating vent settings well, no signs and symptoms of respiratory distress noted. Suctioned pt with moderate amount of thick pale-yellowish secretions. Changed HME. Vent alarms functioning and audible. Ambu-bag and back-up trach at bedside. Vent plugged in red outlet. Will continue to monitor pt throughout shift.
--- NOTE | 2018-12-01 20:07 | NUR ---
SEEN BY DR. MILDRED PITTMAN.
[2018-12-01 21:02] VITALS: BP 135/66
[2018-12-02] MEDS: CIPROFLOXACIN 0.3% OPHT DROP 2.5 ML BOTTLE LEFTEYE SCH ×4 (00:19→17:01)
[2018-12-02] MEDS: METOCLOPRAMIDE HCL 10 MG/10 ML UDC GT SCH ×3 (05:42→22:06)
[2018-12-02] MEDS: ESOMEPRAZOLE MAGNESIUM 20 MG GT SCH (05:42)
[2018-12-02 08:00] VITALS: BP 130/76
[2018-12-02] MEDS: POLYVINYL ALCOHOL OPHT DROPS 15 ML BOTTLE EACHEYE SCH ×2 (08:34→20:32)
[2018-12-02] MEDS: LEVETIRACETAM 500 MG/5 ML LIQUID UDC GT SCH ×2 (08:34→20:32)
[2018-12-02] MEDS: LISINOPRIL 20 MG TABLET GT SCH (08:35)
[2018-12-02] MEDS: ATENOLOL 25 MG TABLET GT SCH (08:36)
[2018-12-02] MEDS: Z GUARD REMEDY PASTE 57 GM TUBE TOP SCH ×2 (08:36→20:33)
[2018-12-02] MEDS: HYDROGEN PEROXIDE 3% 118 ML BOTTLE TP SCH ×2 (08:38→20:33)
[2018-12-02] MEDS: ENOXAPARIN SODIUM 40 MG/0.4 ML DISP.SYRIN SQ SCH (08:38)
[2018-12-02] MEDS: OSMOLITE 1.2 CAL 1,000 ML LIQUID GT PRN (12:00)
--- NOTE | 2018-12-02 16:14 | NUR ---
LESIA spoke with patient's daughter Alexander [phone] and informed her that the next IDT meeting for the patient is schedule for 12/11/18 at 11am. Gilbertarjunrufina stated that she would not be able to attend the meeting this time. LESIA told Alexander that she would notify her of future meetings, and Alexander agreed.
--- NOTE | 2018-12-02 19:05 | NUR ---
PT RECEIVED ON HT-50 VENTILATOR WITH SETTINGS OF AC 16, VT 550, PEEP +5, O2 2LPM BLEED IN. PT APPEARS TO BE TOLERATING VENT SETTINGS AT THIS TIME. NO CHANGES MADE. TRACH IS PATENT AND SECURED WITH FOAM TRACH TIES. HME CHANGED. SUCTIONED MODERATE AMOUNT OF THICK, YELLOWISH SECRETIONS. AMBU BAG AND BACK UP TRACH ARE AT BEDSIDE. VENT ALARMS CHECKED, ARE ON AND FUNCTIONING PROPERLY. VENT IS PLUGGED INTO RED EMERGENCY OUTLET. PT SHOWING NO S/S OF RESPIRATORY DISTRESS AT THIS TIME. WILL CONTINUE TO MONITOR PATIENT THROUGHOUT SHIFT.
[2018-12-02 20:05] VITALS: BP 139/80
[2018-12-03] VITALS: BP 115/77
[2018-12-03] MEDS: CIPROFLOXACIN 0.3% OPHT DROP 2.5 ML BOTTLE LEFTEYE SCH ×4 (00:13→17:16)
--- NOTE | 2018-12-03 00:20 | NUR ---
Still on ciloxon eye drop for left eye conjunctivitis, no adverse reactions noted, left eye with slight redness, no discharges noted, good eye care done, kept patient clean and comfortable.
[2018-12-03] MEDS: OSMOLITE 1.2 CAL 1,000 ML LIQUID GT PRN ×2 (04:14→22:01)
[2018-12-03 05:04] VITALS: BP 106/67
[2018-12-03] MEDS: ESOMEPRAZOLE MAGNESIUM 20 MG GT SCH (05:51)
[2018-12-03] MEDS: METOCLOPRAMIDE HCL 10 MG/10 ML UDC GT SCH ×3 (05:51→21:47)
--- NOTE | 2018-12-03 07:19 | NUR ---
PT ON HT-50 VENT, SETTINGS AC 16, Vt 550, +5, 2 LPM O2 BLEED IN. SHILEY 8 TRACH IS PATENT AND SECURED WITH TIES, SITE IS CLEAN AND DRY. BACK UP TRACH AND BVM AT BEDSIDE. NO S/S OF RESPIRATORY DISTRESS, TOLERATING VENT SETTINGS WELL. SUCTIONED MODERATE AMOUNT OF YELLOW THICK SECRETIONS. VENT ALARMS ARE ON AND AUDIBLE. WILL CONTINUE TO MONITOR.
[2018-12-03 08:00] VITALS: BP 110/67
[2018-12-03] MEDS: POLYVINYL ALCOHOL OPHT DROPS 15 ML BOTTLE EACHEYE SCH ×2 (08:53→20:27)
[2018-12-03] MEDS: ATENOLOL 25 MG TABLET GT SCH (08:53)
[2018-12-03] MEDS: LEVETIRACETAM 500 MG/5 ML LIQUID UDC GT SCH ×2 (08:53→20:27)
[2018-12-03] MEDS: LISINOPRIL 20 MG TABLET GT SCH (08:53)
[2018-12-03] MEDS: HYDROGEN PEROXIDE 3% 118 ML BOTTLE TP SCH ×2 (08:54→20:27)
[2018-12-03] MEDS: Z GUARD REMEDY PASTE 57 GM TUBE TOP SCH ×2 (08:54→20:27)
[2018-12-03] MEDS: ENOXAPARIN SODIUM 40 MG/0.4 ML DISP.SYRIN SQ SCH (08:54)
--- NOTE | 2018-12-03 19:08 | NUR ---
RECEIVED PT ON CONTINUOUS MECHANICAL VENTILATION. CURRENT VENT SETTINGS ARE AC 16, VT 550, PEEP +5, O2 2LPM BLEED IN. PT APPEARS TO BE TOLERATING VENT SETTINGS. NO CHANGES MADE AT THIS TIME. TRACH IS PATENT AND SECURED WITH FOAM TRACH TIES. HME CHANGED. VENT CIRCUIT TO BE CHANGED AFTER MIDNIGHT. SUCTIONED MODERATE AMOUNT OF THICK, YELLOWISH SECRETIONS. AMBU BAG AND BACK UP TRACH ARE AT BEDSIDE. VENT ALARMS CHECKED, ARE ON AND AUDIBLE. VENT IS PLUGGED INTO RED EMERGENCY OUTLET. PT SHOWING NO S/S OF RESPIRATORY DISTRESS AT THIS TIME. WILL CONTINUE TO MONITOR PATIENT.
[2018-12-03 20:23] VITALS: BP 128/57
[2018-12-04] VITALS: BP 131/70
[2018-12-04] MEDS: CIPROFLOXACIN 0.3% OPHT DROP 2.5 ML BOTTLE LEFTEYE SCH ×4 (00:21→17:01)
--- NOTE | 2018-12-04 01:59 | NUR ---
Still on ciloxon eye drops for left eye conjunctivitis, no adverse reactions noted, no drainage noted. Good eye care done. Kept clean and comfortable.
[2018-12-04] MEDS: ESOMEPRAZOLE MAGNESIUM 20 MG GT SCH (05:30)
[2018-12-04] MEDS: METOCLOPRAMIDE HCL 10 MG/10 ML UDC GT SCH ×3 (05:30→21:55)
[2018-12-04 05:37] VITALS: BP 136/68
[2018-12-04 08:00] VITALS: BP 114/61
[2018-12-04] MEDS: POLYVINYL ALCOHOL OPHT DROPS 15 ML BOTTLE EACHEYE SCH ×2 (08:11→20:42)
[2018-12-04] MEDS: LISINOPRIL 20 MG TABLET GT SCH (08:12)
[2018-12-04] MEDS: ATENOLOL 25 MG TABLET GT SCH (08:12)
[2018-12-04] MEDS: LEVETIRACETAM 500 MG/5 ML LIQUID UDC GT SCH ×2 (08:12→20:42)
[2018-12-04] MEDS: Z GUARD REMEDY PASTE 57 GM TUBE TOP SCH ×2 (08:13→20:42)
[2018-12-04] MEDS: HYDROGEN PEROXIDE 3% 118 ML BOTTLE TP SCH ×2 (08:13→20:42)
[2018-12-04] MEDS: ENOXAPARIN SODIUM 40 MG/0.4 ML DISP.SYRIN SQ SCH (08:13)
[2018-12-04 21:04] VITALS: BP 114/60
[2018-12-05] VITALS (7 sets, daily range): BP systolic 99–146; BP diastolic 45–74
[2018-12-05] MEDS: ESOMEPRAZOLE MAGNESIUM 20 MG GT SCH (05:46)
[2018-12-05] MEDS: METOCLOPRAMIDE HCL 10 MG/10 ML UDC GT SCH ×3 (05:47→22:41)
[2018-12-05] MEDS: CIPROFLOXACIN 0.3% OPHT DROP 2.5 ML BOTTLE LEFTEYE SCH ×3 (05:47→12:20)
[2018-12-05] MEDS: ENOXAPARIN SODIUM 40 MG/0.4 ML DISP.SYRIN SQ SCH (09:31)
[2018-12-05] MEDS: POLYVINYL ALCOHOL OPHT DROPS 15 ML BOTTLE EACHEYE SCH ×2 (09:32→20:03)
[2018-12-05] MEDS: LEVETIRACETAM 500 MG/5 ML LIQUID UDC GT SCH ×2 (09:32→20:03)
[2018-12-05] MEDS: HYDROGEN PEROXIDE 3% 118 ML BOTTLE TP SCH ×2 (09:33→20:03)
[2018-12-05] MEDS: Z GUARD REMEDY PASTE 57 GM TUBE TOP SCH ×2 (09:33→20:03)
[2018-12-05] MEDS: LISINOPRIL 20 MG TABLET GT SCH (09:35)
[2018-12-05] MEDS: ATENOLOL 25 MG TABLET GT SCH (09:36)
--- NOTE | 2018-12-05 20:00 | NUR ---
Pt received on continuous mechanical ventilation via trach, in semi fried's, obtunded, and unable to communicate. Pt is on Lane HT-50 vent with ordered settings of A/C-16, VT-550, PEEP+5, 2LPM Bleed-in oxygen. Tolerating vent settings well. SpO2-98%. Sxn'd & lavaged as needed. Suctioned small amts of thick white/yellow secretions. Khushboo 8 DFEN trach is patent and secured. Minimal occluding volume technique used to assess cuff inflation. HME and in-line suction catheter changed. PPE used. No signs or symptoms of respiratory distress noted. Ventilator alarm parameters checked, on and audible. Bag/valve/mask and back up trach at bedside. Vent plugged into red emergency outlet. Will continue to monitor.
[2018-12-06 01:00] VITALS: BP 109/80
[2018-12-06 04:00] VITALS: BP 115/75
[2018-12-06] MEDS: ESOMEPRAZOLE MAGNESIUM 20 MG GT SCH (05:50)
[2018-12-06] MEDS: METOCLOPRAMIDE HCL 10 MG/10 ML UDC GT SCH ×3 (05:50→22:25)
[2018-12-06 08:00] VITALS: BP 130/70
--- NOTE | 2018-12-06 08:00 | NUR ---
PT RECEIVED ON CONTINUOUS VENT AC 16 VT 550 PEEP 5 FIO2 2LPM BLEED IN. TRACH IN PLACED AND SECURED WITH TRACH TIE. BACK UP TRACH AND AMBU BAG AT BEDSIDE. SUCTION SMALL AMOUNT THICK PALE YELLOW SECRETIONS. VENT CHECKED, ALARMS WORKING WELL AND AUDIBLE. NO SIGNS OF RESPIRATORY DISTRESS NOTED AT THIS TIME. WILL CONTINUE TO MONITOR.
[2018-12-06] MEDS: LEVETIRACETAM 500 MG/5 ML LIQUID UDC GT SCH ×2 (09:14→20:36)
[2018-12-06] MEDS: POLYVINYL ALCOHOL OPHT DROPS 15 ML BOTTLE EACHEYE SCH ×2 (09:14→20:36)
[2018-12-06] MEDS: LISINOPRIL 20 MG TABLET GT SCH (09:14)
[2018-12-06] MEDS: ATENOLOL 25 MG TABLET GT SCH (09:15)
[2018-12-06] MEDS: Z GUARD REMEDY PASTE 57 GM TUBE TOP SCH ×2 (09:15→20:36)
[2018-12-06] MEDS: HYDROGEN PEROXIDE 3% 118 ML BOTTLE TP SCH ×2 (09:15→20:36)
[2018-12-06] MEDS: ENOXAPARIN SODIUM 40 MG/0.4 ML DISP.SYRIN SQ SCH (09:18)
[2018-12-06 13:04] VITALS: BP 129/53
[2018-12-06 17:00] VITALS: BP 118/64
[2018-12-06 21:29] VITALS: BP 136/59
[2018-12-07 01:00] VITALS: BP 118/65
[2018-12-07 04:00] VITALS: BP 119/89
[2018-12-07] MEDS: ESOMEPRAZOLE MAGNESIUM 20 MG GT SCH (05:46)
[2018-12-07] MEDS: METOCLOPRAMIDE HCL 10 MG/10 ML UDC GT SCH ×3 (05:46→21:10)
--- NOTE | 2018-12-07 07:10 | NUR ---
PT ON HT-50 VENT SETTINGS ARE AC 16, Vt 550, +5, FIO2-30%, TOLERATING WELL ON CURRENT VENT SETTINGS, NO SOB. SHILEY 8 TRACH IS INTACT AND SECURED WITH TIES. PT CUFF CHECKED WITH HEART SURGEON.PT WAS SUCTIONED SMALL AMOUNT OF THICK SECRETION OBTAIN. HME CHANGED.PT VENT ALARMS ARE ON AND AUDIBLE. BVM AND BACK UP TRACH AT BEDSIDE. WILL CONTINUE TO MONITOR.
[2018-12-07 08:00] VITALS: BP 122/70
[2018-12-07] MEDS: POLYVINYL ALCOHOL OPHT DROPS 15 ML BOTTLE EACHEYE SCH ×2 (08:59→21:10)
[2018-12-07] MEDS: LEVETIRACETAM 500 MG/5 ML LIQUID UDC GT SCH ×2 (09:00→21:09)
[2018-12-07] MEDS: ATENOLOL 25 MG TABLET GT SCH (09:01)
[2018-12-07] MEDS: LISINOPRIL 20 MG TABLET GT SCH (09:01)
[2018-12-07] MEDS: Z GUARD REMEDY PASTE 57 GM TUBE TOP SCH ×2 (09:03→21:09)
[2018-12-07] MEDS: ENOXAPARIN SODIUM 40 MG/0.4 ML DISP.SYRIN SQ SCH (09:03)
[2018-12-07] MEDS: HYDROGEN PEROXIDE 3% 118 ML BOTTLE TP SCH ×2 (09:03→21:09)
[2018-12-07] MEDS: OSMOLITE 1.2 CAL 1,000 ML LIQUID GT PRN (11:32)
[2018-12-07 20:57] VITALS: BP 128/62
[2018-12-08] MEDS: ESOMEPRAZOLE MAGNESIUM 20 MG GT SCH (05:20)
[2018-12-08] MEDS: METOCLOPRAMIDE HCL 10 MG/10 ML UDC GT SCH ×3 (05:20→22:00)
[2018-12-08 08:00] VITALS: BP 111/70
[2018-12-08] MEDS: ENOXAPARIN SODIUM 40 MG/0.4 ML DISP.SYRIN SQ SCH (09:00)
[2018-12-08] MEDS: POLYVINYL ALCOHOL OPHT DROPS 15 ML BOTTLE EACHEYE SCH ×2 (09:43→21:00)
[2018-12-08] MEDS: LEVETIRACETAM 500 MG/5 ML LIQUID UDC GT SCH ×2 (09:43→21:00)
[2018-12-08] MEDS: LISINOPRIL 20 MG TABLET GT SCH (09:44)
[2018-12-08] MEDS: ATENOLOL 25 MG TABLET GT SCH (09:45)
[2018-12-08] MEDS: HYDROGEN PEROXIDE 3% 118 ML BOTTLE TP SCH ×2 (09:45→21:00)
[2018-12-08] MEDS: Z GUARD REMEDY PASTE 57 GM TUBE TOP SCH ×2 (09:45→21:00)
--- NOTE | 2018-12-08 17:34 | NUR ---
RESIDENT IS STABLE WITH O2 SATURATION OF 100% ON SETTINGS OF AC 16 VT 550 FIO2 30% AND PEEP 5. VENTILATOR IS WORKING WELL WITH ALL ALARMS ACTIVE. SUCTIONED FOR SMALL AMOUNT OF THICK PALE YELLOW SECRETIONS. CHANGED HUMIDIFIER FILTER.
[2018-12-08] MEDS: OSMOLITE 1.2 CAL 1,000 ML LIQUID GT PRN (18:11)
--- NOTE | 2018-12-08 19:30 | NUR ---
Hand-off report received per bedside rounds. Pt on vent with settings: AC 16, VT 550, Peep 5, FI02 2L/trach. Osmolyte 1.2 @ 70 mls./hr via peg tube. No s/s of distress. Continue to monitor and assist.
[2018-12-08 20:04] VITALS: BP 111/61
--- NOTE | 2018-12-08 20:20 | NUR ---
Pt received on HT-50 vent with the following settings of AC-16, Vt-550, PEEP+5, FIO2-2LPM bleed-in, trached with Shiley#8 DFEN trach, which is in the place and secure properly. No respiratory distress noted. Airway care done, pt responded to physical stimuli. Resus. bag and back up trach at bedside. Vent and alarms checked and reset.
[2018-12-09] MEDS: ESOMEPRAZOLE MAGNESIUM 20 MG GT SCH (06:32)
[2018-12-09] MEDS: METOCLOPRAMIDE HCL 10 MG/10 ML UDC GT SCH ×3 (06:33→21:12)
--- NOTE | 2018-12-09 06:45 | NUR ---
Gtube "milked" and flushed to assist in patency. Flushes well now.
--- NOTE | 2018-12-09 07:15 | NUR ---
Hand-off report given to Rod ABERNATHY per bedside rounds who assumed care of pt at this time.
--- NOTE | 2018-12-09 07:55 | NUR ---
Pt received on continuous mechanical ventilation via trach, in semi fried's, obtunded, and unable to communicate. Pt is on [place] HT-50 vent with ordered settings of A/C-16, VT-550, PEEP+5, 2LPM Bleed-in oxygen. Tolerating vent settings well. SpO2-100%. Sxn'd & lavaged as needed. Suctioned small amts of thick white/yellow secretions. Khushboo 8 DFEN trach is patent and secured. Minimal occluding volume technique used to assess cuff inflation. HME changed. PPE used. No signs or symptoms of respiratory distress noted. Ventilator alarm parameters checked, on and audible. Bag/valve/mask and back up trach at bedside. Vent plugged into red emergency outlet. Will continue to monitor.
[2018-12-09 08:00] VITALS: BP 121/63
[2018-12-09] MEDS: LEVETIRACETAM 500 MG/5 ML LIQUID UDC GT SCH ×2 (09:30→20:42)
[2018-12-09] MEDS: POLYVINYL ALCOHOL OPHT DROPS 15 ML BOTTLE EACHEYE SCH ×2 (09:30→20:41)
[2018-12-09] MEDS: LISINOPRIL 20 MG TABLET GT SCH (09:30)
[2018-12-09] MEDS: ENOXAPARIN SODIUM 40 MG/0.4 ML DISP.SYRIN SQ SCH (09:31)
[2018-12-09] MEDS: ATENOLOL 25 MG TABLET GT SCH (09:31)
[2018-12-09] MEDS: HYDROGEN PEROXIDE 3% 118 ML BOTTLE TP SCH ×2 (09:31→20:42)
[2018-12-09] MEDS: Z GUARD REMEDY PASTE 57 GM TUBE TOP SCH ×2 (09:31→20:42)
[2018-12-09 20:18] VITALS: BP 109/58
[2018-12-10] MEDS: ESOMEPRAZOLE MAGNESIUM 20 MG GT SCH (06:34)
[2018-12-10] MEDS: METOCLOPRAMIDE HCL 10 MG/10 ML UDC GT SCH ×3 (06:34→22:03)
[2018-12-10 08:00] VITALS: BP 129/61
--- NOTE | 2018-12-10 08:12 | NUR ---
Pt receive in bed, laying semi-Reece's, unable to communicate, responds to physical stimuli.. Continuous mechanical ventilation with vent: HT-50 settings: A/C 16, Vt 550, PEEP +5, FIO2 28% with 2 Lpm bleed in, tolerating settings well, no changes made to settings at this time.. Pt trach: Khushboo 8 DCT, in place and secure with tie.. No respiratory distress noted at this time, will continue to monitor.. Vent alarms functioning normally at this time / on / audible.. BVM / back up trach at bedside, vent plugged in to red emergency outlet..
[2018-12-10] MEDS: LISINOPRIL 20 MG TABLET GT SCH (09:02)
[2018-12-10] MEDS: Z GUARD REMEDY PASTE 57 GM TUBE TOP SCH ×2 (09:02→20:06)
[2018-12-10] MEDS: HYDROGEN PEROXIDE 3% 118 ML BOTTLE TP SCH ×2 (09:02→20:06)
[2018-12-10] MEDS: LEVETIRACETAM 500 MG/5 ML LIQUID UDC GT SCH ×2 (09:02→20:06)
[2018-12-10] MEDS: POLYVINYL ALCOHOL OPHT DROPS 15 ML BOTTLE EACHEYE SCH ×2 (09:02→20:06)
[2018-12-10] MEDS: ENOXAPARIN SODIUM 40 MG/0.4 ML DISP.SYRIN SQ SCH (09:02)
[2018-12-10] MEDS: ATENOLOL 25 MG TABLET GT SCH (09:02)
--- NOTE | 2018-12-10 19:55 | NUR ---
RECEIVED PATIENT ON A HT-50 VENTILATOR WITH THE FOLLOWING SETTINGS THAT ARE CHARTED ON THE MECHANICAL VENTILATOR NOTES. TRACH TUBE IS PATENT AND SECURED WITH TRACH TIES. HME CHANGED. SUCTIONED SMALL AMOUNTS OF THIN WHITE/YELLOW SECRETIONS. VENTILATOR ALARMS CHECKED AND THEY ARE ON AND AUDIBLE. VENTILATOR IS PLUGGED IN THE RED EMERGENCY OUTLET. BACK UP TRACH AND AMBU BAG IS BY BEDSIDE. PATIENT IS TOLERATING CURRENT VENTILATOR SETTINGS WELL AT THIS TIME WITH NO SIGNS OR SYMPTOMS OF RESPIRATORY DISTRESS NOTED. WILL CONTINUE TO MONITOR PATIENT.
[2018-12-10] MEDS: OSMOLITE 1.2 CAL 1,000 ML LIQUID GT PRN (20:08)
[2018-12-10 20:31] VITALS: BP 128/57
[2018-12-11] VITALS (7 sets, daily range): BP systolic 106–139; BP diastolic 58–72
[2018-12-11] MEDS: ESOMEPRAZOLE MAGNESIUM 20 MG GT SCH (05:15)
[2018-12-11] MEDS: METOCLOPRAMIDE HCL 10 MG/10 ML UDC GT SCH ×3 (05:15→21:17)
[2018-12-11] MEDS: POLYVINYL ALCOHOL OPHT DROPS 15 ML BOTTLE EACHEYE SCH ×2 (08:55→21:16)
[2018-12-11] MEDS: LEVETIRACETAM 500 MG/5 ML LIQUID UDC GT SCH ×2 (08:55→21:16)
[2018-12-11] MEDS: LISINOPRIL 20 MG TABLET GT SCH (08:55)
[2018-12-11] MEDS: ENOXAPARIN SODIUM 40 MG/0.4 ML DISP.SYRIN SQ SCH (08:56)
[2018-12-11] MEDS: HYDROGEN PEROXIDE 3% 118 ML BOTTLE TP SCH ×2 (08:56→21:17)
[2018-12-11] MEDS: ATENOLOL 25 MG TABLET GT SCH (08:56)
[2018-12-11] MEDS: Z GUARD REMEDY PASTE 57 GM TUBE TOP SCH ×2 (08:56→21:17)
[2018-12-11] MEDS: OSMOLITE 1.2 CAL 1,000 ML LIQUID GT PRN (12:13)
--- NOTE | 2018-12-11 14:35 | NUR ---
Pharmacy Update from today's 12/11/18 IDT Meeting Temp 97.6 BP 106/58 HR 68 LABS: (from 11/23/18) Wbc 5 H/H 9.3/27.2 Plt 221 Na 136 K 4.2 Cl 106 CO2 21 BUN/Scr 21/0.8 BS 88 Ca 9.6 MEDICATION USE REVIEWED: > Pt is not on any anti-psych medications > Pt is on Keppra 1000mg q 12hr since 11/18/18, no seizures reported; CrCl >100 ml/min, dose appropriate per renal fxn > Pt is on lovenox 40mg daily as of 08/26/18. Last plt 221 > Pt on lorazepam 2mg q4h prn seizures since 11/15/18 per neurology after observation of possible seizure activity. One dose given on day of order, no further doses or seizures noted. > Pt now on atenolol 25mg daily as of 11/12 (changed from coreg), lisinopril 20mg daily, hydralazine PRN SBP >160. Last BP 106/58 > Admitted on reglan 5mg q8hr for GI motility/gastroparesis. Per MD (DF), not to d/c as for gastroparesis maintenance treatment PRN MED USAGE: (Nov) Tylenol for pain/temp used x 0 Bisacodyl supp used x0 Miralax PRN used x 0 Hydralazine PRN used x 0 NEW ORDERS NOTED: > Artificial tears q12h started 11/20 > Cipro gtt to left eye q6h 11/21-12/05 for conjunctivitis > Nexium 20mg daily started (change from omeprazole) 11/12 > Atenolol 25mg daily started (change from coreg) 11/12 > Keppra 500mg q12h increased to 750mg q12h 11/15-11/28, and then to 1000mg q12h 11/28 per neurology d/t assessment of rhythmical eye movements on 11/15/18 as possible seizure activity. No further seizures noted after titration > Ativan 2mg prn seizures added per neurology as well. one dose used 11/15, no further seizures noted after dose > Zofran prn d/c'd 11/18 Patient reviewed and discussed in detail at IDT, all medication changes and issues reported including recent neurology changes d/t possible seizure activity. Since adjustments, no further seizures noted by staff. No further recs at this time, otherwise condition unchanged. Will continue to follow
--- NOTE | 2018-12-11 16:20 | NUR ---
INTERDISCIPLINARY PLAN OF CARE CONFERENCE was held today. Patient's family was invited to the meeting, but they were not able to attend. Dr. Muro and the Interdisciplinary Team reviewed the current plan of care in detail. RN reported on patient's medical condition and recent changes in some medications. No major medical changes were reported. See RN IDT conference notes. See also all other disciplines IDT notes and physician's progress notes for additional details.
[2018-12-12 01:19] VITALS: BP 144/60
[2018-12-12] MEDS: OSMOLITE 1.2 CAL 1,000 ML LIQUID GT PRN ×2 (04:28→18:00)
[2018-12-12 05:42] VITALS: BP 116/52
[2018-12-12] MEDS: ESOMEPRAZOLE MAGNESIUM 20 MG GT SCH (05:42)
[2018-12-12] MEDS: METOCLOPRAMIDE HCL 10 MG/10 ML UDC GT SCH ×3 (05:42→21:33)
[2018-12-12 08:05] VITALS: BP 128/61
[2018-12-12] MEDS: LISINOPRIL 20 MG TABLET GT SCH (09:00)
[2018-12-12] MEDS: LEVETIRACETAM 500 MG/5 ML LIQUID UDC GT SCH ×2 (09:00→20:41)
[2018-12-12] MEDS: ENOXAPARIN SODIUM 40 MG/0.4 ML DISP.SYRIN SQ SCH (09:00)
[2018-12-12] MEDS: Z GUARD REMEDY PASTE 57 GM TUBE TOP SCH ×2 (09:00→20:41)
[2018-12-12] MEDS: HYDROGEN PEROXIDE 3% 118 ML BOTTLE TP SCH ×2 (09:00→20:41)
[2018-12-12] MEDS: POLYVINYL ALCOHOL OPHT DROPS 15 ML BOTTLE EACHEYE SCH ×2 (09:00→20:40)
[2018-12-12] MEDS: ATENOLOL 25 MG TABLET GT SCH (09:00)
--- NOTE | 2018-12-12 18:11 | NUR ---
performed q 4 hour bp checks for pt 0700 128/61 , 1200 132/68, 1600 126/61 , no s/s of distress noted, no adverse reactions to medication noted, will continue to monitor , pt resting comfortably in bed
[2018-12-12 20:14] VITALS: BP 113/53
[2018-12-13] VITALS: BP 110/62
[2018-12-13 05:08] VITALS: BP 141/56
[2018-12-13] MEDS: ESOMEPRAZOLE MAGNESIUM 20 MG GT SCH (05:15)
[2018-12-13] MEDS: METOCLOPRAMIDE HCL 10 MG/10 ML UDC GT SCH ×3 (05:15→22:16)
[2018-12-13 08:05] VITALS: BP 112/54
[2018-12-13] MEDS: POLYVINYL ALCOHOL OPHT DROPS 15 ML BOTTLE EACHEYE SCH ×2 (09:14→20:49)
[2018-12-13] MEDS: LEVETIRACETAM 500 MG/5 ML LIQUID UDC GT SCH ×2 (09:14→20:49)
[2018-12-13] MEDS: Z GUARD REMEDY PASTE 57 GM TUBE TOP SCH ×2 (09:16→20:49)
[2018-12-13] MEDS: LISINOPRIL 20 MG TABLET GT SCH (09:16)
[2018-12-13] MEDS: ATENOLOL 25 MG TABLET GT SCH (09:16)
[2018-12-13] MEDS: HYDROGEN PEROXIDE 3% 118 ML BOTTLE TP SCH ×2 (09:16→20:49)
[2018-12-13] MEDS: ENOXAPARIN SODIUM 40 MG/0.4 ML DISP.SYRIN SQ SCH (09:20)
--- NOTE | 2018-12-13 20:17 | NUR ---
Pt received on HT-50 vent with the following settings of AC-16, Vt-550, PEEP+5, FIO2-2LPM bleed-in, trached with Shiley#8 DFEN trach, which is in the place and secure properly. No s/s of respiratory distress noted. Airway care done, pt responded to physical stimuli. HME changed. Resus. bag and back up trach at bedside. Vent and alarms checked and reset.
[2018-12-13 20:36] VITALS: BP 123/58
[2018-12-14 03:21] VITALS: BP 142/80
[2018-12-14 05:19] VITALS: BP 144/62
[2018-12-14] MEDS: ESOMEPRAZOLE MAGNESIUM 20 MG GT SCH (05:42)
[2018-12-14] MEDS: METOCLOPRAMIDE HCL 10 MG/10 ML UDC GT SCH ×3 (05:42→21:07)
[2018-12-14 08:15] VITALS: BP 160/77
[2018-12-14] MEDS: POLYVINYL ALCOHOL OPHT DROPS 15 ML BOTTLE EACHEYE SCH ×2 (08:37→21:07)
[2018-12-14] MEDS: LEVETIRACETAM 500 MG/5 ML LIQUID UDC GT SCH ×2 (08:37→21:07)
[2018-12-14] MEDS: LISINOPRIL 20 MG TABLET GT SCH (08:38)
[2018-12-14] MEDS: ATENOLOL 25 MG TABLET GT SCH (08:39)
[2018-12-14] MEDS: Z GUARD REMEDY PASTE 57 GM TUBE TOP SCH ×2 (08:40→21:07)
[2018-12-14] MEDS: HYDROGEN PEROXIDE 3% 118 ML BOTTLE TP SCH ×2 (08:40→21:07)
[2018-12-14] MEDS: ENOXAPARIN SODIUM 40 MG/0.4 ML DISP.SYRIN SQ SCH (08:42)
--- NOTE | 2018-12-14 13:41 | NUR ---
SEEN BY ELÍAS PITTMAN.
--- NOTE | 2018-12-14 14:00 | NUR ---
SEEN BY DR. REED [facility].
[2018-12-14 18:30] VITALS: BP 120/60
--- NOTE | 2018-12-14 18:30 | NUR ---
TEMP. RECTALLY 92.2F ,SOBIA HUGGER BLANKET APPLIED ORDERED.
--- NOTE | 2018-12-14 20:00 | NUR ---
temp- 92.5at 1999, orestes owens on, 2400-97.5, no respiratory distress noted.
[2018-12-14 23:31] VITALS: BP 139/62
[2018-12-15 02:17] VITALS: BP 115/50
[2018-12-15 05:36] VITALS: BP 128/55
[2018-12-15] MEDS: METOCLOPRAMIDE HCL 10 MG/10 ML UDC GT SCH ×3 (06:11→21:47)
[2018-12-15] MEDS: ESOMEPRAZOLE MAGNESIUM 20 MG GT SCH (06:11)
[2018-12-15] MEDS: OSMOLITE 1.2 CAL 1,000 ML LIQUID GT PRN (06:58)
[2018-12-15] MEDS: LEVETIRACETAM 500 MG/5 ML LIQUID UDC GT SCH ×2 (09:03→20:35)
[2018-12-15] MEDS: POLYVINYL ALCOHOL OPHT DROPS 15 ML BOTTLE EACHEYE SCH ×2 (09:03→20:34)
[2018-12-15] MEDS: ATENOLOL 25 MG TABLET GT SCH (09:04)
[2018-12-15] MEDS: LISINOPRIL 20 MG TABLET GT SCH (09:04)
[2018-12-15] MEDS: HYDROGEN PEROXIDE 3% 118 ML BOTTLE TP SCH ×2 (09:05→20:35)
[2018-12-15] MEDS: Z GUARD REMEDY PASTE 57 GM TUBE TOP SCH ×2 (09:05→20:35)
[2018-12-15] MEDS: ENOXAPARIN SODIUM 40 MG/0.4 ML DISP.SYRIN SQ SCH (09:06)
[2018-12-15 13:07] VITALS: BP 133/71
--- NOTE | 2018-12-15 16:29 | NUR ---
11:45pm: LESIA met with patient's Lisa, who was inquiring about the possibility of meeting with patient's doctor to discuss his prognosis. Lisa expressed feeling overwhelmed with feelings related to patient's condition. Lisa became tearful; SW allowed time for Lisa to express her thoughts and feelings, and provided supportive counseling. LESIA then stated that she will work with subacute director Norman Aguila to coordinate contact with patient's physician. Lisa agreed. LESIA then met with Norman and discussed above request. Both Norman and this SW agreed to contact Dr. Galvan, and LESIA texted him at 12:09pm today informing him of patient's 's request to meet with him to discuss patient's prognosis. financial sales manager Alyson also informed of above.
--- NOTE | 2018-12-15 18:22 | NUR ---
PT. WAS SEEN AND EXAMINED BY NEUROLOGIST DR. ACOSTA AND SPOKE TO PT'S THAT WAS VISITING PT. AT THIS TIME AND NNO.
[2018-12-15 20:19] VITALS: BP 126/64
[2018-12-16] MEDS: OSMOLITE 1.2 CAL 1,000 ML LIQUID GT PRN ×2 (01:16→17:05)
[2018-12-16] MEDS: ESOMEPRAZOLE MAGNESIUM 20 MG GT SCH (05:28)
[2018-12-16] MEDS: METOCLOPRAMIDE HCL 10 MG/10 ML UDC GT SCH ×3 (05:28→21:30)
[2018-12-16 08:34] VITALS: BP 121/71
[2018-12-16] MEDS: ATENOLOL 25 MG TABLET GT SCH (09:00)
[2018-12-16] MEDS: Z GUARD REMEDY PASTE 57 GM TUBE TOP SCH ×2 (09:00→20:39)
[2018-12-16] MEDS: ENOXAPARIN SODIUM 40 MG/0.4 ML DISP.SYRIN SQ SCH (09:00)
[2018-12-16] MEDS: LEVETIRACETAM 500 MG/5 ML LIQUID UDC GT SCH ×2 (09:00→20:39)
[2018-12-16] MEDS: LISINOPRIL 20 MG TABLET GT SCH (09:00)
[2018-12-16] MEDS: HYDROGEN PEROXIDE 3% 118 ML BOTTLE TP SCH ×2 (09:00→20:39)
[2018-12-16] MEDS: POLYVINYL ALCOHOL OPHT DROPS 15 ML BOTTLE EACHEYE SCH ×2 (09:56→20:39)
[2018-12-16 12:24] VITALS: BP 118/76
[2018-12-16 17:01] VITALS: BP 129/82
--- NOTE | 2018-12-16 20:55 | NUR ---
Received pt awake, on HT-50 vent with the following settings of AC-16, Vt-550, PEEP+5, FIO2-2LPM bleed-in, trached with Shiley#8 DFEN trach, which is in the place and secure properly. No respiratory distress noted. Airway care done, pt responded to physical stimuli. Family member was in the room. Resus. bag and back up trach at bedside. Vent and alarms checked and reset.
[2018-12-16 21:09] VITALS: BP 130/61
[2018-12-17] MEDS: OSMOLITE 1.2 CAL 1,000 ML LIQUID GT PRN (06:00)
[2018-12-17] MEDS: METOCLOPRAMIDE HCL 10 MG/10 ML UDC GT SCH ×3 (06:00→21:13)
[2018-12-17] MEDS: ESOMEPRAZOLE MAGNESIUM 20 MG GT SCH (06:00)
[2018-12-17 07:56] VITALS: BP 138/67
[2018-12-17] MEDS: POLYVINYL ALCOHOL OPHT DROPS 15 ML BOTTLE EACHEYE SCH ×2 (08:59→21:13)
[2018-12-17] MEDS: LEVETIRACETAM 500 MG/5 ML LIQUID UDC GT SCH ×2 (09:00→21:13)
[2018-12-17] MEDS: LISINOPRIL 20 MG TABLET GT SCH (09:00)
[2018-12-17] MEDS: ATENOLOL 25 MG TABLET GT SCH (09:01)
[2018-12-17] MEDS: Z GUARD REMEDY PASTE 57 GM TUBE TOP SCH ×2 (09:01→21:00)
[2018-12-17] MEDS: HYDROGEN PEROXIDE 3% 118 ML BOTTLE TP SCH ×2 (09:02→21:00)
[2018-12-17] MEDS: ENOXAPARIN SODIUM 40 MG/0.4 ML DISP.SYRIN SQ SCH (09:02)
[2018-12-17 13:00] VITALS: BP 133/72
[2018-12-17 17:04] VITALS: BP 122/65
[2018-12-17 19:59] VITALS: BP 131/57
--- NOTE | 2018-12-17 20:05 | NUR ---
Pt received on continuous mechanical ventilation via trach, in semi fried's, obtunded, and unable to communicate. Pt is on [place] HT-50 vent with ordered settings of A/C-16, VT-550, PEEP+5, 2LPM Bleed-in oxygen. Tolerating vent settings well. SpO2-98%. Sxn'd & lavaged as needed. Suctioned small amts of thick yellowish secretions. Carlyley 8 DFEN trach is patent and secured. Minimal occluding volume technique used to assess cuff inflation. HME changed. PPE used. No signs or symptoms of respiratory distress noted. Ventilator alarm parameters checked, on and audible. Bag/valve/mask and back up trach at bedside. Vent plugged into red emergency outlet. Will continue to monitor.
[2018-12-18 01:00] VITALS: BP 133/54
[2018-12-18] MEDS: OSMOLITE 1.2 CAL 1,000 ML LIQUID GT PRN ×2 (01:00→13:45)
[2018-12-18] MEDS: METOCLOPRAMIDE HCL 10 MG/10 ML UDC GT SCH ×3 (06:01→21:51)
[2018-12-18] MEDS: ESOMEPRAZOLE MAGNESIUM 20 MG GT SCH (06:01)
[2018-12-18] MEDS: ATENOLOL 25 MG TABLET GT SCH (09:00)
[2018-12-18 09:13] VITALS: BP 135/69
[2018-12-18] MEDS: LEVETIRACETAM 500 MG/5 ML LIQUID UDC GT SCH ×2 (09:16→21:52)
[2018-12-18] MEDS: POLYVINYL ALCOHOL OPHT DROPS 15 ML BOTTLE EACHEYE SCH ×2 (09:16→21:50)
[2018-12-18] MEDS: LISINOPRIL 20 MG TABLET GT SCH (09:17)
[2018-12-18] MEDS: ENOXAPARIN SODIUM 40 MG/0.4 ML DISP.SYRIN SQ SCH (09:18)
[2018-12-18] MEDS: Z GUARD REMEDY PASTE 57 GM TUBE TOP SCH ×2 (09:19→21:50)
[2018-12-18] MEDS: HYDROGEN PEROXIDE 3% 118 ML BOTTLE TP SCH ×2 (09:19→21:50)
[2018-12-18 13:46] VITALS: BP 123/75
--- NOTE | 2018-12-18 16:33 | NUR ---
LESIA met with patient's Lisa today. Lisa informed LESIA that she met with patient's neurologist Dr. Martinez a couple of days ago, and spoke extensively with him regarding patient's condition and prognosis. LESIA asked Lisa if she still wanted to speak with patient's tire mold tester Dr. Galvan, but Lisa stated that her meeting with Dr. Martinez was sufficient. Lisa then informed this SW that although she had previously stated that all medical information should only be discussed with herself and her 2 daughters Asya and Gordy, that now she was fine with the hospital staff discussing medical information with patient's 2 sister's Michelle and Tiff. LESIA clarified Lisa's statement by asking Lisa that she was ok with hospital staff answer questions/discussing patient's medical condition with her, her 2 daughters (named above), and patient's 2 sisters Tiff and Michelle, and Lisa stated "yes". Lisa stated that she was going to call Michelle now and let her know that she informed LESIA of this, and SW agreed. LESIA notified transmitter engineer in charge Mario and also wrote this information on patient's facesheet in his chart. Addendum: 12/18/18 at 1647 by GEOFFREY GRAF Primary medical decision maker will continue to be patient's Lisa, followed by patient's daughters Asya and Gordy.
[2018-12-18 17:13] VITALS: BP 119/79
--- NOTE | 2018-12-18 20:10 | NUR ---
Pt received on continuous mechanical ventilation via trach, in semi fried's, obtunded, and unable to communicate. Pt is on [place] HT-50 vent with ordered settings of A/C-16, VT-550, PEEP+5, 2LPM Bleed-in oxygen. Tolerating vent settings well. SpO2-99%. Sxn'd & lavaged as needed. Suctioned small amts of thick yellowish secretions. Khushboo 8 DFEN trach is patent and secured. Minimal occluding volume technique used to assess cuff inflation. HME changed. PPE used. No signs or symptoms of respiratory distress noted. Ventilator alarm parameters checked, on and audible. Bag/valve/mask and back up trach at bedside. Vent plugged into red emergency outlet. Will continue to monitor.
[2018-12-18 20:13] VITALS: BP 142/75
[2018-12-19] MEDS: ESOMEPRAZOLE MAGNESIUM 20 MG GT SCH (05:31)
[2018-12-19] MEDS: METOCLOPRAMIDE HCL 10 MG/10 ML UDC GT SCH ×3 (05:31→21:38)
--- NOTE | 2018-12-19 06:58 | NUR ---
Shift End report: Vs stable. No significant event reported all night. All needs attended and met. Tolerated vent setting as ordered. Continue care as planned.
[2018-12-19 08:10] VITALS: BP 150/73
--- NOTE | 2018-12-19 09:07 | NUR ---
Resident endorsed on [place] HT-50 ventilator with prescribed settings of AC 16, Vt 550, peep +5, 2LPMO2 bleed in. No signs of respiratory distressed noted at this time. He is trached with a Shiley 8 DFEN: secure and patent at midline. TANNER ROTARY DRUM CONTINUOUS PROCESS used for cuff assessment/inflation. Suctioned small to moderate amounts of thick pale yellow secretions. No complications noted. Ambubag and spare trach at bedside. Will continue to monitor throughout shift. Addendum: 12/19/18 at 1146 by ROJAS BERNSTEIN RT Amended: Links added.
[2018-12-19] MEDS: LEVETIRACETAM 500 MG/5 ML LIQUID UDC GT SCH ×2 (09:58→21:36)
[2018-12-19] MEDS: POLYVINYL ALCOHOL OPHT DROPS 15 ML BOTTLE EACHEYE SCH ×2 (09:58→21:35)
[2018-12-19] MEDS: ENOXAPARIN SODIUM 40 MG/0.4 ML DISP.SYRIN SQ SCH (09:58)
[2018-12-19] MEDS: ATENOLOL 25 MG TABLET GT SCH (09:59)
[2018-12-19] MEDS: HYDROGEN PEROXIDE 3% 118 ML BOTTLE TP SCH ×2 (09:59→21:36)
[2018-12-19] MEDS: LISINOPRIL 20 MG TABLET GT SCH (09:59)
[2018-12-19] MEDS: Z GUARD REMEDY PASTE 57 GM TUBE TOP SCH ×2 (09:59→21:36)
[2018-12-19] MEDS: OSMOLITE 1.2 CAL 1,000 ML LIQUID GT PRN (10:07)
[2018-12-19 13:00] VITALS: BP 147/55
[2018-12-19 17:30] VITALS: BP 146/64
[2018-12-19 20:01] VITALS: BP 122/63
[2018-12-20 01:30] VITALS: BP 138/69
[2018-12-20 05:13] VITALS: BP 132/71
[2018-12-20] MEDS: ESOMEPRAZOLE MAGNESIUM 20 MG GT SCH (05:45)
[2018-12-20] MEDS: METOCLOPRAMIDE HCL 10 MG/10 ML UDC GT SCH ×3 (05:46→22:05)
[2018-12-20 08:10] VITALS: BP 127/79
[2018-12-20] MEDS: POLYVINYL ALCOHOL OPHT DROPS 15 ML BOTTLE EACHEYE SCH ×2 (08:29→20:39)
[2018-12-20] MEDS: LEVETIRACETAM 500 MG/5 ML LIQUID UDC GT SCH ×2 (08:29→20:39)
[2018-12-20] MEDS: LISINOPRIL 20 MG TABLET GT SCH (08:30)
[2018-12-20] MEDS: ATENOLOL 25 MG TABLET GT SCH (08:30)
[2018-12-20] MEDS: ENOXAPARIN SODIUM 40 MG/0.4 ML DISP.SYRIN SQ SCH (08:32)
[2018-12-20] MEDS: Z GUARD REMEDY PASTE 57 GM TUBE TOP SCH ×2 (08:32→20:39)
[2018-12-20] MEDS: HYDROGEN PEROXIDE 3% 118 ML BOTTLE TP SCH ×2 (08:32→20:39)
[2018-12-20] MEDS: OSMOLITE 1.2 CAL 1,000 ML LIQUID GT PRN (08:33)
[2018-12-20 13:31] VITALS: BP 132/56
[2018-12-20 17:30] VITALS: BP 132/63
--- NOTE | 2018-12-20 20:22 | NUR ---
Received pt awake, on HT-50 vent with the following settings of AC-16, Vt-550, PEEP+5, FIO2-2LPM bleed-in, trached with Shiley#8 DFEN trach, which is in the place and secure properly. No s/s of respiratory distress noted. Airway care done, pt responded to physical stimuli. Resus. bag and back up trach at bedside. Vent and alarms checked and reset.
[2018-12-20 21:28] VITALS: BP 126/76
[2018-12-21] MEDS: OSMOLITE 1.2 CAL 1,000 ML LIQUID GT PRN (01:54)
[2018-12-21] MEDS: ESOMEPRAZOLE MAGNESIUM 20 MG GT SCH (05:07)
[2018-12-21] MEDS: METOCLOPRAMIDE HCL 10 MG/10 ML UDC GT SCH ×3 (05:08→21:42)
[2018-12-21 08:00] VITALS: BP 145/77
[2018-12-21] MEDS: POLYVINYL ALCOHOL OPHT DROPS 15 ML BOTTLE EACHEYE SCH ×2 (08:53→21:42)
[2018-12-21] MEDS: LEVETIRACETAM 500 MG/5 ML LIQUID UDC GT SCH ×2 (08:53→21:42)
[2018-12-21] MEDS: Z GUARD REMEDY PASTE 57 GM TUBE TOP SCH ×2 (08:54→21:42)
[2018-12-21] MEDS: HYDROGEN PEROXIDE 3% 118 ML BOTTLE TP SCH ×2 (08:54→21:42)
[2018-12-21] MEDS: ATENOLOL 25 MG TABLET GT SCH (08:54)
[2018-12-21] MEDS: ENOXAPARIN SODIUM 40 MG/0.4 ML DISP.SYRIN SQ SCH (08:54)
[2018-12-21] MEDS: LISINOPRIL 20 MG TABLET GT SCH (08:54)
--- NOTE | 2018-12-21 16:05 | NUR ---
3:15pm: LESIA received a phone call from patient's Lisa [phone], and she was requesting to have patient transferred to a subacute facility closer to her home. Patient's lives in [place], and she is requesting to transfer patient to [address] [address], . Lisa stated that her contact lens molder at [facility] was Candi [phone]. LESIA explained to Lisa that she would discuss her request with patient's primary physician Dr. Martinez/Dr. Galvan and subacute director Norman Aguila, and would then contact [facility] to discuss patient's level of care needs. Lisa expressed agreement. LESIA spoke with Dr. Martinez, who expressed being fine with transferring the patient. LESIA spoke with subacute director Norman who was in agreement with the plan, as long as patient was stable for transfer. LESIA called [facility]i at [phone], who stated that their facility just opened a subacute unit and provide care to patients who have trachs and ventilators, however they are not set up to provide care for dialysis patients. LESIA stated that patient is not a dialysis patient. Candi asked LESIA to fax over patient's face sheet, list of medications, and medical records for them to review. LESIA faxed records to [phone]. Dr. Muro's PA Krystyna Almanza also informed of above.
--- NOTE | 2018-12-21 16:28 | NUR ---
Per patient's Lisa's request to have patient transferred to a subacute facility closer to her home, LESIA faxed patient's records and face sheet to Candi, admission's coordinator at [facility] (tel # [phone]; fax # [phone]). This particular facility is being requested by patient's Lisa. LESIA will wait to hear from Candi regarding whether patient will be eligible for their facility.
--- NOTE | 2018-12-21 16:43 | NUR ---
Discharge planning per family request order given by Dr. Martinez.
[2018-12-21 20:18] VITALS: BP 136/74
[2018-12-22] MEDS: ESOMEPRAZOLE MAGNESIUM 20 MG GT SCH (05:09)
[2018-12-22] MEDS: METOCLOPRAMIDE HCL 10 MG/10 ML UDC GT SCH ×3 (05:09→22:53)
[2018-12-22 08:00] VITALS: BP 142/76
[2018-12-22] MEDS: POLYVINYL ALCOHOL OPHT DROPS 15 ML BOTTLE EACHEYE SCH ×2 (09:11→20:31)
[2018-12-22] MEDS: LEVETIRACETAM 500 MG/5 ML LIQUID UDC GT SCH ×2 (09:11→20:31)
[2018-12-22] MEDS: LISINOPRIL 20 MG TABLET GT SCH (09:12)
[2018-12-22] MEDS: HYDROGEN PEROXIDE 3% 118 ML BOTTLE TP SCH ×2 (09:12→20:32)
[2018-12-22] MEDS: ATENOLOL 25 MG TABLET GT SCH (09:12)
[2018-12-22] MEDS: Z GUARD REMEDY PASTE 57 GM TUBE TOP SCH ×2 (09:12→20:32)
[2018-12-22] MEDS: ENOXAPARIN SODIUM 40 MG/0.4 ML DISP.SYRIN SQ SCH (09:14)
--- NOTE | 2018-12-22 12:14 | NUR ---
LESIA received a voicemail from Candi, admitting coordinate at [facility], . The voicemail message was left for this SW at 11:45am. LESIA called Candi back at 12:08pm, but was told that she had already left for the day. LESIA then spoke with Mckenna, another operations manager/coordinator, who stated that she had the patient's referral packet, but was going to have their RT review it, and check patient's insurance eligibility and then call this SW back in order to let her know if they would be able to accept the patient. LESIA expressed understanding. LESIA will wait to hear from Mckenna. LESIA called patient's Lisa [phone] and left her a voicemail message providing her with the above information as an update on where things stand with her request to transfer patient to [facility]. LESIA stated in her voicemail message that as soon as this LESIA has additional information that LESIA will call Lisa again with additional updates.
[2018-12-22 13:15] VITALS: BP 128/79
--- NOTE | 2018-12-22 16:46 | NUR ---
1:00pm: Edgard Montes from [facility] arrived at the hospital to discuss patient's transfer request. Edgard met with this SW and with Subacute Director Norman Aguila. Edgard stated that they would be reviewing his records which SW had faxed over yesterday, and let LESIA and Subacute Director know the outcome of their review. 3:30pm: LESIA called [employer] [phone] and spoke with Kerri in the transportation department to inquire about patient's transportation benefits for a lateral transfer. Kerri stated that [employer] would cover the transport, however patient's record did not currently show transportation benefits. Kerri suggested for patient/patient's claims service representative to call [employer] member services at [phone] and inquire about adding transportation benefits to patient's case. LESIA stated that she would relay this information to patient's . LESIA then called patient's Lisa [phone] and left her a voicemail asking her to call this LESIA back in order to discuss all above with her and to ask her to follow-up with [employer] for patient's transportation benefits. LESIA will follow-up with Lisa if LESIA does not receive a call back from Lisa. Subacute Director Norman Aguila informed of above.
[2018-12-22 17:10] VITALS: BP 141/72
--- NOTE | 2018-12-22 20:24 | NUR ---
Received pt on HT-50 vent with the following settings of AC-16, Vt-550, PEEP+5, FIO2-2LPM bleed-in, trached with Shiley#8 DFEN trach, which is in the place and secure properly. No distress noted. Airway care done, pt responded to physical stimuli. Resus. bag and back up trach at bedside. Vent and alarms checked and reset.
[2018-12-22 20:28] VITALS: BP 134/80
[2018-12-22] MEDS: OSMOLITE 1.2 CAL 1,000 ML LIQUID GT PRN (23:14)
[2018-12-23] MEDS: ESOMEPRAZOLE MAGNESIUM 20 MG GT SCH (05:24)
[2018-12-23] MEDS: METOCLOPRAMIDE HCL 10 MG/10 ML UDC GT SCH ×3 (05:24→22:07)
[2018-12-23 08:00] VITALS: BP 145/61
[2018-12-23] MEDS: LISINOPRIL 20 MG TABLET GT SCH (09:50)
[2018-12-23] MEDS: POLYVINYL ALCOHOL OPHT DROPS 15 ML BOTTLE EACHEYE SCH ×2 (09:50→21:00)
[2018-12-23] MEDS: LEVETIRACETAM 500 MG/5 ML LIQUID UDC GT SCH ×2 (09:50→21:00)
[2018-12-23] MEDS: Z GUARD REMEDY PASTE 57 GM TUBE TOP SCH ×2 (09:51→21:00)
[2018-12-23] MEDS: HYDROGEN PEROXIDE 3% 118 ML BOTTLE TP SCH ×2 (09:51→21:00)
[2018-12-23] MEDS: ATENOLOL 25 MG TABLET GT SCH (09:51)
[2018-12-23] MEDS: ENOXAPARIN SODIUM 40 MG/0.4 ML DISP.SYRIN SQ SCH (09:52)
--- NOTE | 2018-12-23 13:35 | NUR ---
LESIA returned patient's Lisa's voicemail message [phone]. LESIA provided Lisa with an update on the discharge planning, and informed her that SW spoke with [employer] yesterday and was told that patient does not have transportation coverage at this time. Per [employer] instructions (see previous SS note), LESIA asked Lisa to call their member services department at [phone] and ask them to activate patient's transportation benefits. Lisa stated that she would call them, and then let LESIA know the outcome of her conversation with [employer]. LESIA agreed.
--- NOTE | 2018-12-23 16:31 | NUR ---
Lisa called this SW back and informed her that she called [facility] [employer] member services [phone], and she was told that the hospital would need to call in order to arrange transportation services. LESIA explained to Lisa that the reason she had called was to clarify patient's transportation benefits, because according to the SW's conversation with [employer] yesterday, SW was told that patient did not have transportation benefits. SW stated that she will try calling [employer] again to clarify the information. LESIA called [employer] member services [phone] and spoke with Micky, who stated that patient's benefits did not include transportation benefits, and that the family would need to contact the eligibility department at [phone] to discuss patient's benefits. LESIA called the [employer] eligibility department and spoke with Savannah who stated that patient was not covered by [employer] any longer, and his medi-elvin benefits were [employer]. LESIA thanked Savannah. LESIA then spoke with Lashay in admitting x [phone] who verified patient's [employer] eligibility for 12/2018 and stated that patient's [employer] is [employer]. LESIA called [employer] x [phone] and spoke with Kerri to discuss ambulance transportation coverage, and Kerri stated that [employer] does not cover ambulance transport for a lateral transfer of patient from subacute to another subacute facility. SW to speak with patient's Lisa regarding above.
--- NOTE | 2018-12-23 16:38 | NUR ---
LESIA called patient's Lisa [phone] to provide her with an update on patient's transportation benefits, as written in previous SS note. Lisa was unavailable, and LESIA left her a voicemail asking her to call this SW back.
--- NOTE | 2018-12-23 16:40 | NUR ---
LESIA received a phone call from Candi at [facility] [phone]. Candi informed SW that they are able to accept the patient at their facility. LESIA informed Candi that this SW and patient's Lisa were trying to figure out transportation coverage for the patient, and that LESIA would call Candi back as soon as this was figured out. Candi agreed. LESIA informed Subacute Director Norman Aguila about patient being accepted at [facility] and the transportation coverage that LESIA was trying to figure out with patient's . SW waiting to hear back from patient's in order to discuss transportation.
[2018-12-23 20:00] VITALS: BP 133/61
[2018-12-24 01:00] VITALS: BP 144/78
[2018-12-24 04:00] VITALS: BP 137/56
[2018-12-24] MEDS: METOCLOPRAMIDE HCL 10 MG/10 ML UDC GT SCH ×3 (05:11→22:26)
[2018-12-24] MEDS: ESOMEPRAZOLE MAGNESIUM 20 MG GT SCH (05:12)
[2018-12-24 08:00] VITALS: BP 120/68
[2018-12-24] MEDS: POLYVINYL ALCOHOL OPHT DROPS 15 ML BOTTLE EACHEYE SCH ×2 (09:52→20:31)
[2018-12-24] MEDS: LEVETIRACETAM 500 MG/5 ML LIQUID UDC GT SCH ×2 (09:54→20:32)
[2018-12-24] MEDS: LISINOPRIL 20 MG TABLET GT SCH (09:55)
[2018-12-24] MEDS: ATENOLOL 25 MG TABLET GT SCH (09:57)
[2018-12-24] MEDS: Z GUARD REMEDY PASTE 57 GM TUBE TOP SCH ×2 (09:58→20:32)
[2018-12-24] MEDS: HYDROGEN PEROXIDE 3% 118 ML BOTTLE TP SCH ×2 (09:58→20:32)
[2018-12-24] MEDS: ENOXAPARIN SODIUM 40 MG/0.4 ML DISP.SYRIN SQ SCH (09:58)
[2018-12-24] MEDS: OSMOLITE 1.2 CAL 1,000 ML LIQUID GT PRN (10:41)
--- NOTE | 2018-12-24 16:16 | NUR ---
LESIA called patient's Lisa [phone] and discussed transportation coverage for the patient. LESIA informed Lisa that patient's Medi-elvin has changed from [employer]el[employer] to straight Medi-elvin, and therefore straight Medi-elvin would not cover the ambulance transportation cost for the patient. Lisa stated that she would not be able to pay for the ambulance, and that she would be calling [facility] to see if she can get the patient's Medi-elvin back into the [employer] plan. LESIA agreed, and asked Lisa to let LSEIA know the outcome of her conversation with [facility]. Lisa expressed agreement.
--- NOTE | 2018-12-24 19:55 | NUR ---
PT REMAIN ON CONTINUOUS VENT AC 16 VT 550 PEEP 5 FIO2 2LPM BLEED IN. SUCTION PRN. TRACH IN PLACED AND SECURED WITH TRACH TIE. BACK UP TRACH AND AMBU BAG AT BEDSIDE. VENT CHECKED, ALARMS WORKING WELL AND AUDIBLE. NO SIGNS OF RESPIRATORY DISTRESS NOTED AT THIS TIME. WILL CONTINUE TO MONITOR.
[2018-12-25 01:00] VITALS: BP 105/62
[2018-12-25] MEDS: OSMOLITE 1.2 CAL 1,000 ML LIQUID GT PRN ×2 (01:00→22:01)
[2018-12-25 04:00] VITALS: BP 150/77
[2018-12-25 05:03] VITALS: BP 142/74
[2018-12-25] MEDS: ESOMEPRAZOLE MAGNESIUM 20 MG GT SCH (06:10)
[2018-12-25] MEDS: METOCLOPRAMIDE HCL 10 MG/10 ML UDC GT SCH ×3 (06:10→21:26)
[2018-12-25 08:17] VITALS: BP 136/79
[2018-12-25] MEDS: ENOXAPARIN SODIUM 40 MG/0.4 ML DISP.SYRIN SQ SCH (08:27)
[2018-12-25] MEDS: POLYVINYL ALCOHOL OPHT DROPS 15 ML BOTTLE EACHEYE SCH ×2 (08:48→21:26)
[2018-12-25] MEDS: LEVETIRACETAM 500 MG/5 ML LIQUID UDC GT SCH ×2 (08:50→21:26)
[2018-12-25] MEDS: LISINOPRIL 20 MG TABLET GT SCH (08:50)
[2018-12-25] MEDS: ATENOLOL 25 MG TABLET GT SCH (08:50)
[2018-12-25] MEDS: HYDROGEN PEROXIDE 3% 118 ML BOTTLE TP SCH ×2 (08:51→21:26)
[2018-12-25] MEDS: Z GUARD REMEDY PASTE 57 GM TUBE TOP SCH ×2 (08:51→21:26)
[2018-12-25 12:44] VITALS: BP 122/76
--- NOTE | 2018-12-25 15:14 | NUR ---
LESIA called patient's Lisa [phone] in response to a voicemail message Lisa had left this SW earlier today. Lisa informed this SW that she had spoken to [facility], who had informed her that although patient had been switched over to [facility], that on January 01 they will temporarily switch him back to [facility] so that the transportation request can be put in by the hospital. Lisa stated that she would call them on January 01 and get the phone # for the transportation requests, after which she will provide this information to this SW. SW agreed. LESIA then called Candi at [facility] [phone] and informed her of above. Candi expressed understanding and stated that although she is unable to hold a bed for the patient, that she is hoping that a bed will still be available in early January. SW to follow-up with Candi after January 01 when transportation services are clarified. LESIA also informed Lisa about Candi's response regarding the availability of beds, and suggested to her to keep in contact with Candi. Lisa expressed understanding.
--- NOTE | 2018-12-25 16:31 | NUR ---
LESIA received a call back from Candi [phone] at the [facility]. Candi informed this SW that they have an ambulance company that they work with ([employer]) and that this ambulance company was willing to transport the patient, at no cost to the patient. Candi stated that they had instructed [facility] to bill [facility] if there was any transportation costs after billing patient's insurance. LESIA stated that she would talk to the patient's Lisa and Subacute Director Norman Aguila about above, and let Candi know what Lisa stated. LESIA spoke with Lisa [phone] and discussed above information with her. Lisa expressed agreement and gratitude. LESIA informed Lisa that the next step would be to talk to patient's primary physician Dr. Martinez/Dr. Peterson in order to obtain necessary orders prior to transfer. Lisa agreed. LESIA informed Norman about above, and he was in agreement. LESIA then called Candi back and informed her that patient's was in agreement with [facility] making the transportation arrangements. LESIA clarified with Candi that an RT would need to accompany patient during the transfer, and Candi stated that the ambulance company would be able to provide an RT. LESIA stated that the next step would be for the charge nurse to contact patient's primary physician in order to discuss transfer and obtain all necessary orders. Candi agreed and requested copies of most recent physician's progress notes and most recent list of medications. LESIA met with supercharger mechanic Norma and informed her of above. Alyson to contact patient's primary physician Dr. Martinez/Dr. Peterson in order to coordinate all necessary orders before transfer.
[2018-12-25 17:06] VITALS: BP 131/82
--- NOTE | 2018-12-25 17:18 | NUR ---
RESIDENT IS STABLE WITH O2 SATURATION OF99% ON SETTINGS OF AC 16 VT 550 FIO2 30% AND PEEP 5. VENTILATOR IS WORKING WELL WITH ALL ALARMS ACTIVE. SUCTIONED FOR SMALL AMOUNT OF THICK PALE YELLOW SECRETIONS. CHANGED HUMIDIFIER FILTER.
[2018-12-26] VITALS (7 sets, daily range): BP systolic 119–139; BP diastolic 59–75
[2018-12-26] MEDS: ESOMEPRAZOLE MAGNESIUM 20 MG GT SCH (05:41)
[2018-12-26] MEDS: METOCLOPRAMIDE HCL 10 MG/10 ML UDC GT SCH ×3 (05:41→22:15)
--- NOTE | 2018-12-26 08:10 | NUR ---
Pt received on continuous mechanical ventilation via trach, in semi fried's, obtunded, and unable to communicate. Pt is on [place] HT-50 vent with ordered settings of A/C-16, VT-550, PEEP+5, 2LPM Bleed-in oxygen. Tolerating vent settings well. SpO2-98%. Sxn'd & lavaged as needed. Suctioned small amts of thick pale yellow secretions. [place] 8 DFEN trach is patent and secured. Minimal occluding volume technique used to assess cuff inflation. HME changed. PPE used. No signs or symptoms of respiratory distress noted. Ventilator alarm parameters checked, on and audible. Bag/valve/mask and back up trach at bedside. Vent plugged into red emergency outlet. Will continue to monitor.
[2018-12-26] MEDS: POLYVINYL ALCOHOL OPHT DROPS 15 ML BOTTLE EACHEYE SCH ×2 (08:33→20:29)
[2018-12-26] MEDS: ENOXAPARIN SODIUM 40 MG/0.4 ML DISP.SYRIN SQ SCH (08:34)
[2018-12-26] MEDS: HYDROGEN PEROXIDE 3% 118 ML BOTTLE TP SCH ×2 (08:35→20:29)
[2018-12-26] MEDS: Z GUARD REMEDY PASTE 57 GM TUBE TOP SCH ×2 (08:35→20:29)
[2018-12-26] MEDS: ATENOLOL 25 MG TABLET GT SCH (09:00)
[2018-12-26] MEDS: LEVETIRACETAM 500 MG/5 ML LIQUID UDC GT SCH ×2 (09:06→20:29)
[2018-12-26] MEDS: LISINOPRIL 20 MG TABLET GT SCH (09:07)
[2018-12-26] MEDS: LORAZEPAM 2 MG PO PRN (10:11)
[2018-12-26] MEDS ORDERED: LORAZEPAM 2 MG GT ONE (10:30)
--- NOTE | 2018-12-26 11:04 | NUR ---
SEEN AND EXAMINED BY DR. ACOSTA(NEUROLOGIST) AND WITH NEWORDERS CARRIED OUT.
[2018-12-26] MEDS: OSMOLITE 1.2 CAL 1,000 ML LIQUID GT PRN (11:30)
[2018-12-27 01:00] VITALS: BP 129/87
[2018-12-27] MEDS: ESOMEPRAZOLE MAGNESIUM 20 MG GT SCH (06:04)
[2018-12-27] MEDS: METOCLOPRAMIDE HCL 10 MG/10 ML UDC GT SCH ×3 (06:04→22:25)
--- NOTE | 2018-12-27 06:18 | NUR ---
Patient slept well most of the night, no signs of any distress, afebrile 97.2 temperature. no seizure episodes noted, kept clean and comfortable.
[2018-12-27] MEDS: OSMOLITE 1.2 CAL 1,000 ML LIQUID GT PRN (06:45)
[2018-12-27 08:00] VITALS: BP 131/66
[2018-12-27] MEDS: ATENOLOL 25 MG TABLET GT SCH (09:00)
[2018-12-27 09:17] VITALS: BP 131/66
[2018-12-27] MEDS: POLYVINYL ALCOHOL OPHT DROPS 15 ML BOTTLE EACHEYE SCH ×2 (09:18→20:32)
[2018-12-27] MEDS: LEVETIRACETAM 500 MG/5 ML LIQUID UDC GT SCH ×2 (09:19→20:32)
[2018-12-27] MEDS: LISINOPRIL 20 MG TABLET GT SCH (09:20)
[2018-12-27] MEDS: Z GUARD REMEDY PASTE 57 GM TUBE TOP SCH ×2 (09:21→20:32)
[2018-12-27] MEDS: ENOXAPARIN SODIUM 40 MG/0.4 ML DISP.SYRIN SQ SCH (09:21)
[2018-12-27] MEDS: HYDROGEN PEROXIDE 3% 118 ML BOTTLE TP SCH ×2 (09:21→20:32)
--- NOTE | 2018-12-27 12:53 | NUR ---
SEEN BY ELÍAS PITTMAN.
[2018-12-27 17:37] VITALS: BP 122/72
[2018-12-27 20:12] VITALS: BP 145/61
--- NOTE | 2018-12-27 20:42 | NUR ---
Received pt on HT-50 vent with the following settings of AC-16, Vt-550, PEEP+5, FIO2-2LPM bleed-in, trached with Shiley#8 DFEN trach, which is in the place and secure properly. No respiratory distress noted. Airway care done, pt responded to physical stimuli. HME changed. Resus. bag and back up trach at bedside. Vent and alarms checked and reset.
[2018-12-28 01:50] VITALS: BP 131/61
[2018-12-28 05:12] VITALS: BP 126/59
[2018-12-28] MEDS: ESOMEPRAZOLE MAGNESIUM 20 MG GT SCH (05:49)
[2018-12-28] MEDS: METOCLOPRAMIDE HCL 10 MG/10 ML UDC GT SCH ×3 (05:49→22:21)
[2018-12-28 07:35] LABS: HEMATOCRIT 26.6 % (36.7-47.1); HEMOGLOBIN 8.9 g/dL (12.5-16.3); MEAN CORPUSCULAR HEMOGLOBIN 28.9 uug (23.8-33.4); MEAN CORPUSCULAR HGB CONC 33 g/dL (32.5-36.3); PLATELET COUNT (AUTO) 260 K/uL (152-348); RED BLOOD CELL COUNT(AUTO) 3.06 MIL/uL (4.06-5.63); WHITE BLOOD COUNT (AUTO) 5.3 K/uL (3.6-10.2)
[2018-12-28 07:45] LABS: CREATININE 0.9 mg/dL (0.6-1.3); MAGNESIUM 2.1 mg/dL (1.8-2.4); PHOSPHOROUS 3.9 mg/dL (2.5-4.9); POTASSIUM 3.6 mmol/L (3.5-5.1)
--- NOTE | 2018-12-28 08:10 | NUR ---
Pt received on continuous mechanical ventilation via trach, in semi fried's, obtunded, and unable to communicate. Pt is on [place] HT-50 vent with ordered settings of A/C-16, VT-550, PEEP+5, 2LPM Bleed-in oxygen. Tolerating vent settings well. SpO2-98%. Sxn'd & lavaged as needed. Suctioned small amts of thick white/yellow secretions. [place] 8 DFEN trach is patent and secured. Minimal occluding volume technique used to assess cuff inflation. HME changed. PPE used. No signs or symptoms of respiratory distress noted. Ventilator alarm parameters checked, on and audible. Bag/valve/mask and back up trach at bedside. Vent plugged into red emergency outlet. Will continue to monitor.
[2018-12-28 08:14] LABS: EOSINOPHILS % (MANUAL) 2 % (0-8); LYMPHOCYTES % (MANUAL) 39 % (20-40); MONOCYTES % (MANUAL) 10 % (2-10); NEUTROPHILS % (MANUAL) 49 % (42-75)
[2018-12-28] MEDS: ATENOLOL 25 MG TABLET GT SCH (09:00)
[2018-12-28] MEDS: POLYVINYL ALCOHOL OPHT DROPS 15 ML BOTTLE EACHEYE SCH ×2 (09:03→20:21)
[2018-12-28] MEDS: LEVETIRACETAM 500 MG/5 ML LIQUID UDC GT SCH ×2 (09:04→20:21)
[2018-12-28] MEDS: LISINOPRIL 20 MG TABLET GT SCH (09:04)
[2018-12-28] MEDS: HYDROGEN PEROXIDE 3% 118 ML BOTTLE TP SCH ×2 (09:05→20:22)
[2018-12-28] MEDS: Z GUARD REMEDY PASTE 57 GM TUBE TOP SCH ×2 (09:05→20:21)
[2018-12-28] MEDS: ENOXAPARIN SODIUM 40 MG/0.4 ML DISP.SYRIN SQ SCH (09:05)
[2018-12-28 09:08] LABS: BILIRUBIN,DIRECT 0.1 mg/dL (0.0-0.2); BILIRUBIN,TOTAL 0.2 mg/dL (0.2-1.0); TOTAL PROTEIN, SERUM 7.4 g/dL (6.4-8.2)
[2018-12-28 09:20] VITALS: BP 154/80
--- NOTE | 2018-12-28 11:31 | NUR ---
Per Candi's request from [facility], LESIA faxed the patient's most recent progress notes dated 12/21--12/25, along with patient's current medications, to Candi at [phone] (tel # [phone]).
--- NOTE | 2018-12-28 12:02 | NUR ---
LESIA received discharge orders from Dr. Galvan to discharge patient to [facility] ([address] [place] [address]). LESIA called the care center to talk to Candi, but was told that Candi was not in today. LESIA then spoke with another admissions coordinate, Leo, and informed her that patient was ready to be transferred, and that Candi had stated that she would be arranging the transportation through [facility], at no cost to the patient or to [facility]. Kya stated that she would look into all this and get back to LESIA with updates on day/time of transfer. Kya also stated that Candi will be back to work tomorrow, and that LESIA could also follow-up with her tomorrow if Kya was unable to provide LESIA with information today. LESIA agreed.
[2018-12-28 13:42] VITALS: BP 128/71
[2018-12-28] MEDS: OSMOLITE 1.2 CAL 1,000 ML LIQUID GT PRN (14:14)
[2018-12-28 17:29] VITALS: BP 124/61
[2018-12-28 22:00] VITALS: BP 132/62
[2018-12-29] VITALS: BP 122/76
[2018-12-29] MEDS: ESOMEPRAZOLE MAGNESIUM 20 MG GT SCH (05:23)
[2018-12-29] MEDS: METOCLOPRAMIDE HCL 10 MG/10 ML UDC GT SCH ×2 (05:24→13:25)
[2018-12-29] MEDS: OSMOLITE 1.2 CAL 1,000 ML LIQUID GT PRN (05:25)
[2018-12-29 05:42] VITALS: BP 125/65
[2018-12-29 08:00] VITALS: BP 134/83
[2018-12-29] MEDS: POLYVINYL ALCOHOL OPHT DROPS 15 ML BOTTLE EACHEYE SCH (08:37)
[2018-12-29] MEDS: LEVETIRACETAM 500 MG/5 ML LIQUID UDC GT SCH (08:37)
[2018-12-29] MEDS: LISINOPRIL 20 MG TABLET GT SCH (08:37)
[2018-12-29 08:38] VITALS: BP 134/83
[2018-12-29] MEDS: ATENOLOL 25 MG TABLET GT SCH (08:38)
[2018-12-29] MEDS: HYDROGEN PEROXIDE 3% 118 ML BOTTLE TP SCH (08:39)
[2018-12-29] MEDS: ENOXAPARIN SODIUM 40 MG/0.4 ML DISP.SYRIN SQ SCH (08:39)
[2018-12-29] MEDS: Z GUARD REMEDY PASTE 57 GM TUBE TOP SCH (08:39)
--- NOTE | 2018-12-29 10:52 | NUR ---
10:00am: This morning, LESIA followed up with Candi at [facility] [phone]. Candi confirmed receipt of the fax that LESIA had sent yesterday (see SS notes). LESIA informed Candi that discharge orders to transfer patient are in place, and patient is ready to be transferred as soon as Candi could arrange transportation with [facility]. Candi stated she will call [facility] and get back to with transfer time for either today or tomorrow. LESIA then called patient's Lisa [phone] and informed her of above. Lisa expressed being in agreement with transferring patient either today or tomorrow. LESIA informed Lisa that LESIA would let her know as soon as LESIA hears from Candi.
--- NOTE | 2018-12-29 10:56 | NUR ---
10:30am: LESIA received a call back from Candi at [facility] [phone] who stated that she has made arrangements for [facility] ambulance to pick patient up this afternoon at 3pm. LESIA verified if an RT would be accompanying the patient in the ambulance, and Candi confirmed that [facility] will be providing an RT. Candi asked for LESIA to have the charge nurse call their nurse at around 2 or 2:30pm this afternoon to provide report, and stated that patient will be going to Room 313, bed 1. Candi asked for a copy of the patient's facesheet, and LESIA faxed it to Candi at [phone]. LESIA informed charge nurse Alyson about above, and Alyson will follow-up this afternoon. Subacute Director Norman Aguila informed of patient's transfer for this afternoon. LESIA also called patient's Lisa and informed her that arrangements have been made for patient to be transferred this afternoon, and Lisa expressed agreement and gratitude. Patient being transferred to: [facility] [id number] [place] [id number]
--- NOTE | 2018-12-29 15:00 | NUR ---
ORDER TO DISCHARGE PT. FROM DR. REED TO [facility] WAS CARRIED OUT.REPORT OF CONDITION AND MEDICAL TX WAS GIVEN TO Luis LE AND RESPIRATORY THERAPIST FREDY .MIX HOUSE TENDER JONG AND SUPERVISOR NUT PROCESSING WAS AWARE WELL NURSING DIRECTOR INTELLIGENCE ANALYSIS PROGRAMS.
--- NOTE | 2018-12-29 15:30 | NUR ---
PT. WAS DISCHARGED AT THIS TIME VIA [facility],SKIN INTACT,NO PRESSURE SORES ,STABLE V/S FOLLOW: 134/83,HR 65X',RR 16X',O2 SAT 100%,TEMP. 97.6 F.SKIN DRY AND WARM TO TOUCH ,RT. OLIT PRESENT,REPORT WAS GIVEN TO THE AMBULANCE CREW.PT'S ML WAS INFORMED AND IT WAS VERIFIED HER WISH FOR TRANSFER WITH HER BY PHONE WITNESSING MANGLE PRESS CATCHER JONG AND CHARGE NURSE MICHAELLE.
--- NOTE | 2018-12-29 15:30 | NUR ---
PICTURES TAKEN FROM BUTTOCKS SKIN,GT AND TRACH SITE.
== END 2018-12-29 15:30 | DRG 130 ==
LOC: SA
PROVIDERS: ADMIT Internal Medicine Pulmonary Disease; ATTEND Internal Medicine Nephrology
PROC: 5A1955Z Respiratory Ventilation, Greater than 96 Consecutive Hours (ICD-10-PCS; principal; 2018-11-03)
DX: J96.21 Acute and chronic respiratory failure with hypoxia (principal); G93.40 Encephalopathy, unspecified; E44.0 Moderate protein-calorie malnutrition; I66.09 Occlusion and stenosis of unspecified middle cerebral artery; R13.10 Dysphagia, unspecified; I69.359 Hemiplegia and hemiparesis following cerebral infarction affecting unspecified side; Z93.1 Gastrostomy status; E87.1 Hypo-osmolality and hyponatremia; Z99.11 Dependence on respirator [ventilator] status; Z93.0 Tracheostomy status; J96.22 Acute and chronic respiratory failure with hypercapnia; I69.318 Other symptoms and signs involving cognitive functions following cerebral infarction; I69.398 Other sequelae of cerebral infarction; I69.391 Dysphagia following cerebral infarction; I10 Essential (primary) hypertension; R40.2443 Other coma, without documented Glasgow coma scale score, or with partial score reported, at hospital admission; Z68.22 Body mass index [BMI] 22.0-22.9, adult; E78.5 Hyperlipidemia, unspecified; G40.909 Epilepsy, unspecified, not intractable, without status epilepticus; D64.9 Anemia, unspecified; R74.0 Nonspecific elevation of levels of transaminase and lactic acid dehydrogenase [LDH]; M24.50 Contracture, unspecified joint; Z22.39 Carrier of other specified bacterial diseases; R79.89 Other specified abnormal findings of blood chemistry; H10.9 Unspecified conjunctivitis; R68.0 Hypothermia, not associated with low environmental temperature; R40.2433 Glasgow coma scale score 3-8, at hospital admission
CPT/HCPCS: 36415; 71045; 83735; 84100; 84443; 85025; 87040; 87070; 87077; 87086; 94003; C1758; J1650; J8597; Q0162